=== PATIENT | male | born 1950 | race Caucasian/White ===

== ENCOUNTER 2016-07-22 07:08 | Inpatient (IN) | payer MEDICARE ==
--- NOTE | 2016-07-14 17:55 | HP ---
HISTORY AND PHYSICAL: DATE OF ADMISSION/SURGERY: 07/22/16 DATE OF OFFICE VISIT: 07/14/16 SURGEON: Madai Bearden MD (DICTATED BY SADIE MANRIQUE) PROCEDURE: Right total hip arthroplasty. CHIEF COMPLAINT: Right hip pain. HISTORY OF PRESENT ILLNESS: Mr. Guidry is a 65-year-old gentleman with complaints of right hip pain secondary to advanced osteoarthritis. He has failed conservative management and has elected to proceed with a right total hip arthroplasty. PAST MEDICAL HISTORY: 1. Hypertension. 2. Escobedo's esophagus. 3. BPH. 4. High cholesterol. 5. Depression. 6. GERD. 7. Sleep apnea. 8. Obesity. 9. Emphysema. PAST SURGICAL HISTORY: Hakan fundoplication, hernia repair, deviated septum surgery. CURRENT MEDICATIONS: 1. Zaroxolyn 2.5 mg. 2. Symbicort 80/12.5 mcg/ACT 2 puffs twice daily. 3. Ventolin HFA. 4. Furosemide 40 mg. 5. Metoprolol 50 mg once a day. 6. Proscar 5 mg once a day. 7. Lorazepam 1 mg twice daily. 8. Morphine sulfate 30 mg every 8 hours. 9. Tamsulosin 0.4 mg twice q.h.s. 10. Aspirin 81 mg daily. 11. Sumatriptan 100 mg once a day as needed. ALLERGIES: OXYCODONE which causes a rash. FAMILY HISTORY: Diabetes, congestive heart failure. SOCIAL HISTORY: He is a 65-year-old gentleman. He lives with his . He continues to smoke, he says, occasionally. He denies use of drugs. He uses occasional alcohol as well. REVIEW OF SYSTEMS: A complete 14-point review of systems was reviewed with the patient and was all negative or noncontributory. PHYSICAL EXAMINATION GENERAL: He is a 65-year-old obese male in no acute distress. VITAL SIGNS: He stand 5 feet 8 inches tall, weighs 270 pounds. His blood pressure is 145/82, his heart rate is 80. HEENT: Normocephalic, atraumatic. NECK: Supple. No palpable lymph nodes. Trachea is midline. CARDIO: Regular rate and rhythm. PULMONARY: The lungs are clear to auscultation bilaterally. ABDOMEN: Soft, nontender, and nondistended. NEUROLOGIC: He is alert and oriented x3. Cranial nerves II through XII are intact. MUSCULOSKELETAL: Right lower extremity the skin is intact. There are no open wounds or abrasions. He has limited range of motion with internal and external rotation of his right hip. He walks with antalgic-type gait, favoring his right leg. His lower extremity muscle group strengths are intact at 5/5. He has 2+ dorsalis pedis pulses and intact sensation. ASSESSMENT AND PLAN: Mr. Guidry is a 65-year-old gentleman with complaints of right hip pain secondary to advanced osteoarthritis. He has failed conservative management and has elected to proceed with a right total hip arthroplasty. The surgery is scheduled for 07/22/[address] Bearden. Coumadin was sent to his pharmacy for postoperative DVT prophylaxis. He will follow with Dr. Bearden 2 weeks after the surgery. SADIE MANRIQUE [id number]/[facility] #: [id number] JAYCE
[~2016-07-22 07:08] MED LIST: Famotidine IV* 10 MG/ML 2 ML (20 mg) IV ONE; Levalbuterol 0.63MG/3ML NEB INH ONE; Metoclopramide TAB* 10 MG PO ONE
[2016-07-22] MEDS ORDERED: Famotidine IV* 10 MG/ML 2 ML (20 mg) ONE (07:21)
[2016-07-22] MEDS ORDERED: ceFAZolin 2 GM PREMIX(*) 2 GM/50 ML BAG IVPB ONE (07:22)
[2016-07-22] MEDS ORDERED: Metoclopramide TAB* 10 MG ONE (07:22)
[2016-07-22] MEDS ORDERED: Levalbuterol 1.25MG/0.5ML NEB ONE ×3 (07:22→12:47)
[2016-07-22] MEDS ORDERED: Phenylephrine INJ* 10 MG/ML 1 ML VIAL (10 MG) ONE (07:59)
[2016-07-22] MEDS ORDERED: EPHEDrine (Pressors)* 50 MG/ML VIAL ONE (07:59)
[2016-07-22] MEDS ORDERED: Lidocaine 2% PF * 5 ML VIAL ONE (07:59)
[2016-07-22] MEDS ORDERED: Dexamethasone IV* 4 MG/ML 1 ML (4 MG) ONE (07:59)
[2016-07-22] MEDS ORDERED: Ketorolac INJ* 30 MG/ML 1 ML VIAL ONE (07:59)
[2016-07-22] MEDS ORDERED: fentaNYL* 50 MCG/ML 5 ML VIAL (250 MCG VIAL) ONE ×2 (07:59→10:57)
[2016-07-22] MEDS ORDERED: Ondansetron INJ* 2 MG/ML VIAL ONE (07:59)
[2016-07-22] MEDS ORDERED: Cisatracurium* 2 MG/ML MDV 5 ML ONE (07:59)
[2016-07-22] MEDS ORDERED: Propofol* 10 MG/ML 20 ML BTL IV PUSH ONE (07:59)
[2016-07-22] MEDS ORDERED: Midazolam* 1 MG/ML 5 ML VIAL (5 MG) ONE (08:00)
[2016-07-22] MEDS ORDERED: KETAMINE HCL* 50 MG/ML 10 ML VIAL ONE (08:00)
[2016-07-22] MEDS ORDERED: ceFAZolin 1 GM in Dextrose (*) 1 GM/50 ML BAG IVPB ONE (08:35)
[2016-07-22] MEDS ORDERED: Bupivacaine 0.5% SDV PF* 30 ML VIAL ONE (08:44)
[2016-07-22] MEDS ORDERED: Acetaminophen TAB* 325 MG PO PRN (10:46)
[2016-07-22] MEDS ORDERED: diPHENhydraMINE PO* 25 MG PO PRN (10:46)
[2016-07-22] MEDS ORDERED: Magnesium Hydroxide LIQ* 30 ML UDC PO PRN (10:46)
[2016-07-22] MEDS ORDERED: Morphine INJ* 2 MG/ML 1 ML SYRINGE IV PRN (10:46)
[2016-07-22] MEDS ORDERED: Ondansetron INJ* 2 MG/ML VIAL IV PRN ×2 (10:46→12:13)
[2016-07-22] MEDS ORDERED: Bisacodyl SUPP* 10 MG SUPP PR PRN (10:46)
[2016-07-22] MEDS ORDERED: Albuterol HFA INHALER* 8 gm MDI INH PRN (11:05)
[2016-07-22] MEDS ORDERED: Metolazone TAB* 5 MG PO PRN (11:05)
[2016-07-22] MEDS ORDERED: Morphine TAB Extended Release (*) 15 MG TAB.ER PO PRN (11:05)
[2016-07-22] MEDS ORDERED: LORazepam TAB(*) 1 MG PO PRN (11:05)
[2016-07-22] MEDS ORDERED: Levalbuterol HFA INHALER* 1 PUFF MDI ONE (11:34)
[2016-07-22] MEDS ORDERED: Phenylephrine IV* 40 MCG/ML 10 ML SYRINGE ONE (11:45)
[2016-07-22] MEDS ORDERED: HYDROmorphone* 1 MG/ML 1 ML SYR ONE (11:59)
--- NOTE | 2016-07-22 12:04 | RAD ---
INDICATION: Operative control film for sizing COMPARISON: None TECHNIQUE: A portable crosstable lateral AP view of the right hemipelvis is submitted FINDINGS: There is initiation of right hip suggesting. The femoral component is placed for sizing and the acetabular component has been placed. IMPRESSION: INTRAOPERATIVE CONTROL FILMS ARE SUBMITTED.
[2016-07-22] MEDS ORDERED: Levalbuterol 0.63MG/3ML NEB INH PRN (12:13)
[2016-07-22] MEDS ORDERED: HYDROmorphone* 1 MG/ML 1 ML SYR IV PRN (12:13)
[2016-07-22] MEDS ORDERED: fentaNYL* 50 MCG/ML 2 ML VIAL (100 MCG VIAL) ONE ×2 (12:19→13:33)
[2016-07-22] MEDS ORDERED: Furosemide IV* 10 MG/ML 2 ML VIAL (20 MG) ONE (13:00)
[2016-07-22] MEDS: fentaNYL* 50 MCG/ML 2 ML VIAL (100 MCG VIAL) IV PRN ×2 (13:37→13:51)
[2016-07-22] MEDS ORDERED: Morphine TAB Extended Release (*) 30 MG TAB.ER PO SCH (14:00)
--- NOTE | 2016-07-22 14:02 | RAD ---
INDICATION: Right total hip arthroplasty COMPARISON: Right hip June 28, 2016 TECHNIQUE: Portable AP and crosstable lateral imaging was performed FINDINGS: There is completion of right hip arthroplasty. Both femoral and acetabular components appear well seated.
[2016-07-22] MEDS: Ketorolac INJ* 30 MG/ML 1 ML VIAL IV PUSH PRN ×2 (14:37→21:34)
[2016-07-22] MEDS ORDERED: SUMAtriptan TAB* 100 MG PO ONE (16:29)
[2016-07-22] MEDS ORDERED: Warfarin TAB(*) 6 MG PO ONE (17:00)
[2016-07-22] MEDS: ceFAZolin VIAL(*) 1 GM in NS 0.9% 50 ML* 50 ML IVPB SCH ×2 (17:19→23:55)
[2016-07-22] MEDS: Morphine INJ* 4 MG/ML 1 ML SYRINGE IV PRN ×2 (19:50→23:55)
[2016-07-22] MEDS ORDERED: SUMAtriptan TAB* 100 MG PO SCH (21:00)
[2016-07-22] MEDS: Docusate CAP* 100 MG PO SCH (21:35)
[2016-07-22] MEDS: Mometasone/Formoter 200/5 MDI INH SCH (21:43)
--- NOTE | 2016-07-22 22:41 | CONS ---
CONSULTATION REPORT: DATE OF CONSULT: 07/22/16 SERVICE REQUESTING CONSULTATION: Orthopedics/Dr. Bearden.* REASON FOR CONSULTATION: Co-medical management. HISTORY OBTAINED: From discussion with the patient, review of past medical records, and discussed with anesthesiologist. RELIABILITY: Fair from the patient, and excellent from records and discussion with other colleagues. HISTORY OF PRESENT ILLNESS: This is a 65-year-old gentleman with past medical history of obstructive sleep apnea, prescribed CPAP, intermittently compliant, obesity, COPD, systolic CHF, chronic pain, and advanced osteoarthritis, failed conservative management for his pain, underwent a right total hip arthroplasty with Dr. Bearden, 07/22/16 without complications. The patient was noted to be a little more "oozy" during the procedure, thought to lost about 600 cc of blood. There were no complications during the procedure. However, it was preplanned for the patient to be monitored in the ICU secondary to previous concern of his respiratory status, status post the procedure. Of note, the procedure was previously planned; however, canceled prior to the procedure in July 2015 after he was found to be short of breath and wheezy prior to the procedure. Of note, at that time he was not compliant with his Lasix. He was also noted to be drinking at least 5 to 6 beers per day. He was placed on BiPAP at that time, pressures / transitioned to CPAP / with O2 supplementation with good result. He was seen in the PACU after the procedure today, was still quite lethargic, able to indicate where he was and the year. However, still experiences significant pain in his right hip status post procedure. He did receive 75 mcg of fentanyl prior to my arrival with notable apnea, respiratory rate of 10 while on CPAP. Otherwise, all vital signs are regular. Of norm, were within normal limits. Of note, the patient is intermittently compliant with his medications and his CPAP. REVIEW OF SYSTEMS: Difficult to obtain secondary to the patient's lethargy. PAST MEDICAL HISTORY: Includes hypertension, BPH, hyperlipidemia, depression, GERD, CHANDU, intermittently compliant with CPAP, obesity, COPD, headache, chronic lower back pain, systolic CHF, inguinal hernia repair, umbilical hernia repair, and Hakan fundoplication. HOME MEDICATIONS: Reviewed from the patient's admission history and physical. 1. Zaroxolyn 2.5 mg daily. 2. Symbicort 80/12.5 mcg 2 puffs twice daily. 3. Ventolin HFA. 4. Lasix 40 mg daily. 5. Metoprolol 50 mg daily. 6. Proscar 5 mg daily. 7. Lorazepam 1 mg twice daily. 8. Morphine sulfate 30 mg every 8 hours as needed. 9. Tamsulosin 0.4 mg in the evening. 10. Aspirin 81 mg daily. 11. Sumatriptan 100 mg once daily as needed. ALLERGIES: OXYCODONE, although it is noted that he takes MORPHINE daily. FAMILY HISTORY: Mother with diabetes and father with bipolar disorder. SOCIAL HISTORY: Former tobacco 35 to 40 years, drinks daily. PHYSICAL EXAM: Vitals in the PACU, blood pressure 150/89, heart rate 78, and respiratory rate is 10. He is 95% on FiO2 of 30, T-max 98.1. General: An obese man, sitting up, 60 degrees in bed on BIPAP. No apparent distress. HEENT : Oropharynx is clear. Dry mucous membranes. Neck: Non-elevated JVD. Cardiac : Regular rate and rhythm without murmurs, rubs, or gallops. Lungs: Clear on inspiration, has prolonged end-expiratory phase. Abdomen: Soft, nontender, and nondistended. Extremities: Warm and well perfused without clubbing, cyanosis, or edema. He is significantly tender on both legs and the hip region. Neurologic: He is alert and oriented x3. DIAGNOSTIC STUDIES/LAB DATA: No labs to review. ASSESSMENT AND PLAN: This is a 65-year-old man with past medical history as outlined above including hypertension, obesity, chronic obstructive pulmonary disease, obstructive sleep apnea, chronic pain, systolic heart failure, medication nonadherence, and status post right total hip with Dr. Bearden on 07/22. 1. Postop day 0: Management of hip and DVT prophylaxis per primary team. 2. Chronic obstructive pulmonary disease: Continue home medications including Symbicort as well as nebulizers. 3. Congestive heart failure: Received Lasix 10 mg IV intraop. Continue Lasix 40 mg as already been ordered in addition to metolazone. 4. Hypertension: Continue metoprolol daily. 5. Obstructive sleep apnea: Continue CPAP postop and while at sleep. 6. Benign prostatic hyperplasia: Continue home medications as I already ordered. 7. DVT prophylaxis: Lovenox and Coumadin ordered by primary team. We will continue to follow. Thank you for this consultation. [id number]/[facility] #: [id number] JAYCE
--- NOTE | 2016-07-23 01:56 | OP ---
OPERATIVE REPORT: DATE OF OPERATION: 07/22/16 - inpatient, room #337-01 DATE OF : 46 SURGEON: Madai Bearden MD VASCULAR TECHNOLOGIST SONOGRAPHER: SADIE Nunn This bilingual sales assistant was utilized throughout the procedure for preparation of the leg , wound retraction, manipulation of the hip, and wound closure. ANESTHESIOLOGIST: Dr. Tolbert. ANESTHESIA: General. PRE-OP DIAGNOSIS: Severe end-stage degenerative osteoarthritis of the right hip joint. POST-OP DIAGNOSIS: Severe end-stage degenerative osteoarthritis of the right hip joint. OPERATIVE PROCEDURE: Right total hip arthroplasty with a morbid obesity modifier. COMPLICATIONS: None. ESTIMATED BLOOD LOSS: 600 cc. SPECIMEN: Femoral head and acetabular reaming sent to pathology. HARDWARE USED: This is uncemented Carley total hip hardware. For the acetabulum, a 56-mm Tritanium cluster hole shell 56E. Two screws were used for extra stability, a 20 mm and a 25 mm. The MDM cementless liner used was a 42E. For the femur, an Accolade TMZF, size 3.5 with a 127-degree neck angle was used. A ceramic Biolox delta 28 -4 was used with a Cheondoism ADM/MDM X3 insert 28/48/42E. BRIEF HISTORY/INDICATIONS: Mr. Guidry is a 65-year-old gentleman with severe end- stage arthritis of the right hip joint. He failed conservative treatment over the years with anti-inflammatories, pain medications, intraarticular injections, and physical therapy. He elected to undergo right total hip arthroplasty due to continued pain and decreased quality of life. Informed consent was obtained from the patient. He understood the risks of the surgery included, but were not limited to bleeding, infection, damage to nearby structures, continued pain, need for further surgery, intraoperative fracture, nerve palsy, hardware failure or loosening, dislocation, leg length discrepancy , stroke, heart attack, blood clot, and . He wished to proceed. INTRAOPERATIVE FINDINGS: Intraoperatively, the patient was noted to have severe end-stage arthritis with complete loss of cartilage along the femoral head and entire acetabulum. He had extensive osteophyte formation. Morbidly obese body habitus did add considerable time spent and increased the complexity of exposure and manipulation of the hip. DESCRIPTION OF PROCEDURE: Mr. Guidry was identified in the preanesthesia unit. His right lower extremity was marked as the correct operative side. Informed consent was signed and placed in the chart. The patient was taken to the operating room and placed under general anesthesia. A Gonzalez catheter was placed. The patient was placed in the left lateral decubitus position on the peg board with all bony prominences well padded. Right lower extremity was prepped and draped in the usual sterile fashion. Preop time-out was made to correctly identify the patient's side and site. Appropriate perioperative antibiotics were given within 1 hour of incision. A 14-cm posterior incision was made with a 10 blade and carried down to the lateral fascial layer. A new 10-blade was used to incise the lateral fascial layer in line with the skin incision. A deep Charnley retractor was placed due to the patient's obesity. Posterior aspect of the hip joint was difficult to visualize. Careful dissection was carried out. A single layer flap was carefully made with electrocautery running along the posterolateral femur for safety. The soft tissue flap was carefully elevated with electrocautery and tagged with #5 Ethibonds. The posterior hip joint was now visible. The hip was carefully dislocated. Lesser trochanter to the center of the femoral head measured 50 mm. Oscillating saw was used to make the appropriate femoral neck cut and the femoral head was sent to pathology. The femur was carefully retracted anteriorly. This was made difficult throughout because of the patient's morbid obesity. After appropriate retractor placement, the acetabulum was visualized. A long-handled knife was used to remove any remaining labrum from the acetabular rim. The acetabulum was sequentially reamed up to a size 55. A good bleeding bone bed was obtained. A 55 trial had excellent stability and appropriate anteversion/ abduction angle. A 56 Tritanium cluster hole shell was chosen as the final implant. This was impacted into the acetabulum without difficulty. There was good stability of the cut. There was appropriate anteversion and abduction angle. Two screws were placed in the superior posterior quadrant for extra stability. These were length 20 and 25 mm. MDM cementless liner was chosen, 42E. This was impacted into the acetabulum without difficulty. Next, attention was turned to preparation of the proximal femur. Once again, presentation of the proximal femur was made difficult by his morbid obesity. After appropriate placement of retractors, the proximal femur was visualized. Soft tissue was cleared from the piriformis fossa. The canal finder was used to enter the proximal femur. The femoral canal was sequentially broached up to a size 3.5. The 3.5 broach had good fit. A 127-degree neck trial with a 28 +0 as well as 28/48 insert trial was placed. Lesser troch to the center of the femoral head measured 55 mm. Therefore, the -4 head was chosen. Lesser troch to the center of the femoral head measured 50 mm and this was more appropriate for leg length. The hip was reduced and taken through a range of motion. The hip was stable in all positions. Good soft-tissue tension and appropriate leg length. The hip was carefully dislocated. All trials were carefully released. Final implant chosen was an Accolade TMZF size 3.5 with a 127-degree neck. This was impacted into the femoral canal without difficulty. There was good stability and appropriate anteversion. A 28 -4 ceramic Biolox delta V40 femoral head was chosen as well as the ADM/MDM X3 insert 28/48/42E. This was impacted on to the femoral neck without difficulty. The hip was reduced and taken through a range of motion. The hip was extremely stable in all positions. The hip was copiously irrigated with sterile saline. The previously tagged capsule and tendons were reapproximated to the posterolateral femur through trochanteric drill holes. The lateral fascial layer was approximated using interrupted #1 Vicryls. The rest of the incision was closed in a layered fashion using 0 and 2-0 Vicryls. Skin was closed using running 3-0 Monocryl and Dermabond. Sterile Adaptic 4 x 4 and paper tapes were used to cover the incision. The patient was placed on his back and leg length was appropriate. Anesthesia was reversed without difficulty. He was taken to the PACU in stable condition. Due to the patient's COPD and comorbidities, he will be monitored in the ICU overnight. Intended weightbearing will be weightbearing as tolerated with posterior hip precautions. Intended DVT prophylaxis will be Coumadin with a Lovenox bridge. [id number]/[facility] #: [id number] JAYCE
[2016-07-23] MEDS: Ketorolac INJ* 30 MG/ML 1 ML VIAL IV PUSH PRN ×3 (03:55→18:53)
[2016-07-23] MEDS: Morphine INJ* 4 MG/ML 1 ML SYRINGE IV PRN ×2 (03:58→07:43)
[2016-07-23 06:26] LABS: Hematocrit 32 % (42-52); Hemoglobin 11.1 g/dl (14.0-18.0)
[2016-07-23 06:29] LABS: BUN/Creatinine Ratio 28.2 (8-20); Calcium 7.8 mg/dL (8.6-10.3); EGFR African American 142.3 (>60); EGFR Non-African American 110.7 (>60); Potassium 3.8 mmol/L (3.5-5.0)
[2016-07-23] MEDS: Tamsulosin CAP* 0.4 MG PO SCH (07:41)
[2016-07-23] MEDS: Docusate CAP* 100 MG PO SCH ×2 (07:42→21:12)
[2016-07-23] MEDS: Metolazone TAB* 5 MG PO SCH (07:42)
[2016-07-23] MEDS: Vitamin THERAPEUTIC TAB PO SCH (07:43)
[2016-07-23] MEDS: ceFAZolin VIAL(*) 1 GM in NS 0.9% 50 ML* 50 ML IVPB SCH (07:43)
[2016-07-23] MEDS: Metoprolol Succinate XL TAB* 50 MG PO SCH (07:43)
[2016-07-23] MEDS: Furosemide TAB* 40 MG PO SCH (07:43)
[2016-07-23] MEDS: Finasteride TAB* 5 MG PO SCH (07:43)
[2016-07-23] MEDS: Mometasone/Formoter 200/5 MDI INH SCH ×2 (07:43→20:28)
--- NOTE | 2016-07-23 08:17 | PN ---
Progress Note - Progress Note SOAP: Subjective: 65 y/o male s/p R YARELY with Dr Bearden 07/22. Procedure uncomplicated, mild increased blood loss, patient planned to go to ICU for recover d/t CHF, respiratory concerns. Patient sitting in chair, responsive to questions, states pain better with OOB, controlled well with morphine 4mg IV overnight. Objective: General- Well appearing, sitting in chair MSK- Surgical dressing in tact, no drainage erythema noted around bandage, + DF/ PF, PT 2+ b/l, neg homans b/l. Vital Signs Temp 98.4 F 07/23/16 07:37 Pulse 81 07/23/16 08:00 Resp 15 07/23/16 08:00 BP 138/68 07/23/16 08:00 Pulse Ox 99 07/23/16 08:00 Intake & Output 07/22/16 07/23/16 07/23/16 18:59 06:59 18:59 Intake Total 2700 1313 Output Total 850 1000 Balance 1850 313 Weight 123 lb 11.2 oz 268 lb 15.423 oz Intake: IV Fluids 2700 609 3 GM CEFAZOLIN 100 LR 2600 609 IVPB 104 LR 104 Oral 600 Output: Gonzalez 250 1000 Estimated Blood Loss 600 Laboratory Results - last 24 hr 07/23/16 07/23/16 07/23/16 06:00 06:00 06:00 Hgb 11.1 L Hct 32 L INR (Anticoag Therapy) 1.14 H Sodium 136 Potassium 3.8 Chloride 104 Carbon Dioxide 24 Anion Gap 8 BUN 20 Creatinine 0.71 Est GFR ( Amer) 142.3 Est GFR (Non-Af Amer) 110.7 BUN/Creatinine Ratio 28.2 H Glucose 156 H Calcium 7.8 L Assessment: 65 y/o male s/p R YARELY with Dr Bearden 07/22. Plan: - DVT prophylaxis- Coumadin 6mg tonight, continue lovenox - Continue PT - Change pain regimen- Patient placed back on at home pain regimen of MS Contin 30 TID and Morphine 15 QID PRN. Lorazepam decreased to 0.5 mg TID PRN. Morphine 2mg IV q3h for breakthrough pain. - Transfer to [facility] floor. - Continue CPAP overnight. Pulse ox overnight Active Medications Generic Name Dose Route Start Last Admin Trade Name Freq PRN Reason Stop Dose Admin Acetaminophen 650 mg 07/22/16 10:46 Tylenol Tab* PO Q4H PRN TEMP > 100 or PAIN Albuterol 2 puff 07/22/16 11:05 Ventolin Hfa Inhaler* INH Q4H PRN SOB/WHEEZING Bisacodyl 10 mg 07/22/16 10:46 Dulcolax Supp* WI DAILY PRN constipation Diphenhydramine HCl 25 mg 07/22/16 10:46 Benadryl Po* PO Q6H PRN itching Docusate Sodium 100 mg 07/22/16 21:00 07/23/16 07:42 Colace Cap* PO 100 mg BID WILLOW Administration Enoxaparin Sodium 40 mg 07/23/16 11:00 Lovenox(*) SUBCUT Q24H WILLOW Finasteride 5 mg 07/23/16 09:00 07/23/16 07:43 Proscar Tab* PO 5 mg QAM WILLOW Administration Furosemide 40 mg 07/23/16 09:00 07/23/16 07:43 Lasix Tab* PO 40 mg QAM WILLOW Administration Lactated Ringer's 1,000 mls @ 100 mls/hr 07/22/16 11:00 07/22/16 14:19 Lactated Ringers 1000 Ml Bag* IV 100 mls/hr PER RATE WILLOW Administration Ketorolac Tromethamine 30 mg 07/22/16 14:14 07/23/16 03:55 Toradol Inj* IV PUSH 30 mg Q6H PRN Administration PAIN Lorazepam 0.5 mg 07/23/16 14:00 Ativan Tab(*) PO TID WILLOW Magnesium Hydroxide 30 ml 07/22/16 10:46 Milk Of Magnesia Liq* PO Q6H PRN constipation Metolazone 2.5 mg 07/23/16 09:00 07/23/16 07:42 Zaroxolyn Tab* PO 2.5 mg QAM WILLOW Administration Metoprolol Succinate 50 mg 07/23/16 09:00 07/23/16 07:43 Toprol Xl Tab* PO 50 mg QAM WILLOW Administration Mometasone Furoate/Formoterol Fumar 1 puff 07/22/16 21:00 07/23/16 07:43 Dulera 200/5 Mdi* INH 1 puff BID WILLOW Administration Protocol Morphine Sulfate 15 mg 07/23/16 10:08 Morphine Oral.Soln 10 Mg* PO Q6H PRN pain Morphine Sulfate 30 mg 07/23/16 11:00 Ms Contin(*) PO Q8H [facility] Morphine Sulfate 2 mg 07/23/16 10:11 Morphine Inj (Syringe)* IV Q3H PRN PAIN Multivitamins 1 tab 07/23/16 09:00 07/23/16 07:43 Theragran Tab* PO 1 tab DAILY [facility] Administration Ondansetron HCl 4 mg 07/22/16 10:46 Zofran Inj* IV Q6H PRN nausea Pharmacy Profile Note 1 note 07/22/16 17:00 07/22/16 20:03 Coumadin Daily Reminder* FOLLOW UP Not Given 1700 [facility] Tamsulosin HCl 0.8 mg 07/23/16 09:00 07/23/16 07:41 Flomax Cap* PO 0.8 mg QAM WILLOW Administration Warfarin Sodium 6 mg 07/23/16 17:00 Coumadin Tab(*) PO DAILY@1700 [facility] Protocol
[2016-07-23] MEDS: Morphine TAB Extended Release (*) 30 MG TAB.ER PO SCH ×2 (10:49→18:34)
[2016-07-23] MEDS ORDERED: Enoxaparin(*) 40 MG/0.4 ML SYR SUBCUT SCH (11:00)
--- NOTE | 2016-07-23 14:35 | CONSULT ---
Subjective Date of Service: 07/23/16 Interval History: Seen and examined with at bedside pain well controlled out of chair today and worked with PT Had BENÍTEZ yesterday resolved with triptan Review of Systems - Measurements Intake and Output: Intake and Output Last 24 Hours 07/21/16 07/22/16 07/23/16 07/24/16 11:59 11:59 11:59 11:59 Intake Total 100 3913 600 Output Total 1850 Balance 100 2063 600 Weight 120.202 kg 122 kg Intake: IV Fluids 100 3209 3 GM CEFAZOLIN 100 LR 3209 IVPB 104 LR 104 Oral 600 600 Output: Munguia 1250 Estimated Blood Loss 600 Objective Active Medications: Acetaminophen (Tylenol Tab*) 650 mg PO Q4H PRN PRN Reason: TEMP > 100 or PAIN Albuterol (Ventolin Hfa Inhaler*) 2 puff INH Q4H PRN PRN Reason: SOB/WHEEZING Bisacodyl (Dulcolax Supp*) 10 mg ID DAILY PRN PRN Reason: constipation Diphenhydramine HCl (Benadryl Po*) 25 mg PO Q6H PRN PRN Reason: itching Docusate Sodium (Colace Cap*) 100 mg PO BID [facility] Last Admin: 07/23/16 07:42 Dose: 100 mg Enoxaparin Sodium (Lovenox(*)) 40 mg SUBCUT Q24H [facility] Last Admin: 07/23/16 10:49 Dose: 40 mg Finasteride (Proscar Tab*) 5 mg PO QAM [facility] Last Admin: 07/23/16 07:43 Dose: 5 mg Furosemide (Lasix Tab*) 40 mg PO QAM [facility] Last Admin: 07/23/16 07:43 Dose: 40 mg Lactated Ringer's (Lactated Ringers 1000 Ml Bag*) 1,000 mls @ 100 mls/hr IV PER RATE [facility] Last Admin: 07/22/16 14:19 Dose: 100 mls/hr Ketorolac Tromethamine (Toradol Inj*) 30 mg IV PUSH Q6H PRN PRN Reason: PAIN Last Admin: 07/23/16 12:14 Dose: 30 mg Lorazepam (Ativan Tab(*)) 0.5 mg PO TID [facility] Magnesium Hydroxide (Milk Of Magnesia Liq*) 30 ml PO Q6H PRN PRN Reason: constipation Metolazone (Zaroxolyn Tab*) 2.5 mg PO QAM [facility] Last Admin: 07/23/16 07:42 Dose: 2.5 mg Metoprolol Succinate (Toprol Xl Tab*) 50 mg PO QAM [facility] Last Admin: 07/23/16 07:43 Dose: 50 mg Mometasone Furoate/Formoterol Fumar (Dulera 200/5 Mdi*) 1 puff INH BID [facility] PRN Reason: Protocol Last Admin: 07/23/16 07:43 Dose: 1 puff Morphine Sulfate (Morphine Oral.Soln 10 Mg*) 15 mg PO Q6H PRN PRN Reason: pain Morphine Sulfate (Ms Contin(*)) 30 mg PO Q8H [facility] Last Admin: 07/23/16 10:49 Dose: 30 mg Morphine Sulfate (Morphine Inj (Syringe)*) 2 mg IV Q3H PRN PRN Reason: PAIN Multivitamins (Theragran Tab*) 1 tab PO DAILY [facility] Last Admin: 07/23/16 07:43 Dose: 1 tab Ondansetron HCl (Zofran Inj*) 4 mg IV Q6H PRN PRN Reason: nausea Pharmacy Profile Note (Coumadin Daily Reminder*) 1 note FOLLOW UP 1700 [facility] Last Admin: 07/22/16 20:03 Dose: Not Given Tamsulosin HCl (Flomax Cap*) [facility] [place] [facility] Last Admin: 07/23/16 07:41 Dose: 0.8 mg Warfarin Sodium (Coumadin Tab(*)) 6 mg PO DAILY@1700 [facility] PRN Reason: Protocol Vital Signs 07/22/16 07/22/16 07/22/16 14:45 15:00 15:15 Temperature Pulse Rate 75 77 79 Respiratory 16 19 18 Rate Blood Pressure 124/76 141/59 116/94 (mmHg) O2 Sat by Pulse 95 95 96 Oximetry 07/22/16 07/22/16 07/22/16 15:30 15:45 15:46 Temperature 98.2 F Pulse Rate 75 77 Respiratory 13 20 Rate Blood Pressure 125/68 98/74 (mmHg) O2 Sat by Pulse 96 96 Oximetry 07/22/16 07/22/16 07/22/16 16:00 16:15 16:30 Temperature Pulse Rate 73 76 77 Respiratory 12 11 14 Rate Blood Pressure 123/77 139/73 140/74 (mmHg) O2 Sat by Pulse 98 95 97 Oximetry 07/22/16 07/22/16 07/22/16 16:45 17:00 17:15 Temperature Pulse Rate 75 75 84 Respiratory 13 17 17 Rate Blood Pressure 121/99 133/86 131/76 (mmHg) O2 Sat by Pulse 96 95 87 Oximetry 07/22/16 07/22/16 07/22/16 17:30 17:43 17:45 Temperature Pulse Rate 78 78 Respiratory 19 16 16 Rate Blood Pressure 129/95 137/82 (mmHg) O2 Sat by Pulse 99 92 Oximetry 07/22/16 07/22/16 07/22/16 18:00 18:15 18:30 Temperature Pulse Rate 72 79 Respiratory 14 18 Rate Blood Pressure 122/71 153/93 146/82 (mmHg) O2 Sat by Pulse 91 96 Oximetry 07/22/16 07/22/16 07/22/16 18:45 19:00 19:15 Temperature Pulse Rate 79 103 80 Respiratory 21 24 22 Rate Blood Pressure 151/87 154/86 141/73 (mmHg) O2 Sat by Pulse 96 84 94 Oximetry 07/22/16 07/22/16 07/22/16 19:30 19:45 19:50 Temperature Pulse Rate 81 79 Respiratory 19 19 20 Rate Blood Pressure 127/63 128/66 (mmHg) O2 Sat by Pulse 94 91 Oximetry 07/22/16 07/22/16 07/22/16 20:00 21:00 21:34 Temperature 98.7 F Pulse Rate 82 80 Respiratory 19 24 16 Rate Blood Pressure 141/83 139/82 (mmHg) O2 Sat by Pulse 92 91 Oximetry 07/22/16 07/22/16 07/22/16 22:00 23:00 23:23 Temperature 98.1 F Pulse Rate 82 82 Respiratory 18 14 Rate Blood Pressure 117/65 120/80 (mmHg) O2 Sat by Pulse 92 88 Oximetry 07/22/16 07/22/16 07/23/16 23:25 23:55 00:00 Temperature Pulse Rate 78 80 Respiratory 19 22 19 Rate Blood Pressure (mmHg) O2 Sat by Pulse 94 96 Oximetry 07/23/16 07/23/16 07/23/16 00:01 01:00 02:00 Temperature Pulse Rate 81 81 78 Respiratory 20 19 16 Rate Blood Pressure 127/74 119/66 107/68 (mmHg) O2 Sat by Pulse 94 91 88 Oximetry 07/23/16 07/23/16 07/23/16 03:00 03:58 04:00 Temperature Pulse Rate 74 83 Respiratory 20 20 22 Rate Blood Pressure 126/60 136/92 (mmHg) O2 Sat by Pulse 97 98 Oximetry 07/23/16 07/23/16 07/23/16 05:00 06:00 07:00 Temperature Pulse Rate 78 77 83 Respiratory 19 23 18 Rate Blood Pressure 112/60 111/65 122/79 (mmHg) O2 Sat by Pulse 97 95 96 Oximetry 07/23/16 07/23/16 07/23/16 07:37 07:43 08:00 Temperature 98.4 F Pulse Rate 81 Respiratory 16 13 Rate Blood Pressure 138/68 (mmHg) O2 Sat by Pulse 99 Oximetry 07/23/16 07/23/16 07/23/16 09:00 10:00 11:00 Temperature Pulse Rate 87 92 90 Respiratory 21 26 19 Rate Blood Pressure 155/72 143/77 132/74 (mmHg) O2 Sat by Pulse 93 92 93 Oximetry 07/23/16 07/23/16 11:30 13:49 Temperature 97.4 F Pulse Rate 85 Respiratory 18 18 Rate Blood Pressure 106/59 (mmHg) O2 Sat by Pulse 92 Oximetry Oxygen Devices in Use Now: None Appearance: NAD Eyes: No Scleral Icterus, PERRLA Ears/Nose/Mouth/Throat: Clear Oropharnyx, Mucous Membranes Moist Neck: NL Appearance and Movements; NL JVP, Trachea Midline Respiratory: Symmetrical Chest Expansion and Respiratory Effort, Clear to Auscultation Cardiovascular: RRR Abdominal: NL Sounds; No Tenderness; No Distention, No Hepatosplenomegaly Extremities: - - trace LE edema Neurological: Alert and Oriented x 3 Result Diagrams: 07/23/16 06:00 07/23/16 06:00 Assessment/Plan - Billing 65 yo M h/o CHANDU, COPD, BPH, migraine BENÍTEZ, sCHF POD 1 right YARELY 1. POD 1- dvt ppx with lovenox and coumadin. PT. Incentive spirometry teaching with pt and delivered. 2. CHANDU- CPAP to sleep 3. sCHF, chronic compensated. -IVF stopped -c/w lasix and metolazone 4. BPH - removed munguia which was placed for surgery. c.w flomax and finasteride. 5. chronic pain - long and short acting narcotics restarted, Continue with breakthrough IV morphine and ketorolac as need. Will sign off for now Please call with additional questions or concerns [phone]
[2016-07-23] MEDS: Morphine ORAL.SOLN 10 mg* 2 MG/ML UDC 5 ml PO PRN ×2 (14:37→21:16)
[2016-07-23] MEDS: LORazepam TAB(*) 1 MG PO SCH ×2 (14:40→21:12)
[2016-07-23] MEDS: Warfarin TAB(*) 3 MG PO SCH (17:06)
[2016-07-23] MEDS: Morphine INJ* 2 MG/ML 1 ML SYRINGE IV PRN (23:42)
[2016-07-24] MEDS: Ketorolac INJ* 30 MG/ML 1 ML VIAL IV PUSH PRN (01:31)
[2016-07-24] MEDS: Morphine TAB Extended Release (*) 30 MG TAB.ER PO SCH ×2 (03:24→11:03)
[2016-07-24] MEDS: Morphine ORAL.SOLN 10 mg* 2 MG/ML UDC 5 ml PO PRN ×3 (03:31→16:09)
[2016-07-24 07:22] LABS: Hematocrit 31 % (42-52); Hemoglobin 10.8 g/dl (14.0-18.0); Mean Platelet Volume 8 um3 (7.4-10.4)
[2016-07-24] MEDS: Morphine INJ* 2 MG/ML 1 ML SYRINGE IV PRN (07:43)
--- NOTE | 2016-07-24 07:56 | PN ---
Progress Note - Progress Note SOAP: Subjective: Pt. reports doing well with PT. Pain is controlled. Objective: RLE - dressing changed, inc c/i with min ss drainage. distally nvi. thigh soft. Vital Signs: Temp Pulse Resp BP Pulse Ox 98.4 F 70 20 115/70 95 07/24/16 03:28 07/24/16 03:28 07/24/16 07:43 07/24/16 03:28 07/24/16 03:28 Laboratory Results - last 24 hr 07/24/16 07/24/16 07:05 07:05 Hgb 10.8 L Hct 31 L Plt Count 185 MPV 8 INR (Anticoag Therapy) 2.03 H Assessment: 65 yo M pod 2 s/p RTHA Plan: wbat rle- post hip precautions pt/ot d/c lovenox, hold coumadin tonight plan d/c to home this afternoon or tomorrow AM
[2016-07-24] MEDS: Finasteride TAB* 5 MG PO SCH (09:41)
[2016-07-24] MEDS: Vitamin THERAPEUTIC TAB PO SCH (09:41)
[2016-07-24] MEDS: Furosemide TAB* 40 MG PO SCH (09:41)
[2016-07-24] MEDS: Metolazone TAB* 5 MG PO SCH (09:42)
[2016-07-24] MEDS: Tamsulosin CAP* 0.4 MG PO SCH (09:42)
[2016-07-24] MEDS: Docusate CAP* 100 MG PO SCH (09:43)
[2016-07-24] MEDS: LORazepam TAB(*) 1 MG PO SCH ×2 (09:43→14:33)
[2016-07-24] MEDS: Metoprolol Succinate XL TAB* 50 MG PO SCH (09:43)
[2016-07-24] MEDS: Mometasone/Formoter 200/5 MDI INH SCH (09:45)
[2016-07-24 15:33] VITALS: BP 123/64
[2016-07-24] MEDS: Warfarin TAB(*) 3 MG PO SCH (17:29)
== END 2016-07-24 18:15 | disposition home health service (06) | DRG 470 ==
LOC: AA 07:08 → ICU 14:01 → SSU 07-23 11:35
PROVIDERS: ADMIT Orthopaedic Surgery Adult Reconstructive Orthopaedic Surgery; ATTEND Orthopaedic Surgery Adult Reconstructive Orthopaedic Surgery
PROC: 5A09357 Assistance with Respiratory Ventilation, Less than 24 Consecutive Hours, Continuous Positive Airway Pressure (ICD-10-PCS; 2016-07-22)
PROC: 0SR904A Replacement of Right Hip Joint with Ceramic on Polyethylene Synthetic Substitute, Uncemented, Open Approach (ICD-10-PCS; principal; 2016-07-22 09:00)
DX: M16.11 Unilateral primary osteoarthritis, right hip (principal); J44.9 Chronic obstructive pulmonary disease, unspecified; I11.0 Hypertensive heart disease with heart failure; I50.42 Chronic combined systolic (congestive) and diastolic (congestive) heart failure; K21.9 Gastro-esophageal reflux disease without esophagitis; F32.9 Major depressive disorder, single episode, unspecified; E78.00 Pure hypercholesterolemia, unspecified; N40.0 Benign prostatic hyperplasia without lower urinary tract symptoms; K22.70 Barrett's esophagus without dysplasia; Z88.5 Allergy status to narcotic agent; Z83.3 Family history of diabetes mellitus; Z82.49 Family history of ischemic heart disease and other diseases of the circulatory system; G47.33 Obstructive sleep apnea (adult) (pediatric); E66.01 Morbid (severe) obesity due to excess calories; M54.9 Dorsalgia, unspecified; M25.751 Osteophyte, right hip; G89.29 Other chronic pain; G43.909 Migraine, unspecified, not intractable, without status migrainosus; I25.10 Atherosclerotic heart disease of native coronary artery without angina pectoris; Z81.8 Family history of other mental and behavioral disorders; Z87.891 Personal history of nicotine dependence; Z91.14 Patient's other noncompliance with medication regimen; Z68.38 Body mass index [BMI] 38.0-38.9, adult
CPT/HCPCS: 36415; 72170; 80048; 85014; 85018; 85049; 85610; 88304; 88311; 94640; 94660; A9270-GY; J0690; J1100; J1170; J1650; J1885; J1940; J2250; J2270; J2405; J2704; J3010

== ENCOUNTER 2017-07-01 04:09 | Emergency (ER) | payer MEDICARE ==
[2017-07-01 04:15] VITALS: BP 153/99
--- NOTE | 2017-07-01 05:08 | ED ---
Mariano Mendez Thomas, scribed for Ella Jefferson MD on 07/01/17 at 0422 . Complex/Multi-Sys Presentation - HPI Summary HPI Summary: The patient is a 66 year old male brought in by police for a legal blood draw. He is feeling fine and denies any complaints. - History Of Current Complaint Chief Complaint: EDGeneral Time Seen by Provider: 07/01/17 04:18 Hx Obtained From: Patient Severity Currently: None - Allergies/Home Medications Allergies/Adverse Reactions: Allergies Allergy/AdvReac Type Severity Reaction Status Date / Time oxycodone AdvReac Rash Verified 05/09/17 11:33 PMH/Surg Hx/FS Hx/Imm Hx Endocrine/Hematology History: Denies: Hx Anticoagulant Therapy, Hx Diabetes, Hx Thyroid Disease Cardiovascular History: Reports: Hx Congenital Heart Disease, Hx Congestive Heart Failure - ON MED, Hx Coronary Artery Disease, Hx Hypotension, Hx Hypertension Denies: Hx Angina, Hx Hypercholesterolemia, Hx Myocardial Infarction, Hx Pacemaker/ICD Respiratory History: Reports: Hx Chronic Bronchitis, Hx Sleep Apnea Denies: Hx Asthma, Hx Chronic Obstructive Pulmonary Disease (COPD) GI History: Reports: Hx Gastroesophageal Reflux Disease, Hx Hiatal Hernia - HAKAN FUNDOPLICATION, Hx Ulcer - , Other GI Disorders - barretts esophagus History: Reports: Hx Benign Prostatic Hyperplasia, Hx Kidney Stones - NONE IN THE LAST SEVERAL YEARS, Other Problems/Disorders - BPH - ON FLOMAX Denies: Hx Renal Disease Musculoskeletal History: Reports: Hx Arthritis, Hx Back Problems, Other Musculoskeletal History Sensory History: Reports: Hx Contacts or Glasses, Hx Hearing Problem Denies: Hx Hearing Aid Opthamlomology History: Reports: Hx Contacts or Glasses Neurological History: Reports: Hx Headaches - ON MED, Hx Migraine Denies: Hx Dementia, Hx Seizures Comment Only: Other Neuro Impairments/Disorders - PAIN CLINIC PATIENT Psychiatric History: Reports: Hx Anxiety, Hx Depression - on cymbalta for depression Denies: Hx Panic Disorder, Hx Substance Abuse - Surgical History Surgery Procedure, Year, and Place: Hakan fundoplication. Nerve repair. Septoplasty. Inguinal hernia repair Hx Anesthesia Reactions: No Infectious Disease History: No Infectious Disease History: Denies: Hx Hepatitis, Hx Human Immunodeficiency Virus (HIV), Traveled Outside the [place] in Last 30 Days - Family History Known Family History: Negative: Seizure Disorder - Social History Alcohol Use: Occasionally Alcohol Amount: 1-2 drinks per week Substance Use Type: Reports: None Substance Use Comment - Amount & Last Used: morphine Smoking Status (MU): Current Some Day Smoker Type: Cigarettes Amount Used/How Often: 2-3 cigarettes/day Have You Smoked in the Last Year: Yes Review of Systems Negative: Fever Negative: Epistaxis All Other Systems Reviewed And Are Negative: Yes Physical Exam - Summary Physical Exam Summary: VITAL SIGNS: Reviewed. GENERAL: Patient is a well-developed and nourished male who is lying comfortable in the stretcher. Patient is not in any acute respiratory distress. HEAD AND FACE: No signs of trauma. No ecchymosis, hematomas or skull depressions. No sinus tenderness. EYES: PERRLA, EOMI x 2, No injected conjunctiva, no nystagmus. EARS: Hearing grossly intact. Ear canals and tympanic membranes are within normal limits. MOUTH: Oropharynx within normal limits. NECK: Supple, trachea is midline, no adenopathy, no JVD, no carotid bruit, no c- spine tenderness, neck with full ROM. CHEST: Symmetric, no tenderness at palpation LUNGS: Clear to auscultation bilaterally. No wheezing or crackles. CVS: Regular rate and rhythm, S1 and S2 present, no murmurs or gallops appreciated. ABDOMEN: Soft, non-tender. No signs of distention. No rebound no guarding, and no masses palpated. Bowel sounds are normal. EXTREMITIES: FROM in all major joints, no edema, no cyanosis or clubbing. NEURO: Alert and oriented x 3. No acute neurological deficits. Speech is normal and follows commands. SKIN: Dry and warm Triage Information Reviewed: Yes Vital Signs On Initial Exam: Initial Vitals Temp Pulse Resp BP Pulse Ox 96.7 F 82 16 153/99 99 07/01/17 04:13 07/01/17 04:13 07/01/17 04:13 07/01/17 04:13 07/01/17 04:13 Vital Signs Reviewed: Yes Diagnostics - Vital Signs Vital Signs Temp Pulse Resp BP Pulse Ox 07/01/17 04:13 96.7 F 82 16 153/99 99 - Laboratory Lab Statement: Any lab studies that have been ordered have been reviewed, and results considered in the medical decision making process. Complex Multi-Symp Course/Dx Assessment/Plan: The patient is a 66 year old male brought in by police for a legal blood draw. He is feeling fine and denies any complaints. After legal blood draw, the patient is discharged back to police. - Diagnoses Provider Diagnoses: Encounter for blood test Discharge - Sign-Out/Discharge Documenting (check all that apply): Discharge/Admit/Transfer - Discharge Plan Condition: Stable Disposition: LAW ENFORCEMENT/COURT Referrals: Emmanuel Madrigal MD [Primary Care Provider] - If Needed The documentation as recorded by the Mariano sunshine Thomas accurately reflects the service I personally performed and the decisions made by me, Ella Jefferson MD.
== END 2017-07-01 04:22 ==
LOC: ED 04:09
DX: Z04.8 Encounter for examination and observation for other specified reasons (principal); F17.210 Nicotine dependence, cigarettes, uncomplicated; M54.16 Radiculopathy, lumbar region; F41.8 Other specified anxiety disorders; Z79.891 Long term (current) use of opiate analgesic; Z79.899 Other long term (current) drug therapy
CPT/HCPCS: 62323; 72100; 77003; 99281; J1040

== ENCOUNTER 2018-11-21 09:00 | Inpatient (IN) | payer MEDICARE ==
--- NOTE | 2018-12-06 16:22 | HP ---
HISTORY AND PHYSICAL: DATE OF ADMISSION/SURGERY: 12/12/18 DATE OF OFFICE VISIT: 12/04/18 SURGEON: Madai Bearden MD.* (DICTATED BY SADIE MANRIQUE) PROCEDURE: Left total hip arthroplasty. CHIEF COMPLAINT: Left hip pain. HISTORY OF PRESENT ILLNESS: Mr. Guidry is a 68-year-old gentleman with continued complaints of left hip pain. He has failed conservative treatment and elected to proceed with a left total hip arthroplasty. PAST MEDICAL HISTORY: Hypertension, COPD, CHF, diabetes, GERD, anxiety, and chronic pain. PAST SURGICAL HISTORY: Hernia repair, right total hip arthroplasty, Hakan fundoplication, and deviated septum surgery. CURRENT MEDICATIONS: 1. Symbicort. 2. Omeprazole 20 mg a day. 3. Lorazepam 1 mg twice a day as needed. 4. CBD oil. 5. Sertraline 50 mg daily. 6. Lisinopril 5 mg a day. 7. Ventolin inhaler. 8. Metoprolol 50 mg a day. 9. Morphine sulfate ER 30 mg every 8 hours. 10. Morphine sulfate 15 mg every 6 hours. 11. Morphine sulfate ER 15 mg twice a day. 12. Sumatriptan 100 mg 1 tab as needed. 13. Aspirin 81 mg a day. 14. Vitamin D3 and tamsulosin 0.4 mg 2 tabs at bedtime. ALLERGIES: OXYCODONE causing a rash. FAMILY HISTORY: Coronary artery disease, diabetes, and cancer. SOCIAL HISTORY: This 68-year-old gentleman lives with his . He smokes about 10 cigarettes a day and drinks 2 alcoholic beverages a day. REVIEW OF SYSTEMS: A complete 14-point review of systems reviewed with the patient himself. It was positive for COPD, diabetes, and GERD. He denies a history of DVT, PE, hepatitis, or anesthesia problems. PHYSICAL EXAMINATION GENERAL: He is well developed, well nourished, in no acute distress. VITAL SIGNS: He stands 6 feet 7 inches tall, weighs 266 pounds, blood pressure is 150/92, his heart rate is 99. HEENT: Normocephalic, atraumatic. NECK: Supple. No palpable lymph nodes. PULMONARY: The lungs are clear to auscultation bilaterally. CARDIO: Regular rate and rhythm. Strong S1, S2. ABDOMEN: Soft, nontender, nondistended. NEUROLOGIC: He is alert and oriented x3. MUSCULOSKELETAL: Left lower extremity skin is intact. There are no open wounds or abrasions. He walks with an antalgic type gait favoring his left hip. He is able to dorsiflex and plantarflex. He has a 2+ dorsalis pedis pulse and intact sensation. ASSESSMENT AND PLAN: Mr. 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 He has failed conservative treatment and elected to proceed with a left total hip arthroplasty. The surgery is scheduled for 12/12/[address] Bearden discussed the risks and benefits of the surgery at today's visit and all of his questions were answered. He will follow up with Dr. Bearden 2 weeks after the surgery. SADIE MANRIQUE [id number]/[facility] #: [id number] JAYCE
[2018-12-11] MEDS ORDERED: Buffered Lidocaine 1% SYRIN* 1 ML/SYRINGE INTRADERM ONE (13:05)
[2018-12-12] MEDS ORDERED: Tranexamic Acid 1,000 MG in NS 0.9% 50 ML* (outpatient use) IV SCH ×2
[2018-12-12] MEDS ORDERED: Famotidine IV* 10 MG/ML 2 ML (20 mg) IV ONE (06:00)
[2018-12-12] MEDS ORDERED: Dexamethasone IV* 4 MG/ML 1 ML (4 MG) IV SLOW PU ONE (06:00)
[2018-12-12] MEDS ORDERED: Lactated Ringers 1000 ML Bag* 1,000 ML IV SCH (06:00)
[2018-12-12] MEDS ORDERED: Gabapentin CAP(*) 300 MG PO ONE (06:00)
--- OUTSIDE RECORDS SUMMARY | 2018-12-12 07:08 | XMS REPORT | Continuity of Care Document ---
:1950 External Reference #:[id number] Author Name Myla Luo MD (transmitted by agent of provider Alice Mancuso) Address [address], [place] [address] Care Team Providers Name Role Phone Montrell Prado MD - Bundle Cutter Care Team Information Wafer Line Worker Madai Bearden MD - Adult Care Team Information Wafer Line Worker [phone] Reconstructive Orthopaedic Surgery Jackeline Garcia MD - Pulmonary Care Team Information Wafer Line Worker Disease Michael Diaz MD - Care Team Information Wafer Line Worker [phone] Ophthalmology Myla Luo M.D. - Family Medicine Care Team Information Wafer Line Worker [phone] Problems Active Problems Provider Date Type 2 diabetes mellitus Emmanuel Madrigal M.D.,FACP Onset: 03/31/2017 Moderate cigarette smoker (10-19 Emmanuel Madrigal M.D.,FACP Onset: 2017 cigs/day) Depressive disorder Emmanuel Madrigal M.D.,FACP Onset: 11/09/2010 Impotence of organic origin Emmanuel Madrigal M.D.,FACP Onset: 11/09/2010 Hyperlipidemia Catie Finley M.D. Onset: 11/24/2010 Escobedo's esophagus Emmanuel Madrigal M.D.,FACP Onset: 12/25/2012 Essential hypertension Emmanuel Madrigal M.D.,FACP Onset: 01/24/2013 Benign prostatic hyperplasia Emmanuel Madrigal M.D.,FACP Onset: 02/13/2015 Localized, primary osteoarthritis of Madai Bearden M.D. Onset: 07/07/2015 the pelvic region and thigh Arthralgia of the pelvic region and Madai Bearden M.D. Onset: 08/11/2015 thigh Systolic heart failure Emmanuel Madrigal M.D.,FACP Onset: 08/15/2015 Note: EF 45-50% Obstructive sleep apnea syndrome Jackeline Garcia MD Onset: 08/26/2015 Note: intolerant BiPAP Morbid obesity Jackeline Garcia MD Onset: 08/26/2015 Gastroesophageal reflux disease Jackeline Garcia MD Onset: 08/26/2015 Emphysema, unspecified Jackeline Garcia MD Onset: 11/12/2015 Hypoxemia Jackeline Garcia MD Onset: 07/07/2016 Prosthetic arthroplasty of the hip Madai Bearden M.D. Onset: 08/06/2016 Social History Type Date Description Comments Sex Unknown Tobacco Use Start: Unknown Light tobacco smoker (10 or fewer cigarettes/day) Cigarette Use Pack Years - 40 1/2 PPD teen through 30s, then 1PPD 35-65 ETOH Use 03/31/2017 Drinks Alcoholic Beverages Rarely Recreational Drug Use Denies Drug Use Tobacco Use Start: Unknown Patient is a current smoker, smokes every day Smoking Status Reviewed: 11/01/18 Patient is a current smoker, smokes every day Exercise Type/Frequency Does not exercise Allergies, Adverse Reactions, Alerts Active Allergies Reaction Severity Comments Date Oxycodone 11/09/2010 Medications Active Medications SIG Qnty Indications Ordering Date Provider Juana HASSAN apply one to skin 28units F17.210 Myla Luo MD 11/01/2018 every day 21mg/24HR Patches 24HR Symbicort inhale two puffs 20.4units J44.9 Myla Luo MD 10/18/2018 by mouth twice a 80-4.5mcg/Act day rinse mouth Aerosol after using Omeprazole 1 by mouth every 90caps K21.9 Myla Luo MD 10/18/[address] Lorazepam 1 by mouth twice a 60tabs F41.9 Myla Luo MD 10/18/2018 1mg day as needed for Tablets anxiety Neomycin/Polymyxin/ 2 drops in 10ml H60.63 Myla Luo MD 10/18/2018 Hydrocortisone affected ear twice (Otic) a day for 5 days 3.5-34964-0 as needed Solution Lonny Hightower M16.12 Chauncey Morgan, 08/23/2018 Wheels/5 Adjustment M.D. Holes/-03/07" 1-03/07" Misc CBD Oil OTC at [facility] Missy 07/15/2017 isak Madrigal M.D.,FACP Sertraline HCL 1 by mouth every 30tabs Myla Luo MD 07/15/2017 50mg day Tablets Lisinopril 1 by mouth every 30tabs Myla Luo MD 03/31/2017 5mg day Tablets Shower Bench shower bench s/p 1units Madai Bearden, 08/23/2016 total hip M.D. replacement Cane standard 1units Madai Bearden, 08/18/2016 Misc adjustable height M.D. cane. Ventolin HFA 2 puffs by mouth 1units J43.9 Myla Luo MD 08/20/2015 four times a day 108(90Base) mcg/Act as needed Aerosol Metoprolol take 1 tablet by 90tabs I10 Myla Luo MD 07/16/2015 Succinate ER mouth every day 50mg Tablets ER 24HR Morphine Sulfate ER po q8h M54.5 Unknown 30mg Tablets ER 12HR Morphine Sulfate 1 by mouth every 6 M54.5 Unknown hours as needed 15mg Tablets Sumatriptan take one tablet by 18tabs Myla Luo MD Succinate mouth at first 100mg sign of migraine. Tablets may repeat in 2 hours Aspirin Ec Low Dose 1 by mouth every I10 Unknown day (when 81mg Tablets remembers) Vitamin D3 daily Unknown 96676Hflc Capsules Tamsulosin HCL take 2 capsules by 180caps R35.0 Myla Luo MD mouth at bedtime 0.4mg Capsules Morphine Sulfate ER 1 by mouth twice a Unknown day 15mg Tablets ER Medications Administered in Office Medication SIG Qnty Indications Ordering Provider Date Depomedrol 40MG Silvano Iqbal MD 08/24/2018 Injection Influenza,Unspecified Unknown 12/05/2017 Injection Immunizations CPT Code Status Date Vaccine Lot # [id number] Given 01/20/2017 Influenza Virus Vaccine, Quadrivalent, Split, Preservative Free [id number] Given 06/14/2016 Pneumococcal Conjugate Vaccine 13 Valent For [id number] Intramuscular Use 01869 Given 02/29/2016 Influ Virus Vaccine, Quadrivalent, Split Virus, [place] [address] Given 11/28/2014 Flu Vaccine Split Virus Preservative Free For Indiv 3Yr Older 27361 Given 12/25/2012 Pneumonia Vaccine [id number] 15924 Given 12/25/2012 Flu Vaccine Split Virus Preservative Free For [id number] Indiv 3Yr Older [id number] Given 12/03/2011 Fluzone Vaccine 23572 Given 02/11/2011 Zoster (Zostavax) [id number] 24536 Given 11/09/2010 Pneumonia Vaccine [id number] 61168 Given 11/09/2010 Influenza Virus 3Yrs & Over [id number] 95365 Given Unknown Influenza Virus 3Yrs & Over Vital Signs Date Vital Result Comment 11/01/2018 10:20am Height 67 inches 5'7" Weight 263.00 lb Heart Rate 87 /min BP Systolic 140 mmHg BP Diastolic 90 mmHg Body Temperature 96.7 F O2 % BldC Oximetry 98 % BMI (Body Mass Index) 41.2 kg/m2 10/18/2018 10:16am Height 67 inches 5'7" Weight 263.50 lb Heart Rate 92 /min BP Systolic Sitting 136 mmHg Rue lg cuff BP Diastolic Sitting 89 mmHg Rue lg cuff O2 % BldC Oximetry 96 % BMI (Body Mass Index) 41.3 kg/m2 Results Test Date Facility Test Result H/L Range Note Comp Metabolic 10/25/2018 [facility] Sodium 138 mmol/L Normal 135-[address] [place] [address] [phone] Potassium 4.3 mmol/L Normal 3.5-5.0 Chloride 106 mmol/L Normal 101-111 Co2 Carbon Dioxide 26 mmol/L Normal 22-32 Anion Gap 6 mmol/L Normal 2-11 Glucose 132 mg/dL High 70-100 Blood Urea Nitrogen 16 mg/dL Normal 6-24 Creatinine 0.67 mg/dL Normal 0.67-1.17 BUN/Creatinine Ratio 23.9 High 8-20 Calcium 9.3 mg/dL Normal 8.6-10.3 Total Protein 6.5 g/dL Normal 6.4-8.9 Albumin 4.2 g/dL Normal 3.2-5.2 Globulin 2.3 g/dL Normal 2-4 Albumin/Globulin Ratio 1.8 Normal 1-3 Total Bilirubin 0.50 mg/dL Normal 0.2-1.0 Alkaline Phosphatase 52 U/L Normal 34-104 Alt 21 U/L Normal 7-52 Ast 17 U/L Normal 13-39 Egfr Non- 117.3 >60 Egfr 141.9 >60 1 Lipid Profile 10/25/2018 [facility] Triglycerides 138 mg/dL 2 (Trig/Chol/HDL) [address] [place] [address] [phone] Cholesterol 190 mg/dL 3 HDL Cholesterol 39.0 mg/dL 4 LDL Cholesterol 123 mg/dL 5 Urine Microalbumin 10/25/2018 [facility] Ur Microalbumin < 15.[address] (mg/L) mg/[place] [address] [phone] Urine Creatinine 37.71 mg/dL Urine Microalbumin/Creatinine TNP <31 6 Laboratory test 10/25/2018 [facility] PSA Screening 1.904 Normal 0-4.000 [address] ng/[place] [address] [phone] Urinalysis 10/25/2018 [facility] Urine Color Straw Profile [address] [place] [address] [phone] Urine Appearance Clear Urine Specific [place] 1.006 Low 1.010-1.030 Urine pH 5.0 Normal 5-9 Urine Urobilinogen Negative Negative Urine Ketones Negative Negative Urine Protein Negative Negative Urine Leukocytes Negative Negative Urine Blood 1+ Abnormal Negative Urine Nitrite Negative Negative Urine Bilirubin Negative Negative Urine Glucose Negative Negative Urine White Blood Cell Absent Absent Urine Red Blood Cell Trace(0-2/hpf) Absent Urine Bacteria Absent Absent Laboratory test 10/18/2018 [facility] Hemoglobin A1c 6.7 5-7 finding Xray 08/24/2018 [facility] Inj/Aspir Major JT Or <pending> Bursa W/ US 1 Because ethnic data is not always readily available, this report includes an eGFR for both -Americans and non- Americans. The National Kidney Disease Education Program (NKDEP) does not endorse the use of the MDRD equation for patients that are not between the ages of 18 and 70, are , have extremes of body size, muscle mass, or nutritional status, or are non- or non-. According to the National Kidney Foundation, irrespective of diagnosis, the stage of the disease is based on the level of kidney function: Stage Description GFR(mL/min/1.73 m(2)) 1 Kidney damage with normal or decreased GFR 90 2 Kidney damage with mild decrease in GFR 60-89 3 Moderate decrease in GFR 30-59 4 Severe decrease in GFR 15-29 5 Kidney failure <15 (or dialysis) 2 Desirable: <150 Borderline High: 150-199 High: 200-499 Very High: >500 3 Desirable: <200 Borderline High: 200-239 High: >239 4 Low: <40 Desirable: 40-60 High: >60 5 Desirable: <100 Near Optimal: 100-129 Borderline High: 130-159 High: 160-189 Very High: >189 6 Unable to calculate due to low microalbumin 7 Serum levels of PSA measured using the Candice Edwin DXI Hybritech immunoassay should not be interpreted as absolute evidence of the presence or absence of disease. The PSA value should be used in conjunction with other pertinent clinical diagnostic procedures. The values obtained with different assay methods or kits cannot be used interchangeably. Procedures Date Code Description Status 09/22/2018 06472 EKG Tracing & Interpretation Completed 08/24/2018 61716 Inj/Aspir Major JT Or Bursa W/ US Completed 03/31/2005 99959010 Colonoscopy Completed Medical Devices Description No Information Available Encounters Type Date Location Provider Dx Diagnosis Office Visit 10/18/2018 [facility] Myla Luo MD E11.9 Type 2 diabetes 10:00a Medicine - [facility] mellitus without complications I10 Essential (primary) hypertension J44.9 Chronic obstructive pulmonary disease, unspecified E78.5 Hyperlipidemia, unspecified K21.9 Gastro-esophageal reflux disease without esophagitis F41.9 Anxiety disorder, unspecified L72.3 Sebaceous cyst H60.63 Unspecified chronic otitis externa, bilateral N40.1 Benign prostatic hyperplasia with lower urinary tract symp Office Visit 09/22/2018 9:00a [facility] Blu Louis M25.552 Pain in left Of Fany Lagunas M.D. hip I42.9 Cardiomyopathy, unspecified Z01.810 Encounter for preprocedural cardiovascular examination M16.12 Unilateral primary osteoarthritis, left hip I10 Essential (primary) hypertension R94.31 Abnormal electrocardiogram [ECG] [EKG] Office Visit 09/06/2018 9:30a [facility] Madai Bearden, M25.552 Pain in left Of C.M.A. M.D. hip M16.12 Unilateral primary osteoarthritis, left hip Office Visit 08/23/2018 [facility] Chauncey Morgan, M16.12 Unilateral primary 9:00a Services Of M.D. osteoarthritis, left C.M.A. hip Assessments Date Code Description Provider 11/01/2018 Z01.818 Encounter for other preprocedural Myla Luo MD examination 11/01/2018 M16.12 Unilateral primary osteoarthritis, left hip Myla Luo MD 11/01/2018 F17.210 Nicotine dependence, cigarettes, Myla Luo MD uncomplicated 10/18/2018 E11.9 Type 2 diabetes mellitus without Myla Luo MD complications 10/18/2018 I10 Essential (primary) hypertension Myla Luo MD 10/18/2018 J44.9 Chronic obstructive pulmonary disease, Myla Luo MD unspecified 10/18/2018 E78.5 Hyperlipidemia, checoified Myla Luo MD 10/18/2018 K21.9 Gastro-esophageal reflux disease without Myla Luo MD esophagitis 10/18/2018 F41.9 Anxiety disorder, checoified Myla Luo MD 10/18/2018 L72.3 Sebaceous cyst Myla Luo MD 10/18/2018 H60.63 Unspecified chronic otitis externa, Myla Luo MD bilateral 10/18/2018 N40.1 Benign prostatic hyperplasia with lower Myla Luo MD urinary tract symptoms 09/22/2018 M25.552 Pain in left hip Blu Lagunas M.D. 09/22/2018 I42.9 Cardiomyopathy, unspecified Blu Lagunas M.D. 09/22/2018 Z01.810 Encounter for preprocedural cardiovascular Blu Lagunas M.D. examination 09/22/2018 M16.12 Unilateral primary osteoarthritis, left hip Blu Lagunas M.D. 09/22/2018 I10 Essential (primary) hypertension Blu Lagunas M.D. 09/22/2018 R94.31 Abnormal electrocardiogram [ECG] [EKG] Blu Lagunas M.D. 09/06/2018 M25.552 Pain in left hip Madai Bearden M.D. 09/06/2018 M16.12 Unilateral primary osteoarthritis, left hip Madai Bearden M.D. 08/24/2018 M16.12 Unilateral primary osteoarthritis, left hip Silvano Iqbal MD 08/23/2018 M16.12 Unilateral primary osteoarthritis, left hip Chauncey Moragn M.D. Plan of Treatment Future Appointment(s):05/02/2019 10:40 am - Myla Luo MD at [facility] Internal Medicine - [facility]11/21/2018 9:30 am - ALYSE Turcios at [facility]11/21/2018 9:30 am - Luis Kaur PA-C at [facility]11/15/2018 10:45 am - Blu Lagunas M.D. at [facility]11/03/2018 10:15 am - Blu Lagunas M.D. at [facility]11/21/2018 9:30 am - Madai Bearden M.D. at [facility]11/08/2018 9:00 am - Madai Bearden M.D. at [facility]11/01/2018 - Myla Luo MDZ01.818 Encounter for other preprocedural examinationComments:I will send the preop clearance to Dr. Bearden.Please stop taking Aspirin, or Aspirin like products (ibuprofen, naproxen , Aleve, Advil) for 1 week prior to your surgery.M16.12 Unilateral primary osteoarthritis, left hipF17.210 Nicotine dependence, cigarettes, uncomplicatedNew Medication:Nicoderm CQ 21 mg/24HR - apply one to skin every dayComments:You should quit smoking before the surgery, so I sent nicotine patches to help with that Functional Status Description No Information Available Mental Status Description No Information Available Referrals Refer to Dr Reason for Referral Status Appt Date Gorge Mancini MD pt not responding to tamsulosin Sent [address] [place] [address] [place] [address] [phone]
--- OUTSIDE RECORDS SUMMARY | 2018-12-12 07:08 | XMS REPORT | Continuity of Care Document ---
:1950 External Reference #:[id number] Author Name Blu Lagunas M.D. (transmitted by agent of provider Smitha Haley) Address [address] [place] [address] Care Team Providers Name Role Phone Montrell Prado MD - Fuel Truck Driver Care Team Information Hog Ringer [phone] Madai Bearden MD - Adult Care Team Information Hog Ringer [phone] Reconstructive Orthopaedic Surgery Jackeline Garcia MD - Pulmonary Care Team Information Hog Ringer Disease Michael Diaz MD - Care Team Information Hog Ringer [phone] Ophthalmology Myla Luo M.D. - Family Medicine Care Team Information Hog Ringer Problems Active Problems Provider Date Type 2 [...] smoker, smokes every day Smoking Status Reviewed: 11/21/18 Patient is a current smoker, smokes every [...] twice (Otic) a day for 5 days 3.5-91431-9 as needed Solution Lonny Hightower M16.12 Chauncey Morgan, 08/23/2018 Wheels/5 Adjustment M.D. Holes/-03/07" 1-03/07" [facility] isak Madrigal M.D.,FACP Sertraline HCL 1 [...] every I10 Unknown day (when 81mg Tablets DR remembers) Vitamin D3 daily Unknown [id number] Capsules Tamsulosin HCL take 2 capsules by 180caps R35.0 Myla Luo MD mouth at bedtime 0.4mg Capsules Morphine Sulfate ER 1 by mouth twice a Unknown day 15mg Tablets ER Medications Administered in Office Medication SIG Qnty Indications Ordering Provider Date Inj, Regadenoson, 0.1 MG Blu Lagunas M.D. 11/17/2018 Injection Technetium TC 99M Tetrofosmin, Blu Lagunas M.D. 11/17/2018 Per Unit Dose Up To 40 Millicuries Injection Technetium TC 99M Tetrofosmin, Blu Lagunas M.D. 11/17/2018 Per Unit Dose Up To 40 Millicuries Injection Depomedrol 40MG Silvano Iqbal MD 08/24/2018 Injection Influenza,Unspecified Unknown 12/05/2017 Injection Immunizations CPT Code Status Date Vaccine Lot # [id number] Given 01/20/2017 Influenza Virus Vaccine, Quadrivalent, Split, Preservative Free [id number] Given 06/14/2016 Pneumococcal Conjugate Vaccine 13 Valent For [id number] Intramuscular Use 33724 Given 02/29/2016 Influ Virus Vaccine, Quadrivalent, Split Virus, [place] [address] Given 11/28/2014 Flu Vaccine Split Virus Preservative Free For Indiv 3Yr Older 91741 Given 12/25/2012 Pneumonia Vaccine [id number] 27644 Given 12/25/2012 Flu Vaccine Split Virus Preservative Free For [id number] Indiv 3Yr Older Q2038 Given 12/03/2011 Fluzone Vaccine 65993 Given 02/11/2011 Zoster (Zostavax) [id number] 64622 Given 11/09/2010 Pneumonia Vaccine [id number] 96667 Given 11/09/2010 Influenza Virus 3Yrs & Over [id number] 62273 Given Unknown Influenza Virus 3Yrs & Over Vital Signs Date Vital Result Comment 11/21/2018 12:55pm Height 67 inches 5'7" Weight 262.00 lb Heart Rate 88 /min radial regular BP Systolic Sitting 140 mmHg Lue BP Diastolic Sitting 88 mmHg Lue BP Systolic Standing 138 mmHg Lue BP Diastolic Standing 88 mmHg Lue BMI (Body Mass Index) 41.0 kg/m2 Ejection Fraction 45-50% ECHO 07/22/15 47% stress test 11/08/2018 9:25am Height 67 inches 5'7" Weight 266.00 lb Heart Rate 86 /min BP Systolic 138 mmHg BP Diastolic 82 mmHg Respiratory Rate 18 /min Body Temperature 97.9 F Pain Level 8 BMI (Body Mass Index) 41.7 kg/m2 Results Test Date Facility Test Result H/L Range Note Laboratory test 11/13/2018 [facility] Partial 35.4 seconds Normal 26.0-38.[address] [place] [address] PTT [phone] Inr/Protime 11/13/2018 [facility] Inr 1.01 Normal 0.82-1.[address] [place] [address] [phone] CBC Auto Diff 11/13/2018 [facility] White Blood 8.0 10^3/uL Normal 3.5-10.[address] [place] [address] [phone] Red Blood Count 4.71 10^6/uL Normal 4.18-5.48 Hemoglobin 15.2 g/dL Normal 14.0-18.0 Hematocrit 44 % Normal 42-52 Mean Corpuscular Volume 93 fL Normal 80-94 Mean Corpuscular Hemoglobin 32 pg High 27-31 Mean Corpuscular HGB Conc 35 g/dL Normal 31-36 Red Cell Distribution Width 14 % Normal 10-15 Platelet Count 291 10^3/uL Normal 150-450 Mean Platelet Volume 8.2 fL Normal 7.4-10.4 Abs Neutrophils 5.8 10^3/uL Normal 1.5-7.7 Abs Lymphocytes 1.3 10^3/uL Normal 1.0-4.8 Abs Monocytes 0.7 10^3/uL Normal 0-0.8 Abs Eosinophils 0.1 10^3/uL Normal 0-0.6 Abs Basophils 0.1 10^3/uL Normal 0-0.2 Abs Nucleated RBC 0.0 10^3/uL Granulocyte % 72.7 % Lymphocyte % 16.1 % Monocyte % 8.9 % Eosinophil % 1.4 % Basophil % 0.9 % Nucleated Red Blood Cells % 0.1 Drug Abuse 20 11/07/2018 [facility] Urine Amphetamine Negative ng/mL [address] [place] [address] [phone] Urine Barbiturates Negative ng/mL 3 Urine Benzodiazepines Negative ng/mL 4 Urine Cocaine Negative ng/mL 5 Urine Phencyclidine Negative ng/mL Cutoff: 25 Urine Tetrahydrocannabinol Negative ng/mL Cutoff: 50 6 Creatinine, Urine 41.5 mg/dL Specific [place] 1.009 pH 6.1 Oxidants Negative 7 Adulterants Comment Normal Codeine, Ur Not Detected ng/mL Cutoff: 25 8 Pwccchr-1-ndij-glucuronide, Ur Not Detected ng/mL 9 Morphine, Ur Present ng/mL Abnormal Cutoff: 25 10 Uyeyvryk-2-jtxk-glucuronide, U Present ng/mL Abnormal 11 6-monoacetylmorphine, Ur Not Detected ng/mL Cutoff: 25 12 Hydrocodone, Ur Not Detected ng/mL Cutoff: 25 13 Norhydrocodone, Ur Not Detected ng/mL Cutoff: 25 14 Dihydrocodeine, Ur Not Detected ng/mL Cutoff: 25 15 Hydromorphone, Ur Present ng/mL Abnormal Cutoff: 25 16 Sebwztbfcgbez3rvbgfeksonflvgx Present ng/mL Abnormal 17 Oxycodone, Ur Not Detected ng/mL Cutoff: 25 18 Noroxycodone, Ur Not Detected ng/mL Cutoff: 25 19 Oxymorphone, Ur Not Detected ng/mL Cutoff: 25 20 Memsyldiyfs-7-mpqm-glucuronide Not Detected ng/mL 21 Noroxymorphone, Ur Not Detected ng/mL Cutoff: 25 22 Fentanyl, Ur Not Detected ng/mL Cutoff: 2 23 Norfentanyl, Ur Not Detected ng/mL Cutoff: 2 24 Meperidine, Ur Not Detected ng/mL Cutoff: 25 25 Normeperidine, Ur Not Detected ng/mL Cutoff: 25 26 Naloxone, Ur Not Detected ng/mL Cutoff: 25 27 Mhdmjovb-2-awbt-glucuronide, U Not Detected ng/mL 28 Methadone, Ur Not Detected ng/mL Cutoff: 25 29 Eddp, Ur Not Detected ng/mL Cutoff: 25 30 Propoxyphene, Ur Not Detected ng/mL Cutoff: 25 31 Norpropoxyphene, Ur Not Detected ng/mL Cutoff: 25 32 Tramadol, Ur Not Detected ng/mL Cutoff: 25 33 O-desmethyltramadol, Ur Not Detected ng/mL Cutoff: 25 34 Tapentadol, Ur Not Detected ng/mL Cutoff: 25 35 N-desmethyltapentadol, Ur Not Detected ng/mL Cutoff: 50 36 Hxscamyynf-fnmn-oianfmflzsi, U Not Detected ng/mL 37 Buprenorphine, Ur Not Detected ng/mL Cutoff: 5 38 Norbuprenorphine, Ur Not Detected ng/mL Cutoff: 5 39 Norbuprenorphine glucuronide Not Detected ng/mL Cutoff: 20 40 Opioid Interpretation See Comment 41 Comp Metabolic 10/25/2018 [facility] Sodium 138 mmol/L Normal 135-[address] [place] [address] [phone] Potassium 4.3 mmol/L Normal 3.5-5.0 Chloride 106 [...] Egfr Non- 117.3 >60 Egfr 141.9 >60 42 Lipid Profile 10/25/2018 [facility] Triglycerides 138 mg/dL 43 (Trig/Chol/HDL) [address] [place] [address] [phone] Cholesterol 190 mg/dL 44 HDL Cholesterol 39.0 mg/dL 45 LDL Cholesterol 123 mg/dL 46 Urine Microalbumin 10/25/2018 [facility] Ur Microalbumin < 15.0 Random 101 (mg/L) mg/[place] [address] [phone] Urine Creatinine 37.71 mg/dL Urine Microalbumin/Creatinine TNP <31 47 Laboratory test 10/25/2018 [facility] PSA Screening 1.904 Normal 0-4.[address] ng/[place] [address] [phone] Urinalysis 10/25/2018 [facility] Urine Color Straw Profile [address] [place] [address] [phone] Urine Appearance Clear Urine Specific [place] 1.006 Low 1.010-1.030 Urine pH 5.0 Normal 5-9 Urine Urobilinogen Negative Negative Urine Ketones Negative Negative Urine Protein Negative Negative Urine Leukocytes Negative Negative Urine Blood 1+ Abnormal Negative Urine Nitrite Negative Negative Urine Bilirubin Negative Negative Urine Glucose Negative Negative Urine White Blood Cell Absent Absent Urine Red Blood Cell Trace(0-2/hpf) Absent Urine Bacteria Absent Absent Laboratory test 10/18/2018 [facility] Hemoglobin A1c 6.7 5-7 finding Xray 08/24/2018 [facility] Inj/Aspir Major JT Or <pending> Chasidya W/ US 1 Standard intensity warfarin therapeutic range: 2.0-3.0 High intensity warfarin therapeutic range: 2.5-3.5 2 REFERENCE VALUE Cutoff: 500 3 REFERENCE VALUE Cutoff: 200 4 REFERENCE VALUE Cutoff: 100 5 REFERENCE VALUE Cutoff: 150 6 ADDITIONAL INFORMATION This report is intended for use in clinical monitoring or management of patients. It is not intended for use in employment-related testing. Test Performed by: [facility] [email or web address] - [facility] [address] [place] [address] Performance Instructor: Emanuel Lovett M.D. Ph.D.; CLIA# [id number] 7 REFERENCE VALUE Cutoff: 200 mg/L 8 Tylenol 3 9 Metabolite of codeine REFERENCE VALUE Cutoff: 100 10 Elizabeth Morgan, MS Contin; Also a minor metabolite (10%) of codeine and can be seen in low concentrations (<2,000 ng/mL) with poppy seed ingestion. 11 Metabolite of morphine REFERENCE VALUE Cutoff: 100 12 Metabolite of heroin 13 Lortab, Yeoman, Vicodin; Also a very minor metabolite of codeine and impurity (<1%) of oxycodone. 14 Metabolite of hydrocodone 15 Metabolite of hydrocodone 16 Dilaudid, Exalgo; Also a metabolite of hydrocodone and a minor (<5%) metabolite of morphine. 17 Metabolite of hydromorphone REFERENCE VALUE Cutoff: 100 18 Endocet, Percocet, Oxycontin 19 Metabolite of oxycodone 20 Numorphan, Opana; Also a metabolite of oxycodone. 21 Metabolite of oxymorphone REFERENCE VALUE Cutoff: 100 22 Metabolite of oxymorphone 23 Actiq, Duragesic, Fentora 24 Metabolite of fentanyl 25 Demerol 26 Metabolite of meperidine 27 Narcan 28 Metabolite of naloxone REFERENCE VALUE Cutoff: 100 29 Dolophine 30 Metabolite of methadone 31 Darvon, Darvocet 32 Metabolite of propoxyphene 33 Tradol, Ultram, Ultracet 34 Metabolite of tramadol 35 Nucynta 36 Metabolite of tapentadol 37 Metabolite of tapentadol REFERENCE VALUE Cutoff: 100 38 Buprenex, Suboxone 39 Metabolite of buprenorphine 40 Metabolite of buprenorphine 41 Test detected the presence of both morphine and metabolites (lndnncnb-5-kzqe-glucuronide, hydromorphone and wdnlpfcoskthc-3-aqmc-glucuronide). Suspect use of morphine and/or hydromorphone within the past three days. Alternatively, these results could also be suggestive of heroin use. Low levels of morphine can also be seen following poppy seed ingestion. Test detected the presence of hydromorphone and one of its metabolites (vfbzryrussbyn-1-yyqf-glucuronide). Suspect use of hydromorphone within the past three days. ADDITIONAL INFORMATION This test was developed and its performance characteristics determined by [facility] in a manner consistent with CLIA requirements. This test has not been cleared or approved by the U.S. Food and Drug Administration. 42 Because ethnic data is not always readily [...] 15-29 5 Kidney failure <15 (or dialysis) 43 Desirable: <150 Borderline High: 150-199 High: 200-499 Very High: >500 44 Desirable: <200 Borderline High: 200-239 High: >239 45 Low: <40 Desirable: 40-60 High: >60 46 Desirable: <100 Near Optimal: 100-129 Borderline High: 130-159 High: 160-189 Very High: >189 47 Unable to calculate due to low microalbumin 48 Serum levels of PSA measured using the Candice Pipestem DXI Hybritech immunoassay should not be interpreted as absolute evidence of the presence or absence of disease. The PSA value should be used in conjunction with other pertinent clinical diagnostic procedures. The values obtained with different assay methods or kits cannot be used interchangeably. Procedures Date Code Description Status 11/17/2018 75410 Myocardial Perfusion Imaging Tomographic (Spect) Completed Multiple Studies 09/22/2018 75661 EKG Tracing & Interpretation Completed 08/24/2018 93399 Inj/Aspir Major JT Or Bursa W/ US Completed 03/31/2005 [id number] Colonoscopy Completed Medical Devices Description No Information Available Encounters Type Date Location Provider Dx Diagnosis Office Visit 11/01/2018 Fany Luo MD Z01.818 Encounter for other 10:00a [facility] - [facility] preprocedural examination M16.12 Unilateral primary osteoarthritis, left hip F17.210 Nicotine dependence, cigarettes, uncomplicated I10 Essential (primary) hypertension E11.9 Type 2 diabetes mellitus without complications Office Visit 10/18/2018 10:00a Fany Luo, E11.9 Type 2 diabetes Medicine - MD mellitus without [facility] complications I10 Essential (primary) hypertension J44.9 Chronic obstructive pulmonary disease, unspecified E78.5 Hyperlipidemia, unspecified K21.9 Gastro-esophageal reflux disease without esophagitis F41.9 Anxiety disorder, unspecified L72.3 Sebaceous cyst H60.63 Unspecified chronic otitis externa, bilateral N40.1 Benign prostatic hyperplasia with lower urinary tract symp Office Visit 09/22/2018 9:00a [facility] Blu Louis M25.552 Pain in left [...] Morgan, M16.12 Unilateral primary 9:00a [facility], left [facility] hip Assessments Date Code Description Provider 11/21/2018 I42.9 Cardiomyopathy, unspecified Blu Lagunas M.D. 11/21/2018 Z01.810 Encounter for preprocedural cardiovascular Blu Lagunas M.D. examination 11/17/2018 M25.552 Pain in left hip Bul Lagunas M.D. 11/17/2018 I42.9 Cardiomyopathy, unspecified Blu Lagunas M.D. 11/17/2018 Z01.810 Encounter for preprocedural cardiovascular Blu Lagunas M.D. examination 11/08/2018 M16.12 Unilateral primary osteoarthritis, left hip Madai Bearden M.D. 11/08/2018 Z01.818 Encounter for other preprocedural Madai Bearden M.D. examination 11/01/2018 Z01.818 Encounter for other preprocedural Myla Luo MD examination 11/01/2018 M16.12 Unilateral primary osteoarthritis, left hip Myla Luo MD 11/01/2018 F17.210 Nicotine dependence, cigarettes, Myal Luo MD uncomplicated 11/01/2018 I10 Essential (primary) hypertension Myla Luo MD 11/01/2018 E11.9 Type 2 diabetes mellitus without Myla Luo MD complications 10/18/2018 E11.9 Type 2 diabetes mellitus without Myla Luo MD complications 10/18/2018 I10 Essential (primary) hypertension Myla Luo MD 10/18/2018 J44.9 Chronic obstructive pulmonary disease, Myla Luo MD unspecified 10/18/2018 E78.5 Hyperlipidemia, checoified Myla Luo MD 10/18/2018 K21.9 Gastro-esophageal reflux disease without Myla Luo MD esophagitis 10/18/2018 F41.9 Anxiety disorder, unspecified Myla Luo MD 10/18/2018 L72.3 Sebaceous cyst [...] M16.12 Unilateral primary osteoarthritis, left hip Chauncey Morgan M.D. Plan of Treatment Future Appointment(s):12/04/2018 9:30 am - Madai Bearden M.D. at [facility]12/12/2018 4:00 pm - Madai Bearden M.D. at [facility]05/02/2019 10:40 am - Myla Luo MD at [facility] Internal Medicine - [facility]11/21/2018 - Blu Lagunas M.D.I42.9 Cardiomyopathy, unspecifiedFollow up:1 yearZ01.810 Encounter for preprocedural cardiovascular examination Functional Status Description No Information Available Mental Status Description No Information Available Referrals Refer to Dr Reason for Referral Status Appt Date Gorge Mancini MD pt not responding to tamsulosin Sent 01/16/[address] [place] [address] [place] [address] [phone]
--- OUTSIDE RECORDS SUMMARY | 2018-12-12 07:08 | XMS REPORT | Continuity of Care Document ---
:1950 External Reference #:[id number] Author Name Madai Bearden M.D. (transmitted by agent of provider Adelina Lucero) Address [address] [place] [address] Care Team Providers Name Role Phone Montrell Prado MD - Process Control Technician Care Team Information Car Inspection And Repair Manager Madai Bearden MD - Adult Care Team Information Car Inspection And Repair Manager [phone] Reconstructive Orthopaedic Surgery Jackeline Garcia MD - Pulmonary Care Team Information Car Inspection And Repair Manager [phone] Michael Diaz MD - Care Team Information Car Inspection And Repair Manager [phone] Ophthalmology Myla Luo M.D. - Family Medicine Care Team Information Car Inspection And Repair Manager Problems Active Problems Provider Date Type 2 [...] smoker, smokes every day Smoking Status Reviewed: 11/08/18 Patient is a current smoker, smokes every [...] twice (Otic) a day for 5 days 3.5-23070-2 as needed Solution Lonny Hightower M16.12 Chauncey Morgan, 08/23/2018 Wheels/5 Adjustment M.D. Holes/-03/07" 1-03/07" [facility] isak Madrigal M.D.,FACP Sertraline HCL [...] 81mg Tablets remembers) Vitamin D3 daily Unknown [id number] Capsules Tamsulosin HCL take 2 capsules by 180caps R35.0 Myla Luo MD mouth at bedtime 0.4mg Capsules Morphine Sulfate ER 1 by mouth twice a Unknown day 15mg Tablets ER Medications Administered in Office Medication SIG Qnty Indications Ordering Provider Date Depomedrol 40MG Silvano Iqbal MD 08/24/2018 Injection Influenza,Unspecified Unknown 12/05/2017 Injection Immunizations CPT Code Status Date Vaccine Lot # [id number] Given 01/20/2017 Influenza Virus Vaccine, Quadrivalent, Split, Preservative Free 10066 Given 06/14/2016 Pneumococcal Conjugate Vaccine 13 Valent For [id number] Intramuscular Use 84722 Given 02/29/2016 Influ Virus Vaccine, Quadrivalent, Split Virus, [place] [address] Given 11/28/2014 Flu Vaccine Split Virus Preservative Free For Indiv 3Yr Older 83244 Given 12/25/2012 Pneumonia Vaccine [id number] 90819 Given 12/25/2012 Flu Vaccine Split Virus Preservative Free For [id number] Indiv 3Yr Older [id number] Given 12/03/2011 Fluzone Vaccine 30836 Given 02/11/2011 Zoster (Zostavax) [id number] 93087 Given 11/09/2010 Pneumonia Vaccine [id number] 61812 Given 11/09/2010 Influenza Virus 3Yrs & Over [id number] 29711 Given Unknown Influenza Virus 3Yrs & Over Vital Signs Date Vital Result Comment 11/08/2018 9:25am Height 67 inches 5'7" Weight 266.00 lb Heart Rate 86 /min BP Systolic 138 mmHg BP Diastolic 82 mmHg Respiratory Rate 18 /min Body Temperature 97.9 F Pain Level 8 BMI (Body Mass Index) 41.7 kg/m2 11/01/2018 10:20am Height 67 inches 5'7" Weight 263.00 lb Heart Rate 87 /min BP Systolic 140 mmHg BP Diastolic 90 mmHg Body Temperature 96.7 F O2 % BldC Oximetry 98 % BMI (Body Mass Index) 41.2 kg/m2 Results Test Date Facility Test Result H/L Range Note Comp Metabolic 10/25/2018 [facility] Sodium 138 mmol/L Normal 135-[address] [place] [address] [phone] Potassium 4.3 mmol/L Normal 3.5-5.0 Chloride 106 [...] Egfr 141.9 >60 1 Lipid Profile 10/25/2018 [facility] Triglycerides 138 mg/dL 2 (Trig/Chol/HDL) [address] [place] [address] [phone] Cholesterol 190 mg/dL 3 HDL Cholesterol 39.0 mg/dL 4 LDL Cholesterol 123 mg/dL 5 Urine Microalbumin 10/25/2018 [facility] Ur Microalbumin < 15.[address] (mg/L) mg/[place] [address] [phone] Urine Creatinine 37.71 mg/dL Urine Microalbumin/Creatinine TNP <31 6 Laboratory test 10/25/2018 [facility] PSA Screening 1.904 Normal 0-4.000 [address] ng/[place] [address] [phone] Urinalysis 10/25/2018 [facility] Urine Color Straw Profile [address] [place] [address] [phone] Urine Appearance Clear Urine Specific [place] 1.006 Low 1.010-1.030 Urine pH 5.0 Normal 5-9 Urine Urobilinogen Negative Negative Urine Ketones Negative Negative Urine Protein Negative Negative Urine Leukocytes Negative Negative Urine Blood 1+ Abnormal Negative Urine Nitrite Negative Negative Urine Bilirubin Negative Negative Urine Glucose Negative Negative Urine White Blood Cell Absent Absent Urine Red Blood Cell Trace(0-2/hpf) Absent Urine Bacteria Absent Absent Laboratory test 10/18/2018 [facility] Hemoglobin A1c 6.7 5-7 finding Xray 08/24/2018 [facility] Inj/Aspir Major JT Or <pending> [...] interchangeably. Procedures Date Code Description Status 09/22/2018 63022 EKG Tracing & Interpretation Completed 08/24/2018 40393 Inj/Aspir Major JT Or Bursa W/ US Completed 03/31/2005 [id number] Colonoscopy Completed Medical Devices Description No Information Available Encounters Type Date Location Provider Dx Diagnosis Office Visit 10/18/2018 [facility] Myla Luo MD E11.9 Type 2 diabetes 10:00a Medicine - [facility] mellitus without complications I10 Essential (primary) hypertension J44.9 Chronic obstructive pulmonary disease, unspecified E78.5 Hyperlipidemia, unspecified K21.9 Gastro-esophageal reflux disease without esophagitis F41.9 Anxiety disorder, unspecified L72.3 Sebaceous cyst H60.63 Unspecified chronic otitis externa, bilateral N40.1 Benign prostatic hyperplasia with lower urinary tract symp Office Visit 09/22/2018 9:00a [facility] Blu Louis M25.552 Pain in left Of Fany Lagunas M.D. hip I42.9 Cardiomyopathy, unspecified Z01.810 Encounter for preprocedural cardiovascular examination M16.12 Unilateral primary osteoarthritis, left hip I10 Essential (primary) hypertension R94.31 Abnormal electrocardiogram [ECG] [EKG] Office Visit 09/06/2018 9:30a [facility] Madai Bearden, M25.552 Pain in left Of [facility] M.D. hip M16.12 Unilateral primary osteoarthritis, left hip Office Visit 08/23/2018 Orthopedic kathy Eddie, M16.12 Unilateral primary 9:00a [facility] osteoarthritis, left [facility] hip Assessments Date Code Description Provider 11/08/2018 M16.12 Unilateral primary osteoarthritis, left hip [...] Chauncey Morgan M.D. Plan of Treatment Future Appointment(s):05/02/2019 10:40 am - Myla Luo MD at [facility] Internal Medicine - [facility]11/15/2018 10:45 am - Blu Lagunas M.D. at [facility]11/08/2018 - Madai Bearden M.D.M16.12 Unilateral primary osteoarthritis, left hipFollow up:Follow up: 7-10 days before vecovmjZ45.818 Encounter for other preprocedural examination Functional Status Description No Information Available Mental Status Description No Information Available Referrals Refer to Reason for Referral Status Appt Date Gorge Mancini MD pt not responding to tamsulosin Sent [address] [place] [address] [place] [address] [phone]
--- OUTSIDE RECORDS SUMMARY | 2018-12-12 07:09 | XMS REPORT | Continuity of Care Document ---
:1950 External Reference #:[id number] Author Name Myla Luo MD (transmitted by agent of provider Alice Mancuso) Address [address] [facility] [facility] [address], [place] [address] Care Team Providers Name Role Phone Montrell Prado MD - Municipal Services Manager Care Team Information [employer] [phone] Madai Bearden MD - Adult Care Team Information [employer] [phone] Reconstructive Orthopaedic Surgery Jackeline Garcia MD - Pulmonary Care Team Information [employer] Disease Michael Diaz MD - Care Team Information [employer] [phone] Ophthalmology Myla Luo M.D. - Family Medicine Care Team Information [employer] [phone] Problems Active Problems Provider Date Type 2 [...] smoker, smokes every day Smoking Status Reviewed: 10/18/18 Patient is a current smoker, smokes every day Exercise Type/Frequency Does not exercise Allergies, Adverse Reactions, Alerts Active Allergies Reaction Severity Comments Date Oxycodone 11/09/2010 Medications Active Medications SIG Qnty Indications Ordering Date Provider Symbicort inhale two puffs 20.4units J44.9 Myla [...] twice (Otic) a day for 5 days 3.5-38677-8 as needed Solution Lonny Hightower M16.12 Chauncey Morgan, 08/23/2018 Wheels/5 Adjustment M.D. Holes/-03/07" -03/07" Misc CBD Oil OTC at [facility] Emmanuel D. 07/15/2017 isak Madrigal M.D.,FACP Sertraline HCL 1 [...] 81mg Tablets remembers) Vitamin D3 daily Unknown [id number] Capsules Tamsulosin HCL take 2 capsules by 180caps R35.0 Myla Luo MD mouth at bedtime 0.4mg Capsules Morphine Sulfate ER 1 by mouth twice a Unknown day 15mg Tablets ER Medications Administered in Office Medication SIG Qnty Indications Ordering Provider Date Depomedrol 40MG Silvano Iqbal MD 08/24/2018 Injection Influenza,Unspecified Unknown 12/05/2017 Injection Immunizations CPT Code Status Date Vaccine Lot # [id number] Given 01/20/2017 Influenza Virus Vaccine, Quadrivalent, Split, Preservative Free [id number] Given 06/14/2016 Pneumococcal Conjugate Vaccine 13 Valent For [id number] Intramuscular Use 79283 Given 02/29/2016 Influ Virus Vaccine, Quadrivalent, Split Virus, [place] [address] Given 11/28/2014 Flu Vaccine Split Virus Preservative Free For Indiv 3Yr Older 31579 Given 12/25/2012 Pneumonia Vaccine [id number] 16563 Given 12/25/2012 Flu Vaccine Split Virus Preservative Free For [id number] Indiv 3Yr Older [id number] Given 12/03/2011 Fluzone Vaccine 52964 Given 02/11/2011 Zoster (Zostavax) [id number] 07220 Given 11/09/2010 Pneumonia Vaccine [id number] 67384 Given 11/09/2010 Influenza Virus 3Yrs & Over [id number] 72503 Given Unknown Influenza Virus 3Yrs & Over Vital Signs Date Vital Result Comment 10/18/2018 10:16am Height 67 inches 5'7" Weight 263.50 lb Heart Rate 92 /min BP Systolic Sitting 136 mmHg Rue lg cuff BP Diastolic Sitting 89 mmHg Rue lg cuff O2 % BldC Oximetry 96 % BMI (Body Mass Index) 41.3 kg/m2 09/22/2018 8:41am Height 67 inches 5'7" Weight 262.00 lb with shoes Heart Rate 60 /min BP Systolic Sitting 155 mmHg luelarge cuff BP Diastolic Sitting 89 mmHg luelarge cuff BP Systolic Standing 156 mmHg luelarge cuff BP Diastolic Standing 89 mmHg luelarge cuff Respiratory Rate 16 /min BMI (Body Mass Index) 41.0 kg/m2 Ejection Fraction 45-50% echo.07/22/15 Results Test Date Facility Test Result H/L Range Note Laboratory test 10/18/2018 [facility] Hemoglobin A1c 6.7 5-7 finding Xray 08/24/2018 [facility] Inj/Aspir Major <pending> JT Or Bursa W/ US Procedures Date Code Description Status 09/22/2018 72942 EKG Tracing & Interpretation Completed 08/24/2018 [id number] Inj/Aspir Major JT Or Bursa W/ US Completed 03/31/2005 [id number] Colonoscopy Completed Medical Devices Description No Information Available Encounters Type Date Location Provider Dx Diagnosis Office Visit 10/18/2018 [facility] Myla Luo MD E11.9 Type 2 diabetes 10:00a [facility] - [facility] mellitus without complications I10 Essential (primary) hypertension J44.9 Chronic obstructive pulmonary disease, unspecified E78.5 Hyperlipidemia, unspecified K21.9 Gastro-esophageal reflux disease without esophagitis F41.9 Anxiety disorder, unspecified L72.3 Sebaceous cyst H60.63 Unspecified chronic otitis externa, bilateral N40.1 Benign prostatic hyperplasia with lower urinary tract symp Office Visit 09/22/2018 9:00a [facility] Blu Louis M25.552 Pain in left Of Fany Lagunas M.D. hip I42.9 Cardiomyopathy, unspecified Z01.810 Encounter for preprocedural cardiovascular examination M16.12 Unilateral primary osteoarthritis, left hip I10 Essential (primary) hypertension R94.31 Abnormal electrocardiogram [ECG] [EKG] Office Visit 09/06/2018 9:30a [facility] Madai Bearden M25.552 Pain in left Of [facility] hip M16.12 Unilateral primary osteoarthritis, left hip Office Visit 08/23/2018 [facility] Chauncey Morgan, M16.12 Unilateral primary 9:00a Services Of [facility] osteoarthritis, left [facility] hip Assessments Date Code Description Provider 10/18/2018 E11.9 Type 2 diabetes mellitus without Myla Luo MD complications 10/18/2018 I10 Essential (primary) hypertension Myla Luo MD 10/18/2018 J44.9 Chronic obstructive pulmonary disease, Myla Luo MD unspecified 10/18/2018 E78.5 Hyperlipidemia, unspecified Myla Luo MD 10/18/2018 K21.9 Gastro-esophageal reflux [...] Chauncey Morgan M.D. Plan of Treatment Future Appointment(s):11/15/2018 10:45 am - Blu Lagunas M.D. at [facility]11/03/2018 10:15 am - Blu Lagunas M.D. at [facility]11/01/2018 10:00 am - Myla Luo MD at [facility] - [facility]11/21/2018 9:30 am - Madai Bearden M.D. at [facility]/08/2018 9:00 am - Madai Bearden M.D. at [facility]2018 - Myla Luo MDE11.9 Type 2 diabetes mellitus without complicationsNew Labs:Urine Microalbumin Random, Ordered: 10/18/18Comments:Your A1c is 6.7%, which means your are meeting goal for blood sugar control. Changes to medicationsare not indicated. A yearly nutrition visit is available to all diabetics. You should be on a moderate-potency statin to prevent new or recurrent heart disease, which is common in diabetics. We willdiscuss after labs are reviewed.Follow up:DM f/u 6 monthsRecommendations:See your sewing machine mechanic every year. It is OK to go every 2 years if he finds no retinal damage from diabetes. Ask your sewing machine mechanic to communicate his/her findings to us. See a insole beveler every 6months if you have numbness in your feet or a history of foot ulcers.I10 Essential (primary) hypertensionNew Labs: Comp Metabolic Panel, Ordered: 10/18/18Comments:Continue with your current medication.J44.9 Chronic obstructive pulmonary disease, unspecifiedNew Medication:Symbicort 80-4.5 mcg/Act - inhale two puffs by mouth twice a day rinse mouth after usingComments:I am restarting you on a daily inhaler to control your emphysema symptoms of wheezing. You were previously on Symbicort, but if this is not covered we can change it to the one on your insurance's formulary. It should be used every day, no matter how you are feeling. The best decision can make for your health right now is to quit smoking, or at least her cutting back on the amount of cigarettes a day.The Ventolin inhaler is your rescue inhaler, which should be used every 4 hours whenever you are wheezing or short of breath.E78.5 Hyperlipidemia, unspecifiedNew Labs:Lipid Profile (Trig/Chol/HDL), Ordered: 10/18/18Comments:I have ordered lab work to check your cholesterol. You need to fast for about 10 hours before your blood work is done.We will discuss results at the follow-up ccdepK74.9 Gastro- esophageal reflux disease without esophagitisNew Medication:Omeprazole 20 mg - 1 by mouth every dayF41.9 Anxiety disorder, unspecifiedNew Medication:Lorazepam 1 mg - 1 by mouth twice a day as needed for gwvmpnmB81.3 Sebaceous cystComments: these are benign, do not need vkuwuqdqpkruT03.63 Unspecified chronic otitis externa, bilateralNew Medication:Neomycin/Polymyxin/Hydrocortisone (Otic) 3.5- 14802-1 - 2 drops in affected ear twice a day for 5 days as oqvxfmB60.1 Benign prostatic hyperplasia with lower urinary tract symptomsNew Labs:PSA Screening, Ordered: 10/18/18Urinalysis Profile, Ordered: 10/18/18Comments:I referred you back to Dr. Reza:Gorge Mancini MD, Urology Goals 10/18/2018 - Myla Luo MDE11.9 Type 2 diabetes mellitus without complicationsGoal Hemoglobin A1c is less than 7.0% in ages 18-74 Goal Hemoglobin A1c is between 7.0% and 8.0% in age over 75 Goal Blood pressure is less than 130/85. Cholesterol should be lowered by a high or moderate-dose statin. Functional Status Description No Information Available Mental Status Description No Information Available Referrals Refer to Dr Reason for Referral Status Appt Date Gorge Mancini MD pt not responding to tamsulosin Created [address] [place] [address] [place] [address] [phone]
[2018-12-12] MEDS ORDERED: Famotidine IV* 10 MG/ML 2 ML (20 mg) ONE (08:09)
[2018-12-12] MEDS ORDERED: Dexamethasone IV* 4 MG/ML 1 ML (4 MG) ONE (08:09)
[2018-12-12] MEDS ORDERED: ceFAZolin 2 GM PREMIX in ORs 2 GM/50 ML BAG ONE (08:09)
[2018-12-12] MEDS ORDERED: Gabapentin CAP(*) 300 MG ONE (08:09)
[2018-12-12] MEDS ORDERED: KETAMINE HCL* 50 MG/ML 10 ML VIAL ONE (09:08)
[2018-12-12] MEDS ORDERED: Midazolam* 1 MG/ML 2 ML VIAL (2 MG) ONE ×2 (09:08→09:12)
[2018-12-12] MEDS ORDERED: Midazolam* 1 MG/ML 5 ML VIAL (5 MG) ONE (09:10)
[2018-12-12] MEDS ORDERED: ROPIVACAINE 5 MG/ML 30 ML BTL (0.5%) ONE (09:58)
[2018-12-12] MEDS ORDERED: fentaNYL* 50 MCG/ML 2 ML VIAL (100 MCG VIAL) ONE (11:50)
[2018-12-12] MEDS ORDERED: Propofol* 10 MG/ML 20 ML BTL ONE (12:08)
[2018-12-12] MEDS ORDERED: celeCOXIB CAP* 200 MG PO ONE (13:06)
[2018-12-12] MEDS ORDERED: Polyethylene Glycol 3350* 17 GM PACKET PO PRN (13:16)
[2018-12-12] MEDS ORDERED: diPHENhydraMINE PO* 25 MG PO PRN (13:16)
[2018-12-12] MEDS ORDERED: Naloxone* 0.4 MG/ML 1 ML VIAL IV PRN (13:16)
[2018-12-12] MEDS ORDERED: Acetaminophen IV 1GM/100ML * 1,000 MG/100 ML VIAL IVPB ONE (13:16)
[2018-12-12] MEDS ORDERED: diPHENhydraMINE IV* 50 MG/ML 1 ml VIAL (BENADRYL) IV PRN (13:16)
[2018-12-12] MEDS ORDERED: Ondansetron INJ* 2 MG/ML VIAL IV PRN (13:16)
[2018-12-12] MEDS ORDERED: Ondansetron ODT TAB* 4 MG PO PRN (13:16)
[2018-12-12] MEDS ORDERED: Magnesium Hydroxide LIQ* 30 ML UDC PO PRN (13:16)
[2018-12-12] MEDS ORDERED: Ondansetron TAB* 4 MG PO PRN (13:16)
[2018-12-12] MEDS ORDERED: Albuterol HFA INHALER* 8 gm MDI INH PRN (13:21)
[2018-12-12] MEDS ORDERED: HYDROmorphone INJ1* 1 MG/ML SYRINGE ONE ×2 (13:21→13:54)
[2018-12-12] MEDS ORDERED: Acetaminophen IV 1GM/100ML * 100 ML ONE (13:21)
[2018-12-12] MEDS: HYDROmorphone INJ1* 1 MG/ML SYRINGE IV PRN ×4 (13:23→14:01)
[2018-12-12] MEDS ORDERED: Neostigmine Methylsulfate* 3 MG/3 ML SYRINGE ONE (14:22)
[2018-12-12] MEDS ORDERED: Glycopyrrolate IV* 0.2 MG/ML 1 ML VIAL ONE (14:22)
--- NOTE | 2018-12-12 14:22 | PN ---
Progress Note - Progress Note Date of Service: 12/12/18 Note: resting comfortably in recovery,pain well controlled. dressing c/d; able to dorsi flex/plantar flex, 2+ DP pulse and intact sensation
[2018-12-12] MEDS: Lactated Ringers 1000 ML Bag* 1,000 ML IV SCH (14:53)
[2018-12-12] MEDS: Morphine ORAL.SOLN 10 mg* 2 MG/ML UDC 5 ml PO PRN (15:14)
[2018-12-12] MEDS ORDERED: Nicotine* 2MG (FRUIT FLAVOR) GUM PO PRN (15:20)
[2018-12-12] MEDS ORDERED: Morphine TAB Extended Release (*) 15 MG TAB.ER PO PRN (15:30)
[2018-12-12] MEDS: traMADol TAB* 50 MG PO PRN (15:54)
[2018-12-12] MEDS: Morphine TAB Extended Release (*) 30 MG TAB.ER PO SCH ×2 (15:54→21:21)
[2018-12-12] MEDS: Morphine INJ* 4 MG/ML 1 ML SYRINGE (NEW SYRINGE VERSION) IV PRN (16:30)
[2018-12-12] MEDS: HYDROmorphone TAB* 4 MG PO PRN (17:51)
--- NOTE | 2018-12-12 17:51 | CONS ---
CONSULTATION REPORT: DATE OF CONSULT: 12/12/18 ATTENDING PHYSICIAN: REQUESTING PROVIDER: Dr. Bearden. REASON FOR CONSULT: Medical co-management. HISTORY OF PRESENT ILLNESS: This is a 68-year-old male with past medical history significant for hypertension, COPD and CHF, who was admitted on status post a left total knee replacement. Hospital Medicine were consulted for medical co-management. The patient underwent surgery on his left hip after having failed outpatient conservative management. PAST MEDICAL HISTORY: Hypertension, COPD, CHF, GERD, anxiety, chronic pain, osteoarthritis, hiatal hernia, right inguinal hernia, migraines, polio, incomplete right bundle branch block. PAST SURGICAL HISTORY: Right inguinal hernia repair, right total hip replacement, Hakan fundoplication, and deviated septum surgery. MEDICATIONS: 1. Morphine extended release 15 mg p.o. b.i.d. p.r.n. 2. Morphine extended release 30 mg t.i.d. scheduled. 3. Morphine immediate release 15 mg q.i.d. p.r.n. 4. Tamsulosin 0.8 mg p.o. at bedtime. 5. Sumatriptan 100 mg p.o. b.i.d. p.r.n. 6. Sertraline 50 mg p.o. q.a.m. 7. Omeprazole 20 mg p.o. q.a.m. 8. Nicotine patch 21 mg transdermally daily. 9. Neomycin/polymyxin B/hydrocortisone 2 drops in both ears b.i.d. p.r.n. 10. Metoprolol succinate 50 mg p.o. q.a.m. 11. Lisinopril 5 mg p.o. q.a.m. 12. Lorazepam 1 mg p.o. b.i.d. p.r.n. 13. Cholecalciferol 1000 units p.o. q.a.m. 14. Budesonide/formoterol 80/4.5 mg 2 puffs inhalation b.i.d. 15. Aspirin 81 mg p.o. q.a.m. 16. Albuterol inhaler 1 to 2 puffs inhalation q.4 hours p.r.n. ALLERGIES: Include OXYCODONE. REVIEW OF SYSTEMS: An 11-point system review was performed. It was negative for any chest pain, shortness of breath, abdominal pain, nausea, vomiting. It was positive for back pain and left hip pain. PHYSICAL EXAM: Vital Signs: Temperature 97.6 Fahrenheit, 84 pulse, 20 respirations, 93% oxygen on 3 L of O2, blood pressure 143/78. Constitutional: This is a well-developed obese older gentleman, seen resting in bed, in mild distress, frequently changing positions due to pain. Eyes: PERRLA. Extraocular muscles are intact. Conjunctivae pink and moist. ENT: Oropharynx is clear. Mucous membranes are moist. Lymphatics: No cervical lymphadenopathy noted. Cardiac: S1, S2 present. No murmurs, gallops, or rubs appreciated. No lower extremity edema. +2 positive pedal pulses. Respiratory: Lung sounds clear throughout bilaterally on 3 L of oxygen. Abdomen: Large, soft, nontender with hypoactive bowel sounds x4. Musculoskeletal: No clubbing or cyanosis. Able to move all extremities, though noted weakness to left lower extremity about 4/5 strength. Skin: Dressing intact to left hip. No swelling , drainage or redness noted to surrounding dressing. Neuro: No focal deficits appreciated. Can move all extremities and sensation intact to light touch. Psych: Alert and oriented x3, appears to be slightly anxious. No depression noted. DIAGNOSTIC STUDIES/LAB DATA: Pertinent lab data: POC glucose of 109. Hip and pelvis x-ray showed degenerative changes to the lumbar spine, bilateral hip prostheses in proper alignment. ASSESSMENT AND PLAN: My impression is this is a 68-year-old male with a past medical history that is significant for hypertension, chronic obstructive pulmonary disease and congestive heart failure, who is admitted on 12/12/18 status post a left total hip replacement. Hospitalists were consulted for medical co-management. 1. Left total hip replacement. PT/OT, pain and bowel management per Ortho. IV fluids to be saline locked in the a.m. Regular diet. Hold baby aspirin. 2. Hypertension. Hold lisinopril during admission, may resume upon discharge. 3. Chronic obstructive pulmonary disease. Continue Symbicort and Ventolin inhalers. 4. Congestive heart failure, not currently on any diuretics, but continue metoprolol succinate. 5. Gastroesophageal reflux disease. Continue omeprazole. 6. Depression and anxiety. Continue sertraline. 7. Chronic pain. Continue the extended release and immediate release morphine as per his home regimen. 8. Nicotine dependence. Nicotine patch 21 mg and nicotine gum as needed. 9. Migraines. Continue sumatriptan. 10. DVT prophylaxis. We will hold baby aspirin in light of apixaban per Ortho and SCDs. 11. Code status is full code. TIME SPENT: Time spent on patient about 40 minutes with more than half of spent [id number]. DISPOSITION: Inpatient admit. Condition: Fair. Thank you very much for allowing us to participate in the care of this patient. We will follow them during this admission. [id number]/CPS #: [id number] JAYCE
[2018-12-12] MEDS: SUMAtriptan TAB* 100 MG PO PRN ×2 (17:54→18:33)
[2018-12-12] MEDS: ceFAZolin 1 GM ADVAN(*) 1 GM in NS 0.9% 50 ML* 50 ML IVPB SCH (17:57)
--- NOTE | 2018-12-12 19:57 | OP ---
Operative Report - Blank - Operative Report Date of Operation: 12/12/18 Note: RAYMON CRAIG 1950 Date Of Surgery: 12/12/18 Madai Bearden MD Scratch Finisher: Juan NOEL did help throughout the procedure with preparation of the hip, wound retraction, manipulation of the hip, and wound closure. Anesthesiologist: Dr Tomlinson Anesthesia Type: General Preoperative Diagnosis: Left severe degenerative osteoarthritis of the hip Postoperative Diagnosis: As above Procedure Performed: Left Total Hip Arthroplasty with modifier for morbid obesity/increased operative time Complications: None Specimen: Femoral head and acetabular reamings sent to pathology. Hardware used: This is uncemented Glencross total hip arthroplasty hardware for the femur a size 6 accolade II with 127 neck angle femoral component, for the acetabulum a size 56F trident II tritanium cluster hole shell, 2 screws - length 15mm and 25mm, for the insert a size 28/52/46F MDM X3 insert, and for the femoral head a size 28 - 4 ceramic biolox V40 femoral head, 46 F MDM cementless liner. Brief history/Indication: RAYMON CRAIG was known in clinic and had a history of severe left hip pain. He failed conservative treatment with anti- inflammatories, pain pills, intra-articular injections and physical therapy. He elected to undergo left total hip arthroplasty due to continued pain and decreased quality of life. Radiographs showed severe end stage osteoarthritis of the hip with bone on bone contact. Informed consent was obtained from the patient. He understood the risks of surgery included but were not limited to: bleeding, infection, damage to nearby structures, intraoperative fracture, nerve palsy, failure of the hardware, early loosening, stiffness or loss of motion, dislocation, leg length discrepancy, anesthesia complications, stroke, heart attack, blood clot and . He wished to proceed. Intra-Operative findings: Intraoperatively the patient was noted to have severe loss of cartilage of the acetabulum and femoral head. His morbidly obese body habitus added approximately 60 minutes of time in the OR from positioning, to exposure, to placement of implants and closure. Description of the Procedure: RAYMON CRAIG was identified in the preanesthesia unit. His left hip was marked as the correct operative side. Informed consent was signed and placed in the chart. The patient was taken to the operating room and placed under anesthesia without complication. A munguia catheter was placed. The patient was placed on the peg board with all bony prominences well padded. The left lower extremity was prepped and draped in the usual sterile fashion. Preoperative time -out was made to correctly identify the patient, side and site. Appropriate intraoperative antibiotics were given within one hour of incision. A standard posterior incision was made and carried sharply down to the lateral fascia. A new 10 blade was used to make an incision in the fascia in line with the skin incision. A charnley retractor was placed. The piriformis and conjoined tendons were identified and elevated off the posterolateral femur using electrocautery. These were tagged with number 5 Ethibond. Next electrocautery was used to make a posterolateral capsular flap and this was tagged with number 5 Ethibonds. The hip was carefully dislocated. Lesser trochanter to the center of the femoral head was measured at 62 mm. The oscillating saw was used to make the femoral neck cut. The femoral head was carefully removed. The femur was retracted anteriorly and the acetabular retractors were placed. Long-handled knife was used to sharply remove any remaining labrum from the acetabular rim. The acetabulum was sequentially reamed up to a size 56. A bleeding subchondral bone bed was obtained. A trial liner was placed and had excellent fit and stability. A 56 F cup with 2 screws was placed and had excellent stability with appropriate anteversion and abduction angle. A size 46F MDM cementless liner was impacted into the acetabular shell. The liner was checked for stability and was stable. Next attention was turned to preparation of the femoral canal. A canal finder was used to enter the proximal femur. The femoral canal was sequentially broached up to a size 6 femoral broach trial. A trial neck and 28 - 4 trial femoral head was chosen. Lesser trochanter to center of the femoral head measurement was satisfactory. The hip was reduced and taken through a range of motion. The hip was stable in all positions with good soft tissue tension and appropriate leg lengths. The hip was dislocated and all trials were removed. The final implant chosen was a accolade II size 6 with 127 neck angle. This stem was impacted into the femoral canal without difficulty. The stem was stable with appropriate anteversion. The femoral head chosen was a 28 - 4 ceramic head with a MDM 28/46F X3 insert. The head was impacted onto the femoral neck without difficulty. The final lesser trochanter to center of the femoral head measurement was satisfactory. The hip was reduced and taken through a range of motion. The hip was stable in all positions with good soft tissue tension and appropriate leg lengths. The hip was copiously irrigated with sterile saline. The previously tagged capsule and tendons were repaired to the posterolateral femur through two trochanteric drill holes. The lateral fascia layer was closed using number 1 vicryls. The rest of the incision was closed in a layered fashion using 0 and 2-0 vicryls. The skin was closed using 3-0 monocryl suture and Dermabond. Sterile adaptic, 4x4s and paper tape was used to cover the incision. The patients anesthesia was reversed without difficulty. He was taken to the PACU in stable condition. Intended weight-bearing will be as tolerated with posterior hip precautions.
[2018-12-12] MEDS ORDERED: Morphine TAB Extended Release (*) 30 MG TAB.ER PO SCH (21:00)
[2018-12-12] MEDS: Tamsulosin CAP* 0.4 MG PO SCH (21:21)
[2018-12-12] MEDS: Docusate CAP* 100 MG PO SCH (21:21)
[2018-12-12] MEDS: Magnesium Hydroxide LIQ* 30 ML UDC PO SCH (21:22)
[2018-12-13] MEDS: Lactated Ringers 1000 ML Bag* 1,000 ML IV SCH (00:44)
[2018-12-13] MEDS: traMADol TAB* 50 MG PO PRN ×2 (00:49→17:52)
[2018-12-13] MEDS: LORazepam TAB(*) 1 MG PO PRN ×2 (00:49→10:13)
[2018-12-13] MEDS: Cyclobenzaprine TAB* 10 MG PO PRN ×3 (00:49→17:52)
[2018-12-13] MEDS: Acetaminophen TAB* 325 MG PO SCH ×4 (00:49→22:13)
[2018-12-13] MEDS: SUMAtriptan TAB* 100 MG PO PRN (00:52)
[2018-12-13] MEDS: ceFAZolin 1 GM ADVAN(*) 1 GM in NS 0.9% 50 ML* 50 ML IVPB SCH ×2 (03:01→10:15)
[2018-12-13 06:04] LABS: Calcium 8.6 mg/dL (8.6-10.3)
[2018-12-13 06:10] LABS: BUN/Creatinine Ratio 30.4 (8-20); EGFR African American 174.5 (>60); EGFR Non-African American 144.2 (>60)
[2018-12-13 06:36] LABS: Hematocrit 39 % (42-52); Hemoglobin 13.4 g/dL (14.0-18.0); Mean Platelet Volume 7.6 fL (7.4-10.4); Platelet Count 256 10^3/uL (150-450)
[2018-12-13] MEDS: Apixaban* 2.5 MG TAB PO SCH ×2 (08:07→22:12)
[2018-12-13] MEDS: Vitamin THERAPEUTIC TAB PO SCH (08:07)
[2018-12-13] MEDS: Sertraline* 50 MG TAB PO SCH (08:07)
[2018-12-13] MEDS: Morphine TAB Extended Release (*) 30 MG TAB.ER PO SCH ×3 (08:07→22:12)
[2018-12-13] MEDS: Pantoprazole TAB * 40 MG TAB PO SCH (08:07)
[2018-12-13] MEDS: Metoprolol Succinate XL TAB* 50 MG PO SCH (08:07)
[2018-12-13] MEDS: Docusate CAP* 100 MG PO SCH ×2 (08:07→22:12)
[2018-12-13] MEDS: Magnesium Hydroxide LIQ* 30 ML UDC PO SCH ×2 (08:08→22:13)
[2018-12-13] MEDS: Nicotine PATCH 21 MG/24 HR* PATCH TRANSDERM SCH (08:09)
[2018-12-13] MEDS: HYDROmorphone TAB* 4 MG PO PRN ×2 (08:12→14:53)
[2018-12-13 08:35] LABS: Potassium 4.4 mmol/L (3.5-5.0)
[2018-12-13] MEDS ORDERED: Nicotine PATCH 14 MG/24 HR* PATCH TRANSDERM SCH (09:00)
[2018-12-13] MEDS ORDERED: Lisinopril TAB* 5 MG PO SCH (09:00)
[2018-12-13] MEDS ORDERED: Aspirin EC TAB* 81 MG TAB.EC PO SCH (09:00)
--- NOTE | 2018-12-13 09:30 | PN ---
Progress Note - Progress Note Date of Service: 12/13/18 SOAP: Subjective: []Patient seen and examined at bedside. His pain is 8/10 which he reports as improved from the 10/10 he was experiencing last night. Denies CP, SOB, dizziness, nausea. Using nasal cannula this morning, reports diagnosed sleep apnea but has been unable to tolerate CPAP so he uses an air conditioner and nasal spray to help breath easier at night. Had one elevated HR this morning, no feeling of irregular beats, CP, SOB. Objective: []Gen: Appears well, NAD LLE: Left hip dressing CDI, thigh soft, DF/PF intact, DP2+, sensation intact to light touch distally Calves supple and nontender without erythema, edema or palpable cords Assessment: []POD 1 sp LTH Plan: []WBAT PT/OT Posterior hip precautions eliquis 2.5 mg po BID x 30 days post op Monitor HR Wean off O2 Encourage IS Hyponatremia: recheck Na tomorrow morning Vital Signs Temp 98.7 F 12/13/18 08:24 Pulse 109 12/13/18 08:24 Resp 18 12/13/18 08:24 BP 152/85 12/13/18 08:24 Pulse Ox 93 12/13/18 08:24 Intake & Output 12/12/18 12/13/18 12/13/18 18:59 06:59 18:59 Intake Total 700 2455 100 Output Total 2105 200 Balance 700 350 -100 Weight 266 lb Intake: IV Fluids 700 955 LR 700 955 IVPB 50 ABX - CEFAZOLIN 50 Oral 1450 100 Output: Urine 200 Gonzalez 2105 Laboratory Last Values Hgb 13.4 g/dL (14.0-18.0) L 12/13/18 06:22 Hct 39 % (42-52) L 12/13/18 06:22 Plt Count 256 10^3/uL (150-450) 12/13/18 06:22 MPV 7.6 fL (7.4-10.4) 12/13/18 06:22 Sodium 130 mmol/L (135-145) L 12/13/18 04:52 Potassium 4.4 mmol/L (3.5-5.0) 12/13/18 04:52 Chloride 101 mmol/L (101-111) 12/13/18 04:52 Carbon Dioxide 20 mmol/L (22-32) L 12/13/18 04:52 Anion Gap 9 mmol/L (2-11) 12/13/18 04:52 BUN 17 mg/dL (6-24) 12/13/18 04:52 Creatinine 0.56 mg/dL (0.67-1.17) L 12/13/18 04:52 Est GFR ( Amer) 174.5 (>60) 12/13/18 04:52 Est GFR (Non-Af Amer) 144.2 (>60) 12/13/18 04:52 BUN/Creatinine Ratio 30.4 (8-20) H 12/13/18 04:52 Glucose 134 mg/dL (70-100) H 12/13/18 04:52 POC Glucose (mg/dL) 109 mg/dL (70-100) H 12/12/18 09:08 Calcium 8.6 mg/dL (8.6-10.3) 12/13/18 04:52
[2018-12-13] MEDS: Lisinopril TAB* 5 MG PO SCH (10:12)
[2018-12-13] MEDS: Morphine ORAL.SOLN 10 mg* 2 MG/ML UDC 5 ml PO PRN (10:13)
[2018-12-13] MEDS: Morphine INJ* 4 MG/ML 1 ML SYRINGE (NEW SYRINGE VERSION) IV PRN (11:38)
--- NOTE | 2018-12-13 15:48 | PN ---
Subjective Date of Service: 12/13/18 Interval History: Mr. Guidry is feeling fine this morning, but is having a lot of pain. He rates it 8/10 and is uncomfortable in bed, but had an uneventful night. He is hoping to get OOB soon. Denies CP, SOB, N/V. No concerns from nursing. Family History: Unchanged from Admission Social History: Unchanged from Admission Past Medical History: Unchanged from Admission Objective Active Medications: Acetaminophen (Tylenol Tab*) 975 mg PO Q8HR WILLOW Albuterol (Ventolin Hfa Inhaler*) 2 puff INH Q4H PRN SOB/WHEEZING Apixaban (Eliquis*) 2.5 mg PO BID WILLOW Bisacodyl (Dulcolax Supp*) 10 mg ME DAILY PRN CONSTIPATION Cyclobenzaprine HCl (Flexeril Tab*) 10 mg PO Q6H PRN SPASMS Diphenhydramine HCl (Benadryl Iv*) 25 mg IV Q6H PRN PRURITIS Diphenhydramine HCl (Benadryl Po*) 25 mg PO Q6H PRN PRURITIS Docusate Sodium (Colace Cap*) 100 mg PO BID WILLOW Hydromorphone HCl (Dilaudid Tab*) 4 mg PO Q6H PRN PAIN - SEVERE Lactated Ringer's (Lactated Ringers 1000 Ml Bag*) 1,000 mls @ 100 mls/hr IV PER RATE WILLOW Lactulose (Lactulose*) 30 ml PO BID PRN CONSTIPATION Lisinopril (Prinivil Tab*) 5 mg PO DAILY WILLOW Lorazepam (Ativan Tab(*)) 1 mg PO BID PRN ANXIETY Magnesium Hydroxide (Milk Of Magnesia Liq*) 30 ml PO BID WILLOW Magnesium Hydroxide (Milk Of Magnesia Liq*) 30 ml PO Q6H PRN CONSTIPATION Metoprolol Succinate (Toprol Xl Tab*) 50 mg PO QAM WILLOW Morphine Sulfate (Morphine Inj (Syringe)*) 4 mg IV Q4H PRN Pain - Unrelieved Morphine Sulfate (Morphine Oral.Soln 10 Mg*) 15 mg PO QID PRN PAIN Morphine Sulfate (Ms Contin(*)) 30 mg PO TID WILLOW Morphine Sulfate (Ms Contin(*)) 15 mg PO Q12H PRN PAIN - SEVERE Multivitamins (Theragran Tab*) 1 tab PO DAILY [facility] Nicotine (Nicotine Patch 21 Mg/24 Hr*) 1 patch TRANSDERM DAILY@0800 [facility] Nicotine Polacrilex (Nicotine Gum*) 2 mg PO Q2H PRN CRAVING Ondansetron HCl (Zofran Inj*) 4 mg IV Q6H PRN NAUSEA Ondansetron HCl (Zofran Odt Tab*) 4 mg PO Q6H PRN NAUSEA Ondansetron HCl (Zofran Tab*) 4 mg PO Q6H PRN NAUSEA Pantoprazole Sodium (Protonix Tab*) 40 mg PO QAM WILLOW Sertraline HCl (Zoloft*) 50 mg PO QAM WILLOW Sumatriptan Succinate (Imitrex Tab*) 100 mg PO BID PRN HEADACHE Tamsulosin HCl (Flomax Cap*) 0.8 mg PO BEDTIME WILLOW Tramadol HCl (Ultram*) 50 mg PO Q6H PRN PAIN - MODERATE Vital Signs - 8 hr 12/13/18 12/13/18 12/13/18 08:07 08:12 08:15 Temperature Pulse Rate Respiratory 18 18 18 Rate Blood Pressure (mmHg) O2 Sat by Pulse 93 Oximetry 12/13/18 12/13/18 12/13/18 08:24 10:13 11:37 Temperature 98.7 F Pulse Rate 109 Respiratory 18 18 18 Rate Blood Pressure 152/85 (mmHg) O2 Sat by Pulse 93 Oximetry 12/13/18 12/13/18 12/13/18 11:38 11:45 12:48 Temperature 97.5 F Pulse Rate 92 Respiratory 26 20 18 Rate Blood Pressure 147/78 (mmHg) O2 Sat by Pulse 93 Oximetry Appearance: Elderly male sitting in bed in NAD Ears/Nose/Mouth/Throat: Mucous Membranes Moist Neck: NL Appearance and Movements; NL JVP, Trachea Midline Respiratory: Symmetrical Chest Expansion and Respiratory Effort, Clear to Auscultation Cardiovascular: NL Sounds; No Murmurs; No JVD Abdominal: NL Sounds; No Tenderness; No Distention Extremities: No Edema Skin: - - Surgical dressing intact to LLE Neurological: Alert and Oriented x 3 Lines/Tubes/Other Access: Clean, Dry and Intact Peripheral IV Nutrition: Taking PO's Result Diagrams: 12/13/18 06:22 12/13/18 04:52 Assess/Plan/Problems-Billing Assessment: Mr. Guidry is a 68 yo M with PMH of HTN, CHF, COPD, GERD, chronic pain, anxiety ; who presented to [facility] for an elective L TKA on 12/12/18. Hospital Medicine is consulting for co-medical management. - Patient Problems (1) Status post left knee replacement Code(s): Z96.652 - PRESENCE OF LEFT ARTIFICIAL KNEE JOINT Comment: - Management per Ortho (2) Hypertension Code(s): I10 - ESSENTIAL (PRIMARY) HYPERTENSION Comment: - Hypertensive overnight - Continue metoprolol; resume lisinopril (3) Congestive heart failure Code(s): I50.9 - HEART FAILURE, UNSPECIFIED Comment: - Euvolemic - Continue metoprolol, lisinopril (4) Chronic back pain Code(s): M54.9 - DORSALGIA, UNSPECIFIED; G89.29 - OTHER CHRONIC PAIN Comment: - Continue fentanyl patch, morphine (5) COPD (chronic obstructive pulmonary disease) Code(s): J44.9 - CHRONIC OBSTRUCTIVE PULMONARY DISEASE, UNSPECIFIED Comment: - Continue albuterol PRN (6) GERD (gastroesophageal reflux disease) Code(s): K21.9 - GASTRO-ESOPHAGEAL REFLUX DISEASE WITHOUT ESOPHAGITIS Comment : - Continue pantoprazole (7) Anxiety Code(s): F41.9 - ANXIETY DISORDER, UNSPECIFIED Comment: - Continue lorazepam, sertraline (8) DVT prophylaxis Code(s): Z29.9 - ENCOUNTER FOR PROPHYLACTIC MEASURES, UNSPECIFIED Comment: - Eliquis per Ortho (9) Full code status Code(s): Z78.9 - OTHER SPECIFIED HEALTH STATUS Comment: Status and Disposition: Dispo per Ortho. Thank you for this consultation. We will continue to follow distantly. Attending: Emmanuel Madrigal
[2018-12-13] MEDS ORDERED: Nicotine Patch Removal NOTE PATCH OFF SCH (21:00)
[2018-12-13] MEDS: Tamsulosin CAP* 0.4 MG PO SCH (22:11)
[2018-12-14] MEDS: traMADol TAB* 50 MG PO PRN (02:04)
[2018-12-14] MEDS: HYDROmorphone TAB* 4 MG PO PRN ×2 (04:05→10:13)
[2018-12-14 06:12] LABS: Hematocrit 37 % (42-52); Hemoglobin 12.7 g/dL (14.0-18.0); Mean Platelet Volume 7.4 fL (7.4-10.4); Platelet Count 234 10^3/uL (150-450)
[2018-12-14] MEDS: Acetaminophen TAB* 325 MG PO SCH ×2 (06:27→13:28)
[2018-12-14 06:28] LABS: BUN/Creatinine Ratio 29.3 (8-20); Calcium 8.5 mg/dL (8.6-10.3); EGFR African American 167.6 (>60); EGFR Non-African American 138.5 (>60); Potassium 4.1 mmol/L (3.5-5.0)
[2018-12-14] MEDS: Nicotine PATCH 21 MG/24 HR* PATCH TRANSDERM SCH (08:12)
[2018-12-14] MEDS: Apixaban* 2.5 MG TAB PO SCH (08:15)
[2018-12-14] MEDS: Docusate CAP* 100 MG PO SCH (08:15)
[2018-12-14] MEDS: Pantoprazole TAB * 40 MG TAB PO SCH (08:15)
[2018-12-14] MEDS: Magnesium Hydroxide LIQ* 30 ML UDC PO SCH (08:15)
[2018-12-14] MEDS: Lisinopril TAB* 5 MG PO SCH (08:15)
[2018-12-14] MEDS: Metoprolol Succinate XL TAB* 50 MG PO SCH (08:15)
[2018-12-14] MEDS: Vitamin THERAPEUTIC TAB PO SCH (08:15)
[2018-12-14] MEDS: Sertraline* 50 MG TAB PO SCH (08:16)
[2018-12-14] MEDS: Morphine TAB Extended Release (*) 30 MG TAB.ER PO SCH ×2 (08:16→13:27)
--- NOTE | 2018-12-14 10:17 | PN ---
Progress Note - Progress Note Date of Service: 12/14/18 SOAP: Subjective: []Pt seen at bedside, He feels well without CP, SOB, dizziness, nausea. PMRU unable to offer a bed, he desires DC to home over a rehab placement. Met goals with PT today, significant improvement from yesterday. Objective: []Gen: Appears well, NAD LLE: Left hip dressing changed, incision CDI, thigh soft, DF/PF intact, DP2+, sensation intact to light touch distally Calves supple and nontender without erythema, edema or palpable cords Assessment: []POD 2 sp LTH Plan: []WBAT PT/OT Posterior hip precautions eliquis 2.5 mg po BID x 30 days post op Encourage IS Hyponatremia: improving, will monitor Low O2 overnight, hx CAHNDU without CPAP use due to intolerance. Discussed with medicine, CHANDU, FU PCP Vital Signs Temp 99.4 F 12/14/18 07:59 Pulse 97 12/14/18 07:59 Resp 20 12/14/18 10:13 BP 123/80 12/14/18 07:59 Pulse Ox 93 12/14/18 08:00 Intake & Output 12/13/18 12/14/18 12/14/18 18:59 06:59 18:59 Intake Total 1935 900 360 Output Total 1650 775 200 Balance 285 125 160 Intake: IV Fluids 980 LR 980 IVPB 55 ABX - CEFAZOLIN 55 Oral 900 900 360 Output: Urine 1650 775 200 Laboratory Last Values Hgb 12.7 g/dL (14.0-18.0) L 12/14/18 06:04 Hct 37 % (42-52) L 12/14/18 06:04 Plt Count 234 10^3/uL (150-450) 12/14/18 06:04 MPV 7.4 fL (7.4-10.4) 12/14/18 06:04 Sodium 132 mmol/L (135-145) L 12/14/18 06:04 Potassium 4.1 mmol/L (3.5-5.0) 12/14/18 06:04 Chloride 103 mmol/L (101-111) 12/14/18 06:04 Carbon Dioxide 25 mmol/L (22-32) 12/14/18 06:04 Anion Gap 4 mmol/L (2-11) 12/14/18 06:04 BUN 17 mg/dL (6-24) 12/14/18 06:04 Creatinine 0.58 mg/dL (0.67-1.17) L 12/14/18 06:04 Est GFR ( Amer) 167.6 (>60) 12/14/18 06:04 Est GFR (Non-Af Amer) 138.5 (>60) 12/14/18 06:04 BUN/Creatinine Ratio 29.3 (8-20) H 12/14/18 06:04 Glucose 136 mg/dL (70-100) H 12/14/18 06:04 POC Glucose (mg/dL) 109 mg/dL (70-100) H 12/12/18 09:08 Calcium 8.5 mg/dL (8.6-10.3) L 12/14/18 06:04
--- NOTE | 2018-12-14 11:06 | DS ---
Orthopedic Discharge Summary - Discharge Summary Date of Admission:12/12/18 Date of Discharge: 12/14/18 Date of Surgery: 12/12/18 Attending Orthopedic Provider: Dr Bearden Pre-operative Diagnosis: Left hip osteoarthritis Operative Procedure: Left total hip replacement Disposition of Patient: home with VNS Condition of Patient: stable History: RAYMON CRAIG is a 68 year old M with years of increasingly severe left hip pain. Patient has failed conservative management and has elected to undergo a left total hip replacement Hospital Course: RAYMON was admitted to [facility] on 12/12/18. Patient underwent a left total hip replacement without complication followed by a brief recovery in PACU and transfer to the Short Stay Surgical Unit in stable condition. Our hospitalist service, physical therapy and occupational therapy also participated in this patients care. Post-op day 1: patient was alert and in no acute distress. Dressing was clean, dry and intact. Operative extremity dorsiflexion and plantarflexion intact, sensation intact to light touch distally , DP2+. Post-op day two: dressing was changed, incision was clean, dry and intact. Patient was deemed to be medically and orthopedically stable for discharge. Physical therapy goals were met. Home Medications Medication Instructions Recorded Confirmed Type Tamsulosin CAP* [Flomax CAP*] 2 tab PO BEDTIME 02/15/12 12/12/18 History Metoprolol Succinate XL TAB* 50 mg PO QAM 08/27/14 12/12/18 History [Toprol XL TAB*] Aspirin EC TAB* [Ecotrin EC Low 81 mg PO QAM 08/08/15 12/12/18 History Dose 81 MG*] SUMAtriptan TAB* [Imitrex TAB*] 100 mg PO BID PRN 08/08/15 12/12/18 History Albuterol HFA INHALER* [Ventolin 1 - 2 puff INH Q4H PRN 09/25/15 12/12/18 History HFA Inhaler*] Lisinopril 5 mg PO QAM 05/31/17 12/12/18 History Morphine Sulfate 15 mg PO QID PRN MDD 4 03/31/18 12/12/18 History Morphine TAB Extended Rel(*) [Ms 15 mg PO BID 07/25/18 12/12/18 History Contin(*)] Morphine TAB Extended Rel(*) [Ms 30 mg PO BID 07/25/18 12/12/18 History Contin(*)] Budesonide/Formote 80/4.5(NF) 2 puff INH BID 12/04/18 12/12/18 History [Symbicort 80/4.5 (NF)] Cholecalciferol (Vitamin D3) 1,000 unit PO QAM 12/04/18 12/12/18 History [Vitamin D3] LORazepam TAB(*) [Ativan 1 MG TAB 1 mg PO BID PRN 12/04/18 12/12/18 History (*)] Neomycin/Polymyxin B/Hydrocort 2 drop BOTH EARS BID PRN 12/04/18 12/12/18 History [Kzvzawzl-Kznhoxwdk-Ju Ear Susp] Nicotine [Nicoderm Cq] 1 each TD 1500 12/04/18 12/12/18 History Omeprazole CAP (NF) [Prilosec CAP* 20 mg PO QAM 12/04/18 12/12/18 History 20 MG] Sertraline* [Zoloft*] 50 mg PO QAM 12/04/18 12/12/18 History Acetaminophen TAB* [Tylenol TAB*] 975 mg PO Q8HR tab 12/14/18 Rx Apixaban* [Eliquis*] 2.5 mg PO BID #60 tab 12/14/18 Rx Docusate CAP* [Colace Cap*] 100 mg PO BID PRN #90 cap 12/14/18 Rx traMADol TAB* [Ultram*] 50 mg PO Q6H PRN #40 tab MDD 6 12/14/18 Rx Discharge Instructions following Orthopedic Surgery: Activity: * Weight Bearing as tolerated * Continue physical therapy and occupational therapy exercises as shown * Continue home PT Hip replacements: Continue Hip Precautions- do not cross legs or bend greater than 90 degrees/squat Wound care: * OK to shower on post-op day 3, no bathing, swimming, or submerging wound. * Use gentle soap, pat dry. Cover with gauze, JESSICA wrap or tape. * Visiting home nurse to do wound checks. Call Orthopedic office for: * Increased drainage * Redness * Increased pain * Fever Go to ER with shortness of breath or chest pain. Diet: * Regular diet * Increase fluids and fiber to prevent constipation. * Continue to use stool softeners, call office if no bowel motion within 48 hours. * Recommend using CPAP for sleep apnea, poorly tolerated in the past please discuss this with your PCP Medications See Home Medication List in your packet for medications that you should take after discharge. DVT Prophylaxis: Eliquis Dosin.5 mg, 1 tab every 12 hours x 30 days. Increases bleeding tendency Pain Control: Continue home pain medications. Wean down as soon as possible. Tramadol 50 mg 1 tab for mild and 2 tabs for severe pain every 6 hours as needed. Hold for sedation and wean off as soon as pain allows Antibiotics are required prior to any dental work. FOLLOW UP: Follow up with [Suleiman] Within 10-14 days, call for appointment Please call our office with any questions or concerns ([phone]) [facility]
[2018-12-14 11:17] VITALS: BP 131/73
[2018-12-14] MEDS ORDERED: Bisacodyl SUPP* 10 MG SUPP PR PRN (13:16)
== END 2018-12-14 13:45 | disposition home health service (06) | DRG 470 ==
LOC: AA 12-12 07:05 → SSU 12-12 13:16
PROVIDERS: ADMIT Orthopaedic Surgery Adult Reconstructive Orthopaedic Surgery; ATTEND Orthopaedic Surgery Adult Reconstructive Orthopaedic Surgery
PROC: 0SRB03A Replacement of Left Hip Joint with Ceramic Synthetic Substitute, Uncemented, Open Approach (ICD-10-PCS; principal; 2018-12-12 10:00)
DX: M16.12 Unilateral primary osteoarthritis, left hip (principal); E87.1 Hypo-osmolality and hyponatremia; I50.22 Chronic systolic (congestive) heart failure; I42.9 Cardiomyopathy, unspecified; E66.01 Morbid (severe) obesity due to excess calories; I11.0 Hypertensive heart disease with heart failure; K21.9 Gastro-esophageal reflux disease without esophagitis; F41.9 Anxiety disorder, unspecified; G43.909 Migraine, unspecified, not intractable, without status migrainosus; I45.19 Other right bundle-branch block; Z96.641 Presence of right artificial hip joint; F32.9 Major depressive disorder, single episode, unspecified; M54.9 Dorsalgia, unspecified; G47.33 Obstructive sleep apnea (adult) (pediatric); F17.210 Nicotine dependence, cigarettes, uncomplicated; N40.0 Benign prostatic hyperplasia without lower urinary tract symptoms; E78.5 Hyperlipidemia, unspecified; J43.9 Emphysema, unspecified; E11.9 Type 2 diabetes mellitus without complications; G89.4 Chronic pain syndrome; I08.0 Rheumatic disorders of both mitral and aortic valves; Z80.9 Family history of malignant neoplasm, unspecified; Z68.39 Body mass index [BMI] 39.0-39.9, adult; Z86.12 Personal history of poliomyelitis; Z88.5 Allergy status to narcotic agent; Z79.82 Long term (current) use of aspirin; Z79.891 Long term (current) use of opiate analgesic
CPT/HCPCS: 36415; 80048; 85014; 85018; 85049; 88304; 88311; A9270-GY; C1713; C1776; G8978-GP-CK; G8979-GP-CI; G8987-GO-CI; G8988-GO-CJ; G8989-GO-CJ; J0690; J1100; J1170; J2250; J2270; J2405; J2704; J2710; J2795; J3010

== ENCOUNTER 2018-12-21 15:49 | Emergency (ER) | payer MEDICARE ==
--- NOTE | 2018-12-21 16:24 | ED ---
Lower Extremity - HPI Summary HPI Summary: This pt is a 68 y[facility]/o left leg swelling s/p total left hip replacement on 12/12/18. Pt reports he noticed swelling on left leg began a couple of days after his left hip replacement surgery done by Dr. Bearden. He states he then noticed blisters on left ankle a couple of days ago that he describes as pruritic. Pt denies any leg pain. Denies any blisters in mouth. Per , they have been treating the blisters with poison javed medication. Pt denies SOB, chest pain, abd pain, nausea, vomiting. Pt saw his PCP and she referred the pt to the ED to rule out DVT. Denies hx of DVT. Pt is anticoagulanted on Eliquis and reports he has been compliant. PMHx includes COPD. Pt uses oxygen at home only at night when sleeping. Medications reviewed. Allergies noted. - History of Current Complaint Chief Complaint: EDExtremityLower Stated Complaint: NEEDS BLOOD TEST Time Seen by Provider: 12/21/18 15:53 Hx Obtained From: Patient Onset of Pain: Days Onset/Duration: Days Severity Currently: Moderate Pain Intensity: 0 Pain Scale Used: 0-10 Numeric Timing: Lasting Days Location: Is Discrete @ - left leg Associated Signs And Symptoms: Positive: Swelling. Negative: Fever Aggravating Factor(s): Nothing Alleviating Factor(s): Nothing Able to Bear Weight: Yes Related History: Other - s/p total left hip replacement on 12/12/18 - Allergies/Home Medications Allergies/Adverse Reactions: Allergies Allergy/AdvReac Type Severity Reaction Status Date / Time oxycodone AdvReac Intermediate Rash Verified 12/21/18 15:59 Home Medications: Home Medications Acetaminophen [Acetaminophen Extra Strength] 1,000 mg PO Q8HR PRN 12/21/18 [ History Confirmed 12/21/18] Lisinopril TAB* [Prinivil TAB*] 5 mg PO DAILY 12/21/18 [History Confirmed ] Neomycin/Polymyxin B/Hydrocort [Ptiyrusz-Ndjqrlfjb-Do Ear Susp] 2 drop BOTH EARS BID PRN 12/21/18 [History Confirmed 12/21/18] Nicotine [Nicoderm Cq] 1 each TOPICAL DAILY 12/21/18 [History Confirmed 12/21/18 ] PMH/Surg Hx/FS Hx/Imm Hx Endocrine/Hematology History: Denies: Hx Anticoagulant Therapy, Hx Diabetes, Hx Thyroid Disease Cardiovascular History: Reports: Hx Congenital Heart Disease, Hx Congestive Heart Failure - ON MED, Hx Coronary Artery Disease, Hx Hypotension, Hx Hypertension Denies: Hx Angina, Hx Hypercholesterolemia, Hx Myocardial Infarction, Hx Pacemaker/ICD Respiratory History: Reports: Hx Chronic Bronchitis, Hx Sleep Apnea - no CPAP Denies: Hx Asthma, Hx Chronic Obstructive Pulmonary Disease (COPD) GI History: Reports: Hx Gastroesophageal Reflux Disease, Hx Hiatal Hernia - HAKAN FUNDOPLICATION, Hx Ulcer - , Other GI Disorders - barretts esophagus History: Reports: Hx Benign Prostatic Hyperplasia, Hx Kidney Stones - NONE IN THE LAST SEVERAL YEARS, Other Problems/Disorders - BPH - ON FLOMAX Denies: Hx Renal Disease Musculoskeletal History: Reports: Hx Arthritis, Hx Back Problems, Other Musculoskeletal History - degenerative arthritis in back Sensory History: Reports: Hx Contacts or Glasses - glasses, Hx Hearing Problem Denies: Hx Hearing Aid Opthamlomology History: Reports: Hx Contacts or Glasses - glasses Neurological History: Reports: Hx Headaches - ON MED, Hx Migraine Denies: Hx Dementia, Hx Seizures Comment Only: Other Neuro Impairments/Disorders - PAIN CLINIC PATIENT Psychiatric History: Reports: Hx Anxiety, Hx Depression - zoloft Denies: Hx Panic Disorder, Hx Substance Abuse - Cancer History Hx Chemotherapy: No - Surgical History Surgical History: Yes Surgery Procedure, Year, and Place: Hakan fundoplication. Nerve repair. Septoplasty. right Inguinal hernia repair. right hip replacement 2017. Total left hip replacement 12/12/18 Hx Anesthesia Reactions: No Infectious Disease History: No Infectious Disease History: Denies: Hx Hepatitis, Hx Human Immunodeficiency Virus (HIV), Traveled Outside the [place] in Last 30 Days - Family History Known Family History: Negative: Seizure Disorder - Social History Alcohol Use: Daily Alcohol Amount: 4 drinks per week Substance Use Type: Reports: Prescribed, Other Substance Use Comment - Amount & Last Used: CBD oil, morphine Smoking Status (MU): Light Every Day Tobacco Smoker Type: Cigarettes Amount Used/How Often: 1/2 PPD 50 years- nicotine patch to try Have You Smoked in the Last Year: Yes Review of Systems Negative: Fever Negative: Chest Pain Negative: Shortness Of Breath Negative: Abdominal Pain, Vomiting, Nausea Positive: Edema - left leg Skin: Other - POSITIVE: left ankle blisters All Other Systems Reviewed And Are Negative: Yes Physical Exam - Summary Physical Exam Summary: Constitutional: Well-developed, Well-nourished, Alert. (-) Distressed Skin: Warm, Dry HENT: Normocephalic; Atraumatic. No intraoral lesions. Eyes: Conjunctiva normal Neck: Musculoskeletal ROM normal neck. (-) JVD, (-) Stridor, (-) Tracheal deviation Cardio: Rhythm regular, rate normal, Heart sounds normal; Intact distal pulses; The pedal pulses are 2+ and symmetric. Radial pulses are 2+ and symmetric. (-) Murmur Pulmonary/Chest wall: Effort normal. (-) Respiratory distress, (-) Wheezes, (-) Rales Abd: Soft, (-) tenderness, (-) Distension, (-) Guarding, (-) Rebound Musculoskeletal: Left lower extremity swelling from the mid thigh down. Some areas of blistering on left foot. Lymph: (-) Cervical adenopathy Neuro: Alert, Oriented x3 Psych: Mood and affect Normal Triage Information Reviewed: Yes Vital Signs On Initial Exam: Initial Vitals Temp Pulse Resp BP Pulse Ox 98.4 F 78 20 115/84 95 12/21/18 15:58 12/21/18 15:58 12/21/18 15:58 12/21/18 15:58 12/21/18 15:58 Vital Signs Reviewed: Yes Procedures - Sedation Patient Received Moderate/Deep Sedation with Procedure: No Diagnostics - Vital Signs Vital Signs Temp Pulse Resp BP Pulse Ox 12/21/18 15:58 98.4 F 78 20 115/84 95 - Laboratory Result Diagrams: 12/21/18 16:47 12/21/18 16:47 Lab Statement: Any lab studies that have been ordered have been reviewed, and results considered in the medical decision making process. - Ultrasound No standard instances Ultrasound Interpretation Completed By: Radiologist Summary of Ultrasound Findings: Left lower extremity US IMPRESSION: No sonographic evicence of deep vein thrombosis. Dr. Salcedo has reviewed this report. Lower Extremity Course/Dx - Course Course Of Treatment: Patient is here with a swollen lower extremity following surgery. Patient had a negative ultrasound for DVT. Patient has some blushing to his foot which is likely due from his edema and surgery. Patient had #5 symptoms a rash and did not need further workup for that. Patient is encouraged follow up with his primary care doctor in 1-3 days. Patient was also encouraged to have a repeat ultrasound in 1 week. - Diagnoses Provider Diagnoses: Swelling of left lower extremity Discharge ED - Sign-Out/Discharge Documenting (check all that apply): Patient Departure - Discharge home - Discharge Plan Condition: Stable Disposition: HOME Patient Education Materials: Leg Edema (ED) Referrals: Myla Luo MD [Primary Care Provider] - Additional Instructions: You need a repeat ultrasound in 1 week. PLEASE RETURN TO EMERGENCY DEPARTMENT FOR CHEST PAIN, SHORTNESS OF BREATH, OR ANY OTHER CONCERNING SYMPTOMS. Please follow up with your primary care physician in 1-3 days. - Billing Disposition and Condition Condition: STABLE Disposition: Home - Attestation Statements Document Initiated by Vimal: Yes Documenting Scribe: Naomie Christianson Provider For Whom Vimal is Documenting (Include Credential): Kenny Cormier MD Scribe Attestation: Naomie Mendez, scribed for Kenny Cormier MD on 12/21/18 at 1936. Scribe Documentation Reviewed: Yes Provider Attestation: The documentation as recorded by the Naomie sunshine accurately reflects the service I personally performed and the decisions made by me, Kenny Cormier MD Status of Scribe Document: Viewed
[2018-12-21 16:56] LABS: ABS Basophils 0.1 10^3/ul (0-0.2); ABS Eosinophils 0.4 10^3/ul (0-0.6); ABS Lymphocytes 1.6 10^3/ul (1.0-4.8); ABS Monocytes 0.8 10^3/ul (0-0.8); ABS Neutrophils 5.6 10^3/ul (1.5-7.7); Eosinophil % 4.4 %; Hematocrit 32 % (42-52); Hemoglobin 10.9 g/dL (14.0-18.0); Lymphocyte % 18.7 %; Mean Corpuscular HGB Conc 34 g/dL (31-36); Mean Corpuscular Hemoglobin 31 pg (27-31); Mean Corpuscular Volume 92 fL (80-94); Mean Platelet Volume 6.5 fL (7.4-10.4); Platelet Count 347 10^3/uL (150-450); Red Blood Count 3.47 10^6 /uL (4.18-5.48); Red Cell Distribution Width 14 % (10-15); White Blood Count 8.6 10^3/uL (3.5-10.8)
[2018-12-21 17:02] LABS: INR 1.09 (0.82-1.09)
[2018-12-21 17:21] LABS: Albumin 3.4 g/dL (3.2-5.2); Albumin/Globulin Ratio 1.1 (1-3); BUN/Creatinine Ratio 34.5 (8-20); Calcium 8.7 mg/dL (8.6-10.3); EGFR African American 167.6 (>60); EGFR Non-African American 138.5 (>60); Potassium 4.2 mmol/L (3.5-5.0); Total Bilirubin 0.6 mg/dL (0.2-1.0); Total Protein 6.4 g/dL (6.4-8.9)
[2018-12-21 17:57] VITALS: BP 130/71
== END 2018-12-21 17:58 | disposition home or self-care (01) ==
LOC: ED 15:49
DX: R60.0 Localized edema (principal); Z96.642 Presence of left artificial hip joint; S90.522A Blister (nonthermal), left ankle, initial encounter; X58.XXXA Exposure to other specified factors, initial encounter; Y92.9 Unspecified place or not applicable; Z79.01 Long term (current) use of anticoagulants; J44.9 Chronic obstructive pulmonary disease, unspecified; Z99.81 Dependence on supplemental oxygen; I25.10 Atherosclerotic heart disease of native coronary artery without angina pectoris; I11.0 Hypertensive heart disease with heart failure; F32.9 Major depressive disorder, single episode, unspecified; Z88.5 Allergy status to narcotic agent; F17.210 Nicotine dependence, cigarettes, uncomplicated
CPT/HCPCS: 36415; 80053; 85025; 85610; 99282

== ENCOUNTER 2019-02-09 08:38 | Inpatient (IN) | payer MEDICARE ==
--- NOTE | 2019-02-09 09:39 | HP ---
ADMISSION HISTORY AND PHYSICAL: DATE OF ADMISSION: 02/09/19 CHIEF COMPLAINT: Left buttock pain. HISTORY OF PRESENT ILLNESS: Mr. Guidry is a 68-year-old gentleman who is known to me for a left total hip arthroplasty on 12/12/18. He reports the hip is giving him 0/10 pain. His main complaint today is a bug bite, which has become infected and has some drainage in his left buttock. He reports this gives him 2 /10 pain. It hurts to sit on this left buttock. He denies any groin pain. He denies recent fevers. He was recently placed on Keflex. PAST MEDICAL HISTORY: Tobacco use, diabetes, osteoarthritis, emphysema, GERD, morbid obesity, obstructive sleep apnea, systolic heart failure with EF 45% to 50%, BPH, hypertension, Escobedo esophagus, hyperlipidemia, impotence, depression , gastric ulcer, chronic back pain, history of GI bleed. PAST SURGICAL HISTORY: Hakan fundoplication, umbilical hernia repair, bilateral total hip arthroplasties, left total hip arthroplasty on 12/12/18. CURRENT HOME MEDICATIONS: 1. Keflex 500 mg p.o. q.i.d. 2. NicoDerm 21 mg q.24 hours. 3. Symbicort 80/4.5 mcg inhaled 2 puffs by mouth twice a day. 4. Omeprazole 20 mg p.o. daily. 5. Lorazepam 1 mg p.o. b.i.d. p.r.n. for anxiety. 6. Sertraline 50 mg p.o. daily. 7. Lisinopril 5 mg p.o. daily. 8. Ventolin 108 mcg 2 puffs by mouth 4 times a day as needed. 9. Metoprolol ER 50 mg p.o. daily. 10. Morphine sulfate ER 30 mg p.o. q.8 hours. 11. Morphine sulfate 15 mg p.o. q.6 hours p.r.n. 12. Sumatriptan 100 mg p.o. p.r.n. migraines. 13. Aspirin 81 mg p.o. daily. 14. Vitamin D3 1000 units daily. 15. Tamsulosin 0.4 mg 2 capsules p.o. nightly. 16. Tramadol 50 mg as needed. 17. Cyclobenzaprine 10 mg p.o. q.8 hours as needed. 18. Finasteride 5 mg p.o. daily. ALLERGIES: OXYCODONE. FAMILY HISTORY: Negative. SOCIAL HISTORY: The patient lives with his . He does not work. Recent smoker, [id number] history, 3 to 4 alcoholic beverages per day. Normally ambulates with a cane. REVIEW OF SYSTEMS: Fourteen systems were reviewed with the patient today. Positive for left buttock pain, left buttock wound, chronic back pain, frequent urination, weight gain. Otherwise, the patient reports review of systems is negative or not relevant. He denies fevers, chills, chest pain, or shortness of breath. PHYSICAL EXAMINATION GENERAL: The patient is a morbidly obese male, in no apparent distress. Alert and oriented x3, pleasant mood, appropriate affect. VITAL SIGNS: Height of 5 feet 7 inches tall, weight of 280 pounds, BMI 43.8, pulse of 80, blood pressure 150/80, temperature 98.6. HEENT: Atraumatic normocephalic. Pupils equal and reactive to light. LUNGS: Clear to auscultation in all lung hoang. No wheezes, rales, or rhonchi. HEART: S1 and S2. ABDOMEN: Rounded, nontender, nondistended, bowel sounds in all 4 quadrants. EXTREMITIES: Left lower extremity, the patient's skin has a small opening and very abnormal appearance along the left buttock. His hip incision is well healed. No erythema. No tenderness to palpation in the groin or laterally at the bursa. Left buttock has extreme erythema and thickened skin., unsure whether this is a cellulitis or pressure wound. There is erythema and warmth. No visible drainage. Tender to the touch over buttock. Distally dorsiflexion, plantar flexion full, sensation to light touch. 2+ DP pulse. Baseline edema is present. GAIT: The patient's gait is mildly antalgic. He is using a cane. Balance: decreased single-leg stance. Coordination normal. ASSESSMENT AND PLAN: Mr. Guidry is a 68-year-old gentleman who is now 2 months after left total hip arthroplasty. His total hip arthroplasty is doing quite well. Unfortunately, he developed a bug bite on his buttock and now has developed a significant cellulitis. We discussed that I am quite concerned about its appearance. PO antibiotics have not helped this. Our plan is to directly admit him to [facility] for IV antibiotics. I would like blood cultures before the first dose of IV antibiotics. We will consult the hospitalist team. I plan to obtain plain x-rays of the hip and an MRI of the left buttock region and pelvis to evaluate for fluid collections or necrotic tissue. I plan to start vancomycin and Zosyn. He will have no pressure on that side. The patient agrees with the treatment plan and is headed to [facility] at this time. [id number] #: [id number] [id number]
[2019-02-09] MEDS ORDERED: Ondansetron INJ* 2 MG/ML VIAL IV PRN (09:59)
[2019-02-09] MEDS ORDERED: Ondansetron TAB* 4 MG PO PRN (09:59)
[2019-02-09] MEDS ORDERED: traMADol TAB* 50 MG PO PRN (09:59)
[2019-02-09] MEDS ORDERED: Acetaminophen TAB* 325 MG PO PRN (09:59)
[2019-02-09] MEDS ORDERED: diPHENhydraMINE IV* 50 MG/ML 1 ml VIAL (BENADRYL) IV PRN (09:59)
[2019-02-09] MEDS ORDERED: Lactated Ringers 1000 ML Bag* 1,000 ML IV SCH (10:00)
[2019-02-09] MEDS ORDERED: Piperacillin/Tazobac ADVAN(*) 3.375 GM in NS 0.9% 100 ML* 100 ML IVPB ONE (10:21)
[2019-02-09] MEDS ORDERED: Vancomycin per Pharmacy* NOTE FOLLOW UP SCH (11:00)
[2019-02-09] MEDS ORDERED: Zosyn per Pharmacy* NOTE FOLLOW UP SCH (11:00)
[2019-02-09] MEDS: NS 0.9% 1000 ML** 1,000 ML IV SCH (11:12)
[2019-02-09 11:56] LABS: EGFR African American 146.9 (>60); EGFR Non-African American 121.4 (>60)
[2019-02-09] MEDS ORDERED: Vancomycin(*) 1,750 MG in NS 0.9% 500 ML* 500 ML IVPB ONE (12:00)
[2019-02-09] MEDS ORDERED: Albuterol HFA INHALER* 8 gm MDI INH PRN (17:02)
[2019-02-09] MEDS ORDERED: Morphine ORAL.SOLN 10 mg* 2 MG/ML UDC 5 ml PO PRN (17:02)
[2019-02-09] MEDS: ZOSYN 3.375 GM Q8H per EXTENDED INFUSION IVPB SCH ×2 (17:35)
[2019-02-09] MEDS: SUMAtriptan TAB* 100 MG PO PRN (17:55)
--- NOTE | 2019-02-09 19:27 | CONS ---
CC: Dr. Myla Luo; Dr. Madai Bearden * CONSULTATION REPORT: DATE OF CONSULT: 02/09/19 PRIMARY CARE PROVIDER: Dr. Myla Luo. REQUESTING PHYSICIAN IN CONSULTATION: Dr. Madai Bearden. ATTENDING PHYSICIAN: Dr. Tiesha Olsen (dictated by SADIE Lay). HISTORY OF PRESENT ILLNESS: Mr. Guidry is a 68-year-old male with a past medical history of diabetes mellitus, not on medications; heart failure; hypertension; tobacco abuse; who was directly admitted from Dr. Bearden's office with presumed cellulitis. The patient had a left total hip arthroplasty approximately 2 months ago. He has been doing well. He notes that he developed what he presumed was a bug bite on the left buttock. Approximately 10 days ago, he notes that the site was itching. The patient notes there was a raised "bump," but no surrounding erythema. He then made an appointment to see Dr. Bearden within the last 5 days due to development of erythema. He also notes that the wound had been opened and was draining "black fluid" for the last approximately 1 week. He was started on Keflex 3 or 4 days ago and has been taking this medication as prescribed. Today, he followed up with Orthopedics and due to a worsening of the site, it was recommended that he be admitted for IV antibiotics. At this time, the patient is doing well. He complains of itching at the site, but has no other complaints. PAST MEDICAL HISTORY: 1. Diabetes mellitus, not on insulin. 2. Heart failure with ejection fraction of 45% to 50%. 3. Hypertension. 4. Hyperlipidemia. 5. COPD. 6. Tobacco abuse. 7. GERD, Escobedo's esophagus. 8. History of gastric ulcer. 9. Obesity. 10. BPH. 11. CHANDU, noncompliant with CPAP. 12. Depression. 13. Chronic back pain. 14. Migraine. 15. Depression. 16. Impotence. PAST SURGICAL HISTORY: Hakan fundoplication, umbilical hernia, bilateral total hip arthroplasties. HOME MEDICATIONS: 1. Albuterol HFA inhaler 1 to 2 puffs q.4 hours p.r.n. 2. Aspirin 81 mg p.o. daily. 3. Cholecalciferol 1000 units p.o. daily. 4. Cyclobenzaprine 10 mg p.o. t.i.d. 5. Lisinopril 5 mg p.o. daily. 6. Lorazepam 1 mg p.o. b.i.d. p.r.n. 7. Metoprolol succinate 50 mg p.o. daily. 8. Morphine sulfate 15 mg p.o. 4 times a day p.r.n., MDD 4. 9. Morphine ER 30 mg p.o. t.i.d. 10. Neomycin/polymyxin 2 drops to both ears b.i.d. p.r.n. 11. Nicotine 21 mg transdermal patch q.24 hours. 12. Omeprazole 20 mg p.o. daily. 13. Sertraline 50 mg p.o. daily. 14. Sumatriptan 100 mg p.o. b.i.d. p.r.n. migraine. 15. Tamsulosin 0.8 mg p.o. at bedtime. DRUG ALLERGIES: OXYCODONE. FAMILY HISTORY: Brother had CHF. Father with CVA. Mother with diabetes mellitus and heart failure. Maternal grandmother with cancer of unknown type. No family history of NM. SOCIAL HISTORY: The patient quit smoking approximately 2 months ago. Prior to that, he had a 40-pack year smoking history. He drinks 3 to 4 alcoholic beverages per week. He walks with a cane. He is with 2 children. He lives with his . He is retired from [employer]. REVIEW OF SYSTEMS: A 14-point review of systems has been performed and all the pertinent positives and negatives are in the HPI. All other systems are negative. PHYSICAL EXAM: Vital Signs: Temperature 97.9 oral, heart rate 72, respiratory rate 20, oxygen saturation 99% on room air, blood pressure 155/87. General: Mr. Guidry is a well-developed, well-nourished, obese, older white male, who is sitting in a chair with lower extremities at the floor. He is breathing comfortably and appears to be in no acute distress. He is pleasant and cooperative. HEENT: PERRL. EOMI. Sclerae is nonicteric. The patient is hard of hearing. Oral mucous membranes are moist. There are no lesions. The pharynx is clear. The tongue is at midline. The palate elevates symmetrically. Cardiovascular: Regular rate and rhythm with S1, S2 present. No murmurs, rubs, clicks, or gallops. There is no JVD or peripheral edema. Pulmonary: Symmetrical chest expansion without use of accessory muscles. Clear to auscultation bilaterally without rhonchi, wheeze, rales. Abdomen: Obese. Bowel sounds in all quadrants. Soft, nontender to palpation. Musculoskeletal: Full range of motion without pain or deformities with a motor strength of 5/5 bilaterally. Skin: There is a large area of erythema on the buttock that is raised and erythematous. There is a yellow crusting of the skin without any notable drainage. The area is undulated. There is no surrounding erythema. The area is not warm. Neuro: The patient is awake. He is alert and oriented x3. Cranial nerves II through XII are grossly intact. Motor strength 5/5 bilaterally in upper and lower extremities and equal lining feller blindstitch strength. ASSESSMENT AND PLAN: Mr. Guidry is a 68-year-old male with a past medical history of heart failure; diabetes, not on medication; hypertension; hyperlipidemia; chronic back pain, on opiates; who presented directly from orthopedics office for admission due to concerns for possible cellulitis. The patient will be admitted for: 1. Rash. The patient has an erythematous raised yellow crusted rash on the left buttock that he states developed after a presumed insect bite. This rash is not consistent with cellulitis. The patient was being treated with Keflex for the last approximately 2 days with no improvement and in fact the patient states the area has worsened. He was sent here for IV antibiotics. He was started on Zosyn and vanco. At this time, I recommend switching to Zosyn and cefepime to avoid acute renal failure. We will continue to monitor this rash. 2. Diabetes mellitus. The patient states he has a history of diabetes mellitus , but is not on any medications. His last hemoglobin A1c on record is from June 2017 and his level was 6.8. At this time, we will repeat hemoglobin A1c. We will start fingersticks a.c. and discontinue if hemoglobin A1c is within normal limits. 3. Hypertension. Continue lisinopril and metoprolol with hold parameters. 4. Chronic obstructive pulmonary disease. Continue albuterol p.r.n. 5. Chronic pain. Continue home medications cyclobenzaprine, morphine sulfate, morphine SR. 6. Gastroesophageal reflux disease, Escobedo's esophagus. Continue omeprazole. 7. Tobacco abuse. Continue nicotine patch 21 mg as at home. 8. Depression. Continue sertraline. 9. Benign prostatic hyperplasia. Continue tamsulosin. 10. Migraines. Sumatriptan p.r.n. 11. Obstructive sleep apnea. The patient does not use CPAP at home and declines hospital CPAP. 12. Code status: Full code. 13. DVT prophylaxis: Per Ortho. Currently, the patient is on SCDs. TIME SPENT: Approximately 30 minutes was spent on this consultation, greater than half that time was spent [id number] with the patient obtaining the history, performing physical, and reviewing the plan of care. This case has been discussed with my attending, Dr. Olsen, who is in agreement with the plan of care. SADIE HAYNES [id number]/CPS #: [id number] JAYEC
[2019-02-09] MEDS ORDERED: Vancomycin(*) 1,250 MG in NS 0.9% 250 ML* 250 ML IVPB SCH (20:00)
[2019-02-09] MEDS ORDERED: LORazepam TAB(*) 1 MG PO PRN (20:05)
[2019-02-09] MEDS: Cyclobenzaprine TAB* 10 MG PO SCH (21:07)
[2019-02-09] MEDS: Tamsulosin CAP* 0.4 MG PO SCH (21:07)
[2019-02-09] MEDS: Morphine TAB Extended Release (*) 30 MG TAB.ER PO SCH (21:07)
[2019-02-09] MEDS: Cefepime 1 GM in Dextrose(*) 1 GM/50 ML BAG IV SCH (21:58)
[2019-02-10] MEDS: ZOSYN 3.375 GM Q8H per EXTENDED INFUSION IVPB SCH ×6 (01:31→16:09)
[2019-02-10 06:13] LABS: EGFR African American 137.2 (>60); EGFR Non-African American 113.4 (>60)
--- NOTE | 2019-02-10 07:31 | PN ---
Subjective Date of Service: 02/10/19 Interval History: HD 2 on 02/10 68 M with PMH of Hypertension, HFpEF, Prediabetes, COPD presented directly from orthopedics office for admission for possible cellulitis. Left hip arthroplasty done 2 months ago and now has erythematous rash on left buttock. On vanco and zosyn(day 2 on 02/10) Overnight- Irregular HR vitals stable patient sitting on the edge of the bed. He had bug bite few weeks ago and since then he is having redness, itching and black discharge on left buttock. He had left hip replacement done 2 months ago. He was directly sent from Ortho office for possible cellulitis. He denies any pain at present. He denies fever, chills and drainage form the site. He had BM and is walking across the [place]. Objective Active Medications: Acetaminophen (Tylenol Tab*) 650 mg PO Q6H PRN PRN Reason: pain and temp Albuterol (Ventolin Hfa Inhaler*) 2 puff INH Q4H PRN PRN Reason: SOB/WHEEZING Aspirin (Aspirin Ec Tab*) 81 mg PO QAM [facility] Cholecalciferol (Vitamin D Tab*) 1,000 units PO QAM [facility] Cyclobenzaprine HCl (Flexeril Tab*) 10 mg PO TID [facility] Last Admin: 02/09/19 21:07 Dose: 10 mg Diphenhydramine HCl (Benadryl Iv*) 25 mg IV Q6H PRN PRN Reason: PRURITIS Sodium Chloride (Ns 0.9% 1000 Ml) 1,000 mls @ 75 mls/hr IV PER RATE [facility] Last Admin: 02/09/19 11:12 Dose: 75 mls/hr Piperacillin Sod/Tazobactam (Sod 3.375 gm/ Sodium Chloride) 100 mls @ 25 mls/ hr IVPB Q8H [facility] Last Admin: 02/10/19 01:31 Dose: 25 mls/hr Cefepime HCl (Maxipime 1 Gm In Dextrose Duplex (*)) 1 gm in 50 mls @ 100 mls/ hr IV Q12H [facility] Last Admin: 02/09/19 21:58 Dose: 100 mls/hr Lisinopril (Prinivil Tab*) 5 mg PO DAILY [facility] Lorazepam (Ativan Tab(*)) 1 mg PO BID PRN PRN Reason: ANXIETY Last Admin: 02/09/19 21:07 Dose: 1 mg Metoprolol Succinate (Toprol Xl Tab*) 50 mg PO QAM [facility] Morphine Sulfate (Morphine Oral.Soln 10 Mg*) 15 mg PO QID PRN PRN Reason: PAIN Morphine Sulfate (Ms Contin(*)) 30 mg PO TID [facility] Last Admin: 02/09/19 21:07 Dose: 30 mg Nicotine (Nicotine Patch 7 Mg/24 Hr*) 1 patch TRANSDERM DAILY [facility] Ondansetron HCl (Zofran Inj*) 4 mg IV Q6H PRN PRN Reason: NAUSEA Ondansetron HCl (Zofran Tab*) 4 mg PO Q6H PRN PRN Reason: NAUSEA Pantoprazole Sodium (Protonix Tab*) 40 mg PO QAM [facility] Pharmacy Consult (Zosyn Per Pharmacy*) 1 note FOLLOW UP .ZOSYN PER PHARMACY [facility] Pharmacy Profile Note (Vancomycin Trough Check) 1 note FOLLOW UP ONCE ONE Stop: 02/10/19 11:31 Pharmacy Profile Note (Nicotine Patch Removal Note*) 1 note PATCH OFF 2100 [facility] Sertraline HCl (Zoloft*) 50 mg PO QAM [facility] Sumatriptan Succinate (Imitrex Tab*) 100 mg PO BID PRN PRN Reason: HEADACHE Last Admin: 02/09/19 17:55 Dose: 100 mg Tamsulosin HCl (Flomax Cap*) 0.8 mg PO BEDTIME [facility] Last Admin: 02/09/19 21:07 Dose: 0.8 mg Vital Signs - 8 hr 02/10/19 02/10/19 02/10/19 00:04 00:33 03:44 Temperature 98.1 F 98.0 F Pulse Rate 80 75 Respiratory 20 20 18 Rate Blood Pressure 131/71 148/72 (mmHg) O2 Sat by Pulse 95 92 Oximetry Oxygen Devices in Use Now: None Exam: Patient is lying on a bed in supine position and is not in acute dstress. HEENT: Normocephalic and atraumatic. Sclera anicteric. EOMI. PERRLA. Neck: No lymphadenopathy and enlarged thyroid. NO JVD elevation. Lungs: Good respiratory effort and chest expansion. Clear with no added sound. Heart: Normal in rate and rhythm. S1/S2 heard with no murmur, rubs or gallops. Abdomen: Soft, nondistended and nontender. Normal BS heard. Extremities; No swelling, cyanosis or clubbing. There is a incision tony on left hip which is well healing. There is erythematous rash on left buttock which has mild induration and nontender. There is some scales on top of rash and is nonfluctuant and no active drainage seen. Neuro: Alert, oriented and coperative. CN intact. Motor normal and sensation intact. Result Diagrams: 02/10/19 10:21 02/10/19 05:39 Assess/Plan/Problems-Billing Assessment: 68 M with PMH of Hypertension, HFpEF, Prediabetes, COPD presented directly from orthopedics office for admission for possible cellulitis. Left hip arthroplasty done 2 months ago and now has erythematous rash on left buttock. On vanco and zosyn(day 2 on 02/10) - Patient Problems (1) Rash Current Visit: Yes Status: Acute Code(s): R21 - RASH AND OTHER NONSPECIFIC SKIN ERUPTION SNOMED Code(s): 851938728 Comment: -erythematous, ithchy and nontender. -nonpurulent cellulitis. -No fluctuance appreciated. -MRI shows-severe cellulitis with no well-defined abscess- however less sensitive given lack of contrast; recommended with contrast; focal fluid collection lateral to left greater trochanter-?chronic bursal collection or ? 2/ 2 to infection; recommends with contrast. -We recommend covering him with broad antibiotics- vanco will cover MRSA and zosyn will cover gram -ve and anaerobes. -As he improves he can be swithced to oral abx with MRSA coverage. (2) History of total left hip replacement Current Visit: No Status: Acute Code(s): Z96.642 - PRESENCE OF LEFT ARTIFICIAL HIP JOINT SNOMED Code(s): 314527187429 Comment: -left hip replacement 2 months ago -scar healing well (3) COPD (chronic obstructive pulmonary disease) Current Visit: No Status: Acute Code(s): J44.9 - CHRONIC OBSTRUCTIVE PULMONARY DISEASE, UNSPECIFIED SNOMED Code(s): 65913845 Comment: -No e/o exacerbation -Continue albuterol prn (4) GERD (gastroesophageal reflux disease) Current Visit: No Status: Acute Code(s): K21.9 - GASTRO-ESOPHAGEAL REFLUX DISEASE WITHOUT ESOPHAGITIS SNOMED Code(s): 259715781 Comment: - Continue pantoprazole (5) Chronic back pain Current Visit: No Status: Acute Code(s): M54.9 - DORSALGIA, UNSPECIFIED; G89.29 - OTHER CHRONIC PAIN SNOMED Code(s): 746016867 Comment: - Continue morphine ER 30 mg TID and morphine 15 mg prn -No pain at present (6) Hypertension Current Visit: No Status: Acute Code(s): I10 - ESSENTIAL (PRIMARY) HYPERTENSION SNOMED Code(s): 31288448 Comment: -BP on higher side. -Contiue lisinopril and metoprolol -We recommend stopping his IV fluid (7) Sleep apnea Current Visit: No Status: Acute Code(s): G47.30 - SLEEP APNEA, UNSPECIFIED SNOMED Code(s): 56912926 Comment: -does not use CPAP and declined hospital CPAP (8) Pre-diabetes Current Visit: Yes Status: Acute Code(s): R73.03 - PREDIABETES SNOMED Code (s): 319166350 Comment: -lifestyle modification -can f/u with his PCP as outpatient (9) BPH (benign prostatic hyperplasia) Current Visit: Yes Status: Acute Code(s): N40.0 - BENIGN PROSTATIC HYPERPLASIA WITHOUT LOWER URINRY TRACT SYMP SNOMED Code(s): 486700833 Comment: -Continue tamsulosin (10) Tobacco use Current Visit: Yes Status: Acute Code(s): Z72.0 - TOBACCO USE SNOMED Code( s): 565578623 Comment: -On nicotine patch (11) Anxiety Current Visit: No Status: Acute Code(s): F41.9 - ANXIETY DISORDER, UNSPECIFIED SNOMED Code(s): 52637460 Comment: - Continue lorazepam, sertraline (12) DVT prophylaxis Current Visit: No Status: Acute Code(s): Z29.9 - ENCOUNTER FOR PROPHYLACTIC MEASURES, UNSPECIFIED SNOMED Code(s): 095271960 Comment: - now on SCD. -we will defer that to ortho -recommend heparin (13) Full code status Current Visit: No Status: Acute Code(s): Z78.9 - OTHER SPECIFIED HEALTH STATUS SNOMED Code(s): 621939861 Comment: Status and Disposition: [facility] Inpatient Attending: Maria Luisa Reinoso Attestation Documenting Resident: Renny Koo Supervising Physician: Maria Luisa Reinoso Attending/Supervising Physician Comment: Attending A/P Agree with resident note 68M PMH recent TH arthroplasty presented with severe SSTI MRI with bursal collection #SSTI: With ? Bursal collection: Cefipime and Zosyn providing only double coverage for pseudomnas-no indication, needs broader MRSA coverage, may need drainage of bursal collection per ortho -Change to Vanc Zosyn now, can down grade to oral PRN with MRSA coverage Bactrim , Doxy are both appropriate though would double cover if choosing Doxy with Doxy and Cefdinir vs Kelfex -topical bacitracin and hydrocortisone PRN -No e/o sepsis, agree with monitoring blood cultures Attestation: This service has been performed in part by a resident under the direction of a teaching physician.I, Maria Luisa Reinoso, performed the service, or was physically present during the critical, or cisneros portions of the service, furnished by the resident. I participated in the management of the patient.
[2019-02-10] MEDS: Cyclobenzaprine TAB* 10 MG PO SCH ×3 (08:28→21:42)
[2019-02-10] MEDS: Aspirin EC TAB* 81 MG TAB.EC PO SCH (08:28)
[2019-02-10] MEDS: Lisinopril TAB* 5 MG PO SCH (08:28)
[2019-02-10] MEDS: Cholecalciferol TAB* 1000 UNITS PO SCH (08:28)
[2019-02-10] MEDS: Pantoprazole TAB * 40 MG TAB PO SCH (08:28)
[2019-02-10] MEDS: Metoprolol Succinate XL TAB* 50 MG PO SCH (08:28)
[2019-02-10] MEDS: Morphine TAB Extended Release (*) 30 MG TAB.ER PO SCH ×3 (08:29→21:41)
[2019-02-10] MEDS: Sertraline* 50 MG TAB PO SCH (08:29)
[2019-02-10] MEDS: Nicotine PATCH 7 MG/24 HR* PATCH TRANSDERM SCH (08:31)
--- NOTE | 2019-02-10 08:32 | PN ---
Progress Note - Progress Note Date of Service: 02/10/19 SOAP: Subjective: resting comfortably on his right side, trying to keep pressure off left buttock ; no significant complaints of pain Objective: Vital Signs Temp Pulse Resp BP Pulse Ox 97.6 F 83 17 152/97 94 02/10/19 07:48 02/10/19 07:48 02/10/19 07:48 02/10/19 07:48 02/10/19 07:48 Laboratory Last Values BUN 13 mg/dL (6-24) 02/10/19 05:39 Creatinine 0.69 mg/dL (0.67-1.17) 02/10/19 05:39 Est GFR ( Amer) 137.2 (>60) 02/10/19 05:39 Est GFR (Non-Af Amer) 113.4 (>60) 02/10/19 05:39 POC Glucose (mg/dL) 105 mg/dL (70-100) H 02/09/19 21:12 Hemoglobin A1c 6.1 % (4.0-5.6) H 02/09/19 18:49 left hip incision: no significant erythema/warmth, well healed left buttock continued erythema/warmth, no open wounds or drainage PE: NVI Assessment: left buttock cellulitis Plan: 1) PT/OT-WBAT 2) SCD's for DVT prophylaxis 3) Hospitalist co-managing 4) continue IV ABX 5) will continue to follow closely
[2019-02-10] MEDS: Cefepime 1 GM in Dextrose(*) 1 GM/50 ML BAG IV SCH (09:42)
[2019-02-10 09:57] LABS: Albumin 3.8 g/dL (3.2-5.2); Calcium 9.3 mg/dL (8.6-10.3); Potassium 4.6 mmol/L (3.5-5.0); Total Bilirubin 0.5 mg/dL (0.2-1.0)
[2019-02-10 10:03] LABS: Albumin/Globulin Ratio 1.7 (1-3); BUN/Creatinine Ratio 18.6 (8-20); C Reactive Protein 3.69 mg/L (<8.01); EGFR African American 134.9 (>60); EGFR Non-African American 111.5 (>60); Globulin 2.3 g/dL (2-4); Total Protein 6.1 g/dL (6.4-8.9)
[2019-02-10 10:26] LABS: ABS Basophils 0.1 10^3/ul (0-0.2); ABS Eosinophils 0.4 10^3/ul (0-0.6); ABS Lymphocytes 0.9 10^3/ul (1.0-4.8); ABS Monocytes 0.6 10^3/ul (0-0.8); ABS Neutrophils 5.4 10^3/ul (1.5-7.7); Eosinophil % 5.2 %; Hematocrit 39 % (42-52); Hemoglobin 13.4 g/dL (14.0-18.0); Lymphocyte % 12.7 %; Mean Corpuscular HGB Conc 34 g/dL (31-36); Mean Corpuscular Hemoglobin 31 pg (27-31); Mean Corpuscular Volume 91 fL (80-94); Mean Platelet Volume 7.1 fL (7.4-10.4); Platelet Count 336 10^3/uL (150-450); Red Blood Count 4.33 10^6 /uL (4.18-5.48); Red Cell Distribution Width 14 % (10-15); White Blood Count 7.3 10^3/uL (3.5-10.8)
[2019-02-10] MEDS ORDERED: Vancomycin Trough Check NOTE FOLLOW UP ONE (11:30)
[2019-02-10] MEDS ORDERED: Vancomycin(*) 1,500 MG in NS 0.9% 250 ML* 250 ML IVPB ONE (12:24)
[2019-02-10 12:50] LABS: Erythrocyte Sed Rate 5 mm/Hr (0-19)
[2019-02-10] MEDS ORDERED: Vancomycin per Pharmacy* NOTE FOLLOW UP SCH (13:00)
[2019-02-10] MEDS: SUMAtriptan TAB* 100 MG PO PRN (14:57)
[2019-02-10] MEDS: Tamsulosin CAP* 0.4 MG PO SCH (21:42)
[2019-02-10] MEDS: Nicotine Patch Removal NOTE PATCH OFF SCH (21:44)
[2019-02-10] MEDS: Vancomycin(*) 1,000 MG in NS 0.9% 250 ML* 250 ML IV SCH (21:52)
[2019-02-11] MEDS: ZOSYN 3.375 GM Q8H per EXTENDED INFUSION IVPB SCH ×6 (00:36→17:43)
[2019-02-11 05:36] LABS: ABS Basophils 0.1 10^3/ul (0-0.2); ABS Eosinophils 0.5 10^3/ul (0-0.6); ABS Lymphocytes 1.5 10^3/ul (1.0-4.8); ABS Monocytes 0.7 10^3/ul (0-0.8); ABS Neutrophils 3.8 10^3/ul (1.5-7.7); Eosinophil % 7.9 %; Hematocrit 40 % (42-52); Hemoglobin 13.8 g/dL (14.0-18.0); Lymphocyte % 22.8 %; Mean Corpuscular HGB Conc 34 g/dL (31-36); Mean Corpuscular Hemoglobin 32 pg (27-31); Mean Corpuscular Volume 92 fL (80-94); Mean Platelet Volume 6.9 fL (7.4-10.4); Platelet Count 329 10^3/uL (150-450); Red Blood Count 4.35 10^6 /uL (4.18-5.48); Red Cell Distribution Width 15 % (10-15); White Blood Count 6.6 10^3/uL (3.5-10.8)
[2019-02-11] MEDS: Vancomycin(*) 1,000 MG in NS 0.9% 250 ML* 250 ML IV SCH ×2 (05:43→15:37)
[2019-02-11 05:51] LABS: BUN/Creatinine Ratio 18.2 (8-20); EGFR African American 120.9 (>60); EGFR Non-African American 99.9 (>60); Potassium 4.6 mmol/L (3.5-5.0)
[2019-02-11] MEDS: NS 0.9% 1000 ML** 1,000 ML IV SCH (07:37)
--- NOTE | 2019-02-11 07:58 | PN ---
Subjective Date of Service: 02/11/19 Interval History: HD3 on 02/11 68M PMH HTN, HLD, CHANDU, CLBP on terminal clerk opiate pain medication, anxiety, CAD with hx of HFpEF, recent Left THR presented with severe SSTI over L buttock, MRI showing bursal collection of unclear sig. Overnight, no acute events, VSS This afternoon, seen with at bedside. Reports fatigue improving, reports itching of L buttock but no pain, no pain on bearing weight or abducting or adducting hip. Otherwise pleasant and well, discussed concern for SSTI, possibly overlying eczema? and presence of bursal collection of unclear sig. NO further questions, he denies CP SOB GI or MSK complaints, no F/C, voiding freely and ambulating. Objective Active Medications: Acetaminophen (Tylenol Tab*) 650 mg PO Q6H PRN PRN Reason: pain and temp Albuterol (Ventolin Hfa Inhaler*) 2 puff INH Q4H PRN PRN Reason: SOB/WHEEZING Aspirin (Aspirin Ec Tab*) 81 mg PO QAM [facility] Last Admin: 02/10/19 08:28 Dose: 81 mg Cholecalciferol (Vitamin D Tab*) 1,000 units PO QAM [facility] Last Admin: 02/10/19 08:28 Dose: 1,000 units Cyclobenzaprine HCl (Flexeril Tab*) 10 mg PO TID [facility] Last Admin: 02/10/19 21:42 Dose: 10 mg Diphenhydramine HCl (Benadryl Iv*) 25 mg IV Q6H PRN PRN Reason: PRURITIS Sodium Chloride (Ns 0.9% 1000 Ml) 1,000 mls @ 75 mls/hr IV PER RATE [facility] Last Admin: 02/11/19 07:37 Dose: 75 mls/hr Piperacillin Sod/Tazobactam (Sod 3.375 gm/ Sodium Chloride) 100 mls @ 25 mls/ hr IVPB Q8H [facility] Last Admin: 02/11/19 07:38 Dose: 25 mls/hr Vancomycin HCl 1,000 mg/ (Sodium Chloride) 250 mls @ 166.667 mls/hr IV Q8H [facility] Last Admin: 02/11/19 05:43 Dose: 166.667 mls/hr Lisinopril (Prinivil Tab*) 5 mg PO DAILY [facility] Last Admin: 02/10/19 08:28 Dose: 5 mg Lorazepam (Ativan Tab(*)) 1 mg PO BID PRN PRN Reason: ANXIETY Last Admin: 02/09/19 21:07 Dose: 1 mg Metoprolol Succinate (Toprol Xl Tab*) 50 mg PO QAM [facility] Last Admin: 02/10/19 08:28 Dose: 50 mg Morphine Sulfate (Morphine Oral.Soln 10 Mg*) 15 mg PO QID PRN PRN Reason: PAIN Morphine Sulfate (Ms Contin(*)) 30 mg PO TID [facility] Last Admin: 02/10/19 21:41 Dose: 30 mg Nicotine (Nicotine Patch 7 Mg/24 Hr*) 1 patch TRANSDERM DAILY [facility] Last Admin: 02/10/19 08:31 Dose: 1 patch Ondansetron HCl (Zofran Inj*) 4 mg IV Q6H PRN PRN Reason: NAUSEA Ondansetron HCl (Zofran Tab*) 4 mg PO Q6H PRN PRN Reason: NAUSEA Pantoprazole Sodium (Protonix Tab*) [facility] [place] [place] Admin: 02/10/19 08:28 Dose: 40 mg Pharmacy Consult (Zosyn Per Pharmacy*) 1 note FOLLOW UP .ZOSYN PER PHARMACY [facility] Pharmacy Consult (Vancomycin Per Pharmacy*) 1 note FOLLOW UP .VANC PER PHARMACY [facility]; Protocol Pharmacy Profile Note (Nicotine Patch Removal Note*) 1 note PATCH OFF 2100 [facility] Last Admin: 02/10/19 21:44 Dose: 1 note Pharmacy Profile Note (Vancomycin Trough Check) 1 note FOLLOW UP 1330 ONE Stop: 02/11/19 13:31 Sertraline HCl (Zoloft*) 50 mg PO QAM [facility] Last Admin: 02/10/19 08:29 Dose: 50 mg Sumatriptan Succinate (Imitrex Tab*) 100 mg PO BID PRN PRN Reason: HEADACHE Last Admin: 02/10/19 14:57 Dose: 100 mg Tamsulosin HCl (Flomax Cap*) 0.8 mg PO BEDTIME [facility] Last Admin: 02/10/19 21:42 Dose: 0.8 mg Vital Signs - 8 hr 02/11/19 02/11/19 02/11/19 00:37 00:38 03:39 Temperature 97.9 F Pulse Rate 73 Respiratory 16 16 17 Rate Blood Pressure 148/77 (mmHg) O2 Sat by Pulse 97 Oximetry 02/11/19 07:34 Temperature 98.4 F Pulse Rate 73 Respiratory 16 Rate Blood Pressure 142/86 (mmHg) O2 Sat by Pulse 97 Oximetry Oxygen Devices in Use Now: None Appearance: Pleasant well appearing man watching football Eyes: No Scleral Icterus, PERRLA Ears/Nose/Mouth/Throat: NL Teeth, Lips, Gums Neck: NL Appearance and Movements; NL JVP Respiratory: Symmetrical Chest Expansion and Respiratory Effort, Clear to Auscultation Cardiovascular: NL Sounds; No Murmurs; No JVD, RRR Abdominal: - - Obese and distended but soft NT Lymphatic: No Cervical Adenopathy Extremities: No Edema Skin: - - Large 15cm area of blanchable erythema over L buttock extending over THR inicison site, some area of flaking and sloughing are cleaned with underlying fissures noted, at upper borders lichenifacation noted. Non tender, non purulent Neurological: Alert and Oriented x 3, NL Muscle Strength and Tone Result Diagrams: 02/11/19 05:29 02/11/19 05:29 Microbiology and Other Data: Microbiology 02/09/19 11:11 Aerobic Blood Culture - Preliminary Blood Venous No Growth Day 1 Anaerobic Blood Culture - Preliminary No Growth Day 1 02/09/19 11:11 Aerobic Blood Culture - Preliminary Blood Venous No Growth Day 1 Anaerobic Blood Culture - Preliminary No Growth Day 1 Diagnostic Imaging: MRI PELVIS : 1950 Age: 68 Sex: M Location: SURGICAL STAY UNIT Exam Date: 02/09/19 1016 ADM Status: ADM IN IMPRESSION: 1. There is diffuse infiltration of subcutaneous fat overlying the left gluteal musculature with small overlying ulceration or wound in the skin. This is consistent with severe cellulitis. There are some limited areas of more confluent fluid within the subcutaneous fat tracking out to the wound which would account for the drainage. There is not a well-defined abscess at this level however the lack of contrast somewhat limits the evaluation in that regard. 2. In addition, lateral to the left greater trochanter there is a focal fluid collection measuring 5.6 by 4.1 by 3 cm. This is in close proximity to the subcutaneous pathology. While this may be a chronic bursal collection, secondary infection here cannot be excluded. Contrast-enhanced study is recommended. 3. No current evidence for osteomyelitis. ECHO 2017 EF 51%, fixed RWMA from old CAD Assess/Plan/Problems-Billing Assessment: 68M PMH HTN, HLD, CHANDU, CLBP on snf opiate pain medication, anxiety, CAD with hx of HFpEF, recent Left THR presented with severe SSTI over L buttock, MRI showing bursal collection of unclear sig. - Patient Problems (1) Rash Current Visit: Yes Status: Acute Code(s): R21 - RASH AND OTHER NONSPECIFIC SKIN ERUPTION SNOMED Code(s): 712476824 Comment: -Areas of poorly defined borders that are red and warm seem c/w cellulitis with MRI corresponding, he has no fluctuance or underlying abscess on exam on 02/11 -There so seem to be areas of overlying eczema, he will benefit from derm exam on 02/12, will add Triamcenalone for now for overlying itchy areas -Continue broad coverage given recent THR, no signs of systemic infection -Vanc (day 2) Zosyn (day 3) on 02/11, 1 day of Vanc coverage interrupted on HD1 -Borders drawn today, if extending on 02/12 we would recommend MRI with contrast to better define if there is a deep tissue collection. (2) History of total left hip replacement Current Visit: No Status: Acute Code(s): Z96.642 - PRESENCE OF LEFT ARTIFICIAL HIP JOINT SNOMED Code(s): 929215015749 Comment: -left hip replacement 2 months ago -scar healing well -Unclear sig of bursal collection on MRI, if no improvement, repeat MRI with IV contrast and investigate underlying deep tissue collection (3) COPD (chronic obstructive pulmonary disease) Current Visit: No Status: Acute Code(s): J44.9 - CHRONIC OBSTRUCTIVE PULMONARY DISEASE, UNSPECIFIED SNOMED Code(s): 55555641 Comment: -No e/o exacerbation -Continue albuterol prn (4) GERD (gastroesophageal reflux disease) Current Visit: No Status: Acute Code(s): K21.9 - GASTRO-ESOPHAGEAL REFLUX DISEASE WITHOUT ESOPHAGITIS SNOMED Code(s): 631672189 Comment: - Continue pantoprazole (5) Chronic back pain Current Visit: No Status: Acute Code(s): M54.9 - DORSALGIA, UNSPECIFIED; G89.29 - OTHER CHRONIC PAIN SNOMED Code(s): 850767174 Comment: -Continue morphine ER 30 mg TID and morphine 15 mg prn (6) Hypertension Current Visit: No Status: Acute Code(s): I10 - ESSENTIAL (PRIMARY) HYPERTENSION SNOMED Code(s): 26783755 Comment: -slightly elevated -Contiue lisinopril and metoprolol, increase linsipril to 10mg if no improvement by 02/12 -Stop IVF and have placed the order 02/11 (7) Sleep apnea Current Visit: No Status: Acute Code(s): G47.30 - SLEEP APNEA, UNSPECIFIED SNOMED Code(s): 06202002 Comment: -does not use CPAP and declined hospital CPAP (8) Pre-diabetes Current Visit: Yes Status: Acute Code(s): R73.03 - PREDIABETES SNOMED Code (s): 089203775 Comment: -lifestyle modification -can f/u with his PCP as outpatient (9) BPH (benign prostatic hyperplasia) Current Visit: Yes Status: Acute Code(s): N40.0 - BENIGN PROSTATIC HYPERPLASIA WITHOUT LOWER URINRY TRACT SYMP SNOMED Code(s): 604345567 Comment: -Continue tamsulosin (10) Tobacco use Current Visit: Yes Status: Acute Code(s): Z72.0 - TOBACCO USE SNOMED Code( s): 859184777 Comment: -On nicotine patch (11) Anxiety Current Visit: No Status: Acute Code(s): F41.9 - ANXIETY DISORDER, UNSPECIFIED SNOMED Code(s): 81739533 Comment: - Continue home benzo, sertraline (12) CAD (coronary artery disease) Current Visit: Yes Status: Acute Code(s): I25.10 - ATHSCL HEART DISEASE OF [place] CORONARY ARTERY W/O ANG PCTRS SNOMED Code(s): 46448785 Comment: -On Asa and BB, unclear why not optimized to statin, no active issues -Hx HFpEF in the past, euvolemic on exam, last EF in 2017 is 50% (13) DVT prophylaxis Current Visit: No Status: Acute Code(s): Z29.9 - ENCOUNTER FOR PROPHYLACTIC MEASURES, UNSPECIFIED SNOMED Code(s): 037039768 Comment: -Now on SCD. -we will defer that to ortho -recommend heparin Q8H (did not place the order today) (14) Full code status Current Visit: No Status: Acute Code(s): Z78.9 - OTHER SPECIFIED HEALTH STATUS SNOMED Code(s): 949013054 Comment: Status and Disposition: Remains on Vanc (day2)/Zosyn(day3) Discussed with Dr. Bearden RECOMMEND: -STOP IVF (order done) -ADD DVT PPX FOR MOD-HIGH RISK PATIENT (order not done) -INCREASE LISINOPRIL IF SBP >150 consistently -CONTINUE BROAD COVERAGE ABX -ADD TRIAMCENALONE (order done) -IF NO IMPROVEMENT-consider MRI with IV contrast -WE WILL CONSULT TO DERM TOMORROW 02/12 IF RASH PERSISTS FOR NON INFECTIOUS COMPONENT R/O
[2019-02-11] MEDS: Sertraline* 50 MG TAB PO SCH (08:33)
[2019-02-11] MEDS: Cholecalciferol TAB* 1000 UNITS PO SCH (08:33)
[2019-02-11] MEDS: Lisinopril TAB* 5 MG PO SCH (08:33)
[2019-02-11] MEDS: Morphine TAB Extended Release (*) 30 MG TAB.ER PO SCH ×3 (08:33→21:22)
[2019-02-11] MEDS: Pantoprazole TAB * 40 MG TAB PO SCH (08:33)
[2019-02-11] MEDS: Cyclobenzaprine TAB* 10 MG PO SCH ×3 (08:33→21:22)
[2019-02-11] MEDS: Aspirin EC TAB* 81 MG TAB.EC PO SCH (08:33)
[2019-02-11] MEDS: Nicotine PATCH 7 MG/24 HR* PATCH TRANSDERM SCH (08:34)
[2019-02-11] MEDS: Metoprolol Succinate XL TAB* 50 MG PO SCH (08:34)
--- NOTE | 2019-02-11 10:10 | PN ---
Progress Note - Progress Note Date of Service: 02/11/19 SOAP: Subjective: Pt. is alert, feels better today, less tired. Objective: Vital Signs: Temp Pulse Resp BP Pulse Ox 98.4 F 73 18 142/86 97 02/11/19 07:34 02/11/19 07:34 02/11/19 10:04 02/11/19 07:34 02/11/19 07:34 Laboratory Results - last 24 hr 02/10/19 02/11/19 02/11/19 10:21 05:29 05:29 WBC 7.3 6.6 RBC 4.33 4.35 Hgb 13.4 L 13.8 L Hct 39 L 40 L MCV 91 92 MCH 31 32 H MCHC 34 34 RDW 14 15 Plt Count 336 329 MPV 7.1 L 6.9 L Neut % (Auto) 73.4 56.6 Lymph % (Auto) 12.7 22.8 [place] % (Auto) 7.8 11.2 Eos % (Auto) 5.2 7.9 Baso % (Auto) 0.9 1.5 Absolute Neuts (auto) 5.4 3.8 Absolute Lymphs (auto) 0.9 L 1.5 Absolute Monos (auto) 0.6 0.7 Absolute Eos (auto) 0.4 0.5 Absolute Basos (auto) 0.1 0.1 Absolute Nucleated RBC 0.0 0.0 Nucleated RBC % 0.0 0.0 ESR 5 Sodium 136 Potassium 4.6 Chloride 105 Carbon Dioxide 27 Anion Gap 4 BUN 14 Creatinine 0.77 Est GFR ( Amer) 120.9 Est GFR (Non-Af Amer) 99.9 BUN/Creatinine Ratio 18.2 Glucose 124 H Calcium 9.0 LLE - erythema is increasing, now near the hip incision, minimal drainage. Buttock wound healing, small area of erythema above the buttock as well. distally nvi. hip rom without pain. Assessment: 68 YO M 2 months s/p LTHA with bug bite on left buttock and now soft tissue infection Plan: Cont IV vanco/zosyn Will get ID consult/dermatology consult Plan to follow another 24 hours. If no improvement will plan repeat MRI with contrast. No evidence of sepsis. No evidence of hip joint involvement. D/w patient our concerns about lack of improvement and the risk of the YARELY becoming infected - he voiced understanding. WBAT - activity as tolerated with post hip precautions. Regular diet. D/w Dr. Reinoso.
[2019-02-11] MEDS ORDERED: Vancomycin Trough Check NOTE FOLLOW UP ONE (13:30)
[2019-02-11 14:59] LABS: EGFR African American 106.4 (>60); EGFR Non-African American 87.9 (>60)
[2019-02-11 15:32] LABS: Vancomycin Trough 8.9 mcg/mL
[2019-02-11] MEDS: Triamcinolone 0.5% OINT * 15 GM TUBE TOPICAL SCH ×2 (15:42→21:22)
[2019-02-11] MEDS: Nicotine Patch Removal NOTE PATCH OFF SCH (21:22)
[2019-02-11] MEDS: Tamsulosin CAP* 0.4 MG PO SCH (21:23)
[2019-02-11] MEDS ORDERED: Vancomycin(*) 1,250 MG in NS 0.9% 250 ML* 250 ML IVPB SCH (23:00)
[2019-02-12] MEDS: ZOSYN 3.375 GM Q8H per EXTENDED INFUSION IVPB SCH ×4 (00:29→09:02)
[2019-02-12 05:22] LABS: ABS Basophils 0.1 10^3/ul (0-0.2); ABS Eosinophils 0.6 10^3/ul (0-0.6); ABS Lymphocytes 1.5 10^3/ul (1.0-4.8); ABS Monocytes 0.8 10^3/ul (0-0.8); ABS Neutrophils 3.9 10^3/ul (1.5-7.7); Eosinophil % 8.2 %; Hematocrit 39 % (42-52); Hemoglobin 13.3 g/dL (14.0-18.0); Lymphocyte % 22.4 %; Mean Corpuscular HGB Conc 34 g/dL (31-36); Mean Corpuscular Hemoglobin 31 pg (27-31); Mean Corpuscular Volume 91 fL (80-94); Mean Platelet Volume 7.3 fL (7.4-10.4); Nucleated Red Blood Cells % 0.1; Platelet Count 306 10^3/uL (150-450); Red Blood Count 4.31 10^6 /uL (4.18-5.48); Red Cell Distribution Width 14 % (10-15); White Blood Count 6.8 10^3/uL (3.5-10.8)
[2019-02-12 06:01] LABS: BUN/Creatinine Ratio 20.8 (8-20); Calcium 8.9 mg/dL (8.6-10.3); EGFR African American 120.9 (>60); EGFR Non-African American 99.9 (>60); Potassium 4.1 mmol/L (3.5-5.0)
[2019-02-12] MEDS: Vancomycin(*) 1,250 MG in NS 0.9% 250 ML* 250 ML IVPB SCH ×3 (06:13→21:56)
--- NOTE | 2019-02-12 07:29 | PN ---
Progress Note - Progress Note Date of Service: 02/12/19 SOAP: Subjective: Pt. feels good, denies L hip pain. Objective: Vital Signs: Temp Pulse Resp BP Pulse Ox 97.9 F 57 16 110/66 100 02/12/19 03:30 02/12/19 03:30 02/12/19 03:30 02/12/19 03:30 02/12/19 03:30 Laboratory Results - last 24 hr 02/11/19 02/12/19 02/12/19 14:35 05:10 05:10 WBC 6.8 RBC 4.31 Hgb 13.3 L Hct 39 L MCV 91 MCH 31 MCHC 34 RDW 14 Plt Count 306 MPV 7.3 L Neut % (Auto) 57.1 Lymph % (Auto) 22.4 [place] % (Auto) 11.2 Eos % (Auto) 8.2 Baso % (Auto) 1.1 Absolute Neuts (auto) 3.9 Absolute Lymphs (auto) 1.5 Absolute Monos (auto) 0.8 Absolute Eos (auto) 0.6 Absolute Basos (auto) 0.1 Absolute Nucleated RBC 0.0 Nucleated RBC % 0.1 Sodium 136 Potassium 4.1 Chloride 106 Carbon Dioxide 22 Anion Gap 8 BUN 14 16 Creatinine 0.86 0.77 Est GFR ( Amer) 106.4 120.9 Est GFR (Non-Af Amer) 87.9 99.9 BUN/Creatinine Ratio 20.8 H Glucose 121 H Calcium 8.9 Vancomycin Trough 8.9 LLE - buttock erythema much improved today. distally nvi. hip active ROM without pain. Assessment: 68 yo M 2 months s/p LTHA with buttock cellulitis/dermatitis Plan: Erythema much improved today. Plan to continue IV antibiotics. Awaiting derm consult. Will obtain ID consult. Lovenox for DVT proph.
[2019-02-12] MEDS: Morphine TAB Extended Release (*) 30 MG TAB.ER PO SCH ×3 (09:01→21:05)
[2019-02-12] MEDS: Pantoprazole TAB * 40 MG TAB PO SCH (09:01)
[2019-02-12] MEDS: Lisinopril TAB* 5 MG PO SCH (09:02)
[2019-02-12] MEDS: Cholecalciferol TAB* 1000 UNITS PO SCH (09:02)
[2019-02-12] MEDS: Sertraline* 50 MG TAB PO SCH (09:02)
[2019-02-12] MEDS: Aspirin EC TAB* 81 MG TAB.EC PO SCH (09:02)
[2019-02-12] MEDS: Cyclobenzaprine TAB* 10 MG PO SCH ×3 (09:02→21:05)
[2019-02-12] MEDS: Metoprolol Succinate XL TAB* 50 MG PO SCH (09:02)
[2019-02-12] MEDS: Nicotine PATCH 7 MG/24 HR* PATCH TRANSDERM SCH (09:05)
[2019-02-12] MEDS: Enoxaparin(*) 40 MG/0.4 ML SYR SUBCUT SCH (09:06)
[2019-02-12] MEDS: Triamcinolone 0.5% OINT * 15 GM TUBE TOPICAL SCH ×3 (09:08→21:51)
--- NOTE | 2019-02-12 12:56 | CONS ---
CONSULTATION REPORT: DATE OF CONSULT: 02/12/19 REQUESTING PHYSICIAN: Dr. Bearden. CONSULTING SERVICE: Infectious Disease. REASON FOR CONSULT: Left buttock rash. IMPRESSION: 1. Diffuse erythema, slight warmth, mild tenderness left buttock from the midline wrapping around towards the well-healed left arthroplasty incision, slight peripheral crusting, most likely cellulitis including, as Dr. Bearden suggested, impetigo. The differential includes recurrence of varicella or HSV2 in this distribution, but I think it is less likely without vesicles or neuropathic pain. He has no hip symptoms with range of motion or weightbearing, so I do not think the joint is involved. 2. Type 2 diabetes. 3. Morbid obesity. RECOMMENDATIONS: Continue vancomycin, goal trough 10 to 15. We will hold his Zosyn and recheck tomorrow. As long as he is improving, I think we will be able to change him to oral antibiotics. HISTORY OF PRESENT ILLNESS: This is a 68-year-old man with left hip arthroplasty in mid November. He has recovered well from that. The incision has been healed up. His function has been much improved. End of last week, he developed profound fatigue, malaise and then pain like a pimple or bug bite on his left buttock, which then became more red and was spreading. He came to the hospital on 02/09/19. His white count was 7, C-reactive protein was 3. A pelvis MRI was obtained that showed infiltration of the subcu fat overlying the left gluteal muscle with small ulceration on the skin, some confluent fluid in the subcutaneous fat, fluid collection lateral to the left greater trochanter. He has had no fever here. He has been on vancomycin and Zosyn. Both he and Dr. Bearden feel the redness is less intense and he thinks the pain is improved as well. That fatigue and malaise he was experiencing is resolving. He has not had an infection like this in the past. He did not have any burning pain sensation preceding the rash. PAST MEDICAL HISTORY: 1. Osteoarthritis, status post left hip arthroplasty. 2. Tobacco use. 3. Type 2 diabetes. 4. Osteoarthritis. 5. Emphysema. 6. Gastroesophageal reflux disease. 7. Morbid obesity. 8. Obstructive sleep apnea. 9. Systolic heart failure, last ejection fraction 45% to 50%. 10. Benign prostatic hypertrophy. 11. Hypertension. 12. [place] esophagus. 13. Hyperlipidemia. 14. Impotence. 15. Depression. 16. Gastric ulcer. 17. Chronic back pain. 18. GI bleed. PAST SURGICAL HISTORY: 1. Status post [place] fundoplication. 2. Status post umbilical hernia repair. 3. Status post right hip arthroplasty. MEDICATIONS: 1. Tylenol. 2. Albuterol. 3. Aspirin. 4. Cholecalciferol. 5. Cyclobenzaprine. 6. Enoxaparin. 7. Lisinopril. 8. Metoprolol. 9. Morphine as needed. 10. Morphine 3 times a day. 11. Nicotine patch. 12. Zosyn 3.375 g every 8 hours. 13. Sumatriptan. 14. Sertraline. 15. Tamsulosin. 16. Vancomycin 1250 mg every 8 hours. ALLERGIES: OXYCODONE. SOCIAL HISTORY: He lives in [place] with his . He does smoke, does drink alcohol. FAMILY HISTORY: No recurrent infections. REVIEW OF SYSTEMS: All negative except as noted above to a 12-point review. PHYSICAL EXAM: Vital Signs: Temperature 36.5, heart rate 66, respiratory rate 16, blood pressure 145/85, oxygen saturation 96% on room air. General: He is awake, not in distress. Neurologic: He is oriented x3. Follows all commands. HEENT: There is no conjunctival hemorrhage. Oropharynx without lesions. Neck is supple without mass. Heart is regular rate and rhythm without murmurs, rubs , or gallops. Lungs are clear to auscultation bilaterally. Abdomen: Soft, nontender, nondistended. There are bowel sounds present. Skin: Left buttock, there is diffuse erythematous patch from the midline and then laterally towards the well- healed arthroplasty incision. There is slight erythema. There is no warmth. There is a central couple of millimeter superficial opening on the skin with no expressible fluid, no fluctuance. Musculoskeletal: There is no spine tenderness to palpation. There is no pain with left leg log roll. LABORATORY DATA: White blood cell count 6.8, hemoglobin 13, platelets 306. Creatinine 0.7. Microbiology data: Blood cultures negative. Please see impression and recommendations outlined above, I discussed with Dr. Bearden. [id number]/[facility] #: [id number] [facility]ERNabil
--- NOTE | 2019-02-12 18:40 | PN ---
Subjective Date of Service: 02/12/19 Interval History: No acute events, afebrile. Walking the halls. erythema slightly improved. ID consulted. had small bump/cyst under right pec and on groin even before the surgery - they persist. Objective Active Medications: Acetaminophen (Tylenol Tab*) 650 mg PO Q6H PRN PRN Reason: pain and temp Albuterol (Ventolin Hfa Inhaler*) 2 puff INH Q4H PRN PRN Reason: SOB/WHEEZING Aspirin ([facility]in Ec Tab*) [facility] [place] [facility] [place] Admin: 02/12/19 09:02 Dose: 81 mg Cholecalciferol (Vitamin D Tab*) 1,000 units PO QAM [facility] Last Admin: 02/12/19 09:02 Dose: 1,000 units Cyclobenzaprine HCl (Flexeril Tab*) 10 mg PO TID [facility] Last Admin: 02/12/19 14:09 Dose: 10 mg Enoxaparin Sodium (Lovenox(*)) 40 mg SUBCUT Q24H [facility] Last Admin: 02/12/19 09:06 Dose: 40 mg Vancomycin HCl 1,250 mg/ (Sodium Chloride) 250 mls @ 166.667 mls/hr IVPB Q8HR [facility] Last Admin: 02/12/19 14:15 Dose: 166.667 mls/hr Lisinopril (Prinivil Tab*) 5 mg PO DAILY [facility] Last Admin: 02/12/19 09:02 Dose: 5 mg Lorazepam (Ativan Tab(*)) 1 mg PO BID PRN PRN Reason: ANXIETY Last Admin: 02/09/19 21:07 Dose: 1 mg Metoprolol Succinate (Toprol Xl Tab*) [facility] [place] Admin: 02/12/19 09:02 Dose: 50 mg Morphine Sulfate (Morphine Oral.Soln 10 Mg*) 15 mg PO QID PRN PRN Reason: PAIN Morphine Sulfate (Ms Contin(*)) 30 mg PO TID [facility] Last Admin: 02/12/19 14:09 Dose: 30 mg Nicotine (Nicotine Patch 7 Mg/24 Hr*) 1 patch TRANSDERM DAILY [facility] Last Admin: 02/12/19 09:05 Dose: 1 patch Ondansetron HCl (Zofran Inj*) 4 mg IV Q6H PRN PRN Reason: NAUSEA Pantoprazole Sodium (Protonix Tab*) 40 mg PO QAM [facility] Last Admin: 02/12/19 09:01 Dose: 40 mg Pharmacy Consult (Zosyn Per Pharmacy*) 1 note FOLLOW UP .ZOSYN PER PHARMACY [facility] Pharmacy Consult (Vancomycin Per Pharmacy*) 1 note FOLLOW UP .VANC PER PHARMACY [facility]; Protocol Pharmacy Profile Note (Nicotine Patch Removal Note*) 1 note PATCH OFF 2100 [facility] Last Admin: 02/11/19 21:22 Dose: 1 note Pharmacy Profile Note (Vancomycin Trough Check) 1 note FOLLOW UP 0530 ONE Stop: 02/13/19 05:31 Sertraline HCl (Zoloft*) 50 mg PO QAM [facility] Last Admin: 02/12/19 09:02 Dose: 50 mg Sumatriptan Succinate (Imitrex Tab*) 100 mg PO BID PRN PRN Reason: HEADACHE Last Admin: 02/10/19 14:57 Dose: 100 mg Tamsulosin HCl (Flomax Cap*) 0.8 mg PO BEDTIME [facility] Last Admin: 02/11/19 21:23 Dose: 0.8 mg Triamcinolone Acetonide (Triamcinolone 0.5% Oint *) 1 applic TOPICAL TID [facility] Last Admin: 02/12/19 14:07 Dose: 1 applic Vital Signs - 8 hr 02/12/19 02/12/19 02/12/19 11:21 12:13 14:09 Temperature 97.7 F Pulse Rate 66 Respiratory 16 16 16 Rate Blood Pressure 145/85 (mmHg) O2 Sat by Pulse 96 Oximetry 02/12/19 02/12/19 15:20 16:09 Temperature 97.7 F Pulse Rate 69 Respiratory 18 16 Rate Blood Pressure 154/86 (mmHg) O2 Sat by Pulse 95 Oximetry Oxygen Devices in Use Now: None Appearance: NAD Eyes: No Scleral Icterus Ears/Nose/Mouth/Throat: NL Teeth, Lips, Gums Respiratory: Symmetrical Chest Expansion and Respiratory Effort, Clear to Auscultation Abdominal: NL Sounds; No Tenderness; No Distention, No Hepatosplenomegaly Extremities: No Edema, - - 1+ edema rt leg, trace left Skin: - - left buttock with erythema, no warmth, no drainage. Coarse skin centrally. no drainage. Neurological: Alert and Oriented x 3, NL Sensation Nutrition: Taking PO's Result Diagrams: 02/12/19 05:10 02/12/19 05:10 Additional Lab and Data: Laboratory Results - last 24 hr 02/12/19 02/12/19 05:10 05:10 WBC 6.8 RBC 4.31 Hgb 13.3 L Hct 39 L MCV 91 MCH 31 MCHC 34 RDW 14 Plt Count 306 MPV 7.3 L Neut % (Auto) 57.1 Lymph % (Auto) 22.4 [place] % (Auto) 11.2 Eos % (Auto) 8.2 Baso % (Auto) 1.1 Absolute Neuts (auto) 3.9 Absolute Lymphs (auto) 1.5 Absolute Monos (auto) 0.8 Absolute Eos (auto) 0.6 Absolute Basos (auto) 0.1 Absolute Nucleated RBC 0.0 Nucleated RBC % 0.1 Sodium 136 Potassium 4.1 Chloride 106 Carbon Dioxide 22 Anion Gap 8 BUN 16 Creatinine 0.77 Est GFR ( Amer) 120.9 Est GFR (Non-Af Amer) 99.9 BUN/Creatinine Ratio 20.8 H Glucose 121 H Calcium 8.9 Microbiology and Other Data: Microbiology 02/09/19 11:11 Blood Venous Aerobic Blood Culture - Preliminary No Growth Day 3 02/09/19 11:11 Blood Venous Anaerobic Blood Culture - Preliminary No Growth Day 3 02/09/19 11:11 Blood Venous Aerobic Blood Culture - Preliminary No Growth Day 3 02/09/19 11:11 Blood Venous Anaerobic Blood Culture - Preliminary No Growth Day 3 Diagnostic Imaging: MRI PELVIS : 1950 Age: 68 Sex: M Location: SURGICAL STAY UNIT Exam Date: 02/09/19 1016 ADM Status: ADM IN IMPRESSION: 1. There is diffuse infiltration of subcutaneous fat overlying the left gluteal musculature with small overlying ulceration or wound in the skin. This is consistent with severe cellulitis. There are some limited areas of more confluent fluid within the subcutaneous fat tracking out to the wound which would account for the drainage. There is not a well-defined abscess at this level however the lack of contrast somewhat limits the evaluation in that regard. 2. In addition, lateral to the left greater trochanter there is a focal fluid collection measuring 5.6 by 4.1 by 3 cm. This is in close proximity to the subcutaneous pathology. While this may be a chronic bursal collection, secondary infection here cannot be excluded. Contrast-enhanced study is recommended. 3. No current evidence for osteomyelitis. 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 - Patient Problems (1) Rash Current Visit: Yes Status: Acute Code(s): R21 - RASH AND OTHER NONSPECIFIC SKIN ERUPTION SNOMED Code(s): 635934701 Comment: -within drawn borders, reported great improvement compated to yesterday. no fluctuance -?overlying eczema, Unfortunately there is no on-call dermatology currently and this does not warrent emergency consultative service at this time. He does follow with Dr. Stoner as an outpatient and would encourage to do so as an outpatient as may benefit from biopsy continue Triamcenalone for now for overlying itchy areas - appreciate ID recs. Continue Vanc (day 3) stop Zosyn. of note 1st day of Vanc coverage interrupted on HD1 (24 hours between 1st, 2nd dose) (2) Cellulitis Current Visit: Yes Status: Acute Code(s): L03.90 - CELLULITIS, UNSPECIFIED SNOMED Code(s): 880112679 Comment: plan as above (3) BPH (benign prostatic hyperplasia) Current Visit: Yes Status: Acute Code(s): N40.0 - BENIGN PROSTATIC HYPERPLASIA WITHOUT LOWER URINRY TRACT SYMP SNOMED Code(s): 434773109 Comment: -Continue tamsulosin (4) CAD (coronary artery disease) Current Visit: Yes Status: Acute Code(s): I25.10 - ATHSCL HEART DISEASE OF [place] CORONARY ARTERY W/O ANG PCTRS SNOMED Code(s): 91867608 Comment: -On Asa and BB, unclear why not optimized to statin, no active issues -Hx HFpEF in the past, euvolemic on exam, last EF in 2017 is 50% (5) Pre-diabetes Current Visit: Yes Status: Acute Code(s): R73.03 - PREDIABETES SNOMED Code (s): 110719352 Comment: -lifestyle modification -can f/u with his PCP as outpatient (6) Tobacco use Current Visit: Yes Status: Acute Code(s): Z72.0 - TOBACCO USE SNOMED Code( s): 494845295 Comment: -On nicotine patch (7) Anxiety Current Visit: No Status: Acute Code(s): F41.9 - ANXIETY DISORDER, UNSPECIFIED SNOMED Code(s): 98801039 Comment: - Continue home benzo, sertraline (8) COPD (chronic obstructive pulmonary disease) Current Visit: No Status: Acute Code(s): J44.9 - CHRONIC OBSTRUCTIVE PULMONARY DISEASE, UNSPECIFIED SNOMED Code(s): 20916800 Comment: -No e/o exacerbation -Continue albuterol prn (9) Chronic back pain Current Visit: No Status: Acute Code(s): M54.9 - DORSALGIA, UNSPECIFIED; G89.29 - OTHER CHRONIC PAIN SNOMED Code(s): 752386128 Comment: -Continue morphine ER 30 mg TID and morphine 15 mg prn (10) DVT prophylaxis Current Visit: No Status: Acute Code(s): Z29.9 - ENCOUNTER FOR PROPHYLACTIC MEASURES, UNSPECIFIED SNOMED Code(s): 847945058 Comment: -lovenox (11) Full code status Current Visit: No Status: Acute Code(s): Z78.9 - OTHER SPECIFIED HEALTH STATUS SNOMED Code(s): 247072688 Comment: (12) GERD (gastroesophageal reflux disease) Current Visit: No Status: Acute Code(s): K21.9 - GASTRO-ESOPHAGEAL REFLUX DISEASE WITHOUT ESOPHAGITIS SNOMED Code(s): 107149062 Comment: - Continue pantoprazole (13) History of total left hip replacement Current Visit: No Status: Acute Code(s): Z96.642 - PRESENCE OF LEFT ARTIFICIAL HIP JOINT SNOMED Code(s): 735397520665 Comment: -left hip replacement 2 months ago -scar healing well -Unclear sig of bursal collection on MRI, if no improvement, repeat MRI with IV contrast and investigate underlying deep tissue collection (14) Hypertension Current Visit: No Status: Acute Code(s): I10 - ESSENTIAL (PRIMARY) HYPERTENSION SNOMED Code(s): 67345022 Comment: -improved today -Contiue lisinopril and metoprolol, (15) Sleep apnea Current Visit: No Status: Acute Code(s): G47.30 - SLEEP APNEA, UNSPECIFIED SNOMED Code(s): 07376529 Comment: -does not use CPAP and declined hospital CPAP Status and Disposition: ortho inpatient, medicine is consulting.
[2019-02-12] MEDS: Tamsulosin CAP* 0.4 MG PO SCH (21:04)
[2019-02-12] MEDS: Nicotine Patch Removal NOTE PATCH OFF SCH (21:08)
[2019-02-13] MEDS ORDERED: Vancomycin Trough Check NOTE FOLLOW UP ONE (05:30)
[2019-02-13 06:12] LABS: EGFR African American 130.6 (>60); EGFR Non-African American 107.9 (>60)
[2019-02-13 06:39] LABS: Vancomycin Trough 14.7 mcg/mL
[2019-02-13] MEDS: Vancomycin(*) 1,250 MG in NS 0.9% 250 ML* 250 ML IVPB SCH (06:52)
[2019-02-13] MEDS: SUMAtriptan TAB* 100 MG PO PRN (08:31)
[2019-02-13] MEDS: Aspirin EC TAB* 81 MG TAB.EC PO SCH (08:31)
[2019-02-13] MEDS: Cyclobenzaprine TAB* 10 MG PO SCH (08:31)
[2019-02-13] MEDS: Metoprolol Succinate XL TAB* 50 MG PO SCH (08:31)
[2019-02-13] MEDS: Sertraline* 50 MG TAB PO SCH (08:31)
[2019-02-13] MEDS: Pantoprazole TAB * 40 MG TAB PO SCH (08:32)
[2019-02-13] MEDS: Cholecalciferol TAB* 1000 UNITS PO SCH (08:32)
[2019-02-13] MEDS: Lisinopril TAB* 5 MG PO SCH (08:32)
[2019-02-13] MEDS: Morphine TAB Extended Release (*) 30 MG TAB.ER PO SCH (08:32)
[2019-02-13] MEDS: Nicotine PATCH 7 MG/24 HR* PATCH TRANSDERM SCH (08:33)
[2019-02-13] MEDS: Enoxaparin(*) 40 MG/0.4 ML SYR SUBCUT SCH (08:34)
[2019-02-13] MEDS: Triamcinolone 0.5% OINT * 15 GM TUBE TOPICAL SCH (08:48)
--- NOTE | 2019-02-13 09:29 | PN ---
Progress Note - Progress Note Date of Service: 02/13/19 SOAP: Subjective: CC: Left buttock cellulitis HPI: Mr. Guidry is a 68 yo male with PMH significant for morbid obesity, CHANDU, systolic HF, BPH, HTN, HLD, depression, chronic back pain, DM2, osteoarthritis s /p right hip arthroplasty, GERD, and empysema; who presented to the hospital with fatigue, malaise and rash to left buttock. Denies fever, chills, nausea, vomiting, or diarrhea. Objective: Vital Signs - 8 hr 02/13/19 02/13/19 02/13/19 02:57 07:58 08:31 Temperature 98 F 98.4 F Pulse Rate 73 66 Respiratory 18 17 16 Rate Blood Pressure 179/68 131/75 (mmHg) O2 Sat by Pulse 95 93 Oximetry Physical Exam: General: NAD, sitting up in a chair Neurological: Alert and Oriented x4 Cardiovascular: Heart rate regular Respiratory: Lung sounds clear bilateral Abdominal: Bowel sounds present; ABD large distended and non tender MSK: No pain with palpation of the left hip Skin: Left buttock with diffuse erythema, no warmth, no fluctuance Laboratory Last Values WBC 6.8 10^3/uL (3.5-10.8) 02/12/19 05:10 RBC 4.31 10^6 /uL (4.18-5.48) 02/12/19 05:10 Hgb 13.3 g/dL (14.0-18.0) L 02/12/19 05:10 Hct 39 % (42-52) L 02/12/19 05:10 MCV 91 fL (80-94) 02/12/19 05:10 MCH 31 pg (27-31) 02/12/19 05:10 MCHC 34 g/dL (31-36) 02/12/19 05:10 RDW 14 % (10-15) 02/12/19 05:10 Plt Count 306 10^3/uL (150-450) 02/12/19 05:10 MPV 7.3 fL (7.4-10.4) L 02/12/19 05:10 Neut % (Auto) 57.1 % 02/12/19 05:10 Lymph % (Auto) 22.4 % 02/12/19 05:10 [place] % (Auto) 11.2 % 02/12/19 05:10 Eos % (Auto) 8.2 % 02/12/19 05:10 Baso % (Auto) 1.1 % 02/12/19 05:10 Absolute Neuts (auto) 3.9 10^3/ul (1.5-7.7) 02/12/19 05:10 Absolute Lymphs (auto) 1.5 10^3/ul (1.0-4.8) 02/12/19 05:10 Absolute Monos (auto) 0.8 10^3/ul (0-0.8) 02/12/19 05:10 Absolute Eos (auto) 0.6 10^3/ul (0-0.6) 02/12/19 05:10 Absolute Basos (auto) 0.1 10^3/ul (0-0.2) 02/12/19 05:10 Absolute Nucleated RBC 0.0 10^3/ul 02/12/19 05:10 Nucleated RBC % 0.1 02/12/19 05:10 ESR 5 mm/Hr (0-19) 02/10/19 10:21 Sodium 136 mmol/L (135-145) 02/12/19 05:10 Potassium 4.1 mmol/L (3.5-5.0) 02/12/19 05:10 Chloride 106 mmol/L (101-111) 02/12/19 05:10 Carbon Dioxide 22 mmol/L (22-32) 02/12/19 05:10 Anion Gap 8 mmol/L (2-11) 02/12/19 05:10 BUN 17 mg/dL (6-24) 02/13/19 05:47 Creatinine 0.72 mg/dL (0.67-1.17) 02/13/19 05:47 Est GFR ( Amer) 130.6 (>60) 02/13/19 05:47 Est GFR (Non-Af Amer) 107.9 (>60) 02/13/19 05:47 BUN/Creatinine Ratio 20.8 (8-20) H 02/12/19 05:10 Glucose 121 mg/dL (70-100) H 02/12/19 05:10 POC Glucose (mg/dL) 105 mg/dL (70-100) H 02/09/19 21:12 Hemoglobin A1c 6.1 % (4.0-5.6) H 02/09/19 18:49 Calcium 8.9 mg/dL (8.6-10.3) 02/12/19 05:10 Total Bilirubin 0.50 mg/dL (0.2-1.0) 02/10/19 05:39 AST 14 U/L (13-39) 02/10/19 05:39 ALT 24 U/L (7-52) 02/10/19 05:39 Alkaline Phosphatase 73 U/L (34-104) 02/10/19 05:39 C-Reactive Protein 3.69 mg/L (<8.01) 02/10/19 05:39 Total Protein 6.1 g/dL (6.4-8.9) L 02/10/19 05:39 Albumin 3.8 g/dL (3.2-5.2) 02/10/19 05:39 Globulin 2.3 g/dL (2-4) 02/10/19 05:39 Albumin/Globulin Ratio 1.7 (1-3) 02/10/19 05:39 Vancomycin Trough 14.7 mcg/mL 02/13/19 05:47 Microbiology 02/12/19 18:55 Nasal Screen MRSA (PCR) - Final Nasal Mrsa Not Detected 02/09/19 11:11 Aerobic Blood Culture - Preliminary Blood Venous No Growth Day 3 Anaerobic Blood Culture - Preliminary No Growth Day 3 02/09/19 11:11 Aerobic Blood Culture - Preliminary Blood Venous No Growth Day 3 Anaerobic Blood Culture - Preliminary No Growth Day 3 Assessment: 1. Left buttock cellulitis. Afebrile and no leukocytosis. Blood cultures with no growth on day 3. Continues to have significant erythema to the left buttock, improving within the lines previously drawn. 2. DM2. 3. Morbid osbesity. BMI 40.1. Plan: Continue vancomycin, trough goal 10-15. Day 5 of ABX (did miss some doses the first day). At discharge, transition to oral Doxycycline 100 mg PO BID, to complete a 14 day course of ABX. Follow up with ID outpatient in 1-2 weeks.
[2019-02-13] MEDS ORDERED: Polyethylene Glycol 3350* 17 GM PACKET PO PRN (09:52)
[2019-02-13] MEDS ORDERED: Docusate CAP* 100 MG PO SCH (10:00)
[2019-02-13 11:17] VITALS: BP 156/81
--- NOTE | 2019-02-13 12:26 | PN ---
Progress Note - Progress Note Date of Service: 02/13/19 SOAP: Subjective: OOB to chair, no significant complaints of pain, ambulating well, no f/s/c Objective: Vital Signs Temp Pulse Resp BP Pulse Ox 98.1 F 71 16 156/81 95 02/13/19 11:16 02/13/19 11:16 02/13/19 11:16 02/13/19 11:16 02/13/19 11:16 Laboratory Last Values WBC 6.8 10^3/uL (3.5-10.8) 02/12/19 05:10 RBC 4.31 10^6 /uL (4.18-5.48) 02/12/19 05:10 Hgb 13.3 g/dL (14.0-18.0) L 02/12/19 05:10 Hct 39 % (42-52) L 02/12/19 05:10 MCV 91 fL (80-94) 02/12/19 05:10 MCH 31 pg (27-31) 02/12/19 05:10 MCHC 34 g/dL (31-36) 02/12/19 05:10 RDW 14 % (10-15) 02/12/19 05:10 Plt Count 306 10^3/uL (150-450) 02/12/19 05:10 MPV 7.3 fL (7.4-10.4) L 02/12/19 05:10 Neut % (Auto) 57.1 % 02/12/19 05:10 Lymph % (Auto) 22.4 % 02/12/19 05:10 [place] % (Auto) 11.2 % 02/12/19 05:10 Eos % (Auto) 8.2 % 02/12/19 05:10 Baso % (Auto) 1.1 % 02/12/19 05:10 Absolute Neuts (auto) 3.9 10^3/ul (1.5-7.7) 02/12/19 05:10 Absolute Lymphs (auto) 1.5 10^3/ul (1.0-4.8) 02/12/19 05:10 Absolute Monos (auto) 0.8 10^3/ul (0-0.8) 02/12/19 05:10 Absolute Eos (auto) 0.6 10^3/ul (0-0.6) 02/12/19 05:10 Absolute Basos (auto) 0.1 10^3/ul (0-0.2) 02/12/19 05:10 Absolute Nucleated RBC 0.0 10^3/ul 02/12/19 05:10 Nucleated RBC % 0.1 02/12/19 05:10 ESR 5 mm/Hr (0-19) 02/10/19 10:21 Sodium 136 mmol/L (135-145) 02/12/19 05:10 Potassium 4.1 mmol/L (3.5-5.0) 02/12/19 05:10 Chloride 106 mmol/L (101-111) 02/12/19 05:10 Carbon Dioxide 22 mmol/L (22-32) 02/12/19 05:10 Anion Gap 8 mmol/L (2-11) 02/12/19 05:10 BUN 17 mg/dL (6-24) 02/13/19 05:47 Creatinine 0.72 mg/dL (0.67-1.17) 02/13/19 05:47 Est GFR ( Amer) 130.6 (>60) 02/13/19 05:47 Est GFR (Non-Af Amer) 107.9 (>60) 02/13/19 05:47 BUN/Creatinine Ratio 20.8 (8-20) H 02/12/19 05:10 Glucose 121 mg/dL (70-100) H 02/12/19 05:10 POC Glucose (mg/dL) 105 mg/dL (70-100) H 02/09/19 21:12 Hemoglobin A1c 6.1 % (4.0-5.6) H 02/09/19 18:49 Calcium 8.9 mg/dL (8.6-10.3) 02/12/19 05:10 Total Bilirubin 0.50 mg/dL (0.2-1.0) 02/10/19 05:39 AST 14 U/L (13-39) 02/10/19 05:39 ALT 24 U/L (7-52) 02/10/19 05:39 Alkaline Phosphatase 73 U/L (34-104) 02/10/19 05:39 C-Reactive Protein 3.69 mg/L (<8.01) 02/10/19 05:39 Total Protein 6.1 g/dL (6.4-8.9) L 02/10/19 05:39 Albumin 3.8 g/dL (3.2-5.2) 02/10/19 05:39 Globulin 2.3 g/dL (2-4) 02/10/19 05:39 Albumin/Globulin Ratio 1.7 (1-3) 02/10/19 05:39 Vancomycin Trough 14.7 mcg/mL 02/13/19 05:47 PE: NVI left buttock- improving cellulitis, left hip incision well healed, no erythema around surgical site, no active drainage Assessment: left buttock cellulitis Plan: 1) continue IV Abx per ID, may transition to oral abx at discharge 2) PT/OT- WBAT with hip precautions 3) Home today; f/u with Dr. Bearden on Monday 02/19
--- NOTE | 2019-02-13 20:05 | DS ---
DISCHARGE SUMMARY: DATE OF ADMISSION: 02/09/19 DATE OF DISCHARGE: 02/13/19 SURGEON: Madai Bearden MD * (DICTATED BY SADIE MANRIQUE) PRINCIPAL DIAGNOSIS: Left buttock cellulitis. DISCHARGE DIAGNOSIS: Left buttock cellulitis. DISCHARGE DISPOSITION: He is stable, his condition is improved and he is discharged home. HISTORY OF PRESENT ILLNESS: Mr. Guidry is a 68-year-old gentleman who underwent a left total hip arthroplasty on 12/12/18. Last week, he noticed some redness and pain when he sat on his left butt cheek. He denied any fevers or groin pain. He was placed on Keflex for 2 days without any improvement and he was direct admitted from our office last Tuesday on 02/09/19 for a left buttock cellulitis. HOSPITAL COURSE: Mr. Guidry is a 68-year-old gentleman with left buttock cellulitis. He was direct admitted from Dr. Bearden's office on 02/09/19. He was placed on IV antibiotics and Infectious Disease was consulted. He remained afebrile during his hospital stay. He continued his physical therapy for his left total hip. At the time of discharge on 02/13/19, the cellulitis had improved. He was afebrile and he was ambulating well and he was discharged home on oral antibiotics. DISCHARGE MEDICATIONS: 1. Doxycycline 100 mg 1 tab twice a day for 10 days. 2. Symbicort 2 puffs twice a day. 3. Omeprazole 20 mg a day. 4. Lorazepam as needed. 5. Sertraline 50 mg a day. 6. Lisinopril 5 mg a day. 7. Ventolin 2 puffs 4 times a day. 8. Metoprolol 50 mg a day. 9. Morphine sulfate extended release 30 mg every 8 hours. 10. Morphine sulfate 15 mg every 6 hours as needed. 11. Sumatriptan as needed. 12. Aspirin 81 mg a day. 13. Vitamin D3. 14. Tamsulosin. 15. Tramadol. 16. Cyclobenzaprine. 17. Finasteride 5 mg a day. ALLERGIES: OXYCODONE. PHYSICAL EXAMINATION UPON DISCHARGE: He was afebrile. His vital signs were stable. The incision over the left hip was well healed with no erythema or warmth. The left buttock cellulitis had improved. There was no active drainage and he was ambulating well with aid of a walker. DISCHARGE INSTRUCTIONS: He was discharged home. Per Infectious Disease recommendations, he was given doxycycline 100 mg to take twice a day for the next 10 days. He will continue his postoperative pain medications as needed. He will continue his physical therapy. He is weightbearing as tolerated with posterior hip precautions. He is to see Dr. Bearden back in clinic on 02/19/19. He is also to follow up with his primary care physician as well as Dr. Sheriff. He will call our office with any questions or concerns. SADIE MANRIQUE [id number]/[facility] #: [id number] JAYCE
[2019-02-14] MEDS ORDERED: Senna TAB 8.6 mg* TAB PO SCH (09:00)
== END 2019-02-13 12:29 | disposition home health service (06) | DRG 603 ==
LOC: SSU 09:29
PROVIDERS: ADMIT Orthopaedic Surgery Adult Reconstructive Orthopaedic Surgery; ATTEND Orthopaedic Surgery Adult Reconstructive Orthopaedic Surgery
DX: L03.317 Cellulitis of buttock (principal); Z68.41 Body mass index [BMI] 40.0-44.9, adult; I50.40 Unspecified combined systolic (congestive) and diastolic (congestive) heart failure; M19.90 Unspecified osteoarthritis, unspecified site; K21.9 Gastro-esophageal reflux disease without esophagitis; E66.01 Morbid (severe) obesity due to excess calories; G47.33 Obstructive sleep apnea (adult) (pediatric); I11.0 Hypertensive heart disease with heart failure; N40.0 Benign prostatic hyperplasia without lower urinary tract symptoms; K22.70 Barrett's esophagus without dysplasia; E78.5 Hyperlipidemia, unspecified; F32.9 Major depressive disorder, single episode, unspecified; E11.9 Type 2 diabetes mellitus without complications; M54.9 Dorsalgia, unspecified; J44.9 Chronic obstructive pulmonary disease, unspecified; F41.9 Anxiety disorder, unspecified; L01.00 Impetigo, unspecified; I25.10 Atherosclerotic heart disease of native coronary artery without angina pectoris; F17.210 Nicotine dependence, cigarettes, uncomplicated; Z96.643 Presence of artificial hip joint, bilateral; Z79.82 Long term (current) use of aspirin; Z79.891 Long term (current) use of opiate analgesic; Z79.899 Other long term (current) drug therapy; Z88.5 Allergy status to narcotic agent
CPT/HCPCS: 36415; 72195; 80048; 80053; 80202; 82565; 83036; 84520; 85025; 85652; 86140; 87040; 87641; 93005; A9270-GY; J0692; J1650; J2543; J3370

== ENCOUNTER 2019-02-18 10:25 | Emergency (ER) | payer MEDICARE ==
--- OUTSIDE RECORDS SUMMARY | 2019-02-18 10:38 | XMS REPORT | Continuity of Care Document ---
:1950 External Reference #:[id number] Author Name Madai Bearden M.D. (transmitted by agent of provider Adelina Lucero) Address [address] [place] [address] Care Team Providers Name Role Phone Montrell Prado MD - Commercial Painter Care Team Information Bioinformatics Associate Madai Bearden MD - Adult Care Team Information Bioinformatics Associate [phone] Reconstructive Orthopaedic Surgery Jackeline Garcia MD - Pulmonary Care Team Information Bioinformatics Associate [phone] Disease Michael Diaz MD - Care Team Information Bioinformatics Associate [phone] Ophthalmology Myla Luo M.D. - Family Medicine Care Team Information Bioinformatics Associate Problems Active Problems Provider Date Type 2 [...] smoker, smokes every day Smoking Status Reviewed: 02/09/19 Patient is a current smoker, smokes every day Exercise Type/Frequency Does not exercise Allergies, Adverse Reactions, Alerts Active Allergies Reaction Severity Comments Date Oxycodone 11/09/2010 Medications Active Medications SIG Qnty Indications Ordering Date Provider Keflex 1 by mouth 4 28caps Z96.642 Madai Bearden, 02/07/2019 500mg Capsules times a day for 7 M.D. days Walker rolling walker 1units Madai Bearden, 01/05/2019 [facility] with seat dx: s.p M.D. hip replacement 68" 280lbs Compression Stockings 20/30 s/p left 1units Madai Bearden, 12/22/2018 YARELY; 67" 268lbs M.D. [facility] Toilet Seat Elevator s/p left hip 1units Madai Bearden, 12/07/2018 replacement 67" M.D. [facility] 268lbs Adjust Bath/Shower 67" 268lbs dx: 1unleodan Bearden, 12/07/2018 Seat s/p left hip M.D. Misc replacement Nicoderm CQ apply one to skin 28units F17.210 Myla Luo, 11/01/2018 21mg/24HR every day MD Patches 24HR Symbicort inhale two puffs 20.4units J44.9 Myla Luo, 10/18/2018 80-4.5mcg/Act by mouth twice a MD Aerosol day rinse mouth after using Omeprazole 1 by mouth every 90caps K21.9 Myla Luo, 10/18/2018 20mg Capsules day MD WALLER Lorazepam 1 by mouth twice 60tabs F41.9 Myla Luo, 10/18/2018 1mg Tablets a day as needed MD for anxiety Neomycin/Polymyxin/Hyd 2 drops in 10ml H60.63 Myla Luo, 10/18/2018 rocortisone (Otic) affected ear MD twice a day for 5 3.5-56267-6 Solution days as needed Lonny Mason/5 M16.12 Chauncey Morgan, 08/23/2018 Adjustment M.D. Holes/-03/07" 1-03/07" M[facility] isak Madrigal M.D.,FACP Sertraline HCL 1 by mouth every 30tabs Myla Luo, 07/15/2017 50mg day MD Tablets Lisinopril 1 by mouth every 30tabs Myla Luo, 03/31/2017 5mg Tablets day MD Shower Bench shower bench s/p 1unleodan Madai Bearden, 08/23/2016 total hip M.D. replacement Cane standard 1units Madaigarfield Bearden, 08/18/2016 Misc adjustable height M.DPrieto cane. Ventolin HFA 2 puffs by mouth 1units J43.9 Myla Luo, 08/20/2015 108(90Base) four times a day MD mcg/Act Aerosol as needed Metoprolol Succinate take 1 tablet by 90tabs I10 Myla Luo, 07/16/2015 ER mouth every day MD 50mg Tablets ER 24HR Morphine Sulfate ER po q8h M54.5 Unknown 30mg Tablets ER 12HR Morphine Sulfate 1 by mouth every M54.5 Unknown 15mg 6 hours as needed Tablets Sumatriptan Succinate take one tablet 18tabs Myla Luo, by mouth at first 100mg Tablets sign of migraine. may repeat in 2 hours Aspirin Ec Low Dose 1 by mouth every I10 Unknown 81mg day (when Tablets remembers) Vitamin D3 daily Unknown 1000Unit Capsules Tamsulosin HCL take 2 capsules 180caps R35.0 Myla Luo, 0.4mg by mouth at MD Capsules bedtime Morphine Sulfate ER 1 by mouth twice Unknown 15mg a day Tablets ER Tramadol HCL Jordan, 50mg Tablets SADIE Justice Tylenol Extra Strength 1-2 tabs by mouth Unknown every 6 hours as 500mg Tablets needed Cyclobenzaprine HCL take 1 tab by Unknown 10mg mouth three times Tablets daily Finasteride 1 tab by mouth Unknown 5mg Tablets daily History Medications Cephalexin 1 tab by mouth 30caps Silvano Dannie 01/02/2019 - 500mg three times a day MD Rasheed 01/14/2019 Capsules for 10 days Keflex 1 by mouth 4 times 28caps M16.12 Madai Bearden, 12/22/2018 - 500mg a day for 7 days M.DPrieto 01/01/2019 Capsules Walker rolling walker with 1units Madai Bearden, 12/07/2018 - [facility] seat dx: s/p left Lucretia 01/05/2019 hip replacement 67" 268lb Medications Administered in Office Medication SIG Qnty [...] CPT Code Status Date Vaccine Lot # [id number] Given 01/20/2017 Influenza Virus Vaccine, Quadrivalent, Split, Preservative Free [id number] Given 06/14/2016 Pneumococcal Conjugate Vaccine 13 Valent For [id number] Intramuscular Use 99494 Given 02/29/2016 Influ Virus Vaccine, Quadrivalent, Split Virus, [place] [address] Given 11/28/2014 Flu Vaccine Split Virus Preservative Free For Indiv 3Yr Older 46525 Given 12/25/2012 Pneumonia Vaccine [id number] 15835 Given 12/25/2012 Flu Vaccine Split Virus Preservative Free For [id number] Indiv 3Yr Older [id number] Given 12/03/2011 Fluzone Vaccine 24416 Given 02/11/2011 Zoster (Zostavax) [id number] 48579 Given 11/09/2010 Pneumonia Vaccine [id number] 20709 Given 11/09/2010 Influenza Virus 3Yrs & Over [id number] Given Unknown Influenza Virus Vaccine, Quadrivalent, Split, Im Use 6-35mo 94353 Given Unknown Influenza Virus 3Yrs & Over Vital Signs Date Vital Result Comment 02/09/2019 8:02am Height 67 inches 5'7" Weight 280.00 lb Heart Rate 80 /min BP Systolic 150 mmHg BP Diastolic 80 mmHg Respiratory Rate 12 /min Body Temperature 98.6 F Pain Level 12 BMI (Body Mass Index) 43.8 kg/m2 02/07/2019 11:44am Height 67 inches 5'7" Weight 280.00 lb Heart Rate 76 /min BP Systolic Sitting 130 mmHg BP Diastolic Sitting 92 mmHg Respiratory Rate 20 /min Body Temperature 97.3 F Pain Level 3 BMI (Body Mass Index) 43.8 kg/m2 Results Test Acquired Date Facility Test Result H/L Range Note CBC Auto 12/21/2018 [facility] White Blood 8.6 10^3/uL Normal 3.5-10.[address] [place] [address] [phone] Red Blood Count 3.47 10^6/uL Low 4.18-5.48 Hemoglobin 10.9 g/dL Low 14.0-18.0 Hematocrit 32 % Low 42-52 Mean Corpuscular Volume 92 fL Normal 80-94 Mean Corpuscular Hemoglobin 31 pg Normal 27-31 Mean Corpuscular HGB Conc 34 g/dL Normal 31-36 Red Cell Distribution Width 14 % Normal 10-15 Platelet Count 347 10^3/uL Normal 150-450 Mean Platelet Volume 6.5 fL Low 7.4-10.4 Abs Neutrophils 5.6 10^3/uL Normal 1.5-7.7 Abs Lymphocytes 1.6 10^3/uL Normal 1.0-4.8 Abs Monocytes 0.8 10^3/uL Normal 0-0.8 Abs Eosinophils 0.4 10^3/uL Normal 0-0.6 Abs Basophils 0.1 10^3/uL Normal 0-0.2 Abs Nucleated RBC 0.0 10^3/uL Granulocyte % 65.7 % Lymphocyte % 18.7 % Monocyte % 9.7 % Eosinophil % 4.4 % Basophil % 1.5 % Nucleated Red Blood Cells % 0.0 Inr/Protime 12/21/2018 [facility] Inr 1.09 Normal 0.82-1.09 1 [address] [place] [address] [phone] Comp Metabolic 12/21/2018 [facility] Sodium 132 mmol/L Low 135 -145 Panel [address] [place] [address] [phone] Potassium 4.2 mmol/L Normal 3.5-5.0 Chloride 100 mmol/L Low 101-111 Co2 Carbon Dioxide 26 mmol/L Normal 22-32 Anion Gap 6 mmol/L Normal 2-11 Glucose 99 mg/dL Normal 70-100 Blood Urea Nitrogen 20 mg/dL Normal 6-24 Creatinine 0.58 mg/dL Low 0.67-1.17 BUN/Creatinine Ratio 34.5 High 8-20 Calcium 8.7 mg/dL Normal 8.6-10.3 Total Protein 6.4 g/dL Normal 6.4-8.9 Albumin 3.4 g/dL Normal 3.2-5.2 Globulin 3.0 g/dL Normal 2-4 Albumin/Globulin Ratio 1.1 Normal 1-3 Total Bilirubin 0.60 mg/dL Normal 0.2-1.0 Alkaline Phosphatase 56 U/L Normal 34-104 Alt 23 U/L Normal 7-52 Ast 17 U/L Normal 13-39 Egfr Non- 138.5 >60 Egfr 167.6 >60 2 Urinalysis Profile 12/04/2018 [facility] Urine Color Yellow 3 [address] [place] [address] [phone] Urine Appearance Clear Urine Specific Goff 1.013 Normal 1.010-1.030 Urine pH 5.0 Normal 5-9 Urine Urobilinogen Negative Negative Urine Ketones Negative Negative Urine Protein Negative Negative Urine Leukocytes Negative Negative Urine Blood Negative Negative * * Abnormal Negative 4 Urine Nitrite Negative Negative Urine Bilirubin Negative Negative Urine Glucose Negative Negative Inr/Protime 12/04/2018 [facility] Inr 0.95 Normal 0.82-1.[address] [place] [address] [phone] Laboratory test 12/04/2018 [facility] Partial 37.4 Normal 26.0 -38.0 6 finding [address] [facility] [place] [address] Time PTT [phone] Comp Metabolic 12/04/2018 [facility] Sodium 137 mmol/L Normal 135-145 Panel [address] [place] [address] [phone] Potassium 4.4 mmol/L Normal 3.5-5.0 Chloride 104 mmol/L Normal 101-111 Co2 Carbon Dioxide 24 mmol/L Normal 22-32 Anion Gap 9 mmol/L Normal 2-11 Glucose 105 mg/dL High 70-100 Blood Urea Nitrogen 12 mg/dL Normal 6-24 Creatinine 0.59 mg/dL Low 0.67-1.17 BUN/Creatinine Ratio 20.3 High 8-20 Calcium 9.5 mg/dL Normal 8.6-10.3 Total Protein 6.6 g/dL Normal 6.4-8.9 Albumin 4.4 g/dL Normal 3.2-5.2 Globulin 2.2 g/dL Normal 2-4 Albumin/Globulin Ratio 2.0 Normal 1-3 Total Bilirubin 0.30 mg/dL Normal 0.2-1.0 Alkaline Phosphatase 56 U/L Normal 34-104 Alt 19 U/L Normal 7-52 Ast 13 U/L Normal 13-39 Egfr Non- 135.8 >60 Egfr 164.3 >60 7 Type & Screen 12/04/2018 [facility] Patient Blood Type O Negative [address] [place] [address] [phone] Antibody Screen NEGATIVE Urine Culture And 12/04/2018 [facility] Urine SEE RESULT [address] [place] [address] [phone] CBC Auto Diff 11/13/2018 [facility] White Blood 8.0 10^3/uL Normal 3.5-[address] Count 0.8 [place] [address] [phone] Red Blood Count 4.71 10^6/uL Normal 4.18-5.48 [...] % Nucleated Red Blood Cells % 0.1 Inr/Protime 11/13/2018 [facility] Inr 1.01 Normal 0.82-1.[address] [place] [address] [phone] Laboratory 11/13/2018 [facility] Partial 35.4 Normal 26.0- 38.0 test finding [address] [place] [address] PTT [phone] Drug Abuse 20 11/07/2018 [facility] Urine Negative [address] Amphetamine ng/mL [place], [place] [address] [phone] Urine Barbiturates Negative ng/mL 11 Urine Benzodiazepines Negative ng/mL 12 Urine Cocaine Negative ng/mL 13 Urine Phencyclidine Negative ng/mL Cutoff: 25 Urine Tetrahydrocannabinol Negative ng/mL Cutoff: 50 14 Creatinine, Urine 41.5 mg/dL Specific Goff 1.009 pH 6.1 Oxidants Negative 15 Adulterants Comment Normal Codeine, Ur Not Detected ng/mL Cutoff: 25 16 Bsstbyy-6-nasy-glucuronide, Ur Not Detected ng/mL 17 Morphine, Ur Present ng/mL Abnormal Cutoff: 25 18 Xblubwxj-2-uxdw-glucuronide, U Present ng/mL Abnormal 19 6-monoacetylmorphine, Ur Not Detected ng/mL Cutoff: 25 20 Hydrocodone, Ur Not Detected ng/mL Cutoff: 25 21 Norhydrocodone, Ur Not Detected ng/mL Cutoff: 25 22 Dihydrocodeine, Ur Not Detected ng/mL Cutoff: 25 23 Hydromorphone, Ur Present ng/mL Abnormal Cutoff: 25 24 Yjezimucgqbfv4tdfouuxkdjwjsbn Present ng/mL Abnormal 25 Oxycodone, Ur Not Detected ng/mL Cutoff: 25 26 Noroxycodone, Ur Not Detected ng/mL Cutoff: 25 27 Oxymorphone, Ur Not Detected ng/mL Cutoff: 25 28 Lfyxvurfgay-8-jctd-glucuronide Not Detected ng/mL 29 Noroxymorphone, Ur Not Detected ng/mL Cutoff: 25 30 Fentanyl, Ur Not Detected ng/mL Cutoff: 2 31 Norfentanyl, Ur Not Detected ng/mL Cutoff: 2 32 Meperidine, Ur Not Detected ng/mL Cutoff: 25 33 Normeperidine, Ur Not Detected ng/mL Cutoff: 25 34 Naloxone, Ur Not Detected ng/mL Cutoff: 25 35 Dxflkjnb-0-rmxg-glucuronide, U Not Detected ng/mL 36 Methadone, Ur Not Detected ng/mL Cutoff: 25 37 Eddp, Ur Not Detected ng/mL Cutoff: 25 38 Propoxyphene, Ur Not Detected ng/mL Cutoff: 25 39 Norpropoxyphene, Ur Not Detected ng/mL Cutoff: 25 40 Tramadol, Ur Not Detected ng/mL Cutoff: 25 41 O-desmethyltramadol, Ur Not Detected ng/mL Cutoff: 25 42 Tapentadol, Ur Not Detected ng/mL Cutoff: 25 43 N-desmethyltapentadol, Ur Not Detected ng/mL Cutoff: 50 44 Nvecgnmzok-noic-qikhayimsvb, U Not Detected ng/mL 45 Buprenorphine, Ur Not Detected ng/mL Cutoff: 5 46 Norbuprenorphine, Ur Not Detected ng/mL Cutoff: 5 47 Norbuprenorphine glucuronide Not Detected ng/mL Cutoff: 20 48 Opioid Interpretation See Comment 49 Comp Metabolic 10/25/2018 [facility] Sodium 138 mmol/L Normal 135-[address] [place], [place] [id number] [phone] Potassium 4.3 mmol/L Normal 3.5-5.0 Chloride 106 [...] Egfr Non- 117.3 >60 Egfr 141.9 >60 50 Lipid Profile 10/25/2018 [facility] Triglycerides 138 mg/dL 51 (Trig/Chol/HDL) [address] [place] [address] [phone] Cholesterol 190 mg/dL 52 HDL Cholesterol 39.0 mg/dL 53 LDL Cholesterol 123 mg/dL 54 Urine Microalbumin 10/25/2018 [facility] Ur Microalbumin < 15.[address] (mg/L) mg/[place] [address] [phone] Urine Creatinine 37.71 mg/dL Urine Microalbumin/Creatinine TNP <31 55 Laboratory test 10/25/2018 [facility] PSA Screening 1.904 Normal 0-4.000 [address] ng/[place] [address] [phone] Urinalysis 10/25/2018 [facility] Urine Color Straw Profile [address] [place], [place] [address] [phone] Urine Appearance Clear Urine Specific Goff 1.006 Low 1.010-1.030 Urine pH 5.0 Normal 5-9 Urine Urobilinogen Negative Negative Urine Ketones Negative Negative Urine Protein Negative Negative Urine Leukocytes Negative Negative Urine Blood 1+ Abnormal Negative Urine Nitrite Negative Negative Urine Bilirubin Negative Negative Urine Glucose Negative Negative Urine White Blood Cell Absent Absent Urine Red Blood Cell Trace(0-2/hpf) Absent Urine Bacteria Absent Absent Laboratory test 10/18/2018 [facility] Hemoglobin A1c 6.7 5-7 finding Xray 08/24/2018 [facility] Inj/Aspir Major JT Or <pending> Bursa W/ US 1 Standard intensity warfarin therapeutic range: 2.0-3.0 High intensity warfarin therapeutic range: 2.5-3.5 2 Because ethnic data is not always readily [...] 15-29 5 Kidney failure <15 (or dialysis) 3 12/12 4 *Ascorbic acid is present which may interfere with detection of blood. 5 Standard intensity warfarin therapeutic range: 2.0-3.0 High intensity warfarin therapeutic range: 2.5-3.5 6 AA 12/12 7 Because ethnic data is not always readily [...] 15-29 5 Kidney failure <15 (or dialysis) 8 SEE RESULT BELOW Name: JAMES GUIDRY : [address]: Madai Bearden MD Acct: [id number] Unit: [id number] AGE: 68 Location: [facility] Re12/04/18 SEX: M Status: REG REF SPEC: [id number] SHON: 12/04/18 [facility] DR: Madai Bearden MD REQ: [id number] RECD: 12/04/18 STATUS: BOO GOMES DR: Ty Luo MD _ SOURCE: URINE SPDESC: ORDERED: Urine Culture COMMENTS: CONRAD 12/12 QUERIES: Urine Source: Clean Catch Procedure Result Reported Site Urine Culture Final 12/05/18- 1155 ML No growth of clinically significant organisms * ML - Main Lab . END OF REPORT DEPARTMENT OF PATHOLOGY, [address] [place] [address] Jerald Velez M.D. Director [facility] # [id number] 9 Standard intensity warfarin therapeutic range: 2.0-3.0 High intensity warfarin therapeutic range: 2.5-3.5 10 REFERENCE VALUE Cutoff: 500 11 REFERENCE VALUE Cutoff: 200 12 REFERENCE VALUE Cutoff: 100 13 REFERENCE VALUE Cutoff: 150 14 ADDITIONAL INFORMATION This report is intended for use in clinical monitoring or management of patients. It is not intended for use in employment-related testing. Test Performed by: [facility] [address] [place] [address] [address] Marker: Emanuel Lovett M.D. Ph.D.; CLIA# [id number] 15 REFERENCE VALUE Cutoff: 200 mg/L 16 Tylenol 3 17 Metabolite of codeine REFERENCE VALUE Cutoff: 100 18 Elizabeth Morgan, MS Contin; Also a minor metabolite (10%) of codeine and can be seen in low concentrations (<2,000 ng/mL) with poppy seed ingestion. 19 Metabolite of morphine REFERENCE VALUE Cutoff: 100 20 Metabolite of heroin 21 Lortab, [place], Vicodin; Also a very minor metabolite of codeine and impurity (<1%) of oxycodone. 22 Metabolite of hydrocodone 23 Metabolite of hydrocodone 24 Dilaudid, Exalgo; Also a metabolite of hydrocodone and a minor (<5%) metabolite of morphine. 25 Metabolite of hydromorphone REFERENCE VALUE Cutoff: 100 26 Endocet, Percocet, Oxycontin 27 Metabolite of oxycodone 28 Numorphan, Opana; Also a metabolite of oxycodone. 29 Metabolite of oxymorphone REFERENCE VALUE Cutoff: 100 30 Metabolite of oxymorphone 31 Actiq, Duragesic, Fentora 32 Metabolite of fentanyl 33 Demerol 34 Metabolite of meperidine 35 Narcan 36 Metabolite of naloxone REFERENCE VALUE Cutoff: 100 37 Dolophine 38 Metabolite of methadone 39 Darvon, Darvocet 40 Metabolite of propoxyphene 41 Tradol, Ultram, Ultracet 42 Metabolite of tramadol 43 Nucynta 44 Metabolite of tapentadol 45 Metabolite of tapentadol REFERENCE VALUE Cutoff: 100 46 Buprenex, Suboxone 47 Metabolite of buprenorphine 48 Metabolite of buprenorphine 49 Test detected the presence of both morphine and metabolites (xxqdlmvk-1-ugvc-glucuronide, hydromorphone and azeklfednixgc-4-vjcf-glucuronide). Suspect use of morphine and/or hydromorphone within the past three days. Alternatively, these results could also be suggestive of heroin use. Low levels of morphine can also be seen following poppy seed ingestion. Test detected the presence of hydromorphone and one of its metabolites (aclylxbfmucie-2-cokl-glucuronide). Suspect use of hydromorphone within the past three days. ADDITIONAL INFORMATION This test was developed and its performance characteristics determined by [facility] in a manner consistent with CLIA requirements. This test has not been cleared or approved by the U.S. Food and Drug Administration. 50 Because ethnic data is not always readily [...] 15-29 5 Kidney failure <15 (or dialysis) 51 Desirable: <150 Borderline High: 150-199 High: 200-499 Very High: >500 52 Desirable: <200 Borderline High: 200-239 High: >239 53 Low: <40 Desirable: 40-60 High: >60 54 Desirable: <100 Near Optimal: 100-129 Borderline High: 130-159 High: 160-189 Very High: >189 55 Unable to calculate due to low microalbumin 56 Serum levels of PSA measured using the Candice Edwin DXI Hybritech immunoassay should not be interpreted as absolute evidence of the presence or absence of disease. The PSA value should be used in conjunction with other pertinent clinical diagnostic procedures. The values obtained with different assay methods or kits cannot be used interchangeably. Procedures Date Code Description Status 12/12/2018 83613 THR Total Hip Replacement Completed 12/12/2018 65067 THR Total Hip Replacement Completed 11/17/2018 50118 Stress Test Completed 11/17/2018 79060 Myocardial Perfusion Imaging Tomographic (Spect) Completed Multiple Studies 09/22/2018 15785 EKG Tracing & Interpretation Completed 08/24/2018 66446 Inj/Aspir Major JT Or Bursa W/ US Completed 03/31/2005 42804275 Colonoscopy Completed Medical Devices Description No Information Available Encounters Type Date Location Provider Dx Diagnosis Office Visit 01/02/2019 [facility] Silvano Pandey Z47.1 Aftercare following 1:45p at Teri Iqbal MD joint replacement surgery Z96.642 Presence of left artificial hip joint M16.12 Unilateral primary osteoarthritis, left hip L02.214 Cutaneous abscess of groin S31.103A Unsp opn wnd abd wall, right low q w/o penet perit cav, init Office Visit 12/21/2018 2:00p [facility] Internal Alpa Still, R60.0 Localized edema Medicine - Ccmob Z47.1 Aftercare following joint replacement surgery R23.8 Other skin changes Office Visit 12/13/2018 2:11p [facility] Emily Myrtle, I11.0 Hypertensive heart Assoc,pc BUSINESS INITIATIVES MANAGER disease with heart Hospitalists failure I50.9 Heart failure, unspecified J44.9 Chronic obstructive pulmonary disease, unspecified G89.29 Other chronic pain F41.9 Anxiety disorder, unspecified K21.9 Gastro-esophageal reflux disease without esophagitis Office Visit 12/12/2018 [facility] Betsy Mcqueen, I11.0 Hypertensive heart 2:11p Assoc,pc BUSINESS INITIATIVES MANAGER disease with heart Hospitalists failure I50.9 Heart failure, unspecified J44.9 Chronic obstructive pulmonary disease, unspecified K21.9 Gastro-esophageal reflux disease without esophagitis F41.8 Other specified anxiety disorders F17.200 Nicotine dependence, unspecified, uncomplicated Office Visit 11/21/2018 [place] Blu Loius I42.9 Cardiomyopathy, 1:00p [facility] unspecified 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 Internal Myla Luo, Z01.818 Encounter for other Medicine - MD preprocedural Ccmob examination M16.12 Unilateral primary osteoarthritis, left hip F17.210 Nicotine dependence, cigarettes, uncomplicated I10 Essential (primary) hypertension E11.9 Type 2 diabetes mellitus without complications Office Visit 10/18/2018 10:[address]a [facility] Internal Myla Luo, E11.9 Type 2 diabetes Medicine - mellitus without Ccmob complications I10 Essential (primary) hypertension J44.9 Chronic obstructive pulmonary disease, unspecified E78.5 Hyperlipidemia, unspecified K21.9 Gastro-esophageal reflux disease without esophagitis F41.9 Anxiety disorder, unspecified L72.3 Sebaceous cyst H60.63 Unspecified chronic otitis externa, bilateral N40.1 Benign prostatic hyperplasia with lower urinary tract symp Office Visit 09/22/2018 9:00a [facility] Blu Louis M25.552 Pain in left Of Fany LagunasKarla.D. hip I42.9 Cardiomyopathy, unspecified Z01.810 Encounter for preprocedural cardiovascular examination M16.12 Unilateral primary osteoarthritis, left hip I10 Essential (primary) hypertension R94.31 Abnormal electrocardiogram [ECG] [EKG] Office Visit 09/06/2018 9:30a [facility] Madai Bearden, M25.552 Pain in left at [place] M.D. hip M16.12 Unilateral primary osteoarthritis, left hip Office Visit 08/23/2018 [place] Chauncey Morgan, M16.12 Unilateral primary 9:00a Orthopedics at [facility] osteoarthritis, left [place] hip Assessments Date Code Description Provider 02/07/2019 Z96.642 Presence of left artificial hip joint SADIE Gutierrez 02/07/2019 Z47.1 Aftercare following joint replacement SADIE Gutierrez surgery 01/15/2019 Z96.642 Presence of left artificial hip joint Madai Bearden M.D. 01/15/2019 L02.214 Cutaneous abscess of groin Madai Bearden M.D. 01/15/2019 Z47.1 Aftercare following joint replacement Madai Bearden M.D. surgery 01/05/2019 Z47.1 Aftercare following joint replacement Madai Bearden M.D. surgery 01/05/2019 Z96.642 Presence of left artificial hip joint Madai Bearden M.D. 01/03/2019 Z47.1 Aftercare following joint replacement Madai Baerden M.D. surgery 01/03/2019 M16.12 Unilateral primary osteoarthritis, left Madai Bearden M.D. hip 01/02/2019 Z47.1 Aftercare following joint replacement Silvano Iqbal MD surgery 01/02/2019 Z96.642 Presence of left artificial hip joint Silvano Iqbal MD 01/02/2019 M16.12 Unilateral primary osteoarthritis, left Silvano Iqbal MD hip 01/02/2019 L02.214 Cutaneous abscess of groin Silvano Iqbal MD 01/02/2019 S31.103A Unspecified open wound of abdominal wall, Silvano Iqbal MD right lower quadrant without penetration into peritoneal cavity, initial encounter 12/27/2018 M16.12 Unilateral primary osteoarthritis, left Madai Bearden M.D. hip 12/27/2018 Z47.1 Aftercare following joint replacement Madai Bearden M.D. surgery 12/27/2018 Z96.642 Presence of left artificial hip joint Madai Bearden M.D. 12/22/2018 M16.12 Unilateral primary osteoarthritis, left Madai Bearden M.D. hip 12/22/2018 Z47.1 Aftercare following joint replacement Madai Bearden M.D. surgery 12/22/2018 Z96.642 Presence of left artificial hip joint Madai Bearden M.D. 12/21/2018 R60.0 Localized edema Alpa Still MD 12/21/2018 Z47.1 Aftercare following joint replacement Alpa Still MD surgery 12/21/2018 R23.8 Other skin changes Alpa Still MD 12/13/2018 I11.0 Hypertensive heart disease with heart Emily Myrtle, BUSINESS INITIATIVES MANAGER failure 12/13/2018 I50.9 Heart failure, unspecified Emily Myrtle, BUSINESS INITIATIVES MANAGER 12/13/2018 J44.9 Chronic obstructive pulmonary disease, Emily Myrtle, BUSINESS INITIATIVES MANAGER unspecified 12/13/2018 G89.29 Other chronic pain Emily Myrtle, BUSINESS INITIATIVES MANAGER 12/13/2018 F41.9 Anxiety disorder, unspecified Emily Myrtle, BUSINESS INITIATIVES MANAGER 12/13/2018 K21.9 Gastro-esophageal reflux disease without Emily Myrtle, BUSINESS INITIATIVES MANAGER esophagitis 12/12/2018 I11.0 Hypertensive heart disease with heart Betsy Mcqueen, KARL failure 12/12/2018 I50.9 Heart failure, unspecified Betsy Mcqueen, BUSINESS INITIATIVES MANAGER 12/12/2018 M16.12 Unilateral primary osteoarthritis, left Luis Kaur PA-C hip 12/12/2018 J44.9 Chronic obstructive pulmonary disease, Betsy Mcqueen, BUSINESS INITIATIVES MANAGER unspecified 12/12/2018 M16.12 Unilateral primary osteoarthritis, left Madai Bearden M.D. hip 12/12/2018 K21.9 Gastro-esophageal reflux disease without Betsy cMqueen NP esophagitis 12/12/2018 E66.01 Morbid (severe) obesity due to excess Luis Rosano, PA-C calories 12/12/2018 F41.8 Other specified anxiety disorders Betsy Mcqueen NP 12/12/2018 E66.01 Morbid (severe) obesity due to excess Madai Bearden M.D. calories 12/12/2018 F17.200 Nicotine dependence, unspecified, Betsy Mcqueen NP uncomplicated 12/04/2018 M25.552 Pain in left hip Madai Bearden M.D. 12/04/2018 M16.12 Unilateral primary osteoarthritis, left Madai Bearden M.D. hip 11/21/2018 I42.9 Cardiomyopathy, unspecified Blu Lagunas M.D. 11/21/2018 Z01.810 Encounter for preprocedural cardiovascular Blu Lagunas M.D. examination 11/21/2018 M16.12 Unilateral primary osteoarthritis, left Blu Lagunas M.D. hip 11/17/2018 M25.552 Pain in left hip Blu Lagunas M.D. 11/17/2018 I42.9 Cardiomyopathy, unspecified Blu Lagunas M.D. 11/17/2018 Z01.810 Encounter for preprocedural cardiovascular Blu Lagunas M.D. examination 11/08/2018 M16.12 Unilateral primary osteoarthritis, left Madai Bearden M.D. hip 11/08/2018 Z01.818 Encounter for other preprocedural Madai Bearden M.D. examination 11/01/2018 Z01.818 Encounter for other preprocedural Myla Luo MD examination 11/01/2018 M16.12 Unilateral primary osteoarthritis, left Myla Luo MD hip 11/01/2018 F17.210 Nicotine dependence, cigarettes, Myla Luo MD uncomplicated 11/01/2018 I10 Essential (primary) [...] examination 09/22/2018 M16.12 Unilateral primary osteoarthritis, left Blu Lagunas M.D. hip 09/22/2018 I10 Essential (primary) hypertension Blu Lagunas M.D. 09/22/2018 R94.31 Abnormal electrocardiogram [ECG] [EKG] Blu Lagunas M.D. 09/06/2018 M25.552 Pain in left hip Madai Bearden M.D. 09/06/2018 M16.12 Unilateral primary osteoarthritis, left Madai Bearden M.D. hip 08/24/2018 M16.12 Unilateral primary osteoarthritis, left Silvano Iqbal MD hip 08/23/2018 M16.12 Unilateral primary osteoarthritis, left Chauncey Morgan M.D. hip Plan of Treatment Future Appointment(s):02/14/2019 11:00 am - Madai Bearden M.D. at [facility] [place] Functional Status Description No Information Available Mental Status Description No Information Available Referrals Refer to Dr Reason for Referral Status Appt Date Wound Clinic right groin wound wound clinic reached out Patient Declined to pt, he said he did not need to be seen as he is completely healed [address] [place] [address] [phone] Gorge Mancini MD pt not responding to tamsulosin Sent 01/16/[address] [place] [address] [place] [address] [phone]
--- OUTSIDE RECORDS SUMMARY | 2019-02-18 10:38 | XMS REPORT | Continuity of Care Document ---
:1950 External Reference #:[id number] Author Name Catie Finley M.D. (transmitted by agent of provider Jada Hollis) Address [address] [place] [id number] Care Team Providers Name Role Phone Montrell Prado MD - Post Acute Care Registered Nurse Care Team Information Fisheries Manager Madai Bearden MD - Adult Care Team Information Fisheries Manager [phone] Reconstructive Orthopaedic Surgery Jackeline Garcia MD - Pulmonary Care Team Information Fisheries Manager Disease Michael Diaz MD - Care Team Information Fisheries Manager [phone] Ophthalmology Myla Luo M.D. - Family Medicine Care Team Information Fisheries Manager Problems Active Problems Provider Date Type 2 diabetes mellitus Emmanuel Madrigal M.D.,FACP Onset: 03/31/2017 Moderate cigarette smoker (10-19 Emmanule Madrigal M.D.,FACP Onset: 2017 cigs/day) Depressive disorder [...] the hip Madai Bearden M.D. Onset: 08/06/2016 Cellulitis of left lower limb Madai Bearden M.D. Onset: 02/09/2019 Social History Type Date Description Comments Sex [...] 1 by mouth 4 28caps Z96.642 Madai Suleiman, 02/07/2019 500mg Capsules times a day for 7 M.D. days Walker rolling walker 1unleodan Madai Suleiman, 01/05/2019 [facility] with seat dx: s.p M.D. hip replacement 68" 280lbs Compression Stockings 20/30 s/p left 1unleodan Madai Bearden, 12/22/2018 YARELY; 67" 268lbs M.D. [facility] Toilet Seat Elevator s/p left hip 1unleodan Bearden, 12/07/2018 replacement 67" M.D. [facility] 268lbs Adjust Bath/Shower 67" 268lbs dx: 1unleodan Bearden, 12/07/2018 Seat s/p left hip M.D. [facility] replacement Nicoderkwesi CQ apply one to skin 28units F17.210 [...] ear MD twice a day for 5 [id number] Solution days as needed Walker [place] Wheels/5 M16.12 Chauncey Morgan, 08/23/2018 Adjustment M.D. Holes/-03/07" 1-03/07" [facility]2017 isak Madrigal M.D.,FACP Sertraline HCL 1 by mouth every 30tabs Myla Luo, 07/15/2017 50mg day MD Tablets Lisinopril 1 by mouth every 30tabs Myla Luo, 03/31/2017 5mg Tablets day MD Shower Bench shower bench s/p 1unleodan Madai Bearden, 08/23/2016 total hip M.D. replacement Cane standard 1unleodan Gongke, 08/18/2016 [facility] adjustable height M.D. cane. Ventolin HFA 2 puffs by mouth 1units J43.9 Myla Luo, 08/20/2015 108(90Base) four times a day mcg/Act Aerosol as needed Metoprolol Succinate take 1 tablet by 90tabs I10 Myla Luo, 07/16/2015 ER mouth every day 50mg Tablets ER [...] walker with 1units Madai Bearden, 12/07/2018 - [facility] seat dx: s/p left M.DPrieto 01/05/2019 hip replacement 67" 268lb Medications Administered [...] CPT Code Status Date Vaccine Lot # [id number] Given 01/20/2017 Influenza Virus Vaccine, Quadrivalent, Split, Preservative Free 33040 Given 06/14/2016 Pneumococcal Conjugate Vaccine 13 Valent For [id number] Intramuscular Use 01745 Given 02/29/2016 Influ Virus Vaccine, Quadrivalent, Split Virus, [place] [address] Given 11/28/2014 Flu Vaccine Split Virus Preservative Free For Indiv 3Yr Older 82046 Given 12/25/2012 Pneumonia Vaccine [id number] 85927 Given 12/25/2012 Flu Vaccine Split Virus Preservative Free For [id number] Indiv 3Yr Older Q2038 Given 12/03/2011 Fluzone Vaccine 10623 Given 02/11/2011 Zoster (Zostavax) [id number] 47599 Given 11/09/2010 Pneumonia Vaccine [id number] 40312 Given 11/09/2010 Influenza Virus 3Yrs & Over [id number] 25100 Given Unknown Influenza Virus Vaccine, Quadrivalent, Split, Im Use 6-35mo 38979 Given Unknown Influenza Virus 3Yrs & Over [...] Result H/L Range Note CBC Auto 12/21/2018 [facility] White Blood 8.6 10^3/uL Normal 3.5-10.[address] [place] [address] [phone] Red Blood Count 3.47 10^6/uL Low 4.18-5.48 [...] Red Blood Cells % 0.0 Inr/Protime 12/21/2018 [facility] Inr 1.09 Normal 0.82-1.09 1 [address] [place] [address] [phone] Comp Metabolic 12/21/2018 [facility] Sodium 132 mmol/L Low 135 -145 Panel [address] [place] [address] [phone] Potassium 4.2 mmol/L Normal 3.5-5.0 Chloride 100 [...] Egfr 167.6 >60 2 Urinalysis Profile 12/04/2018 [facility] Urine Color Yellow 3 [address] [place] [address] [phone] Urine Appearance Clear Urine Specific Locust 1.013 Normal 1.010-1.030 Urine pH 5.0 Normal 5-9 Urine Urobilinogen Negative Negative Urine Ketones Negative Negative Urine Protein Negative Negative Urine Leukocytes Negative Negative Urine Blood Negative Negative * * Abnormal Negative 4 Urine Nitrite Negative Negative Urine Bilirubin Negative Negative Urine Glucose Negative Negative Inr/Protime 12/04/2018 [facility] Inr 0.95 Normal 0.82-1.09 5 [address] [place] [address] [phone] Laboratory test 12/04/2018 [facility] Partial 37.4 Normal 26.0 -38.0 6 finding [address] [facility] [place] [address] Time PTT [phone] Comp Metabolic 12/04/2018 [facility] Sodium 137 mmol/L Normal 135-145 Panel [address] [place] [address] [phone] Potassium 4.4 mmol/L Normal 3.5-5.0 Chloride 104 [...] 164.3 >60 7 Type & Screen 12/04/2018 [facility] Patient Blood Type O Negative [address] [place], [place] [id number] [phone] Antibody Screen NEGATIVE Urine Culture And 12/04/2018 [facility] Urine SEE RESULT [address] [place] [place] [address] [phone] CBC Auto Diff 11/13/2018 [facility] White Blood 8.0 10^3/uL Normal 3.5-[address] Count 0.8 [place] [address] [phone] Red Blood Count 4.71 10^6/uL Normal 4.18-5.48 [...] Red Blood Cells % 0.1 Inr/Protime 11/13/2018 [facility] Inr 1.01 Normal 0.82-1.[address] [place] [address] [phone] Laboratory 11/13/2018 [facility] Partial 35.4 Normal 26.0- 38.0 test finding [address] [address] PTT [phone] Drug Abuse 20 11/07/2018 [facility] Urine Negative [address] Amphetamine ng/[place] [address] [phone] Urine Barbiturates Negative ng/mL 11 Urine Benzodiazepines Negative ng/mL 12 Urine Cocaine Negative ng/mL 13 Urine Phencyclidine Negative ng/mL Cutoff: 25 Urine Tetrahydrocannabinol Negative ng/mL Cutoff: 50 14 Creatinine, Urine 41.5 mg/dL Specific Locust 1.009 pH 6.1 Oxidants Negative 15 Adulterants Comment Normal Codeine, Ur Not Detected ng/mL Cutoff: 25 16 Didgxpv-2-vnwr-glucuronide, Ur Not Detected ng/mL 17 Morphine, Ur Present ng/mL Abnormal Cutoff: 25 18 Icwqglwu-0-blfw-glucuronide, U Present ng/mL Abnormal 19 6-monoacetylmorphine, Ur Not Detected ng/mL Cutoff: 25 20 Hydrocodone, Ur Not Detected ng/mL Cutoff: 25 21 Norhydrocodone, Ur Not Detected ng/mL Cutoff: 25 22 Dihydrocodeine, Ur Not Detected ng/mL Cutoff: 25 23 Hydromorphone, Ur Present ng/mL Abnormal Cutoff: 25 24 Gpyziganqvyom5ozjaxmltgnwulpi Present ng/mL Abnormal 25 Oxycodone, Ur Not Detected ng/mL Cutoff: 25 26 Noroxycodone, Ur Not Detected ng/mL Cutoff: 25 27 Oxymorphone, Ur Not Detected ng/mL Cutoff: 25 28 Ietzpyckkwd-8-oqxl-glucuronide Not Detected ng/mL 29 Noroxymorphone, Ur Not Detected ng/mL Cutoff: 25 30 Fentanyl, Ur Not Detected ng/mL Cutoff: 2 31 Norfentanyl, Ur Not Detected ng/mL Cutoff: 2 32 Meperidine, Ur Not Detected ng/mL Cutoff: 25 33 Normeperidine, Ur Not Detected ng/mL Cutoff: 25 34 Naloxone, Ur Not Detected ng/mL Cutoff: 25 35 Gkovbcxd-8-ghtp-glucuronide, U Not Detected ng/mL 36 Methadone, Ur [...] Ur Not Detected ng/mL Cutoff: 50 44 Nloyntcjmt-ynxg-itoirrkoabn, U Not Detected ng/mL 45 Buprenorphine, Ur Not Detected ng/mL Cutoff: 5 46 Norbuprenorphine, Ur Not Detected ng/mL Cutoff: 5 47 Norbuprenorphine glucuronide Not Detected ng/mL Cutoff: 20 48 Opioid Interpretation See Comment 49 Comp Metabolic 10/25/2018 [facility] Sodium 138 mmol/L Normal 135-[address] [place] [address] [phone] Potassium 4.3 mmol/L Normal 3.5-5.0 Chloride 106 [...] Egfr 141.9 >60 50 Lipid Profile 10/25/2018 [facility] Triglycerides 138 mg/dL 51 (Trig/Chol/HDL) [address] [place] [address] [phone] Cholesterol 190 mg/dL 52 HDL Cholesterol 39.0 mg/dL 53 LDL Cholesterol 123 mg/dL 54 Urine Microalbumin 10/25/2018 [facility] Ur Microalbumin < 15.[address] (mg/L) mg/[place] [address] [phone] Urine Creatinine 37.71 mg/dL Urine Microalbumin/Creatinine TNP <31 55 Laboratory test 10/25/2018 [facility] PSA Screening 1.904 Normal 0-4.[address] ng/[place] [address] [phone] Urinalysis 10/25/2018 [facility] Urine Color Straw Profile [address] [place] [address] [phone] Urine Appearance Clear Urine Specific [place] 1.006 Low 1.010-1.030 Urine pH 5.0 Normal 5-9 Urine Urobilinogen Negative Negative Urine Ketones Negative Negative Urine Protein Negative Negative Urine Leukocytes Negative Negative Urine Blood 1+ Abnormal Negative Urine Nitrite Negative Negative Urine Bilirubin Negative Negative Urine Glucose Negative Negative Urine White Blood Cell Absent Absent Urine Red Blood Cell Trace(0-2/hpf) Absent Urine Bacteria Absent Absent Laboratory test 10/18/2018 [facility] Hemoglobin A1c 6.7 5-7 finding Xray 08/24/2018 [facility] Inj/Aspir Major JT Or <pending> Shayy W/ US 1 Standard intensity warfarin therapeutic [...] 5 Kidney failure <15 (or dialysis) 3 AA 12/12 4 *Ascorbic acid is present which [...] [address]: Madai Bearden MD Acct: [id number] Unit: [id number] AGE: 68 Location: [facility] Re12/04/18 SEX: M Status: REG REF SPEC: [id number] SHON: 12/04/[address] [facility] [address]: Madai Bearden MD REQ: [id number] RECD: 12/04/18 STATUS: BOO GOMES DR: Ty Luo MD _ SOURCE: URINE SPDESC: ORDERED: Urine Culture COMMENTS: CONRAD 12/12 QUERIES: Urine Source: Clean Catch Procedure Result Reported Site Urine Culture Final 12/05/18- 1155 ML No growth of clinically significant organisms * ML - Main Lab . END OF REPORT DEPARTMENT OF PATHOLOGY, [address] [place] [address] Jerald Velez M.D. Director [facility] # [id number] Standard intensity warfarin therapeutic range: 2.0-3.0 High intensity warfarin therapeutic range: 2.5-3.5 10 REFERENCE VALUE Cutoff: 500 11 REFERENCE VALUE Cutoff: 200 12 REFERENCE VALUE Cutoff: 100 13 REFERENCE VALUE Cutoff: 150 14 ADDITIONAL INFORMATION This report is intended for use in clinical monitoring or management of patients. It is not intended for use in employment-related testing. Test Performed by: [facility] [address], [place] [address] Photonics Technician: Emanuel Lovett M.D. Ph.D.; IA# [id number] 15 REFERENCE VALUE Cutoff: 200 mg/L 16 Tylenol 3 17 Metabolite of codeine REFERENCE VALUE Cutoff: 100 18 Elizabeth Morgan, Contin; Also a minor metabolite (10%) of codeine and can be seen in low concentrations (<2,000 ng/mL) with poppy seed ingestion. 19 Metabolite of morphine REFERENCE VALUE Cutoff: 100 20 Metabolite of heroin 21 Lortab, [place], Vicodin; Also a very minor metabolite of [...] the presence of both morphine and metabolites (veumyiwg-7-csxd-glucuronide, hydromorphone and aygbojxryrvmf-9-glms-glucuronide). Suspect use of morphine and/or hydromorphone within the past three days. Alternatively, these results could also be suggestive of heroin use. Low levels of morphine can also be seen following poppy seed ingestion. Test detected the presence of hydromorphone and one of its metabolites (pcadslxftmtsp-5-pqxg-glucuronide). Suspect use of hydromorphone within the past three days. ADDITIONAL INFORMATION This test was developed and its performance characteristics determined by [facility] in a manner consistent with CLIA requirements. [...] levels of PSA measured using the Candice [employer] DXI Hybritech immunoassay should not be interpreted as absolute evidence of the presence or absence of disease. The PSA value should be used in conjunction with other pertinent clinical diagnostic procedures. The values obtained with different assay methods or kits cannot be used interchangeably. Procedures Date Code Description Status 12/12/2018 44314 THR Total Hip Replacement Completed 12/12/2018 98515 THR Total Hip Replacement Completed 11/17/2018 40676 Stress Test Completed 11/17/2018 40675 Myocardial Perfusion Imaging Tomographic (Spect) Completed Multiple Studies 09/22/2018 60557 EKG Tracing & Interpretation Completed 08/24/2018 48281 Inj/Aspir Major JT Or Bursa W/ US Completed 03/31/2005 [id number] Colonoscopy Completed Medical Devices Description No Information Available Encounters Type Date Location Provider Dx Diagnosis Office Visit 01/02/2019 [facility] Silvano Pandey Z47.1 Aftercare following 1:45p at [facility] Iqbal MD joint replacement surgery Z96.642 Presence of left artificial hip joint M16.12 Unilateral primary osteoarthritis, left hip L02.214 Cutaneous abscess of groin S31.103A Unsp opn wnd abd wall, right low q w/o penet perit cav, init Office Visit 12/21/2018 2:00p [facility] Internal Alpa Still, R60.0 Localized edema Medicine - [facility] Z47.1 Aftercare following joint replacement surgery R23.8 Other skin changes Office Visit 12/13/2018 2:11p [facility] Emily Myrtle, I11.0 Hypertensive heart Assoc,pc LOGISTICS PROGRAM MANAGER disease with heart Hospitalists failure I50.9 Heart failure, unspecified J44.9 Chronic obstructive pulmonary disease, unspecified G89.29 Other chronic pain F41.9 Anxiety disorder, unspecified K21.9 Gastro-esophageal reflux disease without esophagitis Office Visit 12/12/2018 [facility] Betsy Mcqueen, I11.0 Hypertensive heart 2:11p Assoc,pc LOGISTICS PROGRAM MANAGER disease with heart Hospitalists failure I50.9 Heart failure, unspecified J44.9 Chronic obstructive pulmonary disease, unspecified K21.9 Gastro-esophageal reflux disease without esophagitis F41.8 Other specified anxiety disorders F17.200 Nicotine dependence, unspecified, uncomplicated Office Visit 11/21/2018 [facility] Louis I42.9 Cardiomyopathy, 1:00p Cardiology Chris Lagunas M.D. unspecified [facility] AT [facility] Z01.810 Encounter for preprocedural cardiovascular examination M16.12 Unilateral primary osteoarthritis, left hip Office Visit 11/08/2018 [facility] Madai M16.12 Unilateral primary 9:00a Orthopedics at [facility] Bearden osteoarthritis, left Pablo hip Z01.818 Encounter for other preprocedural examination Office Visit 11/01/2018 10:00a [facility] Internal Myla Luo, Z01.818 Encounter for other Medicine - MD preprocedural Ccmob examination M16.12 Unilateral primary osteoarthritis, left hip F17.210 Nicotine dependence, cigarettes, uncomplicated I10 Essential (primary) hypertension E11.9 Type 2 diabetes mellitus without complications Office Visit 10/18/2018 10:00a [facility] Internal Myla Luo, E11.9 Type 2 diabetes Medicine - MD mellitus without Ccmob complications I10 Essential (primary) hypertension J44.9 Chronic obstructive pulmonary disease, unspecified E78.5 Hyperlipidemia, unspecified K21.9 Gastro-esophageal reflux disease without esophagitis F41.9 Anxiety disorder, unspecified L72.3 Sebaceous cyst H60.63 Unspecified chronic otitis externa, bilateral N40.1 Benign prostatic hyperplasia with lower urinary tract symp Office Visit 09/22/2018 9:00a [facility] Blu Louis M25.552 Pain in left [facility] .Missy hip I42.9 Cardiomyopathy, unspecified Z01.810 Encounter for preprocedural cardiovascular examination M16.12 Unilateral primary osteoarthritis, left hip I10 Essential (primary) hypertension R94.31 Abnormal electrocardiogram [ECG] [EKG] Office Visit 09/06/2018 9:30a [facility] Mdaai Bearden, M25.552 Pain in left at [facility].D. hip M16.12 Unilateral primary osteoarthritis, left hip Office Visit 08/23/2018 [facility] Chauncey Morgan M16.12 Unilateral primary 9:00a Orthopedics at .D osteoarthritis, left Pablo hip Assessments Date Code Description Provider 02/09/2019 L03.116 Cellulitis of left lower limb Madai Bearden M.D. 02/09/2019 Z47.1 Aftercare following joint replacement Madai Bearden M.D. surgery 02/09/2019 Z96.642 Presence of left artificial hip joint Madai Bearden M.D. 02/07/2019 Z96.642 Presence of left artificial hip [...] 01/03/2019 Z47.1 Aftercare following joint replacement Madai Bearden M.D. surgery 01/03/2019 M16.12 Unilateral primary osteoarthritis, [...] Hypertensive heart disease with heart Emily Myrtle, LOGISTICS PROGRAM MANAGER failure 12/13/2018 I50.9 Heart failure, unspecified Emily Myrtle, LOGISTICS PROGRAM MANAGER 12/13/2018 J44.9 Chronic obstructive pulmonary disease, Emily Myrtle, LOGISTICS PROGRAM MANAGER unspecified 12/13/2018 G89.29 Other chronic pain Emily Myrtle, LOGISTICS PROGRAM MANAGER 12/13/2018 F41.9 Anxiety disorder, unspecified Emily Myrtle, LOGISTICS PROGRAM MANAGER 12/13/2018 K21.9 Gastro-esophageal reflux disease without Emily Myrtle, LOGISTICS PROGRAM MANAGER esophagitis 12/12/2018 I11.0 Hypertensive heart disease with heart Betsy Mcqueen NP failure 12/12/2018 I50.9 Heart failure, unspecified Betsy Mcqueen NP 12/12/2018 M16.12 Unilateral primary osteoarthritis, left Luis Kaur, PA-C hip 12/12/2018 J44.9 Chronic obstructive pulmonary disease, Betsy Mcqueen, KARL unspecified 12/12/2018 M16.12 Unilateral primary osteoarthritis, left Madai Bearden M.D. hip 12/12/2018 K21.9 Gastro-esophageal reflux disease without Betsy Mcqueen NP esophagitis 12/12/2018 E66.01 Morbid (severe) obesity due to excess Luis Kaur, PA-C calories 12/12/2018 F41.8 Other specified anxiety disorders Betsy Mcqueen NP 12/12/2018 E66.01 Morbid (severe) obesity due to excess Madai Bearden M.D. calories 12/12/2018 F17.200 Nicotine dependence, unspecified, Betsy Mcqueen, KARL uncomplicated 12/04/2018 M25.552 Pain in left hip [...] hip 11/01/2018 F17.210 Nicotine dependence, cigarettes, Myla uLo MD uncomplicated 11/01/2018 I10 Essential (primary) hypertension [...] Chauncey Morgan M.D. hip Plan of Treatment 02/07/2019 - Candice Carballo, PAZ96.642 Presence of left artificial hip jointNew Medication:Keflex 500 mg - 1 by mouth 4 times a day for 7 daysFollow up :Follow up: next Tue with NurhxG25.1 Aftercare following joint replacement surgery Functional Status Description No Information Available Mental Status Description No Information Available Referrals Refer to Reason for Referral Status Appt Date Wound Clinic right groin wound wound clinic reached out Patient Declined 00 / to pt, he said he did not need to be seen as he is completely healed [address] [place] [address] [phone] Gorge Mancini MD pt not responding to tamsulosin Sent 01/16/[address] [place], [place] [id number] [phone]
--- OUTSIDE RECORDS SUMMARY | 2019-02-18 10:38 | XMS REPORT ---
:1950 Author Organization [facility] Care Team Providers Name Role Phone Unavailable Unavailable Unavailable Problems Condition Condition Condition Status Onset Resolution Last Treating Comments Name Details Category Date Date Treatment Clinician Date Cellulitis, Cellulitis, Diagnosis Active 2018-02 Audra unspecified unspecified 04-16 Carrier RN Pain frequent Pain Mgmt Active 2018-02 Moraima pain 04-18 [place] 10:45: [id number] Cardio edema Cardiovasc Active 2018-02 Moraima ular 04-18 [place] 10:45: [id number] 00 Respiratory dyspnea Respirator Active 2018-02 Moraima present y 04-18 [place] 10:45: [id number] 00 Endo/Giovanni anti-coagul Endo/Giovanni Active 2018-02 Moraima ation 04-18 [place] therapy 10:45: [id number] Nutrition nutritional Nutrition Active 2018-02 Moriama restriction 04-18 [place] s 10:45: [id number] 00 Elimination constipatio Eliminatio Active 2018-02 Moraima n n 04-18 [place] 10:45: [id number] 00 Neuro confusion Neuro/Emot Active 2018-02 Moraima present ion 04-18 [place] 10:45: [id number] 00 Neuro anxiety Neuro/Emot Active 2018-02 Moraima present ion 04-18 [place] 10:45: [id number] 00 Activity ADL Activity Active 2018-02 Moraima assistance 04-18 [place] required 10:45: [id number] Activity self-care Activity Active 2018-02 Moraima deficit 04-18 [place] 10:45: [id number] 00 Safety structural Safety Active 2018-02 Moraima barriers 04-18 [facility] 10:45: [id number] 00 Safety fall risk Safety Active 2018-02 Moraima factor 04-18 [place] present 10:45: [id number] 00 Safety risk for Safety Active 2018-02 Moraima hospitaliza 04-18 [place] tion 10:45: [id number] 00 Medication oral med Meds Active 2018-02 Moraima assistance 04-18 [place] required 10:45: [id number] 00 Musculoskel transfer Musculoske Active 2018-02 Moraima etal assistance letal 04-18 [place] required 10:45: [id number] 00 Musculoskel requires Musculoske Active 2018-02 Moraima etal human letal 04-18 [place] assist to 10:45: [id number] leave home 00 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 PT/OT: Active 2018-02 Bi [place] [address]ination Balance/En 04-18 [place] deficit durance 12:20: [id number] 00 Gait/Locomo gait PT/OT: Active 2018-02 Bi tion deficit Gait/Locom 04-18 [place] problems otion 12:20: [id number] 00 Allergies, Adverse Reactions, Alerts Allergy Allergy Type Status Severity Reaction(s) Onset Inactive Treating Comments Name Date Date Clinician oxycodone Base Active Unknown Reaction 2018-02 Interface Ingredient Unknown 0-16 Medications Ordered Filled Start Stop Current Ordering Indication Dosage Frequency Signature Comments Components Medication Medication Date Date Medication? Clinician (SIG) Name Name tamsulosin tamsulosin 2018-02 Yes Donna Unknown Unknown 0.4 mg 0.4 mg 04-18 MDPatricia capsule capsule acetaminoph acetaminoph No Suleiman Unknown Unknown en 325 mg en 325 mg Madai MCCARTNEY tablet tablet Eliquis 2.5 Eliquis 2.5 No Suleiman Unknown Unknown mg tablet mg tablet Madai MCCARTNEY traMADol 50 traMADol 50 No Suleiman Unknown Unknown mg tablet mg tablet Madai MCCARTNEY docusate docusate 2018-02 Yes Suleiman Unknown Unknown sodium 100 sodium 100 04-18 Madai MCCARTNEY mg capsule mg capsule metoprolol metoprolol 2018-02 Yes Donna Unknown Unknown succinate succinate 04-18 MDPatricia ER 50 mg ER 50 mg tablet,exte tablet,exte nded nded release 24 release 24 hr hr Aspirin Low Aspirin Low 2018-02 Yes Donna Unknown Unknown Dose 81 mg Dose 81 mg 04-18 MDPatricia tablet,lópez tablet,lópez yed release yed release SUMAtriptan SUMAtriptan 2018-02 Yes Donna Unknown Unknown 100 mg 100 mg 04-18 ,Patricia tablet tablet albuterol albuterol 2018-02 Yes Suleiman Unknown Unknown sulfate HFA sulfate HFA 04-18 Madai MCCARTNEY 90 90 mcg/actuati mcg/actuati on aerosol on aerosol inhaler inhaler lisinopril lisinopril 2018-02 Yes Donna Unknown Unknown 5 mg tablet 5 mg tablet 04-18 ,Patricia morphine 15 morphine 15 2018-02 Yes Donna Unknown Unknown mg mg 04-18 MD,Patricia immediate immediate release release tablet tablet morphine ER morphine ER 2018-02 Yes Donna Unknown Unknown 30 mg 30 mg 04-18 MD,Patricia tablet,exte tablet,exte nded nded release release morphine ER morphine ER 2018-02 Yes Donna Unknown Unknown 15 mg 15 mg 04-18 MD,Patricia tablet,exte tablet,exte nded nded release release Nicoderm CQ Nicoderm CQ No Suleiman Unknown Unknown 21 mg/24 hr 21 mg/24 hr Madai MCCARTNEY daily daily transdermal transdermal patch patch omeprazole omeprazole 2018-02 Yes Donna Unknown Unknown 20 mg 20 mg 04-18 ,Patricia capsule,del capsule,del ayed ayed release release LORazepam 1 LORazepam 1 2018-02 Yes Donna Unknown Unknown mg tablet mg tablet 04-18 ,Patricia cholecalcif cholecalcif 2018-02 Yes Donna Unknown Unknown lucy lucy 04-18 MDPatricia (vitamin (vitamin D3) 1,000 D3) 1,000 unit unit capsule capsule sertraline sertraline 2018-02 Yes Donna Unknown Unknown 50 mg 50 mg 04-18 ,Patricia tablet tablet neomycin-po neomycin-po No Suleiman Unknown Unknown lymyxin-hyd lymyxin-hyd Madai MCCARTNEY rocort 3.5 rocort 3.5 mg/mL-10,00 mg/mL-10,00 0 unit/mL-1 0 unit/mL-1 % ear % ear solution solution finasteride finasteride 2018-02 Yes Donna Unknown Unknown 5 mg tablet 5 mg tablet 04-18 ,Patricia cephALEXin cephALEXin 2018-02 Donna Unknown Unknown 500 mg 500 mg 04-18- ,Patricia capsule capsule Symbicort Symbicort 2018-02 Yes Donna Unknown Unknown 160 mcg-4.5 160 mcg-4.5 04-18 MD,Patricia mcg/actuati mcg/actuati on HFA on HFA aerosol aerosol inhaler inhaler Vital Signs Vital Name Observation Time Observation Value Comments SYSTOLIC mm[Hg] 2019-02-15 18:09:26 140 mm[Hg] mm[Hg] Method: Sit SYSTOLIC mm[Hg] 2019-02-15 18:09:26 144 mm[Hg] mm[Hg] Method: Stand DIASTOLIC mm[Hg] 2019-02-15 18:09:26 80 mm[Hg] mm[Hg] Method: Sit DIASTOLIC mm[Hg] 2019-02-15 18:09:26 86 mm[Hg] mm[Hg] Method: Stand PULSE 2019-02-15 18:09:26 88 /min /min RESP RATE 2019-02-15 18:09:26 18 /min /min TEMP 2019-02-15 18:09:26 98.2 [degF] Procedures This patient has no known procedures. Results This patient has no known results.
--- OUTSIDE RECORDS SUMMARY | 2019-02-18 10:38 | XMS REPORT ---
:1950 Author Organization [facility] Care Team Providers Name Role Phone Unavailable Unavailable Unavailable Problems Condition Condition Condition Status Onset Resolution Last Treating Comments Name Details Category Date Date Treatment Clinician Date Cellulitis, Cellulitis, Diagnosis Active 2018-02 Audra unspecified unspecified 04-16 Carrier RN Pain frequent Pain Mgmt Active 2018-02 Moraima pain 04-18 [place] 10:45: [id number] 00 Cardio edema Cardiovasc Active 2018-02 Moraima ular 04-18 [place] 10:45: [id number] 00 Respiratory dyspnea Respirator Active 2018-02 Moraima present y 04-18 [place] 10:45: [id number] 00 Endo/Giovanni anti-coagul Endo/Giovanni Active 2018-02 Moraima ation 04-18 [place] therapy 10:45: [id number] 00 Nutrition nutritional Nutrition Active 2018-02 Moraima restriction 04-18 [place] s 10:45: [id number] 00 Elimination constipatio Eliminatio Active 2018-02 Moraima n n 04-18 [place] 10:45: [id number] 00 Neuro confusion Neuro/Emot Active 2018-02 Moraima present ion 04-18 [place] 10:45: [id number] 00 Neuro anxiety Neuro/Emot Active 2018-02 Moraima present ion 04-18 [place] 10:45: [id number] 00 Activity ADL Activity Active 2018-02 Moraima assistance 04-18 [place] required 10:45: [id number] 00 Activity self-care Activity Active 2018-02 Moraima deficit 04-18 [place] 10:45: [id number] 00 Safety structural Safety Active 2018-02 Moraima barriers 04-18 [facility] 10:45: [id number] 00 Safety fall risk Safety Active 2018-02 Moraima factor 04-18 [place] present 10:45: [id number] 00 Safety risk for Safety Active 2018-02 Moraima hospitaliza 04-18 [place] tion 10:45: [id number] 00 Medication oral med Meds Active 2018-02 Moraima assistance 04-18 [place] required 10:45: [id number] 00 Musculoskel transfer Musculoske Active 2018-02 Moraima etal assistance letal 04-18 [place] required 10:45: [id number] 00 Musculoskel requires Musculoske Active 2018-02 Moraima etal human letal 04-18 [place] assist to 10:45: [id number] leave home 00 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
--- OUTSIDE RECORDS SUMMARY | 2019-02-18 10:38 | XMS REPORT ---
:1950 Author Organization [facility] Care Team Providers Name Role Phone Unavailable Unavailable Unavailable Problems Condition Condition Condition Status Onset Resolution Last Treating Comments Name Details Category Date Date Treatment Clinician Date Cellulitis, Cellulitis, Diagnosis Active 2018-02 Betsy unspecified unspecified 2-17 Wendela Allergies, Adverse Reactions, Alerts Allergy Allergy Type Status Severity Reaction(s) Onset Inactive Treating Comments Name Date Date Clinician oxycodone Base Active Unknown Reaction 2018-02 Interface Ingredient Unknown 0-16 Medications Ordered Filled Start Stop Current Ordering Indication Dosage Frequency Signature Comments Components Medication Medication Date Date Medication? Clinician (SIG) Name Name No Known No Known No None None None Medications Medications For This For This Patient Patient Procedures This patient has no known procedures. Results This patient has no known results.
--- OUTSIDE RECORDS SUMMARY | 2019-02-18 10:38 | XMS REPORT ---
:1950 Author Organization [facility] Care Team Providers Name Role Phone Unavailable Unavailable Unavailable Problems Condition Condition Condition Status Onset Resolution Last Treating Comments Name Details Category Date Date Treatment Clinician Date Cellulitis, Cellulitis, Diagnosis Active 2018-02 Audra unspecified unspecified 04-16 Carrier RN Pain frequent Pain Mgmt Active 2018-02 Moraima pain 04-18 [place] 10:45: [id number] 00 Cardio edema Cardiovasc Active 2018-02 Moraima ular 04-18 [place] 10:45: [id number] 00 Respiratory dyspnea Respirator Active 2018-02 Moraima present y 04-18 [place] 10:45: [id number] 00 Endo/Giovanni anti-coagul Endo/Giovanni Active 2018-02 Moraima ation 04-18 [place] therapy 10:45: [id number] 00 Nutrition nutritional Nutrition Active 2018-02 Moraima restriction 04-18 [place] s 10:45: [id number] 00 Elimination constipatio Eliminatio Active 2018-02 Moraima n n 04-18 [place] 10:45: [id number] 00 Neuro confusion Neuro/Emot Active 2018-02 Moraima present ion 04-18 [place] 10:45: [id number] 00 Neuro anxiety Neuro/Emot Active 2018-02 Moraima present ion 04-18 [place] 10:45: [id number] 00 Activity ADL Activity Active 2018-02 Moraima assistance 04-18 [place] required 10:45: [id number] 00 Activity self-care Activity Active 2018-02 Moraima deficit 04-18 [place] 10:45: [id number] 00 Safety structural Safety Active 2018-02 Moraima barriers 04-18 [facility] 10:45: [id number] 00 Safety fall risk Safety Active 2018-02 Moraima factor 04-18 [place] present 10:45: [id number] 00 Safety risk for Safety Active 2018-02 Moraima hospitaliza 04-18 [place] tion 10:45: [id number] 00 Medication oral med Meds Active 2018-02 Moraima assistance 04-18 [place] required 10:45: [id number] 00 Musculoskel transfer Musculoske Active 2018-02 Moraima etal assistance letal 04-18 [place] required 10:45: [id number] 00 Musculoskel requires Musculoske Active 2018-02 Moraima etal human letal 04-18 [place] assist to 10:45: [id number] leave home 00 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
--- OUTSIDE RECORDS SUMMARY | 2019-02-18 10:39 | XMS REPORT ---
:1950 Author Organization [facility] Care Team Providers Name Role Phone Unavailable Unavailable Unavailable Problems Condition Condition Condition Status Onset Resolution Last Treating Comments Name Details Category Date Date Treatment Clinician Date Pain frequent Pain Mgmt Active 2018-02 Moraima pain 0-18 [place] 12:25: [id number] 00 Respiratory dyspnea Respirator Active 2018-02 Moraima present y 0 [place] 12:25: [id number] 00 Endo/Giovanni anti-coagul Endo/Giovanni Active 2018-02 Moraima ation 018 [place] therapy 12:25: [id number] 00 Integument surgical Integument Active 2018-02 Moraima wound 0-18 [place] present 12:25: [id number] 00 Nutrition nutritional Nutrition Active 2018-02 Moraima restriction 0-18 [place] s 12:25: [id number] 00 Elimination urinary Eliminatio Active 2018-02 Moraima frequency n 0-18 [place] 12:25: [id number] 00 Neuro anxiety Neuro/Emot Active 2018-02 Moraima present ion 0-18 [place] 12:25: [id number] 00 Activity ADL Activity Active 2018-02 Moraima assistance 0-18 [place] required 12:25: [id number] 00 Activity self-care Activity Active 2018-02 Moraima deficit 0-18 [place] 12:25: [id number] 00 Safety structural Safety Active 2018- Moraima barriers 0-18 [place] present 12:25: [id number] 00 Safety fall risk Safety Active 2018- Moraima factor 0-18 [place] present 12:25: [id number] 00 Safety risk for Safety Active 2018-02 Moraima hospitaliza 018 [place] tion 12:25: [id number] 00 Medication oral med Meds Active 2018- Moraima assistance 0-18 [place] required 12:25: [id number] 00 Medication knowledge/s Meds Active 2018-02 Moraima kill 0-18 [place] deficit: pt 12:25: [id number] 00 Musculoskel transfer Musculoske Active 2018-02 Moraima etal assistance letal 0-18 [place] required 12:25: [id number] 00 Musculoskel requires Musculoske Active 2018-02 Moraima etal human letal 0-18 [place] assist to 12:25: [id number] leave home 00 Bed mobility/tr PT/OT: Bed Resolve 2018-022019-01-03 Skyla Mobility/Tr ansfer Mobility/T d 0-18 14:55:00 Yang ansfer device ransfer 14:29: [id number] present 00 Bed transfer PT/OT: Bed Resolve 2018-022019-01-03 Skyla Mobility/Tr deficit: Mobility/T d 0-18 14:55:00 Yang ansfer sit/stand ransfer 14:29: [id number] 00 Bed transfer PT/OT: Bed Resolve 2018-022019-01-03 Skyla Mobility/Tr deficit: Mobility/T d 0-18 14:55:00 Yangluli martinezfer standing ransfer 14:29: [id number] pivot 00 Bed transfer PT/OT: Bed Resolve 2018-022019-01-03 Skyla Mobility/Tr deficit: Mobility/T d 0-18 14:55:00 Yangluli martinezfer toilet/comm ransfer 14:29: [id number] ode 00 Bed transfer PT/OT: Bed Resolve 2018-022019-01-03 Skyla Mobility/Tr deficit: Mobility/T d 0-18 14:55:00 Trey munoz shower/tub ransfer 14:29: [id number] 00 Bed knowledge/s PT/OT: Bed Resolve 2018-022019-01-03 Skyla Mobility/Tr kill Mobility/T d 0-18 14:55:00 Yang ansfer deficit: pt ransfer 14:29: [id number] 00 Bed bed PT/OT: Bed Resolve 2018-022019-01-03 Skyla Mobility/Tr mobility Mobility/T d 0-18 14:55:00 Yang ansfer deficit ransfer 14:29: [id number] 00 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/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 PT/OT: Resolve 2018-022019-01-03 Skyla urance rdination Balance/En d 0-18 14:55:00 Yang deficit durance 14:29: [id number] 00 Balance/End knowledge/s PT/OT: Resolve 2018-022019-01-03 Skyla hill kill Balance/En d 0-18 14:55:00 Yang deficit: pt durance 14:29: [id number] 00 Gait/Locomo stair PT/OT: Active 2018-02 Skyla tion management Gait/Locom 0-18 [place] problems req otion 14:29: [id number] 00 Gait/Locomo gait PT/OT: Active 2018-02 Skyla tion assistive Gait/Locom 0-18 [place] problems device otion 14:29: [id number] 00 Gait/Locomo knowledge/s PT/OT: Active 2018-02 Skyla tion kill Gait/Locom 0-18 [place] problems deficit: pt otion 14:29: [id number] 00 Gait/Locomo gait PT/OT: Active 2018-02 Skyla tion deficit Gait/Locom 0-18 [place] problems otion 14:29: [id number] 00 Integument skin Integument Active 2018-02 Audra integrity 1-07 Carrier RN risk 14:05: 00 Allergies, Adverse Reactions, Alerts Allergy Allergy Type Status Severity Reaction(s) Onset Inactive Treating Comments Name Date Date Clinician oxycodone Base Active Unknown Reaction 2018-02 Interface Ingredient Unknown 0-16 Medications Ordered Filled Start Stop Current Ordering Indication Dosage Frequency Signature Comments Components Medication Medication Date Date Medication? Clinician (SIG) Name Name tamsulosin tamsulosin 2018-02 Yes Suleiman Unknown Unknown 0.4 mg 0.4 mg 0-18 MDMadai capsule capsule acetaminoph acetaminoph 2018-02 Yes Suleiman Unknown Unknown en 325 mg en 325 mg 0-18 MDMadai tablet tablet Eliquis 2.5 Eliquis 2.5 2018-02 Yes Suleiman Unknown Unknown mg tablet mg tablet 0-18 MDMadai traMADol 50 traMADol 50 2018-02 Yes Suleiman Unknown Unknown mg tablet mg tablet 0-18 MDMadai docusate docusate 2018-02 Yes Suleiman Unknown Unknown sodium 100 sodium 100 0-18 MDMadai mg capsule mg capsule metoprolol metoprolol 2018-02 Yes Suleiman Unknown Unknown succinate succinate 0-18 NogueraMadai ER 50 mg ER 50 mg tablet,exte tablet,exte nded nded release 24 release 24 hr hr Aspirin Low Aspirin Low 2018-02 Yes Suleiman Unknown Unknown Dose 81 mg Dose 81 mg 0-18 MDMadai tablet,lópez tablet,lópez yed release yed release SUMAtriptan SUMAtriptan 2018-02 Yes Suleiman Unknown Unknown 100 mg 100 mg 0-18 ,Madai tablet tablet albuterol albuterol 2018-02 Yes Suleiman Unknown Unknown sulfate HFA sulfate HFA 0-18 NogueraMadai 90 90 mcg/actuati mcg/actuati on aerosol on aerosol inhaler inhaler lisinopril lisinopril 2018-02 Yes Suleiman Unknown Unknown 5 mg tablet 5 mg tablet 0-18 NogueraMadai morphine 15 morphine 15 2018-02 Yes Suleiman Unknown Unknown mg mg 0-18 NogueraMadai immediate immediate release release tablet tablet morphine ER morphine ER 2018-02 Yes Suleiman Unknown Unknown 30 mg 30 mg 0-18 NogueraMadai tablet,exte tablet,exte nded nded release release morphine ER morphine ER 2018-02 Yes Suleiman Unknown Unknown 15 mg 15 mg 0-18 NogueraMadai tablet,exte tablet,exte nded nded release release Nicoderm CQ Nicoderm CQ 2018-02 Yes Suleiman Unknown Unknown 21 mg/24 hr 21 mg/24 hr 0-18 NogueraMadai daily daily transdermal transdermal patch patch omeprazole omeprazole 2018-02 Yes Suleiman Unknown Unknown 20 mg 20 mg 0-18 NogueraMadai capsule,del capsule,del ayed ayed release release LORazepam 1 LORazepam 1 2018-02 Yes Suleiman Unknown Unknown mg tablet mg tablet 0-18 MDMadai cholecalcif cholecalcif 2018-02 Yes Suleiman Unknown Unknown lucy lucy 0-18 NogueraMadai (vitamin (vitamin D3) 1,000 D3) 1,000 unit unit capsule capsule sertraline sertraline 2018-02 Yes Suleiman Unknown Unknown 50 mg 50 mg 0-18 MDMadai tablet tablet neomycin-po neomycin-po 2018-02 Yes Suleiman Unknown Unknown lymyxin-hyd lymyxin-hyd 0-18 MDMadai rocort 3.5 rocort 3.5 mg/mL-10,00 mg/mL-10,00 0 unit/mL-1 0 unit/mL-1 % ear % ear solution solution Vital Signs Vital Name Observation Time Observation Value Comments SYSTOLIC mm[Hg] 2019-01-08 18:08:48 150 mm[Hg] mm[Hg] Method: Sit SYSTOLIC mm[Hg] 2018-12-15 18:08:24 104 mm[Hg] mm[Hg] Method: Stand DIASTOLIC mm[Hg] 2019-01-08 18:08:48 80 mm[Hg] mm[Hg] Method: Sit DIASTOLIC mm[Hg] 2018-12-15 18:08:24 60 mm[Hg] mm[Hg] Method: Stand PULSE 2019-01-08 18:08:48 84 /min /min RESP RATE 2019-01-08 18:08:48 16 /min /min TEMP 2019-01-08 18:08:48 98.1 [degF] Procedures This patient has no known procedures. Results This patient has no known results.
--- OUTSIDE RECORDS SUMMARY | 2019-02-18 10:39 | XMS REPORT ---
:1950 Author Organization [facility] Care Team Providers Name Role Phone Unavailable Unavailable Unavailable Problems Condition Condition Condition Status Onset Resolution Last Treating Comments Name Details Category Date Date Treatment Clinician Date Pain frequent Pain Mgmt Resolve 2018-022019-01-11 [place] pain d 0-18 12:50:00 Chuck 12:25: [id number] 00 Respiratory dyspnea Respirator Resolve 2018-022019-01-04 [place] present y d 0-18 14:05:00 [place] 12:25: [id number] 00 Endo/Giovanni anti-coagul Endo/Giovanni Resolve 2018-022019-01-04 [place] ation d 0-18 14:05:00 [place] therapy 12:25: [id number] 00 Integument surgical Integument Resolve 2018-022019-01-11 [place] wound d 0-18 12:50:00 [place] present 12:25: [id number] 00 Nutrition nutritional Nutrition Resolve 2018-022019-01-11 [place] restriction d 0-18 12:50:00 [place] s 12:25: [id number] 00 Elimination urinary Eliminatio Resolve 2018-022019-01-11 [place] frequency n d 0-18 12:50:00 [place] 12:25: [id number] 00 Neuro anxiety Neuro/Emot Resolve 2018-022019-01-11 [place] present ion d 0-18 12:50:00 [place] 12:25: [id number] 00 Activity ADL Activity Resolve 2018-022019-01-11 [place] assistance d 0-18 12:50:00 [place] required 12:25: [id number] 00 Activity self-care Activity Resolve 2018-022019-01-11 [place] deficit d 0-18 12:50:00 Chuck 12:25: [id number] 00 Safety structural Safety Resolve 2018-022019-01-11 [place] barriers d 0-18 12:50:00 [place] present 12:25: [id number] 00 Safety fall risk Safety Resolve 2018-022019-01-11 [place] factor d 0-18 12:50:00 [place] present 12:25: [id number] 00 Safety risk for Safety Resolve 2018-022019-01-11 [place] hospitaliza d 0-18 12:50:00 [place] tion 12:25: [id number] 00 Medication oral med Meds Resolve 2018-022019-01-11 [place] assistance d 0-18 12:50:00 Chuck required 12:25: [id number] 00 Medication knowledge/s Meds Resolve 2018-022019-01-11 [place] kill d 0-18 12:50:00 [place] deficit: pt 12:25: [id number] 00 Musculoskel transfer Musculoske Resolve 2018-022019-01-04 [place] etal assistance letal d 0-18 14:05:00 [place] required 12:25: [id number] 00 Musculoskel requires Musculoske Resolve 2018-022019-01-04 [place] etal human letal d 0-18 14:05:00 [place] assist to 12:25: [id number] leave home 00 Bed mobility/tr PT/OT: Bed Resolve 2018-022019-01-03 Skyla Mobility/Tr ansfer Mobility/T d 0-18 14:55:00 Yang ansfer device ransfer 14:29: [id number] present 00 Bed transfer PT/OT: Bed Resolve 2018-022019-01-03 Skyla Mobility/Tr deficit: Mobility/T d 0-18 14:55:00 Yang ansfer sit/stand ransfer 14:29: [id number] 00 Bed transfer PT/OT: Bed Resolve 2018-022019-01-03 Skyla Mobility/Tr deficit: Mobility/T d 0-18 14:55:00 Yang ansfer standing ransfer 14:29: [id number] pivot 00 Bed transfer PT/OT: Bed Resolve 2018-022019-01-03 Skyla Mobility/Tr deficit: Mobility/T d 0-18 14:55:00 Yang ansfer toilet/comm ransfer 14:29: [id number] ode 00 Bed transfer PT/OT: Bed Resolve 2018-022019-01-03 Skyla Mobility/Tr deficit: Mobility/T d 0-18 14:55:00 Yang ansfer shower/tub ransfer 14:29: [id number] 00 Bed knowledge/s PT/OT: Bed Resolve 2018-022019-01-03 Skyla Mobility/Tr kill Mobility/T d 0-18 14:55:00 Yang ansfer deficit: pt ransfer 14:29: [id number] 00 Bed bed PT/OT: Bed Resolve 2018-022019-01-03 Skyla Mobility/Tr mobility Mobility/T d 0-18 14:55:00 Yang ansfer deficit ransfer 14:29: [id number] Balance/End balance/workforce management coordinator PT/OT: Resolve 2018-022019-01-03 Skyla hill rdination Balance/En d 0-18 14:55:00 Yang deficit durance 14:29: [id number] 00 Balance/End knowledge/s PT/OT: Resolve 2018-022019-01-03 Skyla hill kill Balance/En d 0-18 14:55:00 Yang deficit: pt durance 14:29: [id number] 00 Gait/Locomo stair PT/OT: Resolve 2018-022019-01-10 Skyla tion management Gait/Locom d 0-18 10:01:00 Yang problems req otion 14:29: [id number] 00 Gait/Locomo gait PT/OT: Resolve 2018-022019-01-10 Skyla tion assistive Gait/Locom d 0-18 10:01:00 Yang problems device otion 14:29: [id number] present 00 Gait/Locomo knowledge/s PT/OT: Resolve 2018-022019-01-10 Skyla dashon kill Gait/Locom d 0-18 10:01:00 Yang problems deficit: pt otion 14:29: [id number] 00 Gait/Locomo gait PT/OT: Resolve 2018-022019-01-10 Skyla tion deficit Gait/Locom d 0-18 10:01:00 Yang problems otion 14:29: [id number] 00 Integument skin Integument Resolve 2018-022019-01-11 Audra integrity d 03-06 12:50:00 Carrier RN risk 14:05: 00 Allergies, Adverse Reactions, Alerts Allergy Allergy Type Status Severity Reaction(s) Onset Inactive Treating Comments Name Date Date Clinician oxycodone Base Active Unknown Reaction 2018-02 Interface Ingredient Unknown 0-16 Medications Ordered Filled Start Stop Current Ordering Indication Dosage Frequency Signature Comments Components Medication Medication Date Date Medication? Clinician (SIG) Name Name tamsulosin tamsulosin 2018-02- Yes Suleiman Unknown Unknown 0.4 mg 0.4 mg 001-11 Madai MCCARTNEY capsule capsule acetaminoph acetaminoph 2018-02- Yes Suleiman Unknown Unknown en 325 mg en 325 mg 001-11 Madai MCCARTNEY tablet tablet Eliquis 2.5 Eliquis 2.5 2018-02- Yes Suleiman Unknown Unknown mg tablet mg tablet 01-11 Madai MCCARTNEY traMADol 50 traMADol 50 2018-02- Yes Suleiman Unknown Unknown mg tablet mg tablet 01-11 Madai MCCARTNEY docusate docusate 2018-02- Yes Suleiman Unknown Unknown sodium 100 sodium 100 01-11 Madai MCCARTNEY mg capsule mg capsule metoprolol metoprolol 2018-02- Yes Suleiman Unknown Unknown succinate succinate 01-11 Madai MCCARTNEY ER 50 mg ER 50 mg tablet,exte tablet,exte nded nded release 24 release 24 hr hr Aspirin Low Aspirin Low 2018-02- Yes Suleiman Unknown Unknown Dose 81 mg Dose 81 mg 01-11 Madai MCCARTNEY tablet,lópez tablet,lópez yed release yed release SUMAtriptan SUMAtriptan 2018-02- Yes Suleiman Unknown Unknown 100 mg 100 mg 01-11 Madai MCCARTNEY tablet tablet albuterol albuterol 2018-02- Yes Suleiman Unknown Unknown sulfate HFA sulfate HFA 01-11 Madai MCCARTNEY 90 90 mcg/actuati mcg/actuati on aerosol on aerosol inhaler inhaler lisinopril lisinopril 2018-02- Yes Suleiman Unknown Unknown 5 mg tablet 5 mg tablet 001-11 Madai MCCARTNEY morphine 15 morphine 15 2018-02- Yes Suleiman Unknown Unknown mg mg 01-11 Madai MCCARTNEY immediate immediate release release tablet tablet morphine ER morphine ER 2018-02- Yes Suleiman Unknown Unknown 30 mg 30 mg 01-11 Madai MCCARTNEY tablet,exte tablet,exte nded nded release release morphine ER morphine ER 2018-02- Yes Suleiman Unknown Unknown 15 mg 15 mg 01-11 Madai MCCARTNEY tablet,exte tablet,exte nded nded release release Nicoderm CQ Nicoderm CQ 2018-02- Yes Suleiman Unknown Unknown 21 mg/24 hr 21 mg/24 hr 001-11 Madai MCCARTNEY daily daily transdermal transdermal patch patch omeprazole omeprazole 2018-02- Yes Suleiman Unknown Unknown 20 mg 20 mg 01-11 Madai MCCARTNEY capsule,del capsule,del ayed ayed release release LORazepam 1 LORazepam 1 2018-02- Yes Suleiman Unknown Unknown mg tablet mg tablet 01-11 Madai MCCARTNEY cholecalcif cholecalcif 2018-02- Yes Suleiman Unknown Unknown lucy lucy 01-11 Madai MCCARTNEY (vitamin (vitamin D3) 1,000 D3) 1,000 unit unit capsule capsule sertraline sertraline 2018-02- Yes Suleiman Unknown Unknown 50 mg 50 mg 01-11 Madai MCCARTNEY tablet tablet neomycin-po neomycin-po 2018-02- Yes Suleiman Unknown Unknown lymyxin-hyd lymyxin-hyd 01-11 Madai MCCARTNEY rocort 3.5 rocort 3.5 mg/mL-10,00 mg/mL-10,00 0 unit/mL-1 0 unit/mL-1 % ear % ear solution solution Vital Signs Vital Name Observation Time Observation Value Comments SYSTOLIC mm[Hg] 2019-01-11 18:08:51 148 mm[Hg] mm[Hg] Method: Sit SYSTOLIC mm[Hg] 2018-12-15 18:08:24 104 mm[Hg] mm[Hg] Method: Stand DIASTOLIC mm[Hg] 2019-01-11 18:08:51 80 mm[Hg] mm[Hg] Method: Sit DIASTOLIC mm[Hg] 2018-12-15 18:08:24 60 mm[Hg] mm[Hg] Method: Stand PULSE 2019-01-11 18:08:51 70 /min /min RESP RATE 2019-01-11 18:08:51 16 /min /min TEMP 2019-01-11 18:08:51 97.9 [degF] Procedures This patient has no known procedures. Results This patient has no known results.
--- OUTSIDE RECORDS SUMMARY | 2019-02-18 10:39 | XMS REPORT ---
:1950 Author Organization [facility] Care Team Providers Name Role Phone Unavailable Unavailable Unavailable Problems Condition Condition Condition Status Onset Resolution Last Treating Comments Name Details Category Date Date Treatment Clinician Date Pain frequent Pain Mgmt Resolve 2018-022019-01-11 [place] pain d 0-18 12:50:00 Chuck 12:25: [id number] 00 Respiratory dyspnea Respirator Resolve 2018-022019-01-04 [place] present y d 0-18 14:05:00 [place] 12:25: [id number] 00 Endo/Giovanni anti-coagul Endo/Giovanni Resolve 2018-022019-01-04 [place] ation d 0-18 14:05:00 [place] therapy 12:25: [id number] 00 Integument surgical Integument Resolve 2018-022019-01-11 [place] wound d 0-18 12:50:00 [place] present 12:25: [id number] 00 Nutrition nutritional Nutrition Resolve 2018-022019-01-11 [place] restriction d 0-18 12:50:00 [place] s 12:25: [id number] 00 Elimination urinary Eliminatio Resolve 2018-022019-01-11 [place] frequency n d 0-18 12:50:00 [place] 12:25: [id number] 00 Neuro anxiety Neuro/Emot Resolve 2018-022019-01-11 [place] present ion d 0-18 12:50:00 [place] 12:25: [id number] 00 Activity ADL Activity Resolve 2018-022019-01-11 [place] assistance d 0-18 12:50:00 [place] required 12:25: [id number] 00 Activity self-care Activity Resolve 2018-022019-01-11 [place] deficit d 0-18 12:50:00 [place] 12:25: [id number] 00 Safety structural Safety Resolve 2018-022019-01-11 [place] barriers d 0-18 12:50:00 [place] present 12:25: [id number] 00 Safety fall risk Safety Resolve 2018-022019-01-11 [place] factor d 0-18 12:50:00 [place] present 12:25: [id number] 00 Safety risk for Safety Resolve 2018-022019-01-11 [place] hospitaliza d 0-18 12:50:00 [place] tion 12:25: [id number] 00 Medication oral med Meds Resolve 2018-022019-01-11 [place] assistance d 0-18 12:50:00 [place] required 12:25: [id number] 00 Medication knowledge/s Meds Resolve 2018-022019-01-11 [place] kill d 0-18 12:50:00 [place] deficit: pt 12:25: [id number] 00 Musculoskel transfer Musculoske Resolve 2018-022019-01-04 [place] etal assistance letal d 0-18 14:05:00 [place] required 12:25: [id number] 00 Musculoskel requires Musculoske Resolve 2018-022019-01-04 [place] etal human letal d 0-18 14:05:00 [place] assist to 12:25: [id number] leave home 00 Bed mobility/tr PT/OT: Bed Resolve 2018-022019-01-03 Skyla Mobility/Tr ansfer Mobility/T d 0-18 14:55:00 Yang ansfer device ransfer 14:29: [id number] present 00 Bed transfer PT/OT: Bed Resolve 2018-022019-01-03 Skyla Mobility/Tr deficit: Mobility/T d 0-18 14:55:00 Yang ansfer sit/stand ransfer 14:29: [id number] 00 Bed transfer PT/OT: Bed Resolve 2018-022019-01-03 Skyla Mobility/Tr deficit: Mobility/T d 0-18 14:55:00 Yang ansfer standing ransfer 14:29: [id number] pivot 00 Bed transfer PT/OT: Bed Resolve 2018-022019-01-03 Skyla Mobility/Tr deficit: Mobility/T d 0-18 14:55:00 Yang ansfer toilet/comm ransfer 14:29: [id number] ode 00 Bed transfer PT/OT: Bed Resolve 2018-022019-01-03 Skyla Mobility/Tr deficit: Mobility/T d 0-18 14:55:00 Yang ansfer shower/tub ransfer 14:29: [id number] 00 Bed knowledge/s PT/OT: Bed Resolve 2018-022019-01-03 Skyla Mobility/Tr kill Mobility/T d 0-18 14:55:00 Yang ansfer deficit: pt ransfer 14:29: [id number] 00 Bed bed PT/OT: Bed Resolve 2018-022019-01-03 Skyla Mobility/Tr mobility Mobility/T d 0-18 14:55:00 Yang ansfer deficit ransfer 14:29: [id number] 00 Balance/End balance/loss prevention coordinator PT/OT: Resolve 2018-022019-01-03 Skyla hill rdination Balance/En d 0-18 14:55:00 Yang deficit durance 14:29: [id number] 00 Balance/End knowledge/s PT/OT: Resolve 2018-022019-01-03 Skyla hill kill Balance/En d 0-18 14:55:00 Yang deficit: pt durance 14:29: [id number] 00 Gait/Locomo stair PT/OT: Resolve 2018-022019-01-10 Skyla tion management Gait/Locom d 0-18 10:01:00 Yang problems req otion 14:29: [id number] 00 Gait/Locomo gait PT/OT: Resolve 2018-022019-01-10 Skyla tion assistive Gait/Locom d 0-18 10:01:00 Yang problems device otion 14:29: [id number] present 00 Gait/Locomo knowledge/s PT/OT: Resolve 2018-022019-01-10 Skyla dashon kill Gait/Locom d 0-18 10:01:00 Yang problems deficit: pt otion 14:29: [id number] 00 Gait/Locomo gait PT/OT: Resolve 2018-022019-01-10 Skyla tion deficit Gait/Locom d 0-18 10:01:00 Yang problems otion 14:29: [id number] 00 Integument skin Integument Resolve 2018-022019-01-11 Audra [...]
--- OUTSIDE RECORDS SUMMARY | 2019-02-18 10:39 | XMS REPORT | Continuity of Care Document ---
:1950 External Reference #:[id number] Author Name Madai Bearden M.D. (transmitted by agent of provider Nikki Padilla) Address [address] [place] [id number] Care Team Providers Name Role Phone Montrell Prado MD - Nutrition Services Associate Care Team Information Chairman President And Chief Executive Officer Madai Bearden MD - Adult Care Team Information Chairman President And Chief Executive Officer [phone] Reconstructive Orthopaedic Surgery Jackeline Garcia MD - Pulmonary Care Team Information Chairman President And Chief Executive Officer [phone] Disease Michael Diaz MD - Care Team Information Chairman President And Chief Executive Officer [phone] Ophthalmology Myla Luo M.D. - Family Medicine Care Team Information Chairman President And Chief Executive Officer Problems Active Problems Provider Date Type 2 [...] smoker, smokes every day Smoking Status Reviewed: 01/15/19 Patient is a current smoker, smokes every day Exercise Type/Frequency Does not exercise Allergies, Adverse Reactions, Alerts Active Allergies Reaction Severity Comments Date Oxycodone 11/09/2010 Medications Active Medications SIG Qnty Indications Ordering Date Provider Walker rolling walker with 1unleodan Madai Bearden, 01/05/2019 [facility] seat dx: s.p hip M.D. replacement 68" 280lbs Compression 20/30 s/p left YARELY; 1unleodan Madai Bearden, 12/22/2018 Stockings 67" 268lbs M.D. [facility] Toilet Seat s/p left hip 1unleodan Barronidre Suleiman, 12/07/2018 Elevator replacement 67" M.D. [facility] 268lbs Adjust Bath/Shower 67" 268lbs dx: s/p martin Madai Bearden, 12/07/2018 Seat left hip M.D. [facility] replacement Nicoderm CQ apply one to skin 28units F17.210 Myla Luo MD 11/01/2018 every day 21mg/24HR Patches 24HR Symbicort inhale two puffs by 20.4units J44.9 Myla Luo MD 10/18/2018 mouth twice a day 80-4.5mcg/Act rinse mouth after Aerosol using Omeprazole 1 by mouth every 90caps K21.9 Myla Luo MD 10/18/[address] Lazaro 1 by mouth twice a 60tabs F41.9 Myla Luo MD 10/18/2018 1mg day as needed for Tablets anxiety Neomycin/Polymyxin 2 drops in affected 10ml H60.63 Myla Luo MD 2018 /Hydrocortisone ear twice a day for (Otic) 5 days as needed [id number] Solution Walker Paulina M16.12 Chauncey Morgan, 08/23/2018 Wheels/5 Janki. Adjustment Holes/-03/07" 1-03/07" [facility] isak Madrigal M.D.,FACP Sertraline HCL 1 by mouth every 30tabs Myla Luo MD 07/15/2017 day 50mg Tablets Lisinopril 1 by mouth every 30tabs Myla Luo MD 03/31/2017 5mg day Tablets Shower Bench shower bench s/p 1units Madai Bearden, 08/23/2016 total hip M.D. replacement Cane standard adjustable 1units Madai Bearden, 08/18/2016 [facility] height cane. M.D. Ventolin HFA 2 puffs by mouth 1units J43.9 Myla Luo MD 08/20/2015 four times a day as 108(90Base) needed mcg/Act Aerosol Metoprolol take 1 tablet by 90tabs I10 Myla Luo MD 07/16/2015 Succinate ER mouth every day 50mg Tablets ER 24HR Morphine Sulfate po q8h M54.5 Unknown ER 30mg Tablets ER 12HR Morphine Sulfate 1 by mouth every 6 M54.5 Unknown hours as needed 15mg Tablets Sumatriptan take one tablet by 18tabs Myla Luo MD Succinate mouth at first sign 100mg of migraine. may Tablets repeat in 2 hours Aspirin Ec Low 1 by mouth every I10 Unknown Dose day (when 81mg Tablets remembers) Vitamin D3 daily Unknown [id number] Capsules Tamsulosin HCL take 2 capsules by 180caps R35.0 Myla Luo MD mouth at bedtime 0.4mg Capsules Morphine Sulfate 1 by mouth twice a Unknown ER day 15mg Tablets ER Tramadol HCL Reshma Ortega, 50mg PA Tablets Tylenol Extra 1-2 tabs by mouth Unknown Strength every 6 hours as 500mg needed Tablets Docusate Sodium 1 tab every 12 Unknown hours as needed for 100mg Capsules constipation History Medications Cephalexin 1 tab by mouth 30caps Silvano Pandey 01/02/2019 - 500mg three times a day MD Rasheed 01/14/2019 Capsules for 10 days Keflex 1 by mouth 4 times 28caps M16.12 Madai Bearden, 12/22/2018 - 500mg a day for 7 days M.D. 01/01/2019 Capsules Walker rolling walker with 1units Madai Bearden, 12/07/2018 - [facility] seat dx: s/p left M.DPrieto 01/05/2019 hip replacement 67" 268lb Medications Administered in Office Medication SIG Qnty Indications Ordering Provider Date Inj, Regadenoson, 0.1 MG Blu Lagunas M.D. 11/17/2018 Injection Technetium TC 99M TetrofosminBlu M.D. 11/17/2018 Per Unit Dose Up To 40 Millicuries Injection Technetium TC 99M TetrofosminBlu M.D. 11/17/2018 Per Unit Dose Up To 40 Millicuries Injection Depomedrol 40MG Silvano Iqbal MD 08/24/2018 Injection Influenza,Unspecified Unknown 12/05/2017 Injection Immunizations CPT Code Status Date Vaccine Lot # [id number] Given 01/20/2017 Influenza Virus Vaccine, Quadrivalent, Split, Preservative Free [id number] Given 06/14/2016 Pneumococcal Conjugate Vaccine 13 Valent For [id number] Intramuscular Use 92173 Given 02/29/2016 Influ Virus Vaccine, Quadrivalent, Split Virus, [place] [id number] Given 11/28/2014 Flu Vaccine Split Virus Preservative Free For Indiv 3Yr Older 84083 Given 12/25/2012 Pneumonia Vaccine [id number] 90230 Given 12/25/2012 Flu Vaccine Split Virus Preservative Free For [id number] Indiv 3Yr Older [id number] Given 12/03/2011 Fluzone Vaccine 21570 Given 02/11/2011 Zoster (Zostavax) [id number] 79511 Given 11/09/2010 Pneumonia Vaccine [id number] 25265 Given 11/09/2010 Influenza Virus 3Yrs & Over [id number] 25920 Given Unknown Influenza Virus Vaccine, Quadrivalent, Split, Im Use 6-35mo 73578 Given Unknown Influenza Virus 3Yrs & Over Vital Signs Date Vital Result Comment 01/15/2019 11:38am Height 67 inches 5'7" Heart Rate 80 /min BP Systolic 132 mmHg BP Diastolic 82 mmHg Respiratory Rate 18 /min Body Temperature 97.6 F Pain Level 1 01/05/2019 11:32am Height 67 inches 5'7" Heart Rate 72 /min BP Systolic 144 mmHg BP Diastolic 82 mmHg Respiratory Rate 18 /min Body Temperature 97.4 F Pain Level 2 Results Test Acquired Date Facility Test Result H/L Range Note CBC Auto 12/21/2018 [facility] White Blood 8.6 10^3/uL Normal 3.5-10.[address] [place] [address] [phone] Red Blood Count 3.47 10^6/uL Low 4.18-5.48 [...] Red Blood Cells % 0.0 Inr/Protime 12/21/2018 [facility] Inr 1.09 Normal 0.82-1.[address] [place] [address] [phone] Comp Metabolic 12/21/2018 [facility] Sodium 132 mmol/L Low 135 -145 Panel [address] [place] [address] [phone] Potassium 4.2 mmol/L Normal 3.5-5.0 Chloride 100 [...] Egfr 167.6 >60 2 Urinalysis Profile 12/04/2018 [facility] Urine Color Yellow 3 [address] [place] [address] [phone] Urine Appearance Clear Urine Specific [place] 1.013 Normal 1.010-1.030 Urine pH 5.0 Normal 5-9 Urine Urobilinogen Negative Negative Urine Ketones Negative Negative Urine Protein Negative Negative Urine Leukocytes Negative Negative Urine Blood Negative Negative * * Abnormal Negative 4 Urine Nitrite Negative Negative Urine Bilirubin Negative Negative Urine Glucose Negative Negative Inr/Protime 12/04/2018 [facility] Inr 0.95 Normal 0.82-1.[address] [place] [address] [phone] Laboratory test 12/04/2018 [facility] Partial 37.4 Normal 26.0 -38.0 [address] [place] [address] Time PTT [phone] Comp Metabolic 12/04/2018 [facility] Sodium 137 mmol/L Normal 135-[address] [place] [address] [phone] Potassium 4.4 mmol/L Normal 3.5-5.0 Chloride 104 [...] 164.3 >60 7 Type & Screen 12/04/2018 [facility] Patient Blood Type O Negative [address] [place] [address] [phone] Antibody Screen NEGATIVE Urine Culture And 12/04/2018 [facility] Urine SEE RESULT [address] [place] [address] [phone] CBC Auto Diff 11/13/2018 [facility] White Blood 8.0 10^3/uL Normal 3.5-[address] Count 0.8 [place] [address] [phone] Red Blood Count 4.71 10^6/uL Normal 4.18-5.48 [...] Red Blood Cells % 0.1 Inr/Protime 11/13/2018 [facility] Inr 1.01 Normal 0.82-1.[address] [place] [address] [phone] Laboratory 11/13/2018 [facility] Partial 35.4 Normal 26.0- 38.0 test finding [address] [place] [address] PTT [phone] Drug Abuse 20 11/07/2018 [facility] Urine Negative [address] Amphetamine ng/mL [place], [place] [address] [phone] Urine Barbiturates Negative ng/mL 11 Urine Benzodiazepines Negative ng/mL 12 Urine Cocaine Negative ng/mL 13 Urine Phencyclidine Negative ng/mL Cutoff: 25 Urine Tetrahydrocannabinol Negative ng/mL Cutoff: 50 14 Creatinine, Urine 41.5 mg/dL Specific [place] 1.009 pH 6.1 Oxidants Negative 15 Adulterants Comment Normal Codeine, Ur Not Detected ng/mL Cutoff: 25 16 Comwhqh-7-vboq-glucuronide, Ur Not Detected ng/mL 17 Morphine, Ur Present ng/mL Abnormal Cutoff: 25 18 Hqjqevte-6-qsdc-glucuronide, U Present ng/mL Abnormal 19 6-monoacetylmorphine, Ur Not Detected ng/mL Cutoff: 25 20 Hydrocodone, Ur Not Detected ng/mL Cutoff: 25 21 Norhydrocodone, Ur Not Detected ng/mL Cutoff: 25 22 Dihydrocodeine, Ur Not Detected ng/mL Cutoff: 25 23 Hydromorphone, Ur Present ng/mL Abnormal Cutoff: 25 24 Knwkxkgmhystz3hskmupsmkdgvffa Present ng/mL Abnormal 25 Oxycodone, Ur Not Detected ng/mL Cutoff: 25 26 Noroxycodone, Ur Not Detected ng/mL Cutoff: 25 27 Oxymorphone, Ur Not Detected ng/mL Cutoff: 25 28 Wzeidynzzrr-4-dujh-glucuronide Not Detected ng/mL 29 Noroxymorphone, Ur Not Detected ng/mL Cutoff: 25 30 Fentanyl, Ur Not Detected ng/mL Cutoff: 2 31 Norfentanyl, Ur Not Detected ng/mL Cutoff: 2 32 Meperidine, Ur Not Detected ng/mL Cutoff: 25 33 Normeperidine, Ur Not Detected ng/mL Cutoff: 25 34 Naloxone, Ur Not Detected ng/mL Cutoff: 25 35 Rfcjbone-1-vvmb-glucuronide, U Not Detected ng/mL 36 Methadone, Ur [...] Ur Not Detected ng/mL Cutoff: 50 44 Ufssqkeiri-qwbk-qqtkhhfhbxq, U Not Detected ng/mL 45 Buprenorphine, Ur Not Detected ng/mL Cutoff: 5 46 Norbuprenorphine, Ur Not Detected ng/mL Cutoff: 5 47 Norbuprenorphine glucuronide Not Detected ng/mL Cutoff: 20 48 Opioid Interpretation See Comment 49 Comp Metabolic 10/25/2018 [facility] Sodium 138 mmol/L Normal 135-[address] [place] [address] [phone] Potassium 4.3 mmol/L Normal 3.5-5.0 Chloride 106 [...] Egfr 141.9 >60 50 Lipid Profile 10/25/2018 [facility] Triglycerides 138 mg/dL 51 (Trig/Chol/HDL) [address] [place] [address] [phone] Cholesterol 190 mg/dL 52 HDL Cholesterol 39.0 mg/dL 53 LDL Cholesterol 123 mg/dL 54 Urine Microalbumin 10/25/2018 [facility] Ur Microalbumin < 15.[address] (mg/L) mg/[place] [address] [phone] Urine Creatinine 37.71 mg/dL Urine Microalbumin/Creatinine TNP <31 55 Laboratory test 10/25/2018 [facility] PSA Screening 1.904 Normal 0-4.000 [address] ng/[place] [address] [phone] Urinalysis 10/25/2018 [facility] Urine Color Straw Profile [address] [place] [address] [phone] Urine Appearance Clear Urine Specific [place] 1.006 Low 1.010-1.030 Urine pH 5.0 Normal 5-9 Urine Urobilinogen Negative Negative Urine Ketones Negative Negative Urine Protein Negative Negative Urine Leukocytes Negative Negative Urine Blood 1+ Abnormal Negative Urine Nitrite Negative Negative Urine Bilirubin Negative Negative Urine Glucose Negative Negative Urine White Blood Cell Absent Absent Urine Red Blood Cell Trace(0-2/hpf) Absent Urine Bacteria Absent Absent Laboratory test 10/18/2018 [facility] Hemoglobin A1c 6.7 5-7 finding Xray 08/24/2018 [facility] Inj/Aspir Major JT Or <pending> [...] [address]: Madai Bearden MD Acct: [id number] Unit: [id number] AGE: 68 Location: PAT Re12/04/18 SEX: M Status: REG REF SPEC: [id number] SHON: 12/04/[address]: Madai Bearden MD REQ: [id number] RECD: 12/04/18 STATUS: BOO GOMES DR: Ty Luo MD _ SOURCE: URINE SPDESC: ORDERED: Urine Culture COMMENTS: CONRAD 12/12 QUERIES: Urine Source: Clean Catch Procedure Result Reported Site Urine Culture Final 12/05/18- 1155 ML No growth of clinically significant organisms * ML - Main Lab . END OF REPORT DEPARTMENT OF PATHOLOGY, [address] [place] [address] Jerald Velez M.D. Director [facility] # [id number] Standard intensity warfarin therapeutic range: 2.0-3.0 High intensity warfarin therapeutic range: 2.5-3.5 10 REFERENCE VALUE Cutoff: 500 11 REFERENCE VALUE Cutoff: 200 12 REFERENCE VALUE Cutoff: 100 13 REFERENCE VALUE Cutoff: 150 14 ADDITIONAL INFORMATION This report is intended for use in clinical monitoring or management of patients. It is not intended for use in employment-related testing. Test Performed by: [facility] [address] [place] [address] Merchandising Professor: Emanuel Lovett M.D. Ph.D.; IA# [id number] 15 REFERENCE VALUE Cutoff: 200 mg/L 16 Tylenol 3 17 Metabolite of codeine REFERENCE VALUE Cutoff: 100 18 Elizabeth Morgan, Contin; Also a minor metabolite (10%) of codeine and can be seen in low concentrations (<2,000 ng/mL) with poppy seed ingestion. 19 Metabolite of morphine REFERENCE VALUE Cutoff: 100 20 Metabolite of heroin 21 Lortab, [place], Vicodin; Also a very minor metabolite of [...] the presence of both morphine and metabolites (fyyqztwv-5-szlt-glucuronide, hydromorphone and lwgjuvbgavnma-8-ngsl-glucuronide). Suspect use of morphine and/or hydromorphone within the past three days. Alternatively, these results could also be suggestive of heroin use. Low levels of morphine can also be seen following poppy seed ingestion. Test detected the presence of hydromorphone and one of its metabolites (hhyhbkajtckft-3-gopt-glucuronide). Suspect use of hydromorphone within the past three days. ADDITIONAL INFORMATION This test was developed and its performance characteristics determined by [facility] in a manner consistent with CLIA requirements. [...] Serum levels of PSA measured using the [employer] DXI Hybritech immunoassay should not be interpreted as absolute evidence of the presence or absence of disease. The PSA value should be used in conjunction with other pertinent clinical diagnostic procedures. The values obtained with different assay methods or kits cannot be used interchangeably. Procedures Date Code Description Status 01/02/2019 16953 Close Split Wound W/Packing Completed 12/12/2018 77755 THR Total Hip Replacement Completed 12/12/2018 93513 THR Total Hip Replacement Completed 11/17/2018 66106 Stress Test Completed 11/17/2018 92115 Myocardial Perfusion Imaging Tomographic (Spect) Completed Multiple Studies 09/22/2018 01271 EKG Tracing & Interpretation Completed 08/24/2018 09244 Inj/Aspir Major JT Or Bursa W/ US Completed 03/31/2005 [id number] Colonoscopy Completed Medical Devices Description No Information Available Encounters Type Date Location Provider Dx Diagnosis Office Visit 12/21/2018 [facility] Alpa Still, R60.0 Localized edema 2:00p Medicine - Ccmob Z47.1 Aftercare following joint replacement surgery R23.8 Other skin changes Office Visit 12/13/2018 2:11p [facility] Emily Myrtle, I11.0 Hypertensive heart Assoc,pc TRADE PROMOTION ANALYST disease with heart Hospitalists failure I50.9 Heart failure, unspecified J44.9 Chronic obstructive pulmonary disease, unspecified G89.29 Other chronic pain F41.9 Anxiety disorder, unspecified K21.9 Gastro-esophageal reflux disease without esophagitis Office Visit 12/12/2018 [facility] Betsy FigueroaTerri, I11.0 Hypertensive heart 2:11p Assoc,pc [employer]ADE PROMOTION ANALYST disease with heart Hospitalists failure I50.9 Heart failure, unspecified J44.9 Chronic obstructive pulmonary disease, unspecified K21.9 Gastro-esophageal reflux disease without esophagitis F41.8 Other specified anxiety disorders F17.200 Nicotine dependence, unspecified, uncomplicated Office Visit 11/21/2018 [place] I42.9 Cardiomyopathy, 1:00p [facility] Lagun[facility] unspecified [facility] Z01.810 Encounter for preprocedural cardiovascular examination M16.12 Unilateral primary osteoarthritis, left hip Office Visit 11/08/2018 [facility] M16.12 Unilateral primary 9:00a Orthopedics at [facility] osteoarthritis, left [place] hip Z01.818 Encounter for other preprocedural examination Office Visit 11/01/2018 10:00a [facility] Internal Myla Luo Z01.818 Encounter for other Medicine - MD preprocedural Ccmob examination M16.12 Unilateral primary osteoarthritis, left hip F17.210 Nicotine dependence, cigarettes, uncomplicated I10 Essential (primary) hypertension E11.9 Type 2 diabetes mellitus without complications Office Visit 10/18/2018 10:00a [facility] Internal Myla Luo, E11.9 Type 2 diabetes Medicine - MD mellitus without Ccmob complications I10 Essential (primary) hypertension J44.9 Chronic obstructive pulmonary disease, unspecified E78.5 Hyperlipidemia, unspecified K21.9 Gastro-esophageal reflux disease without esophagitis F41.9 Anxiety disorder, unspecified L72.3 Sebaceous cyst H60.63 Unspecified chronic otitis externa, bilateral N40.1 Benign prostatic hyperplasia with lower urinary tract symp Office Visit 09/22/2018 9:00a [place] Shanae Louis M25.552 Pain in left Of Fany Lagunas M.D. hip I42.9 Cardiomyopathy, unspecified Z01.810 Encounter for preprocedural cardiovascular examination M16.12 Unilateral primary osteoarthritis, left hip I10 Essential (primary) hypertension R94.31 Abnormal electrocardiogram [ECG] [EKG] Office [facility] 09/06[facility]2018 [facility] M25.552 Pain in left at Teri Boykin hip M16.12 Unilateral primary osteoarthritis, left hip Office Visit 08/23/2018 Owen Morgan, M16.12 Unilateral primary 9:00a [facility]opedics at [facility] osteoarthritis, left [place] hip Assessments Date Code Description Provider 01/15/2019 Z96.642 Presence of left artificial hip joint Madai Bearden M.D. 01/15/2019 L02.214 Cutaneous abscess of groin Madai Bearden M.D. 01/05/2019 Z47.1 Aftercare following joint replacement Madai Bearden M.D. surgery 01/05/2019 Z96.642 Presence of left artificial hip joint Madai Bearden M.D. 01/03/2019 Z47.1 Aftercare following joint replacement Madai Bearden M.D. surgery 01/03/2019 M16.12 Unilateral primary osteoarthritis, left hip Madai Bearden M.D. 01/02/2019 Z47.1 Aftercare following joint replacement Silvano Iqbal MD surgery 01/02/2019 Z96.642 Presence of left artificial hip joint Silvano Iqbal MD 01/02/2019 M16.12 Unilateral primary osteoarthritis, left hip Silvano Iqbal MD 01/02/2019 L02.214 Cutaneous abscess of groin Silvano Iqbal MD 12/27/2018 M16.12 Unilateral primary osteoarthritis, left hip Madai Bearden M.D. 12/27/2018 Z47.1 Aftercare following joint replacement Madai Bearden M.D. surgery 12/22/2018 M16.12 Unilateral primary osteoarthritis, left hip Madai Bearden M.D. 12/22/2018 Z47.1 Aftercare following joint replacement Madai Bearden M.D. surgery 12/22/2018 Z96.642 Presence of left artificial hip joint Madai Bearden M.D. 12/21/2018 R60.0 Localized edema Alpa Still MD 12/21/2018 Z47.1 Aftercare following joint replacement Alpa Still MD surgery 12/21/2018 R23.8 Other skin changes Alpa Still MD 12/13/2018 I11.0 Hypertensive heart disease with heart Emily Myrtle, [employer]OM[employer] ANALYST failure 12/13/2018 I50.9 Heart failure, unspecified Emily Myrtle, TRADE PROMOTION ANALYST 12/13/2018 J44.9 Chronic obstructive pulmonary disease, Emily Myrtle, TRADE [employer]OMOTION ANALYST unspecified 12/13/2018 G89.29 Other chronic pain Emily Myrtle, TR[employer]OMOTION ANALYST 12/13/2018 F41.9 Anxiety disorder, unspecified Emily Myrtle, TRADE PROMOTION ANALYST 12/13/2018 K21.9 Gastro-esophageal reflux disease without Emily Myrtle, TRADE PROMOTION ANALYST esophagitis 12/12/2018 I11.0 Hypertensive heart disease with heart Betsy Mcqueen, [employer]OMOTION ANALYST failure 12/12/2018 I50.9 Heart failure, unspecified Betsy Mcqueen, KARL 12/12/2018 M16.12 Unilateral primary osteoarthritis, left hip ANTONIO CaballeroC 12/12/2018 J44.9 Chronic obstructive pulmonary disease, Betsy Mcqueen, [employer]ADE PROMOTION ANALYST unspecified 12/12/2018 M16.12 Unilateral primary osteoarthritis, left hip Madai Bearden M.D. 12/12/2018 K21.9 Gastro-esophageal reflux disease without Betsy Mcqueen, TRADE PROMOTION ANALYST esophagitis 12/12/2018 E66.01 Morbid (severe) obesity due to excess Luis Kaur PA-C calories 12/12/2018 F41.8 Other specified anxiety disorders Betsy Mcqueen, TRADE PROMOTION ANALYST 12/12/2018 E66.01 Morbid (severe) obesity due to excess Madai Bearden M.D. calories 12/12/2018 F17.200 Nicotine dependence, unspecified, Betsy Mcqueen, KARL uncomplicated 12/04/2018 M25.552 Pain in left hip Madai Bearden M.D. 12/04/2018 M16.12 Unilateral primary osteoarthritis, left hip Madai Bearden M.D. 11/21/2018 I42.9 Cardiomyopathy, unspecified Blu Lagunas M.D. 11/21/2018 Z01.810 Encounter for preprocedural cardiovascular Blu Lagunas M.D. examination 11/21/2018 M16.12 Unilateral primary osteoarthritis, left hip Blu Lagunas M.D. 11/17/2018 M25.552 Pain in left hip Blu [...] hip Chauncey Morgan M.D. Plan of Treatment 01/15/2019 - Madai Bearden M.D.Z96.642 Presence of left artificial hip jointFollow up:Follow up: 2 vcnemE03.214 Cutaneous abscess of groin Functional Status Description No Information Available Mental Status Description No Information Available Referrals Refer to Reason for Referral Status Appt Date Wound Clinic right groin wound Created [address] [place] [address] [phone] Gorge Mancini MD pt not responding to tamsulosin Sent 01/16/2019 [address] [place], [place] [id number] [phone]
--- OUTSIDE RECORDS SUMMARY | 2019-02-18 10:39 | XMS REPORT ---
:1950 Author Organization [facility] Care Team Providers Name Role Phone Unavailable Unavailable Unavailable Problems Condition Condition Condition Status Onset Resolution Last Treating Comments Name Details Category Date Date Treatment Clinician Date Pain frequent Pain Mgmt Resolve 2018-022019-01-11 Mor[place]a pain d 0-18 12:50:00 Chuck 12:25: [id number] Respiratory dyspnea Respirator Resolve 2018-022019-01-04 [place]a present y d 0-18 14:05:00 [place] 12:25: [id number] 00 Endo/Giovanni anti-coagul Endo/Giovanni Resolve 2018-022019-01-04 [place]a ation d 0-18 14:05:00 [place] therapy 12:25: [id number] 00 Integument surgical Integument Resolve 2018-022019-01-11 [place]a wound d 0-18 12:50:00 [place] present 12:25: [id number] 00 Nutrition nutritional Nutrition Resolve 2018-022019-01-11 [place]a restriction d 0-18 12:50:00 [place] s 12:25: [id number] 00 Elimination urinary Eliminatio Resolve 2018-022019-01-11 [place]a frequency n d 0-18 12:50:00 [place] 12:25: [id number] 00 Neuro anxiety Neuro/Emot Resolve 2018-022019-01-11 [place]a present ion d 0-18 12:50:00 [place] 12:25: [id number] 00 Activity ADL Activity Resolve 2018-022019-01-11 [place] assistance d 0-18 12:50:00 [place] required 12:25: [id number] 00 Activity self-care Activity Resolve 2018-022019-01-11 [place] deficit d 0-18 12:50:00 Chuck 12:25: [id number] 00 Safety structural Safety Resolve 2018-022019-01-11 [place]a barriers d 0-18 12:50:00 [place] present 12:25: [id number] 00 Safety fall risk Safety Resolve 2018-022019-01-11 [place]a factor d 0-18 12:50:00 [place] present 12:25: [id number] 00 Safety risk for Safety Resolve 2018-022019-01-11 [place]a hospitaliza d 0-18 12:50:00 [place] tion 12:25: [id number] 00 Medication oral med Meds Resolve 2018-022019-01-11 [place] assistance d 0-18 12:50:00 Chuck required 12:25: [id number] 00 Medication knowledge/s Meds Resolve 2018-022019-01-11 [place] kill d 0-18 12:50:00 [place] deficit: pt 12:25: [id number] 00 Musculoskel transfer Musculoske Resolve 2018-022019-01-04 [place]a etal assistance letal d 0-18 14:05:00 [place] required 12:25: [id number] 00 Musculoskel requires Musculoske Resolve 2018-022019-01-04 [place]a etal human letal d 0-18 14:05:00 [place] assist to 12:25: [id number] leave home 00 Bed mobility/tr PT/OT: Bed Resolve 2018-022019-01-03 Skyla Mobility/Tr ansfer Mobility/T d 0-18 14:55:00 Yang ansfer device ransfer 14:29: [id number] present 00 Bed transfer PT/OT: Bed Resolve 2018-022019-01-03 Skyla Mobility/Tr deficit: Mobility/T d 0-18 14:55:00 Yang ansfer sit/stand ransfer 14:29: [id number] 00 Bed transfer PT/OT: Bed Resolve 2018-022019-01-03 Skyla Mobility/Tr deficit: Mobility/T d 0-18 14:55:00 Yang ansfer standing ransfer 14:29: [id number] pivot 00 Bed transfer PT/OT: Bed Resolve 2018-022019-01-03 Skyla Mobility/Tr deficit: Mobility/T d 0-18 14:55:00 Yang ansfer toilet/comm ransfer 14:29: [id number] ode 00 Bed transfer PT/OT: Bed Resolve 2018-022019-01-03 Skyla Mobility/Tr deficit: Mobility/T d 0-18 14:55:00 Yang ansfer shower/tub ransfer 14:29: [id number] 00 Bed knowledge/s PT/OT: Bed Resolve 2018-022019-01-03 Skyla Mobility/Tr kill Mobility/T d 0-18 14:55:00 Yang ansfer deficit: pt ransfer 14:29: [id number] 00 Bed bed PT/OT: Bed Resolve 2018-022019-01-03 Skyla Mobility/Tr mobility Mobility/T d 0-18 14:55:00 Yang ansfer deficit ransfer 14:29: [id number] 00 Balance/End balance/park activities coordinator PT/OT: Resolve 2018-022019-01-[address] [address] rdination Balance/En d 0-18 14:55:00 Yang deficit durance 14:29: [id number] 00 Balance/End knowledge/s PT/OT: Resolve 2018-022019-01-[address] [place] [address] kill Balance/En d 0-18 14:55:00 Yang deficit: pt durance 14:29: [id number] 00 Gait/Locomo stair PT/OT: Resolve 2018-022019-01-10 Skyla tion management Gait/Locom d 0-18 10:01:00 Yang problems req otion 14:29: [id number] 00 Gait/Locomo gait PT/OT: Resolve 2018-022019-01-10 Skyla tion assistive Gait/Locom d 0-18 10:01:00 Yang problems device otion 14:29: [id number] present 00 Gait/Locomo knowledge/s PT/OT: Resolve 2018-022019-01-10 Skyla dashon kill Gait/Locom d 0-18 10:01:00 Yang problems deficit: pt otion 14:29: [id number] 00 Gait/Locomo gait PT/OT: Resolve 2018-022019-01-10 Skyla tion deficit Gait/Locom d 0-18 10:01:00 Yang problems otion 14:29: [id number] 00 Integument skin Integument Resolve 2018-022019-01-11 Audra [...] hr Aspirin Low Aspirin Low 2018-02- Yes Sulieman Unknown Unknown Dose 81 mg Dose 81 [...] tablet morphine ER morphine ER 2018-02- Yes Sulemian Unknown Unknown 30 mg 30 mg 01-11 [...]
--- OUTSIDE RECORDS SUMMARY | 2019-02-18 10:39 | XMS REPORT ---
:1950 Author Organization [facility] Care Team Providers Name Role Phone Unavailable Unavailable Unavailable Problems Condition Condition Condition Status Onset Resolution Last Treating Comments Name Details Category Date Date Treatment Clinician Date Pain frequent Pain Mgmt Active 2018-02 [place]a pain 0-18 Coyle 12:25: [id number] Respiratory dyspnea Respirator Active 2018-02 [place]a present y 0 Coyle 12:25: [id number] 00 Endo/Giovanni anti-coagul Endo/Giovanni Active 2018-02 [place]a ation 018 [place] therapy 12:25: [id number] 00 Integument surgical Integument Active 2018-02 [place]a wound 018 Coyle present 12:25: [id number] 00 Nutrition nutritional Nutrition Active 2018-02 Moraima restriction 0-18 Coyle s 12:25: [id number] 00 Elimination urinary Eliminatio Active 2018-02 [place]a frequency n 0-18 Coyle 12:25: [id number] 00 Neuro anxiety Neuro/Emot Active 2018-02 Moraima present ion 018 Coyle 12:25: [id number] 00 Activity ADL Activity Active 2018-02 [place]a assistance 0-18 Coyle required 12:25: [id number] 00 Activity self-care Activity Active 2018-02 [place]a deficit 0-18 [place]oyle 12:25: [id number] 00 Safety structural Safety Active 2018- Moraima barriers 0-18 Coyle present 12:25: [id number] 00 Safety fall risk Safety Active 2018- Moraima factor 0-18 Coyle present 12:25: [id number] 00 Safety risk for Safety Active 2018-02 Moraima hospitaliza 018 Coyle tion 12:25: [id number] 00 Medication oral med Meds Active 2018-02 [place]a assistance 0-18 [place]oyle required 12:25: [id number] 00 Medication knowledge/s Meds Active 2018-02 [place]a kill 0-18 [place]oyle deficit: pt 12:25: [id number] 00 Musculoskel transfer Musculoske Active 2018-02 [place]a etal assistance letal 0-18 Chuck required 12:25: [id number] 00 Musculoskel requires Musculoske Active 2018-02 [place]a etal human letal 0-18 [place] assist to 12:25: [id number] leave home 00 Bed mobility/tr PT/OT: Bed Resolve 2018-022019-01-03 Skyla Mobility/Tr ansfer Mobility/T d 0-18 14:55:00 Yang ansfer device ransfer 14:29: [id number] present 00 Bed transfer PT/OT: Bed Resolve 2018-022019-01-03 Skyla Mobility/Tr deficit: Mobility/T d 0-18 14:55:00 Yang ansfer sit/stand ransfer 14:29: [id number] 00 Bed transfer PT/OT: Bed Resolve 2018-022019-01-03 Skyla Mobility/Tr deficit: Mobility/T d 0-18 14:55:00 Yangluli martinezfer standing ransfer 14:29: [id number] pivot 00 Bed transfer PT/OT: Bed Resolve 2018-022019-01-03 Skyla Mobility/Tr deficit: Mobility/T d 0-18 14:55:00 Yangluli martinezfer toilet/comm ransfer 14:29: [id number] ode 00 Bed transfer PT/OT: Bed Resolve 2018-022019-01-03 Skyla Mobility/Tr deficit: Mobility/T d 0-18 14:55:00 Trey munoz shower/tub ransfer 14:29: [id number] 00 Bed knowledge/s PT/OT: Bed Resolve 2018-022019-01-03 Skyla Mobility/Tr kill Mobility/T d 0-18 14:55:00 Yang ansfer deficit: pt ransfer 14:29: [id number] 00 Bed bed PT/OT: Bed Resolve 2018-022019-01-03 Skyla Mobility/Tr mobility Mobility/T d 0-18 14:55:00 Yang ansfer deficit ransfer 14:29: [id number] 00 Balance/End balance/building services coordinator PT/OT: Resolve 2018-022019-01-03 Skyla urance rdination Balance/En d 0-18 14:55:00 Yang deficit durance 14:29: [id number] 00 Balance/End knowledge/s PT/OT: Resolve 2018-022019-01-[address] [place]yla [address] kill Balance/En d 0-18 14:55:00 Yang deficit: pt durance 14:29: [id number] 00 Gait/Locomo stair PT/OT: Active 2018-02 Skyla tion management Gait/Locom 0-18 Yang problems req otion 14:29: [id number] 00 Gait/Locomo gait PT/OT: Active 2018-02 Skyla tion assistive Gait/Locom 0-18 Yang problems device otion 14:29: [id number] present 00 Gait/Locomo knowledge/s PT/OT: Active 2018-02 Skyla tion kill Gait/Locom 0-18 Yang problems deficit: pt otion 14:29: [id number] 00 Gait/Locomo gait PT/OT: Active 2018-02 Skyla tion deficit Gait/Locom 0-18 Yang problems otion 14:29: [id number] 00 Integument skin Integument Active 2018-02 Audra [...]
--- OUTSIDE RECORDS SUMMARY | 2019-02-18 10:39 | XMS REPORT ---
:1950 Author Organization [facility] Care Team Providers Name Role Phone Unavailable Unavailable Unavailable Problems Condition Condition Condition Status Onset Resolution Last Treating Comments Name Details Category Date Date Treatment Clinician Date Pain frequent Pain Mgmt Resolve 2018-022019-01-11 [place]a pain d 0-18 12:50:00 Chuck 12:25: [id number] 00 Respiratory dyspnea Respirator Resolve 2018-022019-01-04 [place]a present y d 0-18 14:05:00 [place] 12:25: [id number] 00 Endo/Giovanni anti-coagul Endo/Giovanni Resolve 2018-022019-01-04 [place] ation d 0-18 14:05:00 [place] therapy 12:25: [id number] 00 Integument surgical Integument Resolve 2018-022019-01-11 [place]a wound d 0-18 12:50:00 [place] present 12:25: [id number] 00 Nutrition nutritional Nutrition Resolve 2018-022019-01-11 [place] restriction d 0-18 12:50:00 Hoffman s 12:25: [id number] 00 Elimination urinary Eliminatio Resolve 2018-022019-01-11 [place] frequency n d 0-18 12:50:00 [place] 12:25: [id number] 00 Neuro anxiety Neuro/Emot Resolve 2018-022019-01-11 [place]a present ion d 0-18 12:50:00 [place] 12:25: [id number] 00 Activity ADL Activity Resolve 2018-022019-01-11 [place] assistance d 0-18 12:50:00 [place] required 12:25: [id number] 00 Activity self-care Activity Resolve 2018-022019-01-11 [place]a deficit d 0-18 12:50:00 Chuck 12:25: [id number] 00 Safety structural Safety Resolve 2018-022019-01-11 [place]a barriers d 0-18 12:50:00 [place] present 12:25: [id number] 00 Safety fall risk Safety Resolve 2018-022019-01-11 [place]a factor d 0-18 12:50:00 Hoffman present 12:25: [id number] 00 Safety risk for Safety Resolve 2018-022019-01-11 Moraima hospitaliza d 0-18 12:50:00 Hoffman tion 12:25: [id number] 00 Medication oral med Meds Resolve 2018-022019-01-11 [place]a assistance d 0-18 12:50:00 Chuck required 12:25: [id number] 00 Medication knowledge/s Meds Resolve 2018-022019-01-11 [place] kill d 0-18 12:50:00 Hoffman deficit: pt 12:25: [id number] 00 Musculoskel transfer Musculoske Resolve 2018-022019-01-04 [place]a etal assistance letal d 0-18 14:05:00 Hoffman required 12:25: [id number] 00 Musculoskel requires Musculoske Resolve 2018-022019-01-04 [place]a etal human letal d 0-18 14:05:00 Hoffman assist to 12:25: [id number] leave home 00 Bed mobility/tr PT/OT: Bed Resolve 2018-022019-01-03 Skyla Mobility/Tr ansfer Mobility/T d 0-18 14:55:00 Yang ansfer device ransfer 14:29: [id number] present 00 Bed transfer PT/OT: Bed Resolve 2018-022019-01-03 Skyla Mobility/Tr deficit: Mobility/T d 0-18 14:55:00 Yang ansfer sit/stand ransfer 14:29: [id number] 00 Bed transfer PT/OT: Bed Resolve 2018-022019-01-03 Skyla Mobility/Tr deficit: Mobility/T d 0-18 14:55:00 Yang ansfer standing ransfer 14:29: [id number] pivot 00 Bed transfer PT/OT: Bed Resolve 2018-022019-01-03 Skyla Mobility/Tr deficit: Mobility/T d 0-18 14:55:00 Yang ansfer toilet/comm ransfer 14:29: [id number] ode 00 Bed transfer PT/OT: Bed Resolve 2018-022019-01-03 Skyla Mobility/Tr deficit: Mobility/T d 0-18 14:55:00 Yang ansfer shower/tub ransfer 14:29: [id number] 00 Bed knowledge/s PT/OT: Bed Resolve 2018-022019-01-03 Skyla Mobility/Tr kill Mobility/T d 0-18 14:55:00 Yang ansfer deficit: pt ransfer 14:29: [id number] 00 Bed bed PT/OT: Bed Resolve 2018-022019-01-03 Skyla Mobility/Tr mobility Mobility/T d 0-18 14:55:00 Yang ansfer deficit ransfer 14:29: [id number] 00 Balance/End balance/residential coordinator PT/OT: Resolve 2018-022019-01-[address]yla [address] rdination Balance/En d 0-18 14:55:00 Yang deficit durance 14:29: [id number] 00 Balance/End knowledge/s PT/OT: Resolve 2018-022019-01-[address] [place]yla [place] kill Balance/En d 0-18 14:55:00 Yang deficit: pt durance 14:29: [id number] 00 Gait/Locomo stair PT/OT: Resolve 2018-022019-01-10 Skyla tion management Gait/Locom d 0-18 10:01:00 Yang problems req otion 14:29: [id number] 00 Gait/Locomo gait PT/OT: Resolve 2018-022019-01-10 Skyla tion assistive Gait/Locom d 0-18 10:01:00 Yang problems device otion 14:29: [id number] present 00 Gait/Locomo knowledge/s PT/OT: Resolve 2018-022019-01-10 Skyla dashon kill Gait/Locom d 0-18 10:01:00 Yang problems deficit: pt otion 14:29: [id number] 00 Gait/Locomo gait PT/OT: Resolve 2018-022019-01-10 Skyla tion deficit Gait/Locom d 0-18 10:01:00 Yang problems otion 14:29: [id number] 00 Integument skin Integument Resolve 2018-022019-01-11 Audra [...] Unknown Unknown 50 mg 50 mg 01-11 aMdai MCCARTNEY tablet tablet neomycin-po neomycin-po 2018-02- Yes [...]
--- OUTSIDE RECORDS SUMMARY | 2019-02-18 10:39 | XMS REPORT ---
:1950 Author Organization [facility] Care Team Providers Name Role Phone Unavailable Unavailable Unavailable Problems Condition Condition Condition Status Onset Resolution Last Treating Comments Name Details Category Date Date Treatment Clinician Date Pain frequent Pain Mgmt Resolve 2018-022019-01-11 Mor[place]a pain d 0-18 12:50:00 Chuck 12:25: [id number] 00 Respiratory dyspnea Respirator Resolve 2018-022019-01-04 [place]a present y d 0-18 14:05:00 Hammon 12:25: [id number] 00 Endo/Giovanni anti-coagul Endo/Giovanni Resolve 2018-022019-01-04 [place]a ation d 0-18 14:05:00 Hammon therapy 12:25: [id number] 00 Integument surgical Integument Resolve 2018-022019-01-11 [place]a wound d 0-18 12:50:00 Hammon present 12:25: [id number] 00 Nutrition nutritional Nutrition Resolve 2018-022019-01-11 [place]a restriction d 0-18 12:50:00 Hammon s 12:25: [id number] 00 Elimination urinary Eliminatio Resolve 2018-022019-01-11 [place]a frequency n d 0-18 12:50:00 Hammon 12:25: [id number] 00 Neuro anxiety Neuro/Emot Resolve 2018-022019-01-11 [place]a present ion d 0-18 12:50:00 Hammon 12:25: [id number] 00 Activity ADL Activity Resolve 2018-022019-01-11 [place]a assistance d 0-18 12:50:00 [place]mon required 12:25: [id number] 00 Activity self-care Activity Resolve 2018-022019-01-11 [place]a deficit d 0-18 12:50:00 Chuck 12:25: [id number] 00 Safety structural Safety Resolve 2018-022019-01-11 [place]a barriers d 0-18 12:50:00 Hammon present 12:25: [id number] 00 Safety fall risk Safety Resolve 2018-022019-01-11 [place]a factor d 0-18 12:50:00 Hammon present 12:25: [id number] 00 Safety risk for Safety Resolve 2018-022019-01-11 [place]a hospitaliza d 0-18 12:50:00 Hammon tion 12:25: [id number] 00 Medication oral med Meds Resolve 2018-022019-01-11 [place] assistance d 0-18 12:50:00 Chuck required 12:25: [id number] 00 Medication knowledge/s Meds Resolve 2018-022019-01-11 [place] kill d 0-18 12:50:00 Hammon deficit: pt 12:25: [id number] 00 Musculoskel transfer Musculoske Resolve 2018-022019-01-04 [place] etal assistance letal d 0-18 14:05:00 Hammon required 12:25: [id number] 00 Musculoskel requires Musculoske Resolve 2018-022019-01-04 [place] etal human letal d 0-18 14:05:00 Hammon assist to 12:25: [id number] leave home 00 Bed mobility/tr PT/OT: Bed Resolve 2018-022019-01-03 Skyla Mobility/Tr ansfer Mobility/T d 0-18 14:55:00 Yang ansfer device ransfer 14:29: [id number] present 00 Bed transfer PT/OT: Bed Resolve 2018-022019-01-03 Skyla Mobility/Tr deficit: Mobility/T d 0-18 14:55:00 Yang ansfer sit/stand ransfer 14:29: [id number] 00 Bed transfer PT/OT: Bed Resolve 2018-022019-01-03 Skyla Mobility/Tr deficit: Mobility/T d 0-18 14:55:00 Yang ansfer standing ransfer 14:29: [id number] pivot 00 Bed transfer PT/OT: Bed Resolve 2018-022019-01-03 Skyla Mobility/Tr deficit: Mobility/T d 0-18 14:55:00 Yang ansfer toilet/comm ransfer 14:29: [id number] ode 00 Bed transfer PT/OT: Bed Resolve 2018-022019-01-03 Skyla Mobility/Tr deficit: Mobility/T d 0-18 14:55:00 Yang ansfer shower/tub ransfer 14:29: [id number] 00 Bed knowledge/s PT/OT: Bed Resolve 2018-022019-01-03 Skyla Mobility/Tr kill Mobility/T d 0-18 14:55:00 Yang ansfer deficit: pt ransfer 14:29: [id number] 00 Bed bed PT/OT: Bed Resolve 2018-022019-01-03 Skyla Mobility/Tr mobility Mobility/T d 0-18 14:55:00 Yang ansfer deficit ransfer 14:29: [id number] 00 Balance/End balance/preparation center coordinator PT/OT: Resolve 2018-022019-01-[address]yla [address] rdination Balance/En d 0-18 14:55:00 Yang deficit durance 14:29: [id number] 00 Balance/End knowledge/s PT/OT: Resolve 2018-022019-01-[address] [place] [address] kill Balance/En d 0-18 14:55:00 Yang deficit: pt durance 14:29: [id number] 00 Gait/Locomo stair PT/OT: Resolve 2018-022019-01-10 Skyla tion management Gait/Locom d 0-18 10:01:00 Yang problems req otion 14:29: [id number] 00 Gait/Locomo gait PT/OT: Resolve 2018-022019-01-10 Skyla tion assistive Gait/Locom d 0-18 10:01:00 Yang problems device otion 14:29: [id number] present 00 Gait/Locomo knowledge/s PT/OT: Resolve 2018-022019-01-10 Skyla dashon kill Gait/Locom d 0-18 10:01:00 Yang problems deficit: pt otion 14:29: [id number] 00 Gait/Locomo gait PT/OT: Resolve 2018-022019-01-10 Skyla tion deficit Gait/Locom d 0-18 10:01:00 Yang problems otion 14:29: [id number] 00 Integument skin Integument Resolve 2018-022019-01-11 Audra [...]
--- OUTSIDE RECORDS SUMMARY | 2019-02-18 10:39 | XMS REPORT ---
:1950 Author Organization [facility] Care Team Providers Name Role Phone Unavailable Unavailable Unavailable Problems Condition Condition Condition Status Onset Resolution Last Treating Comments Name Details Category Date Date Treatment Clinician Date Pain frequent Pain Mgmt Resolve 2018-022019-01-11 Mor[place]a pain d 0-18 12:50:00 Chuck 12:25: [id number] 00 Respiratory dyspnea Respirator Resolve 2018-022019-01-04 Mor[place]a present y d 0-18 14:05:00 [place] 12:25: [id number] 00 Endo/Giovanni anti-coagul Endo/Giovanni Resolve 2018-022019-01-04 [place]a ation d 0-18 14:05:00 [place] therapy 12:25: [id number] 00 Integument surgical Integument Resolve 2018-022019-01-11 [place]a wound d 0-18 12:50:00 [place] present 12:25: [id number] 00 Nutrition nutritional Nutrition Resolve 2018-022019-01-11 [place]a restriction d 0-18 12:50:00 [place] s 12:25: [id number] 00 Elimination urinary Eliminatio Resolve 2018-022019-01-11 [place]a frequency n d 0-18 12:50:00 [place] 12:25: [id number] 00 Neuro anxiety Neuro/Emot Resolve 2018-022019-01-11 [place]a present ion d 0-18 12:50:00 [place] 12:25: [id number] 00 Activity ADL Activity Resolve 2018-022019-01-11 [place]a assistance d 0-18 12:50:00 [place] required 12:25: [id number] 00 Activity self-care Activity Resolve 2018-022019-01-11 [place]a deficit d 0-18 12:50:00 Chuck 12:25: [id number] 00 Safety structural Safety Resolve 2018-022019-01-11 [place]a barriers d 0-18 12:50:00 [place] present 12:25: [id number] 00 Safety fall risk Safety Resolve 2018-022019-01-11 [place]a factor d 0-18 12:50:00 [place] present 12:25: [id number] 00 Safety risk for Safety Resolve 2018-022019-01-11 Mor[place]a hospitaliza d 0-18 12:50:00 [place] tion 12:25: [id number] 00 Medication oral med Meds Resolve 2018-022019-01-11 [place]a assistance d 0-18 12:50:00 Chuck required 12:25: [id number] 00 Medication knowledge/s Meds Resolve 2018-022019-01-11 [place]a kill d 0-18 12:50:00 [place] deficit: pt 12:25: [id number] 00 Musculoskel transfer Musculoske Resolve 2018-022019-01-04 [place]a etal assistance letal d 0-18 14:05:00 [place] required 12:25: [id number] 00 Musculoskel requires Musculoske Resolve 2018-022019-01-04 [place]a etal human letal d 0-18 14:05:00 [place] assist to 12:25: [id number] leave home 00 Bed mobility/tr PT/OT: Bed Resolve 2018-022019-01-03 Skyla Mobility/Tr ansfer Mobility/T d 0-18 14:55:00 Yang ansfer device ransfer 14:29: [id number] present 00 Bed transfer PT/OT: Bed Resolve 2018-022019-01-03 Skyla Mobility/Tr deficit: Mobility/T d 0-18 14:55:00 Yang ansfer sit/stand ransfer 14:29: [id number] 00 Bed transfer PT/OT: Bed Resolve 2018-022019-01-03 Skyla Mobility/Tr deficit: Mobility/T d 0-18 14:55:00 Yang ansfer standing ransfer 14:29: [id number] pivot 00 Bed transfer PT/OT: Bed Resolve 2018-022019-01-03 Skyla Mobility/Tr deficit: Mobility/T d 0-18 14:55:00 Yang ansfer toilet/comm ransfer 14:29: [id number] ode 00 Bed transfer PT/OT: Bed Resolve 2018-022019-01-03 Skyla Mobility/Tr deficit: Mobility/T d 0-18 14:55:00 Yang ansfer shower/tub ransfer 14:29: [id number] 00 Bed knowledge/s PT/OT: Bed Resolve 2018-022019-01-03 Skyla Mobility/Tr kill Mobility/T d 0-18 14:55:00 Yang ansfer deficit: pt ransfer 14:29: [id number] 00 Bed bed PT/OT: Bed Resolve 2018-022019-01-03 Skyla Mobility/Tr mobility Mobility/T d 0-18 14:55:00 Yang ansfer deficit ransfer 14:29: [id number] 00 Balance/End balance/cheese cooker PT/OT: Resolve 2018-022019-01-[address]yla [address] rdination Balance/En d 0-18 14:55:00 Yang deficit durance 14:29: [id number] 00 Balance/End knowledge/s PT/OT: Resolve 2018-022019-01-[address] [place]yla [address] kill Balance/En d 0-18 14:55:00 Yang deficit: pt durance 14:29: [id number] 00 Gait/Locomo stair PT/OT: Resolve 2018-022019-01-10 Skyla tion management Gait/Locom d 0-18 10:01:00 Yang problems req otion 14:29: [id number] 00 Gait/Locomo gait PT/OT: Resolve 2018-022019-01-10 Skyla tion assistive Gait/Locom d 0-18 10:01:00 Yang problems device otion 14:29: [id number] present 00 Gait/Locomo knowledge/s PT/OT: Resolve 2018-022019-01-10 Skyla dashon kill Gait/Locom d 0-18 10:01:00 Yang problems deficit: pt otion 14:29: [id number] 00 Gait/Locomo gait PT/OT: Resolve 2018-022019-01-10 Skyla tion deficit Gait/Locom d 0-18 10:01:00 Yang problems otion 14:29: [id number] 00 Integument skin Integument Resolve 2018-022019-01-11 Audra [...] Unknown 15 mg 15 mg 01-11 Madai MCCRATNEY tablet,exte tablet,exte nded nded release release Nicoderm [...]
--- OUTSIDE RECORDS SUMMARY | 2019-02-18 10:39 | XMS REPORT | Continuity of Care Document ---
:1950 External Reference #:[id number] Author Name SADIE Gutierrez (transmitted by agent of provider Nikki Padilla) Address [address], [place] [address] Care Team Providers Name Role Phone Montrell Prado MD - Formula Maker Care Team Information Jack Machine Operator Madai Bearden MD - Adult Care Team Information Jack Machine Operator [phone] Reconstructive Orthopaedic Surgery Jackeline Garcia MD - Pulmonary Care Team Information Jack Machine Operator [phone] Disease Michael Diaz MD - Care Team Information Jack Machine Operator [phone] Ophthalmology Myla Luo M.D. - Family Medicine Care Team Information Jack Machine Operator Problems Active Problems Provider Date Type 2 [...] unspecified Jackeline Garcia MD Onset: 11/12/2015 Hypoxemia Jcakeline Garcia MD Onset: 07/07/2016 Prosthetic arthroplasty of [...] smoker, smokes every day Smoking Status Reviewed: 02/07/19 Patient is a current smoker, smokes every day Exercise Type/Frequency Does not exercise Allergies, Adverse Reactions, Alerts Active Allergies Reaction Severity Comments Date Oxycodone 11/09/2010 Medications Active Medications SIG Qnty Indications Ordering Date Provider Keflex 1 by mouth 4 28caps Z96.642 Madai Bearden, 02/07/2019 500mg Capsules times a day for 7 M.D. days Walker rolling walker 1units Madai Bearden, 01/05/2019 [facility] [place] dx: s.p M.D. hip replacement 68" 280lbs Compression Stockings 20/30 s/p left 1units Madai Bearden, 12/22/2018 YARELY; 67" 268lbs M.D. [facility] Toilet Seat Elevator s/p left hip 1units Madai Bearden, 12/07/2018 replacement 67" M.D. Misc 268lbs Adjust Bath/Shower 67" 268lbs dx: 1unleodan [...] ear MD twice a day for 5 3.5-74987-8 Solution days as needed Lonny Mason/5 M16.12 Chauncey Morgan, 08/23/2018 Adjustment M.D. Holes/-03/07" 1-03/07" [facility] isak Madrigal M.D.,FACP [...] [facility]: s/p left Lucretia 01/05/2019 hip [...] CPT Code Status Date Vaccine Lot # [id number] Given 01/20/2017 Influenza Virus Vaccine, Quadrivalent, Split, Preservative Free 90749 Given 06/14/2016 Pneumococcal Conjugate Vaccine 13 Valent For [id number] Intramuscular Use 89368 Given 02/29/2016 Influ Virus Vaccine, Quadrivalent, Split Virus, [place] [address] Given 11/28/2014 Flu Vaccine Split Virus Preservative Free For Indiv 3Yr Older 83985 Given 12/25/2012 Pneumonia Vaccine [id number] 62242 Given 12/25/2012 Flu Vaccine Split Virus Preservative Free For [id number] Indiv 3Yr Older [id number] Given 12/03/2011 Fluzone Vaccine 54766 Given 02/11/2011 Zoster (Zostavax) [id number] 36300 Given 11/09/2010 Pneumonia Vaccine [id number] 18209 Given 11/09/2010 Influenza Virus 3Yrs & Over [id number] 76136 Given Unknown Influenza Virus Vaccine, Quadrivalent, Split, Im Use 6-35mo 16007 Given Unknown Influenza Virus 3Yrs & Over Vital Signs Date Vital Result Comment 02/07/2019 11:44am Height 67 inches 5'7" Weight 280.00 lb Heart Rate 76 /min BP Systolic Sitting 130 mmHg BP Diastolic Sitting 92 mmHg Respiratory Rate 20 /min Body Temperature 97.3 F Pain Level 3 BMI (Body Mass Index) 43.8 kg/m2 01/15/2019 11:38am Height 67 inches 5'7" Heart Rate 80 /min BP Systolic 132 mmHg BP Diastolic 82 mmHg Respiratory Rate 18 /min Body Temperature 97.6 F Pain Level 1 Results Test Acquired Date Facility Test Result H/L Range Note CBC Auto 12/21/2018 [facility] White Blood 8.6 10^3/uL Normal 3.5-10.[address] [place] [address] [phone] Red Blood Count 3.47 10^6/uL Low 4.18-5.48 [...] Red Blood Cells % 0.0 Inr/Protime 12/21/2018 [facility] Inr 1.09 Normal 0.82-1.09 1 [address] [place] [address] [phone] Comp Metabolic 12/21/2018 [facility] Sodium 132 mmol/L Low 135 -145 Panel [address] [place] [address] [phone] Potassium 4.2 mmol/L Normal 3.5-5.0 Chloride 100 [...] Egfr 167.6 >60 2 Urinalysis Profile 12/04/2018 [facility] Urine Color Yellow [address] [place] [address] [phone] Urine Appearance Clear Urine Specific Denbo 1.013 Normal 1.010-1.030 Urine pH 5.0 Normal 5-9 Urine Urobilinogen Negative Negative Urine Ketones Negative Negative Urine Protein Negative Negative Urine Leukocytes Negative Negative Urine Blood Negative Negative * * Abnormal Negative 4 Urine Nitrite Negative Negative Urine Bilirubin Negative Negative Urine Glucose Negative Negative Inr/Protime 12/04/2018 [facility] Inr 0.95 Normal 0.82-1.[address] [place] [address] [phone] Laboratory test 12/04/2018 [facility] Partial 37.4 Normal 26.0 -38.0 [address] [place] [address] Time PTT [phone] Comp Metabolic 12/04/2018 [facility] Sodium 137 mmol/L Normal 135-[address] [place] [address] [phone] Potassium 4.4 mmol/L Normal 3.5-5.0 Chloride 104 [...] 164.3 >60 7 Type & Screen 12/04/2018 [facility] Patient Blood Type O Negative [address] [place] [address] [phone] Antibody Screen NEGATIVE Urine Culture And 12/04/2018 [facility] Urine SEE RESULT [address] [place] [place] [address] [phone] CBC Auto Diff 11/13/2018 [facility] White Blood 8.0 10^3/uL Normal 3.5-[address] Count 0.8 [place] [address] [phone] Red Blood Count 4.71 10^6/uL Normal 4.18-5.48 [...] Red Blood Cells % 0.1 Inr/Protime 11/13/2018 [facility] Inr 1.01 Normal 0.82-1.[address] [place] [address] [phone] Laboratory 11/13/2018 [facility] Partial 35.4 Normal 26.0- 38.0 test finding [address] [place] [address] PTT [phone] Drug Abuse 20 11/07/2018 [facility] Urine Negative [address] Amphetamine ng/[place] [address] [phone] Urine Barbiturates Negative ng/mL 11 Urine Benzodiazepines Negative ng/mL 12 Urine Cocaine Negative ng/mL 13 Urine Phencyclidine Negative ng/mL Cutoff: 25 Urine Tetrahydrocannabinol Negative ng/mL Cutoff: 50 14 Creatinine, Urine 41.5 mg/dL Specific Denbo 1.009 pH 6.1 Oxidants Negative 15 Adulterants Comment Normal Codeine, Ur Not Detected ng/mL Cutoff: 25 16 Fymbbrb-3-ybmr-glucuronide, Ur Not Detected ng/mL 17 Morphine, Ur Present ng/mL Abnormal Cutoff: 25 18 Qemvmhkv-1-fehq-glucuronide, U Present ng/mL Abnormal 19 6-monoacetylmorphine, Ur Not Detected ng/mL Cutoff: 25 20 Hydrocodone, Ur Not Detected ng/mL Cutoff: 25 21 Norhydrocodone, Ur Not Detected ng/mL Cutoff: 25 22 Dihydrocodeine, Ur Not Detected ng/mL Cutoff: 25 23 Hydromorphone, Ur Present ng/mL Abnormal Cutoff: 25 24 Ebrszzchpfynf5qescvjosamhafjp Present ng/mL Abnormal 25 Oxycodone, Ur Not Detected ng/mL Cutoff: 25 26 Noroxycodone, Ur Not Detected ng/mL Cutoff: 25 27 Oxymorphone, Ur Not Detected ng/mL Cutoff: 25 28 Mqbwkgcgczc-6-dmkf-glucuronide Not Detected ng/mL 29 Noroxymorphone, Ur Not Detected ng/mL Cutoff: 25 30 Fentanyl, Ur Not Detected ng/mL Cutoff: 2 31 Norfentanyl, Ur Not Detected ng/mL Cutoff: 2 32 Meperidine, Ur Not Detected ng/mL Cutoff: 25 33 Normeperidine, Ur Not Detected ng/mL Cutoff: 25 34 Naloxone, Ur Not Detected ng/mL Cutoff: 25 35 Uqqawujh-7-ajhg-glucuronide, U Not Detected ng/mL 36 Methadone, Ur [...] Ur Not Detected ng/mL Cutoff: 50 44 Olbnjisikg-fepm-rghlxsxjeby, U Not Detected ng/mL 45 Buprenorphine, Ur Not Detected ng/mL Cutoff: 5 46 Norbuprenorphine, Ur Not Detected ng/mL Cutoff: 5 47 Norbuprenorphine glucuronide Not Detected ng/mL Cutoff: 20 48 Opioid Interpretation See Comment 49 Comp Metabolic 10/25/2018 [facility] Sodium 138 mmol/L Normal 135-[address] [place], [place] [id number] [phone] Potassium 4.3 mmol/L Normal 3.5-5.0 Chloride 106 [...] Egfr 141.9 >60 50 Lipid Profile 10/25/2018 [facility] Triglycerides 138 mg/dL 51 (Trig/Chol/HDL) [address] [place], [place] [address] [phone] Cholesterol 190 mg/dL 52 HDL Cholesterol 39.0 mg/dL 53 LDL Cholesterol 123 mg/dL 54 Urine Microalbumin 10/25/2018 [facility] Ur Microalbumin < 15.[address] (mg/L) mg/[place] [address] [phone] Urine Creatinine 37.71 mg/dL Urine Microalbumin/Creatinine TNP <31 55 Laboratory test 10/25/2018 [facility] PSA Screening 1.904 Normal 0-4.000 [address] ng/mL [place], [place] [address] [phone] Urinalysis 10/25/2018 [facility] Urine Color Straw Profile [address] [place] [address] [phone] Urine Appearance Clear Urine Specific Denbo 1.006 Low 1.010-1.030 Urine pH 5.0 Normal 5-9 Urine Urobilinogen Negative Negative Urine Ketones Negative Negative Urine Protein Negative Negative Urine Leukocytes Negative Negative Urine Blood 1+ Abnormal Negative Urine Nitrite Negative Negative Urine Bilirubin Negative Negative Urine Glucose Negative Negative Urine White Blood Cell Absent Absent Urine Red Blood Cell Trace(0-2/hpf) Absent Urine Bacteria Absent Absent Laboratory test 10/18/2018 [facility] Hemoglobin A1c 6.7 5-7 finding Xray 08/24/2018 [facility] Inj/Aspir Major JT Or <pending> [...] [address]: Madai Bearden MD Acct: [id number] Unit: [id number] AGE: 68 Location: [facility] Re12/04/18 SEX: M Status: REG REF SPEC: [id number] SHON: 12/04/[address] [facility] [address]: Madai Bearden MD REQ: [id number] RECD: 12/04/18 STATUS: BOO GOMES DR: Ty Luo MD _ SOURCE: URINE SPDESC: ORDERED: Urine Culture COMMENTS: CONRAD 12/12 QUERIES: Urine Source: Clean Catch Procedure Result Reported Site Urine Culture Final 12/05/18- 1155 ML No growth of clinically significant organisms * ML - Main Lab . END OF REPORT DEPARTMENT OF PATHOLOGY, [address] [place] [address] Jerald Velez M.D. Director [facility] # [id number] 9 Standard intensity warfarin therapeutic range: 2.0-3.0 High intensity warfarin therapeutic range: 2.5-3.5 10 REFERENCE VALUE Cutoff: 500 11 REFERENCE VALUE Cutoff: 200 12 REFERENCE VALUE Cutoff: 100 13 REFERENCE VALUE Cutoff: 150 14 ADDITIONAL INFORMATION This report is intended for use in clinical monitoring or management of patients. It is not intended for use in employment-related testing. Test Performed by: [facility] [address] [place] [address] Cigarette Carton Sealer: Emanuel Lovett M.D. Ph.D.; [facility]# [id number] 15 REFERENCE VALUE Cutoff: 200 mg/L 16 Tylenol 3 17 Metabolite of codeine REFERENCE VALUE Cutoff: 100 18 Elizabeth Morgan, MS Contin; Also a minor metabolite (10%) of codeine and can be seen in low concentrations (<2,000 ng/mL) with poppy seed ingestion. 19 Metabolite of morphine REFERENCE VALUE Cutoff: 100 20 Metabolite of heroin 21 Lortab, Roby, Vicodin; Also a very minor metabolite of [...] the presence of both morphine and metabolites (ofgbsltc-4-rntb-glucuronide, hydromorphone and eggpigezwptbk-8-nkdf-glucuronide). Suspect use of morphine and/or hydromorphone within the past three days. Alternatively, these results could also be suggestive of heroin use. Low levels of morphine can also be seen following poppy seed ingestion. Test detected the presence of hydromorphone and one of its metabolites (xnlpmerfxdoli-7-rimo-glucuronide). Suspect use of hydromorphone within the past three days. ADDITIONAL INFORMATION This test was developed and its performance characteristics determined by [facility] in a manner consistent with CLIA requirements. [...] levels of PSA measured using the Candice Tinnie DXI Hybritech immunoassay should not be interpreted as absolute evidence of the presence or absence of disease. The PSA value should be used in conjunction with other pertinent clinical diagnostic procedures. The values obtained with different assay methods or kits cannot be used interchangeably. Procedures Date Code Description Status 12/12/2018 49445 THR Total Hip Replacement Completed 12/12/2018 25993 THR Total Hip Replacement Completed 11/17/2018 08660 Stress Test Completed 11/17/2018 77355 Myocardial Perfusion Imaging Tomographic (Spect) Completed Multiple Studies 09/22/2018 28355 EKG Tracing & Interpretation Completed 08/24/2018 13583 Inj/Aspir Major JT Or Bursa W/ US Completed 03/31/2005 [id number] Colonoscopy Completed Medical Devices Description No Information Available Encounters Type Date Location Provider Dx Diagnosis Office Visit 01/02/2019 [facility] Silvano Pandey Z47.1 Aftercare following 1:45p at Teri Iqbal MD joint replacement surgery Z96.642 Presence of left artificial hip joint M16.12 Unilateral primary osteoarthritis, left hip L02.214 Cutaneous abscess of groin S31.103A Unsp opn wnd abd wall, right low q w/o penet perit cav, init Office Visit 12/21/2018 2:00p [facility] Internal Alpa Still, R60.0 Localized edema Medicine - Ccmob Z47.1 Aftercare following joint replacement surgery R23.8 Other skin changes Office Visit 12/13/2018 2:11p [facility] Emily Myrtle, I11.0 Hypertensive heart Assoc,pc PHONE TRIAGE SPECIALIST disease with heart Hospitalists failure I50.9 Heart failure, unspecified J44.9 Chronic obstructive pulmonary disease, unspecified G89.29 Other chronic pain F41.9 Anxiety disorder, unspecified K21.9 Gastro-esophageal reflux disease without esophagitis Office Visit 12/12/2018 [facility] Betsy Mcqueen, I11.0 Hypertensive heart 2:11p Assoc,pc PHONE TRIAGE SPECIALIST disease with heart Hospitalists failure I50.9 Heart failure, unspecified J44.9 Chronic obstructive pulmonary disease, unspecified K21.9 Gastro-esophageal reflux disease without esophagitis F41.8 Other specified anxiety disorders F17.200 Nicotine dependence, unspecified, uncomplicated Office Visit 11/21/2018 [facility] Louis I42.9 Cardiomyopathy, 1:00p [facility] unspecified [facility] Z01.810 Encounter for preprocedural cardiovascular examination M16.12 Unilateral primary osteoarthritis, left hip Office Visit 11/08/2018 [facility] Madai M16.12 Unilateral primary 9:00a Orthopedics at [facility] Bearden osteoarthritis, left [facility] hip Z01.818 Encounter for other preprocedural examination Office Visit 11/01/2018 10:00a [facility] Internal Myla Luo, Z01.818 Encounter for other Medicine - MD preprocedural Ccmob examination M16.12 Unilateral primary osteoarthritis, left hip F17.210 Nicotine dependence, cigarettes, uncomplicated I10 Essential (primary) hypertension E11.9 Type 2 diabetes mellitus without complications Office Visit 10/18/2018 10:00a [facility] Internal Myla Luo, E11.9 Type 2 diabetes Medicine - MD mellitus without Ccmob complications I10 Essential (primary) hypertension J44.9 Chronic obstructive pulmonary disease, unspecified E78.5 Hyperlipidemia, unspecified K21.9 Gastro-esophageal reflux disease without esophagitis F41.9 Anxiety disorder, unspecified L72.3 Sebaceous cyst H60.63 Unspecified chronic otitis externa, bilateral N40.1 Benign prostatic hyperplasia with lower urinary tract symp Office Visit 09/22/2018 9:00a [facility] Blu Louis M25.552 Pain in left Of Karla Deluca.Missy hip I42.9 Cardiomyopathy, unspecified Z01.810 Encounter for preprocedural cardiovascular examination M16.12 Unilateral primary osteoarthritis, left hip I10 Essential (primary) hypertension R94.31 Abnormal electrocardiogram [ECG] [EKG] Office Visit 09/06/2018 9:30a [facility] Madai Bearden, M25.552 Pain in left at [facility] M.D. hip M16.12 Unilateral primary osteoarthritis, left hip Office Visit 08/23/2018 [facility] Chauncey Morgan, M16.12 Unilateral primary 9:00a Orthopedics at D osteoarthritis, left [facility] hip Assessments Date Code Description Provider 02/07/2019 [...] I11.0 Hypertensive heart disease with heart Emily Mrytle, PHONE TRIAGE SPECIALIST failure 12/13/2018 I50.9 Heart failure, unspecified Emily Myrtle, PHONE TRIAGE SPECIALIST 12/13/2018 J44.9 Chronic obstructive pulmonary disease, Emily Myrtle, PHONE TRIAGE SPECIALIST unspecified 12/13/2018 G89.29 Other chronic pain Emily Myrtle, PHONE TRIAGE SPECIALIST 12/13/2018 F41.9 Anxiety disorder, unspecified Emily Myrtle, PHONE TRIAGE SPECIALIST 12/13/2018 K21.9 Gastro-esophageal reflux disease without Emily Myrtle, PHONE TRIAGE SPECIALIST esophagitis 12/12/2018 I11.0 Hypertensive heart disease with heart Betsy Mcqueen, KARL failure 12/12/2018 I50.9 Heart failure, unspecified Betsy Mcqueen, PHONE TRIAGE SPECIALIST 12/12/2018 M16.12 Unilateral primary osteoarthritis, left Luis Rosano, PA-C hip 12/12/2018 J44.9 Chronic obstructive pulmonary disease, Betsy Mcqueen, PHONE TRIAGE SPECIALIST unspecified 12/12/2018 M16.12 Unilateral primary osteoarthritis, left Madai Suleiman, M.D. hip 12/12/2018 K21.9 Gastro-esophageal reflux disease without Betsy Mcqueen, KARL esophagitis 12/12/2018 E66.01 Morbid (severe) obesity due to excess Luis Rosano, PA-C calories 12/12/2018 F41.8 Other specified anxiety disorders Betsy Mcqueen, KARL 12/12/2018 E66.01 Morbid (severe) obesity due to [...] daysFollow up :Follow up: next Tue with FatevM08.1 Aftercare following joint replacement surgery Functional Status Description No Information Available Mental Status Description No Information Available Referrals Refer to Reason for Referral Status Appt Date Wound Clinic right groin wound wound clinic reached out Patient Declined 00 to pt, he said he did not need to be seen as he is completely healed [address] [place] [address] [phone] Gorge Mancini MD pt not responding to tamsulosin Sent 01/16/[address] [place], [place] [address] [phone]
--- OUTSIDE RECORDS SUMMARY | 2019-02-18 10:39 | XMS REPORT ---
:1950 Author Organization [facility] Care Team Providers Name Role Phone Unavailable Unavailable Unavailable Problems Condition Condition Condition Status Onset Resolution Last Treating Comments Name Details Category Date Date Treatment Clinician Date Pain frequent Pain Mgmt Resolve 2018-022019-01-11 Moraima pain d 0-18 12:50:00 Chuck 12:25: [id number] Respiratory dyspnea Respirator Resolve 2018-022019-01-04 Moraima present y d 0-18 14:05:00 [place] 12:25: [id number] Endo/Giovanni anti-coagul Endo/Giovanni Resolve 2018-022019-01-04 Moraima ation d 0-18 14:05:00 [place] therapy 12:25: [id number] 00 Integument surgical Integument Resolve 2018-022019-01-11 Moraima wound d 0-18 12:50:00 [place] present 12:25: [id number] 00 Nutrition nutritional Nutrition Resolve 2018-022019-01-11 Moraima restriction d 0-18 12:50:00 [place] s 12:25: [id number] Elimination urinary Eliminatio Resolve 2018-022019-01-11 Moraima frequency n d 0-18 12:50:00 [place] 12:25: [id number] 00 Neuro anxiety Neuro/Emot Resolve 2018-022019-01-11 Moraima present ion d 0-18 12:50:00 [place] 12:25: [id number] 00 Activity ADL Activity Resolve 2018-022019-01-11 Moraima assistance d 0-18 12:50:00 [place] required 12:25: [id number] Activity self-care Activity Resolve 2018-022019-01-11 Moraima deficit d 0-18 12:50:00 Chuck 12:25: [id number] 00 Safety structural Safety Resolve 2018-022019-01-11 Moraima barriers d 0-18 12:50:00 [place] present 12:25: [id number] Safety fall risk Safety Resolve 2018-022019-01-11 Moraima factor d 0-18 12:50:00 [place] present 12:25: [id number] Safety risk for Safety Resolve 2018-022019-01-11 Moraima hospitaliza d 0-18 12:50:00 [place] tion 12:25: [id number] 00 Medication oral med Meds Resolve 2018-022019-01-11 Moraima assistance d 0-18 12:50:00 Chuck required 12:25: [id number] 00 Medication knowledge/s Meds Resolve 2018-022019-01-11 Moraima kill d 0-18 12:50:00 [place] deficit: pt 12:25: [id number] 00 Musculoskel transfer Musculoske Resolve 2018-022019-01-04 Moraima etal assistance letal d 0-18 14:05:00 [place] required 12:25: [id number] 00 Musculoskel requires Musculoske Resolve 2018-022019-01-04 Moraima etal human letal d 0-18 14:05:00 [place] assist to 12:25: [id number] leave home 00 Bed mobility/tr PT/OT: Bed Resolve 2018-022019-01-03 Skyla Mobility/Tr ansfer Mobility/T d 0-18 14:55:00 Yang ansfer device ransfer 14:29: [id number] present 00 Bed transfer PT/OT: Bed Resolve 2018-022019-01-03 Skyla Mobility/Tr deficit: Mobility/T d 0-18 14:55:00 Yang ansfer sit/stand ransfer 14:29: [id number] 00 Bed transfer PT/OT: Bed Resolve 2018-022019-01-03 Skyla Mobility/Tr deficit: Mobility/T d 0-18 14:55:00 Yang ansfer standing ransfer 14:29: [id number] pivot 00 Bed transfer PT/OT: Bed Resolve 2018-022019-01-03 Skyla Mobility/Tr deficit: Mobility/T d 0-18 14:55:00 Yang ansfer toilet/comm ransfer 14:29: [id number] 00 Bed transfer PT/OT: Bed Resolve 2018-022019-01-03 Skyla Mobility/Tr deficit: Mobility/T d 0-18 14:55:00 Yang ansfer shower/tub ransfer 14:29: [id number] 00 Bed knowledge/s PT/OT: Bed Resolve 2018-022019-01-03 Skyla Mobility/Tr kill Mobility/T d 0-18 14:55:00 Yang ansfer deficit: pt ransfer 14:29: [id number] 00 Bed bed PT/OT: Bed Resolve 2018-022019-01-03 Skyla Mobility/Tr mobility Mobility/T d 0-18 14:55:00 Yang ansfer deficit ransfer 14:29: [id number] 00 Balance/End balance/billing coordinator PT/OT: Resolve 2018-022019-01-03 Skyla hill rdination Balance/En d 0-18 14:55:00 Yang deficit durance 14:29: [id number] Balance/End knowledge/s PT/OT: Resolve 2018-022019-01-03 Skyla hill kill Balance/En d 0-18 14:55:00 Yang deficit: pt durance 14:29: [id number] 00 Gait/Locomo stair PT/OT: Resolve 2018-022019-01-10 Skyla tion management Gait/Locom d 0-18 10:01:00 Yang problems req otion 14:29: [id number] Gait/Locomo gait PT/OT: Resolve 2018-022019-01-10 Skyla tion assistive Gait/Locom d 0-18 10:01:00 Yang problems device otion 14:29: [id number] present 00 Gait/Locomo knowledge/s PT/OT: Resolve 2018-022019-01-10 Skyla dashon kill Gait/Locom d 0-18 10:01:00 Yang problems deficit: pt otion 14:29: [id number] 00 Gait/Locomo gait PT/OT: Resolve 2018-022019-01-10 Skyla tion deficit Gait/Locom d 0-18 10:01:00 Yang problems otion 14:29: [id number] 00 Integument skin Integument Resolve 2018-022019-01-11 Audra [...]
--- OUTSIDE RECORDS SUMMARY | 2019-02-18 10:39 | XMS REPORT ---
:1950 Author Organization [facility] Care Team Providers Name Role Phone Unavailable Unavailable Unavailable Problems Condition Condition Condition Status Onset Resolution Last Treating Comments Name Details Category Date Date Treatment Clinician Date Pain frequent Pain Mgmt Active 2018-02 Moraima pain 0-18 [place] 12:25: [id number] Respiratory dyspnea Respirator Active 2018-02 Moraima present y 0 [place] 12:25: [id number] Endo/Giovanni anti-coagul Endo/Giovanni Active 2018-02 Moraima ation 018 [place] therapy 12:25: [id number] Integument surgical Integument Active 2018-02 Moraima wound 018 [place] present 12:25: [id number] Nutrition nutritional Nutrition Active 2018-02 Moraima restriction 0-18 [place] s 12:25: [id number] 00 Elimination urinary Eliminatio Active 2018-02 Moraima frequency n 0-18 [place] 12:25: [id number] 00 Neuro anxiety Neuro/Emot Active 2018-02 Moraima present ion 018 [place] 12:25: [id number] 00 Activity ADL Activity Active 2018-02 Moraima assistance 0-18 [place] required 12:25: [id number] Activity self-care Activity Active 2018-02 Moraima deficit 0-18 [place] 12:25: [id number] 00 Safety structural Safety Active 2018- Moraima barriers 0-18 [place] present 12:25: [id number] Safety fall risk Safety Active 2018- Moraima factor 0-18 [place] present 12:25: [id number] Safety risk for Safety Active 2018-02 Moraima hospitaliza 018 [place] tion 12:25: [id number] 00 Medication oral med Meds Active 2018-02 Moraima assistance 0-18 [place] required 12:25: [id number] Medication knowledge/s Meds Active 2018-02 Moraima kill 0-18 [place] deficit: pt 12:25: [id number] 00 Musculoskel transfer Musculoske Active 2018-02 Moraima etal assistance letal 0-18 Chuck required 12:25: [id number] 00 Musculoskel requires Musculoske Active 2018-02 Moraima etal human letal 0-18 [place] assist to 12:25: [id number] leave home 00 Bed mobility/tr PT/OT: Bed Resolve 2018-022019-01-03 Skyla Mobility/Tr ansfer Mobility/T d 0-18 14:55:00 Yang ansfer device ransfer 14:29: [id number] present 00 Bed transfer PT/OT: Bed Resolve 2018-022019-01-03 Skyla Mobility/Tr deficit: Mobility/T d 0-18 14:55:00 Yang ansfer sit/stand ransfer 14:29: [id number] Bed transfer PT/OT: Bed Resolve 2018-022019-01-03 Skyla Mobility/Tr deficit: Mobility/T d 0-18 14:55:00 Yangluli martinezfer standing ransfer 14:29: [id number] pivot 00 Bed transfer PT/OT: Bed Resolve 2018-022019-01-03 Skyla Mobility/Tr deficit: Mobility/T d 0-18 14:55:00 Yangluli martinezfer toilet/comm ransfer 14:29: [id number] ode 00 Bed transfer PT/OT: Bed Resolve 2018-022019-01-03 Skyla Mobility/Tr deficit: Mobility/T d 0-18 14:55:00 Trey munoz shower/tub ransfer 14:29: [id number] 00 Bed knowledge/s PT/OT: Bed Resolve 2018-022019-01-03 Skyla Mobility/Tr kill Mobility/T d 0-18 14:55:00 Yang ansfer deficit: pt ransfer 14:29: [id number] 00 Bed bed PT/OT: Bed Resolve 2018-022019-01-03 Skyla Mobility/Tr mobility Mobility/T d 0-18 14:55:00 Yang ansfer deficit ransfer 14:29: [id number] Balance/End balance/community recreation coordinator PT/OT: Resolve 2018-022019-01-03 Skyla urance rdination Balance/En d 0-18 14:55:00 Yang deficit durance 14:29: [id number] 00 Balance/End knowledge/s PT/OT: Resolve 2018-022019-01-03 Skyla hill kill Balance/En d 0-18 14:55:00 Yang deficit: pt durance 14:29: [id number] 00 Gait/Locomo stair PT/OT: Active 2018-02 Skyla tion management Gait/Locom 0-18 Yang problems req otion 14:29: [id number] 00 Gait/Locomo gait PT/OT: Active 2018-02 Skyla tion assistive Gait/Locom 0-18 Yang problems device otion 14:29: [id number] present 00 Gait/Locomo knowledge/s PT/OT: Active 2018-02 Skyla tion kill Gait/Locom 0-18 Yang problems deficit: pt otion 14:29: [id number] 00 Gait/Locomo gait PT/OT: Active 2018-02 Skyla tion deficit Gait/Locom 0-18 Yang problems otion 14:29: [id number] 00 Integument skin Integument Active 2018-02 Audra [...]
--- OUTSIDE RECORDS SUMMARY | 2019-02-18 10:39 | XMS REPORT | Continuity of Care Document ---
:1950 External Reference #:[id number] Author Name Madai Bearden M.D. (transmitted by agent of provider Nikki Padilla) Address [address] [place] [id number] Care Team Providers Name Role Phone Montrell Prado MD - Vp Cardiovascular Care Team Information Executive Receptionist [phone] Madai Bearden MD - Adult Care Team Information Executive Receptionist [phone] Reconstructive Orthopaedic Surgery Jackeline Garcia MD - Pulmonary Care Team Information Executive Receptionist [phone] Disease Michael Diaz MD - Care Team Information Executive Receptionist [phone] Ophthalmology Myla Luo M.D. - Family Medicine Care Team Information Executive Receptionist [phone] Problems Active Problems Provider Date Type 2 [...] smoker, smokes every day Smoking Status Reviewed: 01/05/19 Patient is a current smoker, smokes every day Exercise Type/Frequency Does not exercise Allergies, Adverse Reactions, Alerts Active Allergies Reaction Severity Comments Date Oxycodone 11/09/2010 Medications Active Medications SIG Qnty Indications Ordering Date Provider Cephalexin 1 tab by mouth 30caps Silvano F 01/02/2019 500mg three times a day MD Rasheed Capsules for 10 days Compression 20/30 s/p left YARELY; 1unleodan Bearden, 12/22/2018 Stockings 67" 268lbs M.D. [facility] To[place]t [place] s/p left hip 1unleodan Bearden, 12/07/2018 Elevator replacement 67" M.D. Mis 268lbs Adjust Bath/Shower 67" 268lbs dx: s/p 1unleodan Bearden, 12/07/2018 Seat left hip M.DPrieto Mis replacement Walker rolling walker with 1units Madai Bearden, 12/07/2018 [facility] seat dx: s/p left M.D. hip replacement 67" 268lb Nicoderm CQ apply one to skin 28units F17.210 Myla Luo MD 11/01/2018 every day 21mg/24HR Patches 24HR Symbicort inhale two puffs by 20.4unleodan J44.9 Myla Luo MD 10/18/2018 mouth twice [...] day for (Otic) 5 days as needed [id number] Solution Lonny Hightower M16.12 Chauncey Morgan, 08/23/2018 Wheels/5 MPrietoD. Adjustment Holes/-03/07" 1-03/07" [facility] 07/15/2017 isak Madrigal M.D.,FACP Sertraline HCL 1 by mouth every 30tabs Myla Luo MD 07/15/2017 day 50mg Tablets Lisinopril 1 by mouth every 30tabs Myla Luo MD 03/31/2017 5mg day Tablets Shower Bench shower bench s/p 1unleodan Bearden, 08/23/2016 total hip M.D. replacement Cane standard adjustable 1unleodan Bearden, 08/18/2016 [facility] height cane. M.D. Ventolin HFA 2 puffs by mouth martin J43.9 Myla Luo MD 08/20/2015 four times [...] 81mg Tablets remembers) Vitamin D3 daily Unknown 50569Npnp Capsules Tamsulosin HCL take 2 capsules by 180caps R35.0 Myla Luo MD mouth at bedtime 0.4mg Capsules Morphine Sulfate 1 by mouth twice a Unknown ER day 15mg Tablets ER Eliquis Reshma Ortega, 2.5mg PA Tablets Tramadol HCL Reshma Ortega, 50mg PA Tablets Tylenol Extra 1-2 tabs by mouth Unknown Strength every 6 hours as 500mg needed Tablets Docusate Sodium 1 tab every 12 Unknown hours as needed for 100mg Capsules constipation History Medications Keflex 1 by mouth 4 28caps M16.12 Madai Bearden, 12/22/2018 - 500mg times a day for M.DPrieto 01/01/2019 Capsules 7 days Medications Administered in Office Medication SIG Qnty [...] CPT Code Status Date Vaccine Lot # [id number] Given 01/20/2017 Influenza Virus Vaccine, Quadrivalent, Split, Preservative Free 96521 Given 06/14/2016 Pneumococcal Conjugate Vaccine 13 Valent For [id number] Intramuscular Use 52987 Given 02/29/2016 Influ Virus Vaccine, Quadrivalent, Split Virus, [place] [address] Given 11/28/2014 Flu Vaccine Split Virus Preservative Free For Indiv 3Yr Older 19374 Given 12/25/2012 Pneumonia Vaccine [id number] 53599 Given 12/25/2012 Flu Vaccine Split Virus Preservative Free For [id number] Indiv 3Yr Older [id number] Given 12/03/2011 Fluzone Vaccine 05962 Given 02/11/2011 Zoster (Zostavax) [id number] 61375 Given 11/09/2010 Pneumonia Vaccine [id number] 50515 Given 11/09/2010 Influenza Virus 3Yrs & Over [id number] 60926 Given Unknown Influenza Virus Vaccine, Quadrivalent, Split, Im Use 6-35mo 61011 Given Unknown Influenza Virus 3Yrs & Over Vital Signs Date Vital Result Comment 01/05/2019 11:32am Height 67 inches 5'7" Heart Rate 72 /min BP Systolic 144 mmHg BP Diastolic 82 mmHg Respiratory Rate 18 /min Body Temperature 97.4 F Pain Level 2 01/03/2019 11:38am Height 67 inches 5'7" Weight 280.00 lb Heart Rate 85 /min BP Systolic 134 mmHg BP Diastolic 64 mmHg Body Temperature 98.2 F Pain Level 4 BMI (Body Mass Index) 43.8 kg/m2 Results Test Acquired Date Facility Test Result H/L Range Note CBC Auto 12/21/2018 [facility] White Blood 8.6 10^3/uL Normal 3.5-10.[address] [place] [address] [phone] Red Blood Count 3.47 10^6/uL Low 4.18-5.48 [...] Red Blood Cells % 0.0 Inr/Protime 12/21/2018 [facility] Inr 1.09 Normal 0.82-1.[address] [place] [address] [phone] Comp Metabolic 12/21/2018 [facility] Sodium 132 mmol/L Low 135 -145 Panel [address] [place] [address] [phone] Potassium 4.2 mmol/L Normal 3.5-5.0 Chloride 100 [...] Egfr 167.6 >60 2 Urinalysis Profile 12/04/2018 [facility] Urine Color Yellow 3 [address] [place] [address] [phone] Urine Appearance Clear Urine Specific Ransom 1.013 Normal 1.010-1.030 Urine pH 5.0 Normal 5-9 Urine Urobilinogen Negative Negative Urine Ketones Negative Negative Urine Protein Negative Negative Urine Leukocytes Negative Negative Urine Blood Negative Negative * * Abnormal Negative 4 Urine Nitrite Negative Negative Urine Bilirubin Negative Negative Urine Glucose Negative Negative Inr/Protime 12/04/2018 [facility] Inr 0.95 Normal 0.82-1.[address] [place] [address] [phone] Laboratory test 12/04/2018 [facility] Partial 37.4 Normal 26.0 -38.[address] [place] [address] Time PTT [phone] Comp Metabolic 12/04/2018 [facility] Sodium 137 mmol/L Normal 135-[address] [place] [address] [phone] Potassium 4.4 mmol/L Normal 3.5-5.0 Chloride 104 [...] 164.3 >60 7 Type & Screen 12/04/2018 [facility] Patient Blood Type O Negative [address] [place] [address] [phone] Antibody Screen NEGATIVE Urine Culture And 12/04/2018 [facility] Urine SEE RESULT [address] [place] [address] [phone] CBC Auto Diff 11/13/2018 [facility] White Blood 8.0 10^3/uL Normal 3.5-[address] Count 0.8 [place] [address] [phone] Red Blood Count 4.71 10^6/uL Normal 4.18-5.48 [...] Red Blood Cells % 0.1 Inr/Protime 11/13/2018 [facility] Inr 1.01 Normal 0.82-1.[address] [place] [address] [phone] Laboratory 11/13/2018 [facility] Partial 35.4 Normal 26.0- 38.0 test finding [address] [place] [address] PTT [phone] Drug Abuse 20 11/07/2018 [facility] Urine Negative [address] Amphetamine ng/[place] [address] [phone] Urine Barbiturates Negative ng/mL 11 Urine Benzodiazepines Negative ng/mL 12 Urine Cocaine Negative ng/mL 13 Urine Phencyclidine Negative ng/mL Cutoff: 25 Urine Tetrahydrocannabinol Negative ng/mL Cutoff: 50 14 Creatinine, Urine 41.5 mg/dL Specific Ransom 1.009 pH 6.1 Oxidants Negative 15 Adulterants Comment Normal Codeine, Ur Not Detected ng/mL Cutoff: 25 16 Xacfiju-3-qszy-glucuronide, Ur Not Detected ng/mL 17 Morphine, Ur Present ng/mL Abnormal Cutoff: 25 18 Czorsipp-2-geps-glucuronide, U Present ng/mL Abnormal 19 6-monoacetylmorphine, Ur Not Detected ng/mL Cutoff: 25 20 Hydrocodone, Ur Not Detected ng/mL Cutoff: 25 21 Norhydrocodone, Ur Not Detected ng/mL Cutoff: 25 22 Dihydrocodeine, Ur Not Detected ng/mL Cutoff: 25 23 Hydromorphone, Ur Present ng/mL Abnormal Cutoff: 25 24 Vhctkieqznnjz0srgrlgmdrjtmihm Present ng/mL Abnormal 25 Oxycodone, Ur Not Detected ng/mL Cutoff: 25 26 Noroxycodone, Ur Not Detected ng/mL Cutoff: 25 27 Oxymorphone, Ur Not Detected ng/mL Cutoff: 25 28 Erpuyduxygq-5-sswl-glucuronide Not Detected ng/mL 29 Noroxymorphone, Ur Not Detected ng/mL Cutoff: 25 30 Fentanyl, Ur Not Detected ng/mL Cutoff: 2 31 Norfentanyl, Ur Not Detected ng/mL Cutoff: 2 32 Meperidine, Ur Not Detected ng/mL Cutoff: 25 33 Normeperidine, Ur Not Detected ng/mL Cutoff: 25 34 Naloxone, Ur Not Detected ng/mL Cutoff: 25 35 Bbaxdxmc-6-cpab-glucuronide, U Not Detected ng/mL 36 Methadone, Ur [...] Ur Not Detected ng/mL Cutoff: 50 44 Vobqqtmmlq-pgom-ohevtxsbucm, U Not Detected ng/mL 45 Buprenorphine, Ur Not Detected ng/mL Cutoff: 5 46 Norbuprenorphine, Ur Not Detected ng/mL Cutoff: 5 47 Norbuprenorphine glucuronide Not Detected ng/mL Cutoff: 20 48 Opioid Interpretation See Comment 49 Comp Metabolic 10/25/2018 [facility] Sodium 138 mmol/L Normal 135-[address] [place] [address] [phone] Potassium 4.3 mmol/L Normal 3.5-5.0 Chloride 106 [...] Egfr 141.9 >60 50 Lipid Profile 10/25/2018 [facility] Triglycerides 138 mg/dL 51 (Trig/Chol/HDL) [address] [place] [address] [phone] Cholesterol 190 mg/dL 52 HDL Cholesterol 39.0 mg/dL 53 LDL Cholesterol 123 mg/dL 54 Urine Microalbumin 10/25/2018 [facility] Ur Microalbumin < 15.[address] (mg/L) mg/[place] [address] [phone] Urine Creatinine 37.71 mg/dL Urine Microalbumin/Creatinine TNP <31 55 Laboratory test 10/25/2018 [facility] PSA Screening 1.904 Normal 0-4.000 [address] ng/[place] [address] [phone] Urinalysis 10/25/2018 [facility] Urine Color Straw Profile [address] [place] [address] [phone] Urine Appearance Clear Urine Specific Ransom 1.006 Low 1.010-1.030 Urine pH 5.0 Normal 5-9 Urine Urobilinogen Negative Negative Urine Ketones Negative Negative Urine Protein Negative Negative Urine Leukocytes Negative Negative Urine Blood 1+ Abnormal Negative Urine Nitrite Negative Negative Urine Bilirubin Negative Negative Urine Glucose Negative Negative Urine White Blood Cell Absent Absent Urine Red Blood Cell Trace(0-2/hpf) Absent Urine Bacteria Absent Absent Laboratory test 10/18/2018 [facility] Hemoglobin A1c 6.7 5-7 finding Xray 08/24/2018 [facility] Inj/Aspir Major JT Or <pending> [...] [address]: Madai Bearden MD Acct: [id number] Unit: [id number] AGE: 68 Location: PAT Re12/04/18 SEX: M Status: REG REF SPEC: [id number] SHON: 12/04/[address]: Madai Bearden MD REQ: [id number] RECD: 12/04/18 STATUS: BOO GOMES DR: Ty Luo MD _ SOURCE: URINE SPDESC: ORDERED: Urine Culture COMMENTS: CONRAD 12/12 QUERIES: Urine Source: Clean Catch Procedure Result Reported Site Urine Culture Final 12/05/18- 1155 ML No growth of clinically significant organisms * ML - Main Lab . END OF REPORT DEPARTMENT OF PATHOLOGY, [address] [place] [address] Jerald Velez M.D. Director [facility] # [id number] 9 Standard intensity warfarin therapeutic range: 2.0-3.0 High intensity warfarin therapeutic range: 2.5-3.5 10 REFERENCE VALUE Cutoff: 500 11 REFERENCE VALUE Cutoff: 200 12 REFERENCE VALUE Cutoff: 100 13 REFERENCE VALUE Cutoff: 150 14 ADDITIONAL INFORMATION This report is intended for use in clinical monitoring or management of patients. It is not intended for use in employment-related testing. Test Performed by: [facility] [employer] - [facility] [address] [place] [address] Boat Wrapper: Emanuel Lovett M.D. Ph.D.; [facility]# [id number] 15 REFERENCE VALUE Cutoff: 200 mg/L 16 Tylenol 3 17 Metabolite of codeine REFERENCE VALUE Cutoff: 100 18 Elizabeth Morgan, Contin; Also a minor metabolite (10%) of codeine and can be seen in low concentrations (<2,000 ng/mL) with poppy seed ingestion. 19 Metabolite of morphine REFERENCE VALUE Cutoff: 100 20 Metabolite of heroin 21 Lortab, Orrick, Vicodin; Also a very minor metabolite of [...] the presence of both morphine and metabolites (fdqeyxak-4-esly-glucuronide, hydromorphone and yrjbjxewckhxc-6-dsvo-glucuronide). Suspect use of morphine and/or hydromorphone within the past three days. Alternatively, these results could also be suggestive of heroin use. Low levels of morphine can also be seen following poppy seed ingestion. Test detected the presence of hydromorphone and one of its metabolites (imxhbkjtbhpci-7-uxse-glucuronide). Suspect use of hydromorphone within the past three days. ADDITIONAL INFORMATION This test was developed and its performance characteristics determined by [facility] in a manner consistent with CLIA [...] Serum levels of PSA measured using the [employer] DXI Hybritech immunoassay should not be interpreted as absolute evidence of the presence or absence of disease. The PSA value should be used in conjunction with other pertinent clinical diagnostic procedures. The values obtained with different assay methods or kits cannot be used interchangeably. Procedures Date Code Description Status 12/12/2018 82988 THR Total Hip Replacement Completed 12/12/2018 58656 THR Total Hip Replacement Completed 11/17/2018 64671 Stress Test Completed 11/17/2018 99796 Myocardial Perfusion Imaging Tomographic (Spect) Completed Multiple Studies 09/22/2018 07234 EKG Tracing & Interpretation Completed 08/24/2018 24627 Inj/Aspir Major JT Or Bursa W/ US Completed 03/31/2005 11255470 Colonoscopy Completed Medical Devices Description No Information Available Encounters Type Date Location Provider Dx Diagnosis Office Visit 12/13/2018 [facility] Emily Danielsonulx, I11.0 Hypertensive heart 2:11p Assoc,pc [employer] INTERN disease with heart Hospitalists failure I50.9 Heart failure, unspecified J44.9 Chronic obstructive pulmonary disease, unspecified G89.29 Other chronic pain F41.9 Anxiety disorder, unspecified K21.9 Gastro-esophageal reflux disease without esophagitis Office Visit 12/12/2018 [facility] Betsy Mcqueen, I11.0 Hypertensive heart 2:11p Assoc,pc CUSTOMER SUCCESS INTERN disease with heart Hospitalists failure I50.9 Heart failure, unspecified J44.9 Chronic obstructive pulmonary disease, unspecified K21.9 Gastro-esophageal reflux disease without esophagitis F41.8 Other specified anxiety disorders F17.200 Nicotine dependence, unspecified, uncomplicated Office Visit 11/21/2018 [place] I42.9 Cardiomyopathy, 1:00p [facility] unspecified [facility] Z01.810 Encounter for preprocedural cardiovascular examination M16.12 Unilateral primary osteoarthritis, left hip Office Visit 11/08/2018 Owen Aj M16.12 Unilateral primary 9:00a [facility]oped[facility] at [facility] Bearden osteoarthritis, left [place] hip Z01.818 Encounter for other preprocedural examination Office Visit 11/01/2018 10:00a [facility] Internal Myla Luo, Z01.818 Encounter for other Medicine - MD preprocedural Ccmob examination M16.12 Unilateral primary osteoarthritis, left hip F17.210 Nicotine dependence, cigarettes, uncomplicated I10 Essential (primary) hypertension E11.9 Type 2 diabetes mellitus without complications Office Visit 10/18/2018 10:00a [facility] Myla Luo, E11.9 Type 2 diabetes Medicine - MD mellitus without Ccmob complications I10 Essential (primary) hypertension J44.9 Chronic obstructive pulmonary disease, unspecified E78.5 Hyperlipidemia, unspecified K21.9 Gastro-esophageal reflux disease without esophagitis F41.9 Anxiety disorder, unspecified L72.3 Sebaceous cyst H60.63 Unspecified chronic otitis externa, bilateral N40.1 Benign prostatic hyperplasia with lower urinary tract symp Office Visit 09/22/2018 9:00a [place] [facility] Blu Louis M25.552 Pain in left Of Fany Lagunas M.D. hip I42.9 Cardiomyopathy, unspecified Z01.810 Encounter for preprocedural cardiovascular examination M16.12 Unilateral primary osteoarthritis, left hip I10 Essential (primary) hypertension R94.31 Abnormal electrocardiogram [ECG] [EKG] Office Visit 09/06/2018 9:30a [facility] Madai Bearden, M25.552 [facility]12 Unilateral primary osteoarthritis, left hip Office Visit 08/23/2018 Owen Morgan M16.12 Unilateral primary 9:00a [facility] [place] osteoarthritis, left [place] hip Assessments Date Code Description Provider 01/05/2019 Z47.1 Aftercare following joint replacement Madai Bearden M.D. surgery 01/05/2019 Z96.642 Presence of left artificial hip joint Madai Bearden M.D. 01/03/2019 Z47.1 Aftercare following joint replacement Madai Bearden M.D. surgery 01/03/2019 M16.12 Unilateral primary osteoarthritis, left hip Madai Bearden M.D. 12/27/2018 M16.12 Unilateral primary osteoarthritis, left hip [...] following joint replacement Alpa Still MD surgery 12/13/2018 I11.0 Hypertensive heart disease with heart Emily Myrtle, C[employer]ER [employer] INTER[employer] failure 12/13/2018 I50.9 Heart failure, unspecified Emily Myrtle, CUSTOMER SUCCESS INTERN 12/13/2018 J44.9 Chronic obstructive pulmonary disease, Emily Myrtle, CUSTOMER SUCCESS INTERN unspecified 12/13/2018 G89.29 Other chronic pain Emily Myrtle, CUSTOMER SUCCESS INTERN 12/13/2018 F41.9 Anxiety disorder, unspecified Emily Myrtle, CUSTOMER SUCCESS INTERN 12/13/2018 K21.9 Gastro-esophageal reflux disease without Emily Myrtle, CUSTOMER SUCCESS INTERN esophagitis 12/12/2018 I11.0 Hypertensive heart disease with heart Betsy Mcqueen, CUSTOMER SUCCESS INTERN failure 12/12/2018 I50.9 Heart failure, unspecified Betsy Mcqueen, CUSTOMER SUCCESS INTERN 12/12/2018 M16.12 Unilateral primary osteoarthritis, left hip Luis Kaur PA-C 12/12/2018 J44.9 Chronic obstructive pulmonary disease, Betsy Mcqueen, CUSTOMER SUCCESS INTERN unspecified 12/12/2018 M16.12 Unilateral primary osteoarthritis, left hip Madai Bearden M.D. 12/12/2018 K21.9 Gastro-esophageal reflux disease without Betsy Mcqueen, KARL esophagitis 12/12/2018 E66.01 Morbid (severe) obesity due to excess Luis Rosano, PA-C calories 12/12/2018 F41.8 Other specified anxiety disorders Betsy Mcqueen, KARL 12/12/2018 E66.01 Morbid (severe) obesity due to excess Madai Bearden M.D. calories 12/12/2018 F17.200 Nicotine dependence, unspecified, Betsy Mcqeuen, KARL uncomplicated 12/04/2018 M25.552 Pain in left [...] Chauncey Morgan M.D. Plan of Treatment Future Appointment(s):01/15/2019 11:15 am - Madai Bearden M.D. at [facility] at Iyryml4505/02/2019 10:40 am - Myla Luo MD at [facility] Internal Medicine - [facility]01/05/2019 - Madai Bearden M.D.Z47.1 Aftercare following joint replacement surgeryFollow up:Follow up: 1 week with Suleiman; still needs appt with wound clinic. Suleiman will dictate note.Z96.642 Presence of left artificial hip joint Functional Status Description No Information Available Mental Status Description No Information Available Referrals Refer to Dr Reason for Referral Status Appt Date Wound Clinic right groin wound Created [address] [place] [address] [phone] Gorge Mancini MD pt not responding to tamsulosin Sent 01/16/[address] [place] [address] [place] [address] [phone]
--- OUTSIDE RECORDS SUMMARY | 2019-02-18 10:40 | XMS REPORT | Continuity of Care Document ---
:1950 External Reference #:[id number] Author Name Madai Bearden M.D. (transmitted by agent of provider Nikki Padilla) Address [address] [place] [id number] Care Team Providers Name Role Phone Montrell Prado MD - Brand Sales Consultant Care Team Information Juvenile Court Judge Madai Bearden MD - Adult Care Team Information Juvenile Court Judge [phone] Reconstructive Orthopaedic Surgery Jackeline Garcia MD - Pulmonary Care Team Information Juvenile Court Judge Disease Michael Diaz MD - Care Team Information Juvenile Court Judge [phone] Ophthalmology Myla Luo M.D. - Family Medicine Care Team Information Juvenile Court Judge Problems Active Problems Provider Date Type 2 [...] smoker, smokes every day Smoking Status Reviewed: 12/22/18 Patient is a current smoker, smokes every day Exercise Type/Frequency Does not exercise Allergies, Adverse Reactions, Alerts Active Allergies Reaction Severity Comments Date Oxycodone 11/09/2010 Medications Active Medications SIG Qnty Indications Ordering Date Provider Keflex 1 by mouth 4 times 28caps M16.12 Madai Bearden, 12/22/2018 500mg a day for 7 days M.DPrieto Capsules Compression 20/30 s/p left YARELY; 1units Madai Bearden, 12/22/2018 Stockings 67" 268lbs M.D. [facility] Toilet Seat s/p left hip 1units Madai Bearden, 12/07/2018 Elevator replacement 67" M.D. Misc 268lbs Adjust Bath/Shower 67" 268lbs dx: s/p 1unleodan Madai Bearden, 12/07/2018 Seat left hip M.D. Misc replacement Walker rolling walker with 1units Madai Bearden, 12/07/2018 [facility] seat dx: s/p left M.D. hip replacement [...] day for (Otic) 5 days as needed [id number] Solution Lonny Hightower M16.12 Chauncey Morgan, 08/23/2018 Wheels/5 M.D. Adjustment Holes/-03/07" 1-03/07" [facility] CBD Oil OTC at [facility] Emmanuel D. 07/15/2017 isak Madrigal M.D.,FACP Sertraline HCL 1 by mouth every 30tabs Myla Luo MD 07/15/2017 day 50mg Tablets Lisinopril 1 by mouth every 30tabs Myla Luo MD 03/31/2017 5mg day Tablets Shower Bench shower bench s/p 1units Madai Bearden, 08/23/2016 total hip M.D. replacement Cane standard adjustable 1units Madai Bearden, 08/18/2016 [facility] height cane. M.D. Ventolin HFA 2 puffs [...] 81mg Tablets remembers) Vitamin D3 daily Unknown 89333Knbs Capsules Tamsulosin HCL take 2 capsules by [...] hours as needed for 100mg Capsules constipation Medications Administered in Office Medication SIG Qnty [...] CPT Code Status Date Vaccine Lot # [id number] Given 01/20/2017 Influenza Virus Vaccine, Quadrivalent, Split, Preservative Free [id number] Given 06/14/2016 Pneumococcal Conjugate Vaccine 13 Valent For [id number] Intramuscular Use 57207 Given 02/29/2016 Influ Virus Vaccine, Quadrivalent, Split Virus, [place] [address] Given 11/28/2014 Flu Vaccine Split Virus Preservative Free For Indiv 3Yr Older 75626 Given 12/25/2012 Pneumonia Vaccine [id number] 45554 Given 12/25/2012 Flu Vaccine Split Virus Preservative Free For [id number] Indiv 3Yr Older [id number] Given 12/03/2011 Fluzone Vaccine 00319 Given 02/11/2011 Zoster (Zostavax) [id number] 27802 Given 11/09/2010 Pneumonia Vaccine [id number] 61592 Given 11/09/2010 Influenza Virus 3Yrs & Over [id number] 45794 Given Unknown Influenza Virus Vaccine, Quadrivalent, Split, Im Use 6-35mo 40988 Given Unknown Influenza Virus 3Yrs & Over Vital Signs Date Vital Result Comment 12/22/2018 1:27pm Height 67 inches 5'7" Weight 279.00 lb Heart Rate 80 /min BP Systolic 118 mmHg BP Diastolic 80 mmHg Body Temperature 96.5 F BMI (Body Mass Index) 43.7 kg/m2 12/21/2018 2:21pm Height 67 inches 5'7" Weight 278.00 lb Heart Rate 82 /min BP Systolic Sitting 117 mmHg BP Diastolic Sitting 58 mmHg Pain Level 5 O2 % BldC Oximetry 95 % BMI (Body Mass Index) 43.5 kg/m2 Results Test Date Facility Test Result H/L Range Note CBC Auto 12/21/2018 [facility] White Blood 8.6 10^3/uL Normal 3.5-10.[address] [place] [address] [phone] Red Blood Count 3.47 10^6/uL Low 4.18-5.48 [...] Red Blood Cells % 0.0 Inr/Protime 12/21/2018 [facility] Inr 1.09 Normal 0.82-1.09 1 [address] [place] [address] [phone] Comp Metabolic 12/21/2018 [facility] Sodium 132 mmol/L Low 135 -145 Panel [address] [place] [address] [phone] Potassium 4.2 mmol/L Normal 3.5-5.0 Chloride 100 [...] Egfr 167.6 >60 2 Urinalysis Profile 12/04/2018 [facility] Urine Color Yellow 3 [address] [place] [address] [phone] Urine Appearance Clear Urine Specific [place] 1.013 Normal 1.010-1.030 Urine pH 5.0 Normal 5-9 Urine Urobilinogen Negative Negative Urine Ketones Negative Negative Urine Protein Negative Negative Urine Leukocytes Negative Negative Urine Blood Negative Negative * * Abnormal Negative 4 Urine Nitrite Negative Negative Urine Bilirubin Negative Negative Urine Glucose Negative Negative Inr/Protime 12/04/2018 [facility] Inr 0.95 Normal 0.82-1.[address] [place] [address] [phone] Laboratory test 12/04/2018 [facility] Partial 37.4 Normal 26.0 -38.[address] [place] [address] Time PTT [phone] Comp Metabolic 12/04/2018 [facility] Sodium 137 mmol/L Normal 135-[address] [place] [address] [phone] Potassium 4.4 mmol/L Normal 3.5-5.0 Chloride 104 [...] 164.3 >60 7 Type & Screen 12/04/2018 [facility] Patient Blood Type O Negative [address] [place] [address] [phone] Antibody Screen NEGATIVE Urine Culture And 12/04/2018 [facility] Urine SEE RESULT [address] [place] [address] [phone] CBC Auto Diff 11/13/2018 [facility] White Blood 8.0 10^3/uL Normal 3.5-[address] Count 0.8 [place] [address] [phone] Red Blood Count 4.71 10^6/uL Normal 4.18-5.48 [...] Red Blood Cells % 0.1 Inr/Protime 11/13/2018 [facility] Inr 1.01 Normal 0.82-1.[address] [place] [address] [phone] Laboratory 11/13/2018 [facility] Partial 35.4 Normal 26.0- 38.0 test finding [address] [address] PTT [phone] Drug Abuse 20 11/07/2018 [facility] Urine Negative [address] Amphetamine ng/mL [place], [place] [address] [phone] Urine Barbiturates Negative ng/mL 11 Urine Benzodiazepines Negative ng/mL 12 Urine Cocaine Negative ng/mL 13 Urine Phencyclidine Negative ng/mL Cutoff: 25 Urine Tetrahydrocannabinol Negative ng/mL Cutoff: 50 14 Creatinine, Urine 41.5 mg/dL Specific [place] 1.009 pH 6.1 Oxidants Negative 15 Adulterants Comment Normal Codeine, Ur Not Detected ng/mL Cutoff: 25 16 Zhpvksi-3-pidw-glucuronide, Ur Not Detected ng/mL 17 Morphine, Ur Present ng/mL Abnormal Cutoff: 25 18 Xpdrmstl-4-fkgd-glucuronide, U Present ng/mL Abnormal 19 6-monoacetylmorphine, Ur Not Detected ng/mL Cutoff: 25 20 Hydrocodone, Ur Not Detected ng/mL Cutoff: 25 21 Norhydrocodone, Ur Not Detected ng/mL Cutoff: 25 22 Dihydrocodeine, Ur Not Detected ng/mL Cutoff: 25 23 Hydromorphone, Ur Present ng/mL Abnormal Cutoff: 25 24 Czvwpmcxqugdb1cobyawmitwbubqs Present ng/mL Abnormal 25 Oxycodone, Ur Not Detected ng/mL Cutoff: 25 26 Noroxycodone, Ur Not Detected ng/mL Cutoff: 25 27 Oxymorphone, Ur Not Detected ng/mL Cutoff: 25 28 Vwcfntsioyf-4-ozih-glucuronide Not Detected ng/mL 29 Noroxymorphone, Ur Not Detected ng/mL Cutoff: 25 30 Fentanyl, Ur Not Detected ng/mL Cutoff: 2 31 Norfentanyl, Ur Not Detected ng/mL Cutoff: 2 32 Meperidine, Ur Not Detected ng/mL Cutoff: 25 33 Normeperidine, Ur Not Detected ng/mL Cutoff: 25 34 Naloxone, Ur Not Detected ng/mL Cutoff: 25 35 Xvbpzuav-3-gxob-glucuronide, U Not Detected ng/mL 36 Methadone, Ur [...] Ur Not Detected ng/mL Cutoff: 50 44 Fhtjpmfjzj-dywk-qbmoqxynvnq, U Not Detected ng/mL 45 Buprenorphine, Ur Not Detected ng/mL Cutoff: 5 46 Norbuprenorphine, Ur Not Detected ng/mL Cutoff: 5 47 Norbuprenorphine glucuronide Not Detected ng/mL Cutoff: 20 48 Opioid Interpretation See Comment 49 Comp Metabolic 10/25/2018 [facility] Sodium 138 mmol/L Normal 135-[address] [place] [address] [phone] Potassium 4.3 mmol/L Normal 3.5-5.0 Chloride 106 [...] Egfr 141.9 >60 50 Lipid Profile 10/25/2018 [facility] Triglycerides 138 mg/dL 51 (Trig/Chol/HDL) [address] [place] [address] [phone] Cholesterol 190 mg/dL 52 HDL Cholesterol 39.0 mg/dL 53 LDL Cholesterol 123 mg/dL 54 Urine Microalbumin 10/25/2018 [facility] Ur Microalbumin < 15.[address] (mg/L) mg/[place] [address] [phone] Urine Creatinine 37.71 mg/dL Urine Microalbumin/Creatinine TNP <31 55 Laboratory test 10/25/2018 [facility] PSA Screening 1.904 Normal 0-4.000 [address] ng/[place] [address] [phone] Urinalysis 10/25/2018 [facility] Urine Color Straw Profile [address] [place] [address] [phone] Urine Appearance Clear Urine Specific [place] 1.006 Low 1.010-1.030 Urine pH 5.0 Normal 5-9 Urine Urobilinogen Negative Negative Urine Ketones Negative Negative Urine Protein Negative Negative Urine Leukocytes Negative Negative Urine Blood 1+ Abnormal Negative Urine Nitrite Negative Negative Urine Bilirubin Negative Negative Urine Glucose Negative Negative Urine White Blood Cell Absent Absent Urine Red Blood Cell Trace(0-2/hpf) Absent Urine Bacteria Absent Absent Laboratory test 10/18/2018 [facility] Hemoglobin A1c 6.7 5-7 finding Xray 08/24/2018 [facility] Inj/Aspir Major JT Or <pending> [...] [address]: Madai Bearden MD Acct: [id number] Unit: [id number] AGE: 68 Location: PAT Re12/04/18 SEX: M Status: REG REF SPEC: [id number] SHON: 12/04/18 [facility] DR: Madai Bearden MD REQ: [id number] RECD: 12/04/18 STATUS: BOO GOMES DR: Ty Luo MD _ SOURCE: URINE SPDESC: ORDERED: Urine Culture COMMENTS: CONRAD 12/12 QUERIES: Urine Source: Clean Catch Procedure Result Reported Site Urine Culture Final 12/05/18- 1155 ML No growth of clinically significant organisms * ML - Main Lab . END OF REPORT DEPARTMENT OF PATHOLOGY, [address] [place] [address] Jerald Velez M.D. Director [facility] # [id number] Standard intensity warfarin therapeutic range: 2.0-3.0 High intensity warfarin therapeutic range: 2.5-3.5 10 REFERENCE VALUE Cutoff: 500 11 REFERENCE VALUE Cutoff: 200 12 REFERENCE VALUE Cutoff: 100 13 REFERENCE VALUE Cutoff: 150 14 ADDITIONAL INFORMATION This report is intended for use in clinical monitoring or management of patients. It is not intended for use in employment-related testing. Test Performed by: [facility] [place] - [address] [address] Senior Interactive Developer: Emanuel Lovett M.D. Ph.D.; CLIA# [id number] 15 REFERENCE VALUE Cutoff: 200 mg/L 16 Tylenol 3 17 Metabolite of codeine REFERENCE VALUE Cutoff: 100 18 Elizabeth Morgan, MS Contin; Also a minor metabolite (10%) of codeine and can be seen in low concentrations (<2,000 ng/mL) with poppy seed ingestion. 19 Metabolite of morphine REFERENCE VALUE Cutoff: 100 20 Metabolite of heroin 21 Lortab, Ch[place], Vicodin; Also a very minor metabolite of [...] the presence of both morphine and metabolites (agecahai-5-cekd-glucuronide, hydromorphone and pzzswoapdykbq-8-pcly-glucuronide). Suspect use of morphine and/or hydromorphone within the past three days. Alternatively, these results could also be suggestive of heroin use. Low levels of morphine can also be seen following poppy seed ingestion. Test detected the presence of hydromorphone and one of its metabolites (lqmxcxtcfuwqv-0-ksab-glucuronide). Suspect use of hydromorphone within the past three days. ADDITIONAL INFORMATION This test was developed and its performance characteristics determined by [facility] in a manner consistent with [...] interchangeably. Procedures Date Code Description Status 12/12/2018 99743 THR Total Hip Replacement Completed 12/12/2018 45837 THR Total Hip Replacement Completed 11/17/2018 99676 Stress Test Completed 11/17/2018 22328 Myocardial Perfusion Imaging Tomographic (Spect) Completed Multiple Studies 09/22/2018 89752 EKG Tracing & Interpretation Completed 08/24/2018 28583 Inj/Aspir Major JT Or Bursa W/ US Completed 03/31/2005 41004140 Colonoscopy Completed Medical Devices Description No Information Available Encounters Type Date Location Provider Dx Diagnosis Office Visit 11/21/2018 [facility] Blu Louis I42.9 Cardiomyopathy, 1:00p [facility] JANETTE Lagunas M.D. unspecified Z01.810 Encounter for preprocedural cardiovascular examination M16.12 Unilateral primary osteoarthritis, left hip Office Visit 11/08/2018 [place] Madai M16.12 Unilateral primary 9:00a [facility] yenifer Bearden M.D. osteoarthritis, left [place] hip Z01.818 Encounter for other preprocedural examination Office Visit 11/01/2018 10:00a [facility] Anayeli Luo, Z01.818 Encounter for other Medicine - MD preprocedural Ccmob examination M16.12 Unilateral primary osteoarthritis, left hip F17.210 Nicotine dependence, cigarettes, uncomplicated I10 Essential (primary) hypertension E11.9 Type 2 diabetes mellitus without complications Office Visit 10/18/2018 10:00a [facility] Myla Luo, E11.9 Type 2 diabetes Medicine - MD mellitus without Ccmob complications I10 Essential (primary) hypertension J44.9 Chronic obstructive pulmonary disease, unspecified E78.5 Hyperlipidemia, unspecified K21.9 Gastro-esophageal reflux disease without esophagitis F41.9 Anxiety disorder, unspecified L72.3 Sebaceous cyst H60.63 Unspecified chronic otitis externa, bilateral N40.1 Benign prostatic hyperplasia with lower urinary tract symp Office Visit 09/22/2018 9:00a [facility] Blu Louis M25.552 Pain in left Of Fany Lagunas M.D. hip I42.9 Cardiomyopathy, unspecified Z01.810 Encounter for preprocedural cardiovascular examination M16.12 Unilateral primary osteoarthritis, left hip I10 Essential (primary) hypertension R94.31 Abnormal electrocardiogram [ECG] [EKG] Office Visit 09/06/2018 9:30a [facility] Madai Bearden, M25.552 [facility] Unilateral primary osteoarthritis, left hip Office Visit 08/23/2018 Owen Morgan M16.12 [facility]ilateral [facility] [place] [facility] Assessments Date Code Description Provider 12/22/2018 M16.12 Unilateral primary osteoarthritis, left hip Madai Bearden M.D. 12/22/2018 Z47.1 Aftercare following joint replacement Madai Bearden M.D. surgery 12/12/2018 M16.12 Unilateral primary osteoarthritis, left hip Luis Kaur PA-C 12/12/2018 M16.12 Unilateral primary osteoarthritis, left hip Madai Bearden M.D. 12/12/2018 E66.01 Morbid (severe) obesity due to excess Luis Kaur PA-C calories 12/12/2018 E66.01 Morbid (severe) obesity due to excess Madai Bearden M.D. calories 12/04/2018 M25.552 Pain in left hip Madai [...] 10/18/2018 E11.9 Type 2 diabetes mellitus without Mlya Luo MD complications 10/18/2018 I10 Essential (primary) [...] Chauncey Morgan M.D. Plan of Treatment Future Appointment(s):12/27/2018 10:45 am - Madai Bearden M.D. at [facility] at [facility]9805/02/2019 10:40 am - Myla Luo MD at [facility] - [facility]12/22/2018 - Madai Bearden M.D.M16.12 Unilateral primary osteoarthritis, left hipNew Medication:Keflex 500 mg - 1 by mouth 4 times a day for 7 daysFollow up:Follow up:Z47.1 Aftercare following joint replacement surgery Functional Status Description No Information Available Mental Status Description No Information Available Referrals Refer to Reason for Referral Status Appt Date Gorge Mancini MD pt not responding to tamsulosin Sent 01/16/2019 [place] [address] [place] [address] [phone]
--- OUTSIDE RECORDS SUMMARY | 2019-02-18 10:40 | XMS REPORT | Continuity of Care Document ---
:1950 External Reference #:[id number] Author Name Madai Bearden M.D. (transmitted by agent of provider Adelina Lucero) Address [address] [place] [address] Care Team Providers Name Role Phone Montrell rPado MD - Grades 1 Thru 6 Visiting Teacher Care Team Information [employer] Manager Madai Bearden MD - Adult Care Team Information [employer] Manager [phone] Reconstructive Orthopaedic Surgery Jackeline Garcia MD - Pulmonary Care Team Information [employer] Manager [phone] Disease Michael Diaz MD - Care Team Information [employer] Manager [phone] Ophthalmology Myla Luo M.D. - Family Medicine Care Team Information [employer] Manager [phone] Problems Active Problems Provider Date Type 2 [...] smoker, smokes every day Smoking Status Reviewed: 12/27/18 Patient is a current smoker, smokes every [...] Madai Bearden, 12/22/2018 Stockings 67" 268lbs M.D. [facility] Toilet Seat s/p left hip 1units Madai Bearden, 12/07/2018 Elevator replacement 67" M.D. Misc 268lbs Adjust Bath/Shower 67" 268lbs dx: s/p 1unleodan Bearden, 12/07/2018 Seat left hip M.D. Misc replacement Walker rolling walker with 1units Madai Bearden, 12/07/2018 [facility] seat dx: s/p left M.D. hip replacement [...] day for (Otic) 5 days as needed [id number] Solution Lonny Hightower M16.12 Chauncey Morgan, 08/23/2018 Wheels/5 MPrietoD. Adjustment Holes/-03/07" 1-03/07" [facility] CBD Oil OTC at [facility] Emmanuel D. 07/15/2017 isak Madrigal M.D.,FACP Sertraline HCL 1 by mouth every 30tabs Myla Luo MD 07/15/2017 day 50mg Tablets Lisinopril 1 by mouth every 30tabs Myla Luo MD 03/31/2017 5mg day Tablets Shower Bench shower bench s/p 1units Madai Bearden, 08/23/2016 total hip M.D. replacement Cane standard adjustable 1units Madai Bearden, 08/18/2016 [facility] height cane. M.D. Ventolin HFA 2 puffs [...] 81mg Tablets remembers) Vitamin D3 daily Unknown [id number] Capsules Tamsulosin HCL take 2 capsules by [...] CPT Code Status Date Vaccine Lot # [id number] Given 01/20/2017 Influenza Virus Vaccine, Quadrivalent, Split, Preservative Free 64008 Given 06/14/2016 Pneumococcal Conjugate Vaccine 13 Valent For [id number] Intramuscular Use 02056 Given 02/29/2016 Influ Virus Vaccine, Quadrivalent, Split Virus, [place] [address] Given 11/28/2014 Flu Vaccine Split Virus Preservative Free For Indiv 3Yr Older 47480 Given 12/25/2012 Pneumonia Vaccine [id number] 92615 Given 12/25/2012 Flu Vaccine Split Virus Preservative Free For [id number] Indiv 3Yr Older [id number] Given 12/03/2011 Fluzone Vaccine 20833 Given 02/11/2011 Zoster (Zostavax) [id number] 17619 Given 11/09/2010 Pneumonia Vaccine [id number] 98084 Given 11/09/2010 Influenza Virus 3Yrs & Over [id number] 33276 Given Unknown Influenza Virus Vaccine, Quadrivalent, Split, Im Use 6-35mo 23676 Given Unknown Influenza Virus 3Yrs & Over Vital Signs Date Vital Result Comment 12/27/2018 11:15am Height 67 inches 5'7" Weight 279.00 lb Heart Rate 112 /min BP Systolic 140 mmHg BP Diastolic 72 mmHg Respiratory Rate 18 /min Body Temperature 98.7 F Pain Level 5 BMI (Body Mass Index) 43.7 kg/m2 12/22/2018 1:27pm Height 67 inches 5'7" Weight 279.00 lb Heart Rate 80 /min BP Systolic 118 mmHg BP Diastolic 80 mmHg Body Temperature 96.5 F BMI (Body Mass Index) 43.7 kg/m2 Results Test Acquired Date Facility Test Result H/L Range Note CBC Auto 12/21/2018 [facility] White Blood 8.6 10^3/uL Normal 3.5-10.[address] [place] [address] [phone] Red Blood Count 3.47 10^6/uL Low 4.18-5.48 [...] Red Blood Cells % 0.0 Inr/Protime 12/21/2018 [facility] Inr 1.09 Normal 0.82-1.09 1 [address] [place] [address] [phone] Comp Metabolic 12/21/2018 [facility] Sodium 132 mmol/L Low 135 -145 Panel [address] [place] [address] [phone] Potassium 4.2 mmol/L Normal 3.5-5.0 Chloride 100 [...] Egfr 167.6 >60 2 Urinalysis Profile 12/04/2018 [facility] Urine Color Yellow 3 [address] [place] [address] [phone] Urine Appearance Clear Urine Specific [place] 1.013 Normal 1.010-1.030 Urine pH 5.0 Normal 5-9 Urine Urobilinogen Negative Negative Urine Ketones Negative Negative Urine Protein Negative Negative Urine Leukocytes Negative Negative Urine Blood Negative Negative * * Abnormal Negative 4 Urine Nitrite Negative Negative Urine Bilirubin Negative Negative Urine Glucose Negative Negative Inr/Protime 12/04/2018 [facility] Inr 0.95 Normal 0.82-1.[address] [place] [address] [phone] Laboratory test 12/04/2018 [facility] Partial 37.4 Normal 26.0 -38.[address] [place] [address] Time PTT [phone] Comp Metabolic 12/04/2018 [facility] Sodium 137 mmol/L Normal 135-[address] [place] [address] [phone] Potassium 4.4 mmol/L Normal 3.5-5.0 Chloride 104 [...] 164.3 >60 7 Type & Screen 12/04/2018 [facility] Patient Blood Type O Negative [address] [place] [address] [phone] Antibody Screen NEGATIVE Urine Culture And 12/04/2018 [facility] Urine SEE RESULT [address] [place] [address] [phone] CBC Auto Diff 11/13/2018 [facility] White Blood 8.0 10^3/uL Normal 3.5-[address] Count 0.8 [place] [address] [phone] Red Blood Count 4.71 10^6/uL Normal 4.18-5.48 [...] Red Blood Cells % 0.1 Inr/Protime 11/13/2018 [facility] Inr 1.01 Normal 0.82-1.[address] [place] [address] [phone] Laboratory 11/13/2018 [facility] Partial 35.4 Normal 26.0- 38.0 test finding [address] [place] [address] PTT [phone] Drug Abuse 20 11/07/2018 [facility] Urine Negative [address] Amphetamine ng/mL [place], [place] [id number] [phone] Urine Barbiturates Negative ng/mL 11 Urine Benzodiazepines Negative ng/mL 12 Urine Cocaine Negative ng/mL 13 Urine Phencyclidine Negative ng/mL Cutoff: 25 Urine Tetrahydrocannabinol Negative ng/mL Cutoff: 50 14 Creatinine, Urine 41.5 mg/dL Specific [place] 1.009 pH 6.1 Oxidants Negative 15 Adulterants Comment Normal Codeine, Ur Not Detected ng/mL Cutoff: 25 16 Plrhclx-2-yvte-glucuronide, Ur Not Detected ng/mL 17 Morphine, Ur Present ng/mL Abnormal Cutoff: 25 18 Fmpfhdmi-9-ltem-glucuronide, U Present ng/mL Abnormal 19 6-monoacetylmorphine, Ur Not Detected ng/mL Cutoff: 25 20 Hydrocodone, Ur Not Detected ng/mL Cutoff: 25 21 Norhydrocodone, Ur Not Detected ng/mL Cutoff: 25 22 Dihydrocodeine, Ur Not Detected ng/mL Cutoff: 25 23 Hydromorphone, Ur Present ng/mL Abnormal Cutoff: 25 24 Ktiuqdpitskgd2hlcakmpegmrpnaj Present ng/mL Abnormal 25 Oxycodone, Ur Not Detected ng/mL Cutoff: 25 26 Noroxycodone, Ur Not Detected ng/mL Cutoff: 25 27 Oxymorphone, Ur Not Detected ng/mL Cutoff: 25 28 Vuoittdswqe-0-skyz-glucuronide Not Detected ng/mL 29 Noroxymorphone, Ur Not Detected ng/mL Cutoff: 25 30 Fentanyl, Ur Not Detected ng/mL Cutoff: 2 31 Norfentanyl, Ur Not Detected ng/mL Cutoff: 2 32 Meperidine, Ur Not Detected ng/mL Cutoff: 25 33 Normeperidine, Ur Not Detected ng/mL Cutoff: 25 34 Naloxone, Ur Not Detected ng/mL Cutoff: 25 35 Fkfwqyqq-3-ealu-glucuronide, U Not Detected ng/mL 36 Methadone, Ur [...] Ur Not Detected ng/mL Cutoff: 50 44 Jsgwvobxwv-dbeo-sumzeidbsmc, U Not Detected ng/mL 45 Buprenorphine, Ur Not Detected ng/mL Cutoff: 5 46 Norbuprenorphine, Ur Not Detected ng/mL Cutoff: 5 47 Norbuprenorphine glucuronide Not Detected ng/mL Cutoff: 20 48 Opioid Interpretation See Comment 49 Comp Metabolic 10/25/2018 [facility] Sodium 138 mmol/L Normal 135-[address] [place] [address] [phone] Potassium 4.3 mmol/L Normal 3.5-5.0 Chloride 106 [...] Egfr 141.9 >60 50 Lipid Profile 10/25/2018 [facility] Triglycerides 138 mg/dL 51 (Trig/Chol/HDL) [address] [place] [address] [phone] Cholesterol 190 mg/dL 52 HDL Cholesterol 39.0 mg/dL 53 LDL Cholesterol 123 mg/dL 54 Urine Microalbumin 10/25/2018 [facility] Ur Microalbumin < 15.[address] (mg/L) mg/[place] [address] [phone] Urine Creatinine 37.71 mg/dL Urine Microalbumin/Creatinine TNP <31 55 Laboratory test 10/25/2018 [facility] PSA Screening 1.904 Normal 0-4.000 [address] ng/[place] [address] [phone] Urinalysis 10/25/2018 [facility] Urine Color Straw Profile [address] [place] [address] [phone] Urine Appearance Clear Urine Specific [place] 1.006 Low 1.010-1.030 Urine pH 5.0 Normal 5-9 Urine Urobilinogen Negative Negative Urine Ketones Negative Negative Urine Protein Negative Negative Urine Leukocytes Negative Negative Urine Blood 1+ Abnormal Negative Urine Nitrite Negative Negative Urine Bilirubin Negative Negative Urine Glucose Negative Negative Urine White Blood Cell Absent Absent Urine Red Blood Cell Trace(0-2/hpf) Absent Urine Bacteria Absent Absent Laboratory test 10/18/2018 [facility] Hemoglobin A1c 6.7 5-7 finding Xray 08/24/2018 [facility] Inj/Aspir Major JT Or <pending> [...] [address]: Madai Bearden MD Acct: [id number] Unit: [id number] AGE: 68 Location: PAT Re12/04/18 SEX: M Status: REG REF SPEC: [id number] SHON: 12/04/[address] [facility] [address]: Madai Bearden MD REQ: [id number] RECD: 12/04/18 STATUS: BOO GOMES DR: Ty Luo MD _ SOURCE: URINE SPDESC: ORDERED: Urine Culture COMMENTS: CONRAD 12/12 QUERIES: Urine Source: Clean Catch Procedure Result Reported Site Urine Culture Final 12/05/18- 1155 ML No growth of clinically significant organisms * ML - Main Lab . END OF REPORT DEPARTMENT OF PATHOLOGY, [address] [place] [address] Jerald Velez M.D. Director [facility] # [id number] 9 Standard intensity warfarin therapeutic range: 2.0-3.0 High intensity warfarin therapeutic range: 2.5-3.5 10 REFERENCE VALUE Cutoff: 500 11 REFERENCE VALUE Cutoff: 200 12 REFERENCE VALUE Cutoff: 100 13 REFERENCE VALUE Cutoff: 150 14 ADDITIONAL INFORMATION This report is intended for use in clinical monitoring or management of patients. It is not intended for use in employment-related testing. Test Performed by: [facility] - [address] [address] Software Support Engineer: Emanuel Lovett M.D. Ph.D.; CLIA# [id number] 15 REFERENCE VALUE Cutoff: 200 mg/L 16 Tylenol 3 17 Metabolite of codeine REFERENCE VALUE Cutoff: 100 18 Elizabeth Morgan, MS Contin; Also a minor metabolite (10%) of codeine and can be seen in low concentrations (<2,000 ng/mL) with poppy seed ingestion. 19 Metabolite of morphine REFERENCE VALUE Cutoff: 100 20 Metabolite of heroin 21 Lortab, Custar, Vicodin; Also a very minor metabolite of [...] the presence of both morphine and metabolites (lxbwrvzo-6-xfqv-glucuronide, hydromorphone and lmngkduukdaif-0-exou-glucuronide). Suspect use of morphine and/or hydromorphone within the past three days. Alternatively, these results could also be suggestive of heroin use. Low levels of morphine can also be seen following poppy seed ingestion. Test detected the presence of hydromorphone and one of its metabolites (hqbuvlmhrdlie-2-dnbk-glucuronide). Suspect use of hydromorphone within the past three days. ADDITIONAL INFORMATION This test was developed and its performance characteristics determined by [facility] in a manner consistent with CLIA requirements. [...] levels of PSA measured using the Candice [place] DXI Hybritech immunoassay should not be interpreted as absolute evidence of the presence or absence of disease. The PSA value should be used in conjunction with other pertinent clinical diagnostic procedures. The values obtained with different assay methods or kits cannot be used interchangeably. Procedures Date Code Description Status 12/12/2018 70483 THR Total Hip Replacement Completed 12/12/2018 34933 THR Total Hip Replacement Completed 11/17/2018 51050 Stress Test Completed 11/17/2018 10669 Myocardial Perfusion Imaging Tomographic (Spect) Completed Multiple Studies 09/22/2018 08217 EKG Tracing & Interpretation Completed 08/24/2018 85557 Inj/Aspir Major JT Or Bursa W/ US Completed 03/31/2005 [id number] Colonoscopy Completed Medical Devices Description No Information Available Encounters Type Date Location Provider Dx Diagnosis Office Visit 12/13/2018 [facility] Emily Myrtle, I11.0 Hypertensive heart 2:11p Assoc,pc CERTIFIED LACTATION COUNSELOR disease with heart Hospitalists failure I50.9 Heart failure, unspecified J44.9 Chronic obstructive pulmonary disease, unspecified G89.29 Other chronic pain F41.9 Anxiety disorder, unspecified K21.9 Gastro-esophageal reflux disease without esophagitis Office Visit 12/12/2018 [facility] Betsy Mcqueen, I11.0 Hypertensive heart 2:11p Assoc,pc CERTIFIED LACTATION COUNSELOR disease with heart Hospitalists failure I50.9 Heart failure, unspecified J44.9 Chronic obstructive pulmonary disease, unspecified K21.9 Gastro-esophageal reflux disease without esophagitis F41.8 Other specified anxiety disorders F17.200 Nicotine dependence, unspecified, uncomplicated Office Visit 11/21/2018 [place] Blu D. I42.9 Cardiomyopathy, 1:00p [facility] unspecified [facility] [place] [facility] [place]01.810 Encounter for preprocedural cardiovascular examination M16.12 Unilateral primary osteoarthritis, left hip Office Visit 11/08/2018 Owen Aj M16.12 Unilateral primary 9:00a [facility] at [facility] osteoarthritis, left [place] hip Z01.818 Encounter for other preprocedural examination Office Visit 11/01/2018 10:00a [facility] Internal Myla Luo, Z01.818 Encounter for other Medicine - MD preprocedural Ccmob examination M16.12 Unilateral primary osteoarthritis, left hip F17.210 Nicotine dependence, cigarettes, uncomplicated I10 Essential (primary) hypertension E11.9 Type 2 diabetes mellitus without complications Office Visit 10/18/2018 10:00a [facility] Myla Luo, E11.9 Type 2 diabetes Medicine - MD mellitus without Ccmob complications I10 Essential (primary) hypertension J44.9 Chronic obstructive pulmonary disease, unspecified E78.5 Hyperlipidemia, unspecified K21.9 Gastro-esophageal reflux disease without esophagitis F41.9 Anxiety disorder, unspecified L72.3 Sebaceous cyst H60.63 Unspecified chronic otitis externa, bilateral N40.1 Benign prostatic hyperplasia with lower urinary tract symp Office Visit 09/22/2018 9:00a [place] [facility] Blu Louis M25.552 Pain in left Of Fany Lagunas M.D. hip I42.9 Cardiomyopathy, unspecified Z01.810 Encounter for preprocedural cardiovascular examination M16.12 Unilateral primary osteoarthritis, left hip I10 Essential (primary) hypertension R94.31 Abnormal electrocardiogram [ECG] [EKG] Office Visit 09/06/2018 9:30a [facility] Madai Bearden, M25.552 [facility]12 Unilateral primary osteoarthritis, left hip Office Visit 08/23/2018 Owen Morgan M16.12 Unilateral primary 9:00a [facility] at [facility] osteoarthritis, left [place] hip Assessments Date Code Description Provider 12/27/2018 M16.12 Unilateral primary osteoarthritis, left hip Madai Bearden M.D. 12/27/2018 Z47.1 Aftercare following joint replacement Madai Bearden M.D. surgery 12/22/2018 M16.12 Unilateral primary osteoarthritis, left hip Madai Bearden M.D. 12/22/2018 Z47.1 Aftercare following joint replacement Madai Bearden M.D. surgery 12/13/2018 I11.0 Hypertensive heart disease with heart Emily Myrtle, CERTIFIED LACTATION COUNSELOR failure 12/13/2018 I50.9 Heart failure, unspecified Emily Myrtle, CERTIFIED LACTATION COUNSELOR 12/13/2018 J44.9 Chronic obstructive pulmonary disease, Emily Myrtle, CERTIFIED LACTATION COUNSELOR unspecified 12/13/2018 G89.29 Other chronic pain Emily Myrtle, CERTIFIED LACTATION COUNSELOR 12/13/2018 F41.9 Anxiety disorder, unspecified Emily Myrtle, CERTIFIED LACTATION COUNSELOR 12/13/2018 K21.9 Gastro-esophageal reflux disease without Emily Myrtle, CERTIFIED LACTATION COUNSELOR esophagitis 12/12/2018 I11.0 Hypertensive heart disease with heart Betsy Mcqueen, KARL failure 12/12/2018 I50.9 Heart failure, unspecified Betsy Mcqueen, KARL 12/12/2018 M16.12 Unilateral primary osteoarthritis, left hip Luis Kaur, PA-C 12/12/2018 J44.9 Chronic obstructive pulmonary disease, Betsy Mcqueen, KARL unspecified 12/12/2018 M16.12 Unilateral primary osteoarthritis, left hip Madai Bearden M.D. 12/12/2018 K21.9 Gastro-esophageal reflux disease without Betsy Mcqueen, KARL esophagitis 12/12/2018 E66.01 Morbid (severe) obesity due to excess Luis Natasha, PA-C calories 12/12/2018 F41.8 Other specified anxiety disorders Betsy Mcqueen NP 12/12/2018 E66.01 Morbid (severe) obesity due to excess Madai Bearden M.D. calories 12/12/2018 F17.200 Nicotine dependence, unspecified, Betsy Mcqeuen NP uncomplicated 12/04/2018 M25.552 Pain in left [...] Myla Luo MD unspecified 10/18/2018 E78.5 Hyperlipidemia, yves Luo MD 10/18/2018 K21.9 Gastro-esophageal reflux disease [...] 10:40 am - Myla Luo MD at [facility] - Madai Bearden M.D.M16.12 Unilateral primary osteoarthritis, left hipFollow up:Follow up: 1 weekZ47.1 Aftercare following joint replacement surgery Functional Status Description No Information Available Mental Status Description No Information Available Referrals Refer to Dr Reason for Referral Status Appt Date Gorge Mancini MD pt not responding to tamsulosin Sent 01/16/[address] [place], [place] [id number] [phone]
--- OUTSIDE RECORDS SUMMARY | 2019-02-18 10:40 | XMS REPORT | Continuity of Care Document ---
:1950 External Reference #:[id number] Author Name Madai Bearden M.D. (transmitted by agent of provider Audra Holt) Address [address] [place] [id number] Care Team Providers Name Role Phone Montrell Prado MD - Aircraft Maintenance Supervisor Care Team Information Community Cultural Development Officer Madai Bearden MD - Adult Care Team Information Community Cultural Development Officer [phone] Reconstructive Orthopaedic Surgery Jackeline Garcia MD - Pulmonary Care Team Information Community Cultural Development Officer Disease Michael Diaz MD - Care Team Information Community Cultural Development Officer [phone] Ophthalmology Myla Luo M.D. - Family Medicine Care Team Information Community Cultural Development Officer Problems Active Problems Provider Date Type [...] smoker, smokes every day Smoking Status Reviewed: 01/03/19 Patient is a current smoker, smokes every [...] 1unleodan Bearden, 12/22/2018 Stockings 67" 268lbs M.D. [facility] Toilet Seat s/p left hip 1unleodan Bearden, [...] day for (Otic) 5 days as needed [id number] Solution Lonny Hightower M16.12 Chauncey Morgan, 08/23/2018 Wheels/5 MPrietoD. Adjustment Holes/-03/07" 1-03/07" [facility] CBD Oil OTC at [facility] [facility] 07/15/2017 isak Madrigal M.D.,FACP Sertraline HCL 1 by mouth every 30tabs Myla Luo MD 07/15/2017 day 50mg Tablets Lisinopril 1 by mouth every 30tabs Myla Luo MD 03/31/2017 5mg day Tablets Shower Bench shower bench s/p 1unleodan Bearden, 08/23/2016 total hip M.D. replacement Cane standard adjustable 1unleodan Bearden, 08/18/2016 [facility] [...] 81mg Tablets remembers) Vitamin D3 daily Unknown [id number] Capsules Tamsulosin HCL take 2 capsules by [...] CPT Code Status Date Vaccine Lot # [id number] Given 01/20/2017 Influenza Virus Vaccine, Quadrivalent, Split, Preservative Free 13596 Given 06/14/2016 Pneumococcal Conjugate Vaccine 13 Valent For [id number] Intramuscular Use 93750 Given 02/29/2016 Influ Virus Vaccine, Quadrivalent, Split Virus, [place] [address] Given 11/28/2014 Flu Vaccine Split Virus Preservative Free For Indiv 3Yr Older 30314 Given 12/25/2012 Pneumonia Vaccine [id number] 87866 Given 12/25/2012 Flu Vaccine Split Virus Preservative Free For [id number] Indiv 3Yr Older Q2038 Given 12/03/2011 Fluzone Vaccine 38932 Given 02/11/2011 Zoster (Zostavax) [id number] 90950 Given 11/09/2010 Pneumonia Vaccine [id number] 93017 Given 11/09/2010 Influenza Virus 3Yrs & Over [id number] 68681 Given Unknown Influenza Virus Vaccine, Quadrivalent, Split, Im Use 6-35mo 21833 Given Unknown Influenza Virus 3Yrs & Over Vital Signs Date Vital Result Comment 01/03/2019 11:38am Height 67 inches 5'7" Weight 280.00 lb Heart Rate 85 /min BP Systolic 134 mmHg BP Diastolic 64 mmHg Body Temperature 98.2 F Pain Level 4 BMI (Body Mass Index) 43.8 kg/m2 01/02/2019 2:15pm Height 67 inches 5'7" Weight 280.00 lb stated Heart Rate 70 /min BP Systolic 152 mmHg BP Diastolic 86 mmHg Respiratory Rate 14 /min Pain Level 2 BMI (Body Mass Index) 43.8 kg/m2 Results Test Acquired Date Facility Test Result H/L Range Note CBC Auto 12/21/2018 [facility] White Blood 8.6 10^3/uL Normal 3.5-10.[address] [place] [address] [phone] Red Blood Count 3.47 10^6/uL Low 4.18-5.48 [...] Red Blood Cells % 0.0 Inr/Protime 12/21/2018 [facility] Inr 1.09 Normal 0.82-1.09 1 [address] [place] [address] [phone] Comp Metabolic 12/21/2018 [facility] Sodium 132 mmol/L Low 135 -145 Panel [address] [place] [address] [phone] Potassium 4.2 mmol/L Normal 3.5-5.0 Chloride 100 [...] Egfr 167.6 >60 2 Urinalysis Profile 12/04/2018 [facility] Urine Color Yellow 3 [address] [place] [address] [phone] Urine Appearance Clear Urine Specific [place] 1.013 Normal 1.010-1.030 Urine pH 5.0 Normal 5-9 Urine Urobilinogen Negative Negative Urine Ketones Negative Negative Urine Protein Negative Negative Urine Leukocytes Negative Negative Urine Blood Negative Negative * * Abnormal Negative 4 Urine Nitrite Negative Negative Urine Bilirubin Negative Negative Urine Glucose Negative Negative Inr/Protime 12/04/2018 [facility] Inr 0.95 Normal 0.82-1.[address] [place] [address] [phone] Laboratory test 12/04/2018 [facility] Partial 37.4 Normal 26.0 -38.0 [address] [place] [address] Time PTT [phone] Comp Metabolic 12/04/2018 [facility] Sodium 137 mmol/L Normal 135-[address] [place] [address] [phone] Potassium 4.4 mmol/L Normal 3.5-5.0 Chloride 104 [...] 164.3 >60 7 Type & Screen 12/04/2018 [facility] Patient Blood Type O Negative [address] [place] [address] [phone] Antibody Screen NEGATIVE Urine Culture And 12/04/2018 [facility] Urine SEE RESULT [address] [place] [address] [phone] CBC Auto Diff 11/13/2018 [facility] White Blood 8.0 10^3/uL Normal 3.5-[address] Count 0.8 [place] [address] [phone] Red Blood Count 4.71 10^6/uL Normal 4.18-5.48 [...] Red Blood Cells % 0.1 Inr/Protime 11/13/2018 [facility] Inr 1.01 Normal 0.82-1.[address] [place] [address] [phone] Laboratory 11/13/2018 [facility] Partial 35.4 Normal 26.0- 38.0 test finding [address] [place] [address] PTT [phone] Drug Abuse 20 11/07/2018 [facility] Urine Negative [address] Amphetamine ng/[place] [address] [phone] Urine Barbiturates Negative ng/mL 11 Urine Benzodiazepines Negative ng/mL 12 Urine Cocaine Negative ng/mL 13 Urine Phencyclidine Negative ng/mL Cutoff: 25 Urine Tetrahydrocannabinol Negative ng/mL Cutoff: 50 14 Creatinine, Urine 41.5 mg/dL Specific [place] 1.009 pH 6.1 Oxidants Negative 15 Adulterants Comment Normal Codeine, Ur Not Detected ng/mL Cutoff: 25 16 Habnpxu-7-zxsu-glucuronide, Ur Not Detected ng/mL 17 Morphine, Ur Present ng/mL Abnormal Cutoff: 25 18 Swrzohqh-5-ncxu-glucuronide, U Present ng/mL Abnormal 19 6-monoacetylmorphine, Ur Not Detected ng/mL Cutoff: 25 20 Hydrocodone, Ur Not Detected ng/mL Cutoff: 25 21 Norhydrocodone, Ur Not Detected ng/mL Cutoff: 25 22 Dihydrocodeine, Ur Not Detected ng/mL Cutoff: 25 23 Hydromorphone, Ur Present ng/mL Abnormal Cutoff: 25 24 Wsszhzwqtbcsf2mripthluvkuyzof Present ng/mL Abnormal 25 Oxycodone, Ur Not Detected ng/mL Cutoff: 25 26 Noroxycodone, Ur Not Detected ng/mL Cutoff: 25 27 Oxymorphone, Ur Not Detected ng/mL Cutoff: 25 28 Nwtbqhibivv-8-lgxi-glucuronide Not Detected ng/mL 29 Noroxymorphone, Ur Not Detected ng/mL Cutoff: 25 30 Fentanyl, Ur Not Detected ng/mL Cutoff: 2 31 Norfentanyl, Ur Not Detected ng/mL Cutoff: 2 32 Meperidine, Ur Not Detected ng/mL Cutoff: 25 33 Normeperidine, Ur Not Detected ng/mL Cutoff: 25 34 Naloxone, Ur Not Detected ng/mL Cutoff: 25 35 Buxpdzcr-5-pzhb-glucuronide, U Not Detected ng/mL 36 Methadone, Ur [...] Ur Not Detected ng/mL Cutoff: 50 44 Mjhwulmkje-czgv-eadqwjzxzix, U Not Detected ng/mL 45 Buprenorphine, Ur Not Detected ng/mL Cutoff: 5 46 Norbuprenorphine, Ur Not Detected ng/mL Cutoff: 5 47 Norbuprenorphine glucuronide Not Detected ng/mL Cutoff: 20 48 Opioid Interpretation See Comment 49 Comp Metabolic 10/25/2018 [facility] Sodium 138 mmol/L Normal 135-[address] [place] [address] [phone] Potassium 4.3 mmol/L Normal 3.5-5.0 Chloride 106 [...] Egfr 141.9 >60 50 Lipid Profile 10/25/2018 [facility] Triglycerides 138 mg/dL 51 (Trig/Chol/HDL) [address] [place] [address] [phone] Cholesterol 190 mg/dL 52 HDL Cholesterol 39.0 mg/dL 53 LDL Cholesterol 123 mg/dL 54 Urine Microalbumin 10/25/2018 [facility] Ur Microalbumin < 15.[address] (mg/L) mg/[place] [address] [phone] Urine Creatinine 37.71 mg/dL Urine Microalbumin/Creatinine TNP <31 55 Laboratory test 10/25/2018 [facility] PSA Screening 1.904 Normal 0-4.000 [address] ng/[place] [address] [phone] Urinalysis 10/25/2018 [facility] Urine Color Straw Profile [address] [place] [address] [phone] Urine Appearance Clear Urine Specific [place] 1.006 Low 1.010-1.030 Urine pH 5.0 Normal 5-9 Urine Urobilinogen Negative Negative Urine Ketones Negative Negative Urine Protein Negative Negative Urine Leukocytes Negative Negative Urine Blood 1+ Abnormal Negative Urine Nitrite Negative Negative Urine Bilirubin Negative Negative Urine Glucose Negative Negative Urine White Blood Cell Absent Absent Urine Red Blood Cell Trace(0-2/hpf) Absent Urine Bacteria Absent Absent Laboratory test 10/18/2018 [facility] Hemoglobin A1c 6.7 5-7 finding Xray 08/24/2018 [facility] Inj/Aspir Major JT Or <pending> [...] [address]: Madai Bearden MD Acct: [id number] Unit: [id number] AGE: 68 Location: PAT Re12/04/18 SEX: M Status: REG REF SPEC: [id number] SHON: 12/04/[address] [facility] [address]: Madai Bearden MD REQ: [id number] RECD: 12/04/18 STATUS: BOO GOMES DR: Ty Luo MD _ SOURCE: URINE SPDESC: ORDERED: Urine Culture COMMENTS: CONRAD 12/12 QUERIES: Urine Source: Clean Catch Procedure Result Reported Site Urine Culture Final 12/05/18- 1155 ML No growth of clinically significant organisms * ML - Main Lab . END OF REPORT DEPARTMENT OF PATHOLOGY, [address] [place] [address] Jerald Velez M.D. Director [facility] # [id number] Standard intensity warfarin therapeutic range: 2.0-3.0 High intensity warfarin therapeutic range: 2.5-3.5 10 REFERENCE VALUE Cutoff: 500 11 REFERENCE VALUE Cutoff: 200 12 REFERENCE VALUE Cutoff: 100 13 REFERENCE VALUE Cutoff: 150 14 ADDITIONAL INFORMATION This report is intended for use in clinical monitoring or management of patients. It is not intended for use in employment-related testing. Test Performed by: [facility] [address] [place] [address] Die Cutter Operator: Emanuel Lovett M.D. Ph.D.; IA# [id number] 15 REFERENCE VALUE Cutoff: 200 mg/L 16 Tylenol 3 17 Metabolite of codeine REFERENCE VALUE Cutoff: 100 18 Elizabeth Morgan, Contin; Also a minor metabolite (10%) of codeine and can be seen in low concentrations (<2,000 ng/mL) with poppy seed ingestion. 19 Metabolite of morphine REFERENCE VALUE Cutoff: 100 20 Metabolite of heroin 21 Lortab, Haiku, Vicodin; Also a very minor metabolite of [...] the presence of both morphine and metabolites (vkzsbspk-7-ntma-glucuronide, hydromorphone and zwzzoltllwkln-7-vemd-glucuronide). Suspect use of morphine and/or hydromorphone within the past three days. Alternatively, these results could also be suggestive of heroin use. Low levels of morphine can also be seen following poppy seed ingestion. Test detected the presence of hydromorphone and one of its metabolites (ekaksxwuebryf-6-ujir-glucuronide). Suspect use of hydromorphone within the past three days. ADDITIONAL INFORMATION This test was developed and its performance characteristics determined by [facility] in a manner consistent with CLIA [...] Serum levels of PSA measured using the [employer] DXI Hybritech immunoassay should not be interpreted as absolute evidence of the presence or absence of disease. The PSA value should be used in conjunction with other pertinent clinical diagnostic procedures. The values obtained with different assay methods or kits cannot be used interchangeably. Procedures Date Code Description Status 12/12/2018 68572 THR Total Hip Replacement Completed 12/12/2018 47629 THR Total Hip Replacement Completed 11/17/2018 67960 Stress Test Completed 11/17/2018 10650 Myocardial Perfusion Imaging Tomographic (Spect) Completed Multiple Studies 09/22/2018 53619 EKG Tracing & Interpretation Completed 08/24/2018 75460 Inj/Aspir Major JT Or Bursa W/ US Completed 03/31/2005 [id number] Colonoscopy Completed Medical Devices Description No Information Available Encounters Type Date Location Provider Dx Diagnosis Office Visit 12/13/2018 [facility] Emily Iraheta, I11.0 Hypertensive heart 2:11p Assoc,pc THERAPEUTIC STRATEGY LEAD disease with heart Hospitalists failure I50.9 Heart failure, unspecified J44.9 Chronic obstructive pulmonary disease, unspecified G89.29 Other chronic pain F41.9 Anxiety disorder, unspecified K21.9 Gastro-esophageal reflux disease without esophagitis Office Visit 12/12/2018 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 osteoarthritis, left [address] hip Z01.818 Encounter for other preprocedural examination Office Visit 11/01/2018 10:00a [facility] Myla Luo, Z01.818 Encounter for other Medicine - MD preprocedural Ccmob examination M16.12 Unilateral primary osteoarthritis, left hip F17.210 Nicotine dependence, cigarettes, uncomplicated I10 Essential (primary) hypertension E11.9 Type 2 diabetes mellitus without complications Office Visit 10/18/2018 10:00a [facility] Myla Luo, E11.9 Type 2 diabetes Medicine - MD mellitus without Ccmob complications I10 Essential (primary) hypertension J44.9 Chronic obstructive pulmonary disease, unspecified E78.5 Hyperlipidemia, unspecified K21.9 Gastro-esophageal reflux disease without esophagitis F41.9 Anxiety disorder, unspecified L72.3 Sebaceous cyst H60.63 Unspecified chronic otitis externa, bilateral N40.1 Benign prostatic hyperplasia with lower urinary tract symp Office Visit 09/22/2018 9:[address]a [facility] [address] [facility] Blu Louis M25.552 Pain in left Of Fany Lagunas M.D. hip I42.9 Cardiomyopathy, unspecified Z01.810 Encounter for preprocedural cardiovascular examination M16.12 Unilateral primary osteoarthritis, left hip I10 Essential (primary) hypertension R94.31 Abnormal electrocardiogram [ECG] [EKG] Office Visit 09/06/2018 9:30a [place] [facility], M25.552 Pain in left at [address] Lucretia hip M16.12 Unilateral primary osteoarthritis, left hip Office Visit 08/23/2018 Owen Morgan, M16.12 Unilateral primary 9:00a Orthopedics yenifer Boykin osteoarthritis, left [address] hip Assessments Date Code Description Provider 01/03/2019 Z47.1 Aftercare following joint replacement Madai [...] left artificial hip joint Madai Bearden M.D. 12/13/2018 I11.0 Hypertensive heart disease with heart Emily Myrtle, THERAPEUTIC STRATEGY LEAD failure 12/13/2018 I50.9 Heart failure, unspecified Emily Myrtle, THERAPEUTIC STRATEGY LEAD 12/13/2018 J44.9 Chronic obstructive pulmonary disease, Emily Myrtle, THERAPEUTIC STRATEGY LEAD unspecified 12/13/2018 G89.29 Other chronic pain Emily Myrtle, THERAPEUTIC STRATEGY LEAD 12/13/2018 F41.9 Anxiety disorder, unspecified Emily Myrtle, THERAPEUTIC STRATEGY LEAD 12/13/2018 K21.9 Gastro-esophageal reflux disease without Emily Myrtle, THERAPEUTIC STRATEGY LEAD esophagitis 12/12/2018 I11.0 Hypertensive heart disease with heart Betsy Mcqueen, THERAPEUTIC STRATEGY LEAD failure 12/12/2018 I50.9 Heart failure, unspecified Betsy Mcqueen, THERAPEUTIC STRATEGY LEAD 12/12/2018 M16.12 Unilateral primary osteoarthritis, left hip ANTONIO CaballeroC 12/12/2018 J44.9 Chronic obstructive pulmonary disease, Betsy Mcqueen, THERAPEUTIC STRATEGY LEAD unspecified 12/12/2018 M16.12 Unilateral primary osteoarthritis, left hip Madai Bearden M.D. 12/12/2018 K21.9 Gastro-esophageal reflux disease without Betsy Mcqueen, THERAPEUTIC STRATEGY LEAD esophagitis 12/12/2018 E66.01 Morbid (severe) obesity due to excess Luis Kaur PA-C calories 12/12/2018 F41.8 Other specified anxiety disorders Betsy Mcqueen, THERAPEUTIC STRATEGY LEAD 12/12/2018 E66.01 Morbid (severe) obesity due to [...] 10:40 am - M[facility] Lu[facility] - Madai Bearden M.D.Z47.1 Aftercare following joint replacement surgeryReferral:Wound Clinic, Clinic/CenterFollow up:Follow up: friday 01/05M16.12 Unilateral primary osteoarthritis, left hip Functional Status Description No Information Available Mental Status Description No Information Available Referrals Refer to Reason for Referral Status Appt Date Wound Clinic right groin wound Created [address] [place] [id number] [phone] Gorge Mancini MD pt not responding to tamsulosin Sent 01/16/2019 [address] [place] [address] [place] [address] [phone]
--- OUTSIDE RECORDS SUMMARY | 2019-02-18 10:40 | XMS REPORT | Continuity of Care Document ---
:1950 External Reference #:[id number] Author Name Madai Bearden M.D. (transmitted by agent of provider Audra Holt) Address [address] [place] [id number] Care Team Providers Name Role Phone Montrell Prado MD - Production Artist Care Team Information Certified Phlebotomy Technician [phone] Madai Bearden MD - Adult Care Team Information Certified Phlebotomy Technician [phone] Reconstructive Orthopaedic Surgery Jackeline Garcia MD - Pulmonary Care Team Information Certified Phlebotomy Technician Disease Michael Diaz MD - Care Team Information Certified Phlebotomy Technician [phone] Ophthalmology Myla Luo M.D. - Family Medicine Care Team Information Certified Phlebotomy Technician Problems Active Problems Provider Date Type 2 [...] 1unleodan Bearden, 12/22/2018 Stockings 67" 268lbs M.D. [facility] Toilet Seat s/p left hip 1unleodan Bearden, 12/07/2018 Elevator replacement 67" M.D. Mis 268lbs Adjust Bath/Shower 67" 268lbs dx: s/p 1unleodan Bearden, 12/07/2018 Seat left hip M.DPrieto Mis replacement Walker rolling walker with 1units Madai Bearden, 12/07/2018 [facility] seat dx: s/p left [...] day for (Otic) 5 days as needed [id number] Solution Lonny Hightower M16.12 Chauncey Morgan, 08/23/2018 Wheels/5 MPrietoD. Adjustment Holes/-03/07" 1-03/07" [facility] 07/15/2017 isak Madrigal M.D.,FACP Sertraline HCL 1 by mouth every 30tabs Myla Luo MD 07/15/2017 day 50mg Tablets Lisinopril 1 by mouth every 30tabs Myla Luo MD 03/31/2017 5mg day Tablets Shower Bench shower bench s/p 1unleodan Bearden, 08/23/2016 total hip M.D. replacement Cane standard adjustable 1unloedan Bearden, 08/18/2016 [facility] height cane. M.D. Ventolin [...] 81mg Tablets remembers) Vitamin D3 daily Unknown [id number] Capsules Tamsulosin HCL take 2 capsules by [...] CPT Code Status Date Vaccine Lot # [id number] Given 01/20/2017 Influenza Virus Vaccine, Quadrivalent, Split, Preservative Free 12260 Given 06/14/2016 Pneumococcal Conjugate Vaccine 13 Valent For [id number] Intramuscular Use 12207 Given 02/29/2016 Influ Virus Vaccine, Quadrivalent, Split Virus, [place] [address] Given 11/28/2014 Flu Vaccine Split Virus Preservative Free For Indiv 3Yr Older 93555 Given 12/25/2012 Pneumonia Vaccine [id number] 20447 Given 12/25/2012 Flu Vaccine Split Virus Preservative Free For [id number] Indiv 3Yr Older [id number] Given 12/03/2011 Fluzone Vaccine 53715 Given 02/11/2011 Zoster (Zostavax) [id number] 14633 Given 11/09/2010 Pneumonia Vaccine [id number] 12473 Given 11/09/2010 Influenza Virus 3Yrs & Over [id number] 77402 Given Unknown Influenza Virus Vaccine, Quadrivalent, Split, Im Use 6-35mo 71871 Given Unknown Influenza Virus 3Yrs & Over [...] Result H/L Range Note CBC Auto 12/21/2018 [facility] White Blood 8.6 10^3/uL Normal 3.5-10.[address] [place] [address] [phone] Red Blood Count 3.47 10^6/uL Low 4.18-5.48 [...] Red Blood Cells % 0.0 Inr/Protime 12/21/2018 [facility] Inr 1.09 Normal 0.82-1.09 1 [address] [place] [address] [phone] Comp Metabolic 12/21/2018 [facility] Sodium 132 mmol/L Low 135 -145 Panel [address] [place] [address] [phone] Potassium 4.2 mmol/L Normal 3.5-5.0 Chloride 100 [...] Egfr 167.6 >60 2 Urinalysis Profile 12/04/2018 [facility] Urine Color Yellow 3 [address] [place] [address] [phone] Urine Appearance Clear Urine Specific Ewing 1.013 Normal 1.010-1.030 Urine pH 5.0 Normal 5-9 Urine Urobilinogen Negative Negative Urine Ketones Negative Negative Urine Protein Negative Negative Urine Leukocytes Negative Negative Urine Blood Negative Negative * * Abnormal Negative 4 Urine Nitrite Negative Negative Urine Bilirubin Negative Negative Urine Glucose Negative Negative Inr/Protime 12/04/2018 [facility] Inr 0.95 Normal 0.82-1.[address] [place] [address] [phone] Laboratory test 12/04/2018 [facility] Partial 37.4 Normal 26.0 -38.0 [address] [place] [address] Time PTT [phone] Comp Metabolic 12/04/2018 [facility] Sodium 137 mmol/L Normal 135-[address] [place] [address] [phone] Potassium 4.4 mmol/L Normal 3.5-5.0 Chloride 104 [...] 164.3 >60 7 Type & Screen 12/04/2018 [facility] Patient Blood Type O Negative [address] [place] [address] [phone] Antibody Screen NEGATIVE Urine Culture And 12/04/2018 [facility] Urine SEE RESULT [address] [place] [address] [phone] CBC Auto Diff 11/13/2018 [facility] White Blood 8.0 10^3/uL Normal 3.5-[address] Count 0.8 [place] [address] [phone] Red Blood Count 4.71 10^6/uL Normal 4.18-5.48 [...] Red Blood Cells % 0.1 Inr/Protime 11/13/2018 [facility] Inr 1.01 Normal 0.82-1.[address] [place] [address] [phone] Laboratory 11/13/2018 [facility] Partial 35.4 Normal 26.0- 38.0 test finding [address] [place] [address] PTT [phone] Drug Abuse 20 11/07/2018 [facility] Urine Negative [address] Amphetamine ng/[place] [address] [phone] Urine Barbiturates Negative ng/mL 11 Urine Benzodiazepines Negative ng/mL 12 Urine Cocaine Negative ng/mL 13 Urine Phencyclidine Negative ng/mL Cutoff: 25 Urine Tetrahydrocannabinol Negative ng/mL Cutoff: 50 14 Creatinine, Urine 41.5 mg/dL Specific Ewing 1.009 pH 6.1 Oxidants Negative 15 Adulterants Comment Normal Codeine, Ur Not Detected ng/mL Cutoff: 25 16 Avanevp-2-wdbw-glucuronide, Ur Not Detected ng/mL 17 Morphine, Ur Present ng/mL Abnormal Cutoff: 25 18 Qfutzlzv-9-yscz-glucuronide, U Present ng/mL Abnormal 19 6-monoacetylmorphine, Ur Not Detected ng/mL Cutoff: 25 20 Hydrocodone, Ur Not Detected ng/mL Cutoff: 25 21 Norhydrocodone, Ur Not Detected ng/mL Cutoff: 25 22 Dihydrocodeine, Ur Not Detected ng/mL Cutoff: 25 23 Hydromorphone, Ur Present ng/mL Abnormal Cutoff: 25 24 Dbofdsowpfplk5bnvhywhhcwyhrtt Present ng/mL Abnormal 25 Oxycodone, Ur Not Detected ng/mL Cutoff: 25 26 Noroxycodone, Ur Not Detected ng/mL Cutoff: 25 27 Oxymorphone, Ur Not Detected ng/mL Cutoff: 25 28 Mefwozzmcjm-2-oxjj-glucuronide Not Detected ng/mL 29 Noroxymorphone, Ur Not Detected ng/mL Cutoff: 25 30 Fentanyl, Ur Not Detected ng/mL Cutoff: 2 31 Norfentanyl, Ur Not Detected ng/mL Cutoff: 2 32 Meperidine, Ur Not Detected ng/mL Cutoff: 25 33 Normeperidine, Ur Not Detected ng/mL Cutoff: 25 34 Naloxone, Ur Not Detected ng/mL Cutoff: 25 35 Ddnmmhpq-2-dgij-glucuronide, U Not Detected ng/mL 36 Methadone, Ur [...] Ur Not Detected ng/mL Cutoff: 50 44 Rynxdruprx-enjy-agothzoegqj, U Not Detected ng/mL 45 Buprenorphine, Ur Not Detected ng/mL Cutoff: 5 46 Norbuprenorphine, Ur Not Detected ng/mL Cutoff: 5 47 Norbuprenorphine glucuronide Not Detected ng/mL Cutoff: 20 48 Opioid Interpretation See Comment 49 Comp Metabolic 10/25/2018 [facility] Sodium 138 mmol/L Normal 135-[address] [place] [address] [phone] Potassium 4.3 mmol/L Normal 3.5-5.0 Chloride 106 [...] Egfr 141.9 >60 50 Lipid Profile 10/25/2018 [facility] Triglycerides 138 mg/dL 51 (Trig/Chol/HDL) [address] [place] [address] [phone] Cholesterol 190 mg/dL 52 HDL Cholesterol 39.0 mg/dL 53 LDL Cholesterol 123 mg/dL 54 Urine Microalbumin 10/25/2018 [facility] Ur Microalbumin < 15.[address] (mg/L) mg/[place] [address] [phone] Urine Creatinine 37.71 mg/dL Urine Microalbumin/Creatinine TNP <31 55 Laboratory test 10/25/2018 [facility] PSA Screening 1.904 Normal 0-4.[address] ng/[place] [address] [phone] Urinalysis 10/25/2018 [facility] Urine Color Straw Profile [address] [place] [address] [phone] Urine Appearance Clear Urine Specific Ewing 1.006 Low 1.010-1.030 Urine pH 5.0 Normal 5-9 Urine Urobilinogen Negative Negative Urine Ketones Negative Negative Urine Protein Negative Negative Urine Leukocytes Negative Negative Urine Blood 1+ Abnormal Negative Urine Nitrite Negative Negative Urine Bilirubin Negative Negative Urine Glucose Negative Negative Urine White Blood Cell Absent Absent Urine Red Blood Cell Trace(0-2/hpf) Absent Urine Bacteria Absent Absent Laboratory test 10/18/2018 [facility] House Hemoglobin A1c 6.7 5-7 finding Xray 08/24/2018 [facility] House Inj/Aspir Major JT Or <pending> [...] [address]: Madai Bearden MD Acct: [id number] Unit: [id number] AGE: 68 Location: PAT Re12/04/18 SEX: M Status: REG REF SPEC: [id number] SHON: 12/04/[address] [facility] [address]: Madai Bearden MD REQ: [id number] RECD: 12/04/18 STATUS: BOO GOMES DR: Ty Luo MD _ SOURCE: URINE SPDESC: ORDERED: Urine Culture COMMENTS: CONRAD 12/12 QUERIES: Urine Source: Clean Catch Procedure Result Reported Site Urine Culture Final 12/05/18- 1155 ML No growth of clinically significant organisms * ML - Main Lab . END OF REPORT DEPARTMENT OF PATHOLOGY, [address] [place] [address] Jerald Velez M.D. Director [facility] # [id number] Standard intensity warfarin therapeutic range: 2.0-3.0 High intensity warfarin therapeutic range: 2.5-3.5 10 REFERENCE VALUE Cutoff: 500 11 REFERENCE VALUE Cutoff: 200 12 REFERENCE VALUE Cutoff: 100 13 REFERENCE VALUE Cutoff: 150 14 ADDITIONAL INFORMATION This report is intended for use in clinical monitoring or management of patients. It is not intended for use in employment-related testing. Test Performed by: [facility] [address] [place] [address] Wall Washer: Emanuel Lovett M.D. Ph.D.; IA# [id number] 15 REFERENCE VALUE Cutoff: 200 mg/L 16 Tylenol 3 17 Metabolite of codeine REFERENCE VALUE Cutoff: 100 18 Elizabeth Morgan, Contin; Also a minor metabolite (10%) of codeine and can be seen in low concentrations (<2,000 ng/mL) with poppy seed ingestion. 19 Metabolite of morphine REFERENCE VALUE Cutoff: 100 20 Metabolite of heroin 21 Lortab, Stanley, Vicodin; Also a very minor metabolite of [...] the presence of both morphine and metabolites (acqiojnk-8-hmdc-glucuronide, hydromorphone and wrimevlsydedh-7-ibni-glucuronide). Suspect use of morphine and/or hydromorphone within the past three days. Alternatively, these results could also be suggestive of heroin use. Low levels of morphine can also be seen following poppy seed ingestion. Test detected the presence of hydromorphone and one of its metabolites (koaipguqizvgw-6-gcxl-glucuronide). Suspect use of hydromorphone within the past three days. ADDITIONAL INFORMATION This test was developed and its performance characteristics determined by [facility] in a manner consistent with CLIA [...] Serum levels of PSA measured using the [employer] DXI Hybritech immunoassay should not be interpreted as absolute evidence of the presence or absence of disease. The PSA value should be used in conjunction with other pertinent clinical diagnostic procedures. The values obtained with different assay methods or kits cannot be used interchangeably. Procedures Date Code Description Status 12/12/2018 24217 THR Total Hip Replacement Completed 12/12/2018 33643 THR Total Hip Replacement Completed 11/17/2018 02734 Stress Test Completed 11/17/2018 90147 Myocardial Perfusion Imaging Tomographic (Spect) Completed Multiple Studies 09/22/2018 32450 EKG Tracing & Interpretation Completed 08/24/2018 00403 Inj/Aspir Major JT Or Bursa W/ US Completed 03/31/2005 32224019 Colonoscopy Completed Medical Devices Description No Information Available Encounters Type Date Location Provider Dx Diagnosis Office Visit 12/13/2018 [facility] Emily Iraheta, I11.0 Hypertensive heart 2:11p Assoc,pc [employer] disease with heart Hospitalists failure I50.9 Heart failure, unspecified J44.9 Chronic obstructive pulmonary disease, unspecified G89.29 Other chronic pain F41.9 Anxiety disorder, unspecified K21.9 Gastro-esophageal reflux disease without esophagitis Office Visit 12/12/2018 [facility] Betsy Mcqueen, I11.0 Hypertensive heart 2:11p Assoc,pc [employer] disease with heart Hospitalists failure I50.9 Heart failure, unspecified J44.9 Chronic obstructive pulmonary disease, unspecified K21.9 Gastro-esophageal reflux disease without esophagitis F41.8 Other specified anxiety disorders F17.200 Nicotine dependence, unspecified, uncomplicated Office Visit 11/21/2018 [facility] I42.9 Cardiomyopathy, 1:00p [facility] Of Lucretia Lagunas unspecified 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 osteoarthritis, left [place] hip Z01.818 Encounter for other preprocedural examination Office Visit 11/01/2018 10:00a [facility] Myla Luo, Z01.818 Encounter for other Medicine - MD preprocedural Ccmob examination M16.12 Unilateral primary osteoarthritis, left hip F17.210 Nicotine dependence, cigarettes, uncomplicated I10 Essential (primary) hypertension E11.9 Type 2 diabetes mellitus without complications Office Visit 10/18/2018 10:00a [facility] Myla Luo, E11.9 Type 2 diabetes Medicine - MD mellitus without Ccmob complications I10 Essential (primary) hypertension J44.9 Chronic obstructive pulmonary disease, unspecified E78.5 Hyperlipidemia, unspecified K21.9 Gastro-esophageal reflux disease without esophagitis F41.9 Anxiety disorder, unspecified L72.3 Sebaceous cyst H60.63 Unspecified chronic otitis externa, bilateral N40.1 Benign prostatic hyperplasia with lower urinary tract symp Office Visit 09/22/2018 9:00a [facility] Blu Louis M25.552 Pain in left Of Fany Lagunas M.D. hip I42.9 Cardiomyopathy, unspecified Z01.810 Encounter for preprocedural cardiovascular examination M16.12 Unilateral primary osteoarthritis, left hip I10 Essential (primary) hypertension R94.31 Abnormal electrocardiogram [ECG] [EKG] Office Visit 09/06/2018 9:30a [facility], M25.552 Pain in left at [place] Lucretia hip M16.12 Unilateral primary osteoarthritis, left hip Office Visit 08/23/2018 Owen Morgan, M16.12 Unilateral primary 9:00a Orthopedics yenifer Boykin osteoarthritis, left [place] hip Assessments Date Code Description Provider 01/03/2019 [...] Hypertensive heart disease with heart Emily Myrtle, [employer] failure 12/13/2018 I50.9 Heart failure, unspecified Emily Myrtle, [employer] 12/13/2018 J44.9 Chronic obstructive pulmonary disease, Emily Myrtle, [employer] unspecified 12/13/2018 G89.29 Other chronic pain Emily Myrtle, [employer] 12/13/2018 F41.9 Anxiety disorder, unspecified Emily Myrtle, [employer] 12/13/2018 K21.9 Gastro-esophageal reflux disease without Emily Myrtle, [employer] esophagitis 12/12/2018 I11.0 Hypertensive heart disease with heart Betsy Mcqueen, [employer] failure 12/12/2018 I50.9 Heart failure, unspecified Betsy Mcqueen, [employer] 12/12/2018 M16.12 Unilateral primary osteoarthritis, left hip ANTONIO CaballeroC 12/12/2018 J44.9 Chronic obstructive pulmonary disease, Betsy Mcqueen, [employer] unspecified 12/12/2018 M16.12 Unilateral primary osteoarthritis, left hip Madai Bearden M.D. 12/12/2018 K21.9 Gastro-esophageal reflux disease without Betsy Mcqueen, [employer] esophagitis 12/12/2018 E66.01 Morbid (severe) obesity due to excess Luis Kaur PA-C calories 12/12/2018 F41.8 Other specified anxiety disorders Betsy Mcqueen, [employer] 12/12/2018 E66.01 Morbid (severe) obesity due to [...] 10:40 am - Myla Luo MD at [facility] - Madai Bearden M.D.Z47.1 Aftercare following joint replacement surgeryReferral:Wound Clinic, Clinic/CenterFollow up:Follow up: friday 01/05M16.12 Unilateral primary osteoarthritis, left hip Functional Status Description No Information Available Mental Status Description No Information Available Referrals Refer to Reason for Referral Status Appt Date Wound Clinic right groin wound Created [address] [place] [address] [phone] Gorge Mancini MD pt not responding to tamsulosin Sent 01/16/2019 [address] [place] [address] [place] [address] [phone]
[2019-02-18] MEDS ORDERED: diPHENhydraMINE IV* 50 MG/ML 1 ml VIAL (BENADRYL) IV ONE (10:48)
[2019-02-18] MEDS ORDERED: ED ceFAZolin 1 GM/50 ML 1 GM/50 ML PREMIX.SET IVPB ONE (10:49)
--- NOTE | 2019-02-18 10:52 | ED ---
Skin Complaint - HPI Summary HPI Summary: This pt is a 68 Y/O M presenting to [facility] with a CC of L leg swelling with blisters that are emitting purulence. He states that he was here recently for an infection on his L foot that had to be treated and suffered an infection in his hip from a recent surgery. He states that he has cysts in his groin. He states that his foot has become infected again after being healed. His states that his R and L hand has been swelling as well and become red with associated itchiness. He denies any fevers, chills, CP, SOB, and headaches. He states that he was admitted to the hospital on 02/09 and was released on 02/14 after being treated for cellulitis on his L buttocks. Currently his L leg is red , swollen, and has multiple blisters that are present. He states that he has been experiencing fatigue and confusion. He had a rash that was present around his suprapubic region due to an allergic reaction to doxycycline. He states that he has increased pain with palpation on his L leg that are rated a 5/10 in severity. He states that the blisters have been using since this morning but is unsure when his leg became swollen and redness that developed. He also states that he has been thirsty all morning. He has no known aggravating or alleviating factors. He has a PMHx of multiple infections throughout his body, COPD, DM, CHF, and HTN. He states that he has an infectious disease appointment scheduled for later this winter. - History of Current Complaint Chief Complaint: EDExtremityLower Time Seen by Provider: 02/18/19 10:30 Stated Complaint: POSS LEFT FOOT INFECTION PER PT Hx Obtained From: Patient, Family/Quarter Trimmer - Onset/Duration: Started Hours Ago Timing: Constant Onset Severity: Moderate Current Severity: Moderate Pain Intensity: 5 Pain Scale Used: 0-10 Numeric Skin Location: Hand - bilateral, Leg - L, Foot - L, Other: - bilateral groin Character: Swelling, Pruritus, Redness Aggravating Symptom(s): Nothing Alleviating Symptom(s): Unknown Associated Signs & Symptoms: Negative - fevers, chills, CP, SOB, and headaches , Thirst, Rash - bilateral hands and groin, Drainage - L lower leg, Tenderness - to palpation of the L lower leg and foot Related History: Other: - was admitted to [facility] from 02/09 to 02/14 for cellulitis Prior Episode Dx as Allergic Reactions to:: Doxycycline - Additional Pertinent History Primary Care Physician: KATLYN - Allergy/Home Medications Allergies/Adverse Reactions: Allergies Allergy/AdvReac Type Severity Reaction Status Date / Time doxycycline Allergy Intermediate Rash Verified 02/18/19 10:42 oxycodone AdvReac Intermediate Rash Verified 02/18/19 10:31 PMH/Surg Hx/FS Hx/Imm Hx Previously Healthy: Yes Endocrine/Hematology History: Reports: Hx Diabetes Denies: Hx Anticoagulant Therapy, Hx Thyroid Disease Cardiovascular History: Reports: Hx Congenital Heart Disease, Hx Congestive Heart Failure, Hx Coronary Artery Disease, Hx Hypotension, Hx Hypertension Denies: Hx Angina, Hx Hypercholesterolemia, Hx Myocardial Infarction, Hx Pacemaker/ICD Respiratory History: Reports: Hx Chronic Bronchitis, Hx Chronic Obstructive Pulmonary Disease (COPD), Hx Sleep Apnea - no CPAP Denies: Hx Asthma GI History: Reports: Hx Gastroesophageal Reflux Disease, Hx Hiatal Hernia - HAKAN FUNDOPLICATION, Hx Ulcer - , Other GI Disorders - barretts esophagus History: Reports: Hx Benign Prostatic Hyperplasia, Hx Kidney Stones - NONE IN THE LAST SEVERAL YEARS, Other Problems/Disorders - BPH - ON FLOMAX Denies: Hx Renal Disease Musculoskeletal History: Reports: Hx Arthritis, Hx Back Problems - degenerative arthritis in back, Other Musculoskeletal History - degenerative arthritis in back Sensory History: Reports: Hx Contacts or Glasses, Hx Hearing Problem Denies: Hx Hearing Aid Opthamlomology History: Reports: Hx Contacts or Glasses Neurological History: Reports: Hx Headaches - ON MED, Hx Migraine Denies: Hx Dementia, Hx Seizures Comment Only: Other Neuro Impairments/Disorders - PAIN CLINIC PATIENT Psychiatric History: Reports: Hx Anxiety, Hx Depression Denies: Hx Panic Disorder, Hx Substance Abuse - Cancer History Hx Chemotherapy: No Hx Radiation Therapy: No - Surgical History Surgical History: Yes Surgery Procedure, Year, and Place: Hakan fundoplication. Nerve repair. Septoplasty. right Inguinal hernia repair. right hip replacement 2017. Total left hip replacement 12/12/18 Hx Anesthesia Reactions: No - Immunization History Date of Tetanus Vaccine: UNK Date of Influenza Vaccine: 10/2018 Immunizations Up to Date: Yes Infectious Disease History: No Infectious Disease History: Denies: Hx Hepatitis, Hx Human Immunodeficiency Virus (HIV), Traveled Outside the [place] in Last 30 Days - Family History Known Family History: Negative: Seizure Disorder - Social History Occupation: Retired Lives: With Family Alcohol Use: Daily Alcohol Amount: 4 Hx Substance Use: Yes Substance Use Type: Reports: Other Substance Use Comment - Amount & Last Used: CBD oil, morphine Hx Tobacco Use: Yes Smoking Status (MU): Former Smoker Type: Cigarettes Amount Used/How Often: 1/2 PPD 50 years- nicotine patch to try Length of Time of Smoking/Using Tobacco: 50 years Have You Smoked in the Last Year: Yes Review of Systems Positive: Other - thirst. Negative: Fever, Chills Negative: Chest Pain Negative: Shortness Of Breath Positive: Rash - bilateral hands and groin , Other - swelling, redness purulence to the L lower leg Negative: Headache All Other Systems Reviewed And Are Negative: Yes Physical Exam - Summary Physical Exam Summary: Constitutional: Well-developed, Well-nourished, Alert. (-) Distressed Skin: Erythema bilateral groin and hands, consistent with allergic reaction, L lower leg erythematous, tender to palpation, with several blisters, open skin wounds HENT: Normocephalic; Atraumatic Eyes: Conjunctiva normal Neck: Musculoskeletal ROM normal neck. (-) JVD, (-) Stridor, (-) Tracheal deviation Cardio: Rhythm regular, rate normal, Heart sounds normal; Intact distal pulses; The pedal pulses are 2+ and symmetric. Radial pulses are 2+ and symmetric. Pulmonary/Chest wall: Effort normal. (-) Respiratory distress, Faint bilateral wheezing, (-) Rales Abd: Soft, (-) tenderness, (-) Distension, (-) Guarding, (-) Rebound Musculoskeletal: (-) Edema Neuro: Alert, Oriented x3 Psych: Mood and affect Normal Triage Information Reviewed: Yes Vital Signs On Initial Exam: Initial Vitals Temp Pulse Resp BP Pulse Ox 98 F 92 20 152/83 93 02/18/19 10:26 02/18/19 10:26 02/18/19 10:26 02/18/19 10:26 02/18/19 10:26 Vital Signs Reviewed: Yes Procedures - Sedation Patient Received Moderate/Deep Sedation with Procedure: No Diagnostics - Vital Signs Vital Signs Temp Pulse Resp BP Pulse Ox 02/18/19 10:26 98 F 92 20 152/83 93 - Laboratory Result Diagrams: 02/18/19 10:59 02/18/19 10:59 Lab Statement: Any lab studies that have been ordered have been reviewed, and results considered in the medical decision making process. Re-Evaluation - Re-Evaluation First Eval Re-Evaluation Time: 11:41 Change: Unchanged Comment: Pt was informed of decision to admit due to poor health and the present infection. The pt and his are aggreable. Hospitalist will be contacted. Second Eval Re-Evaluation Time: 13:03 Change: Unchanged Comment: obtained hospitalist consult, plan will be to give pt Vancomycin the ED and D/C home with scipt for bactrim for cellulitis and clobetasol for allergic hand/groin rash. Course/Dx - Course Course Of Treatment: This pt is a 68 Y/O M presenting to [facility] with a CC of L leg swelling with blisters that are emitting purulence. He states that he was here recently for an infection on his L foot that had to be treated and suffered an infection in his hip from a recent surgery. He states that he has cysts in his groin. He states that his foot has become infected again after being healed. He has a PMHx of multiple infections throughout his body, COPD, CHF, DM, and HTN. He was recently hospitalized in [facility] from 02/09 to 02/14 for cellulitis on his L buttocks. His PE found that he has faint bilateral wheezing and Erythema bilateral groin and hands, consistent with allergic reaction. L lower leg erythematous, tender to palpation, with several blisters, open skin wounds. He was given benadryl and cefazolin sodium during his ED course. He has abnormalities in his Hgb 13.6, Hct 40, MCH 32, Sodium 132, Creatinine .65, BUN/Creatinine ratio 24.6, Glucose 145, C-Reactive protein 48.17. obtained hospitalist consult, plan will be to give pt Vancomycin the ED and D/C home with scipt for bactrim for cellulitis and clobetasol and Nystatin for allergic hand/groin rash. - Diagnoses Provider Diagnoses: Cellulitis of leg, left, Allergic reaction due to antibacterial drug - Physician Notifications Discussed Care Of Patient With: Renny Koo Time Discussed With Above Provider: 11:43 Instructed by Provider To: Other - Dr. Koo, Hospitalist, will evaluate the pt in the ED for possible admission. Discharge ED - Sign-Out/Discharge Documenting (check all that apply): Patient Departure - discharge - Discharge Plan Condition: Stable Disposition: HOME Prescriptions: Clobetasol Propionate 15 gm TP QPM #1 oint...g. Nystatin TOP POWDER* 1 applic TOPICAL TID #1 btl Sulfamethox/Trimethoprim DS* [Bactrim DS 800/160 TAB*] 1 tab PO BID #20 tab Patient Education Materials: Cellulitis (ED), Antibiotic Medication Allergy (ED ) Referrals: Myla Luo MD [Primary Care Provider] - 2 Days Additional Instructions: PLEASE FOLLOW UP WITH YOUR PRIMARY CARE PROVIDER IN 1-3 DAYS AND RETURN TO THE EMERGENCY DEPARTMENT FOR ANY NEW OR WORSENING SYMPTOMS. Please take the medications prescribed to you as directed. Keep your appointment with Dr. Sheriff as scheduled. - Billing Disposition and Condition Condition: STABLE Disposition: Home - Attestation Statements Document Initiated by Vimal: Yes Documenting Scribe: Rupert Menendez Provider For Whom Vimal is Documenting (Include Credential): Marshal Shabazz MD Scribe Attestation: Rupert Mendez, scribed for Marshal Shabazz MD on 02/18/19 at 1555. Scribe Documentation Reviewed: Yes Provider Attestation: The documentation as recorded by the Rupert sunshine accurately reflects the service I personally performed and the decisions made by , Marshal Shabazz MD Status of Scribe Document: Viewed
[2019-02-18] MEDS ORDERED: NS 0.9% 1000 ML** 1,000 ML IV ONE (10:59)
[2019-02-18] MEDS ORDERED: ceFAZolin 1 GM* X ONE DOSE (AddVan) IVPB ×2 (11:00)
[2019-02-18 11:12] LABS: ABS Basophils 0.1 10^3/ul (0-0.2); ABS Eosinophils 0.5 10^3/ul (0-0.6); ABS Monocytes 0.7 10^3/ul (0-0.8); ABS Neutrophils 4.1 10^3/ul (1.5-7.7); Eosinophil % 7.9 %; Hematocrit 40 % (42-52); Hemoglobin 13.6 g/dL (14.0-18.0); Lymphocyte % 15.7 %; Mean Corpuscular HGB Conc 35 g/dL (31-36); Mean Corpuscular Hemoglobin 32 pg (27-31); Mean Corpuscular Volume 92 fL (80-94); Mean Platelet Volume 7.6 fL (7.4-10.4); Platelet Count 288 10^3/uL (150-450); Red Cell Distribution Width 15 % (10-15); White Blood Count 6.3 10^3/uL (3.5-10.8)
[2019-02-18 11:23] LABS: Albumin/Globulin Ratio 1.3 (1-3); BUN/Creatinine Ratio 24.6 (8-20); C Reactive Protein 48.17 mg/L (<8.01); Calcium 8.9 mg/dL (8.6-10.3); EGFR African American 146.9 (>60); EGFR Non-African American 121.4 (>60); Potassium 4.2 mmol/L (3.5-5.0); Total Bilirubin 0.4 mg/dL (0.2-1.0)
[2019-02-18] MEDS ORDERED: Vancomycin(*) 1,500 MG in NS 0.9% 250 ML* 250 ML IVPB ONE (13:00)
[2019-02-18] MEDS ORDERED: NS 0.9% 250 ML* 250 ML ONE (13:12)
--- NOTE | 2019-02-18 15:02 | CONS ---
CONSULTATION REPORT: DATE OF CONSULT: 02/18/19 PROVIDER: SADIE Gannon REQUESTING PROVIDER: Dr. Shabazz in the emergency room. REASON FOR CONSULT: Request for possible admission. HISTORY OF PRESENT ILLNESS: James Guidry is a 68-year-old white male with past medical history significant for diabetes, heart failure with reduced ejection fraction, hypertension, depression, chronic back pain and chronic migraines, who reported to the emergency department today due to erythema, edema and blisters on his left lower extremity. Of note, the patient was recently discharged on 02/13/19 due to suspected impetigo and associated cellulitis to his left buttock. When he was discharged he was advised to take 10 days of doxycycline. However, per the patient and his , he took 2 doses of doxycycline at home and then developed rash on his hands slowly. At that time, he called Dr. Bearden's office and Dr. Bearden recommended he go back to taking cephalexin, which he has been taking since 02/14/19 or 02/15/19 per patient and his . He has been having increasing swelling and redness of his left foot since 02/16/19. There is a little bit of a soreness to his left foot, but he is able to ambulate with his cane as per his baseline. He noticed these blisters, which have been popping and leaving yellow crust. The patient does report that the redness to his left buttock has been slowly improving. The patient denies fever, chills, chest pain, difficulty breathing, abdominal pain, nausea, vomiting, red streaking of his extremities. His and him tried putting a MI hose on his left leg to help with the swelling and it did not alleviate the swelling. The patient has been experiencing itching of the hands as well. The patient was evaluated in the emergency department and his vital signs were temperature 98 degrees Fahrenheit, pulse of 92 beats per minute, respiratory rate 20 respirations per minute, oxygen saturation 93% on room air, blood pressure 152/83 and later was 138/76. The patient had received a dose of 1 g of cephazolin in the emergency department as well as 25 mg IV Benadryl and 250 mL of normal saline. Additionally, the patient and his has noted erythema and itching along his waist into his groin and note a rash that is appeared there and they are unclear when that started, but they believe it was approximately 3 to 4 days ago. PAST MEDICAL HISTORY: 1. Tobacco use. 2. Diabetes mellitus type 2. 3. Osteoarthritis. 4. COPD. 5. GERD. 6. CHANDU. 7. Heart failure with reduced ejection fraction, EF most recently 45% to 50%. 8. BPH. 9. Hypertension. 10. Escobedo's esophagus. 11. Hyperlipidemia. 12. Erectile dysfunction. 13. Depression. 14. History of gastric ulcer and history of GI bleed. 15. Chronic back pain. 16. Migraines. PAST SURGICAL HISTORY: 1. Bilateral hip replacement, most recent left total hip performed by Dr. Bearden on 12/12/18. 2. Hakan fundoplication. 3. Umbilical hernia repair. HOME MEDICATIONS: 1. Nicotine 1 topical patch daily. 2. Neomycin/polymyxin 2 drops both ears b.i.d. p.r.n. 3. Lisinopril 5 mg p.o. daily. 4. Flexeril 10 mg p.o. t.i.d. 5. Zoloft 50 mg p.o. daily. 6. Omeprazole 20 mg p.o. daily. 7. Morphine extended release 30 mg p.o. t.i.d. 8. Morphine sulfate 15 mg p.o. q.i.d. p.r.n. pain. 9. Ativan 1 mg p.o. b.i.d. p.r.n. anxiety. 10. Vitamin D 1000 units p.o. daily. 11. Flomax 0.8 mg p.o. at bedtime. 12. Imitrex 100 mg p.o. b.i.d. p.r.n. migraine. 13. Metoprolol succinate 50 mg p.o. daily. 14. Aspirin 81 mg p.o. daily. 15. Albuterol inhaler 1 to 2 puffs inhaled q.4 hours p.r.n. shortness of breath or wheezing. 16. Senna 1 tab p.o. daily. 17. Colace 100 mg p.o. daily. 18. Triamcinolone ointment 1 application topically t.i.d. ALLERGIES: 1. New allergy: DOXYCYCLINE, rash to hands. 2. OXYCODONE, rash. FAMILY HISTORY: Father had a history of CVA. Mother had a history of diabetes and heart failure. SOCIAL HISTORY: The patient lives with his . Visiting nurses service has been to his house since his recent discharge and most recently they were visited on 02/16/19. The patient currently uses tobacco. He does not work and he drinks reportedly 3 to 4 alcoholic beverages per day. History of 40 years of smoking. REVIEW OF SYSTEMS: An 11-point review of systems was completed and all pertinent positives and negatives are above in the HPI. All other systems are negative. PHYSICAL EXAM: General: Obese elderly white male, lying in hospital bed, appearing comfortable, in no acute distress. Eyes: PERRL. Sclerae anicteric. ENT: Mucous membranes moist. Cardio: Regular rate and rhythm without murmurs , rubs, or gallops. Lungs: Clear to auscultation throughout. No accessory muscle use with breathing. Abdomen: Normoactive bowel sounds x4 quadrants. Abdomen is soft, nontender, nondistended. Extremities: Blanchable area of erythema approximately 10 cm in diameter on right buttock. No associated streaking. Erythema of the left foot up to approximately the mid yeager with intermittent bullae and yellow crust distributed. When bullae is de-roofed, there is a serous fluid. No purulence. Erythema is blanchable. There is +1 pitting edema to the ankle and to pretibial left yeager. Neuro: The patient is alert and oriented x3. No focal deficits. DIAGNOSTIC STUDIES/LAB DATA: White blood cell count 6.3, hemoglobin 13.6, hematocrit 40, platelet count 288. Sodium 132, potassium 4.2, chloride 101, carbon dioxide 23, anion gap 8, BUN 16, creatinine 0.65, glucose 145, calcium 8.9. Total bili is 0.4, AST 17, ALT 20, alk phos 76. CRP 48.17. ASSESSMENT AND PLAN: James Guidry is a 68-year-old male with past medical history significant for a recent impetigo of the left buttock, diabetes, systolic heart failure, obstructive sleep apnea, chronic obstructive pulmonary disease, who presents to the emergency department for left lower extremity erythema, edema and bullae. 1. Impetigo of the left lower extremity with associated cellulitis. I do not believe that the patient needs to be admitted inpatient for this. The patient was discharged on doxycycline and had a reaction to this outpatient, then was switched to Keflex. He is clearly not responding to Keflex and I suspect that this underlying impetigo is methicillin-resistant Staphylococcus aureus positive , which is why he was discharged on doxycycline on 02/13/19. I recommended discharge home after 1 dose of vancomycin 1.5 g in the hospital and recommended a 10-day supply of Bactrim double strength b.i.d. and I prescribed this to their pharmacy. I recommended elevation of lower extremity. He is going to continue to have [facility] coming to his home, but I did advise him to follow up with his primary care provider in 1 week to 10 days. I advised him to return to the hospital for fever or chills, red streaking up his extremities, worsening heart beat. I did de-roof one of the bullae of his left lower extremity and cultured the serous fluid and this should be followed by his primary care. I advised the patient to elevate his left lower extremity. 2. Erythema, edema and rash to hands. I suspect this is likely a reaction to doxycycline as it developed after 1 to 2 doses of doxycycline. He does have some persistent itching, which I prescribed clobetasol for. I advised the patient to only use it at night and just once daily for the next week and I advised him to follow up with his primary care in 1 week to 7 days and if this is not improved by this time, then perhaps different therapy should be considered. I advised that if the patient develops signs of anaphylaxis, to please call EMS immediately. 3. Rash to the groin/waist. I suspect that there is a component of underlying candidiasis to this and I prescribed nystatin and I sent this prescription, nystatin powder apply topically t.i.d. 4. Chronic medical conditions. The patient is otherwise to continue taking all of his home medications for systolic heart failure, diabetes, depression, chronic pain, chronic obstructive pulmonary disease, gastroesophageal reflux disease, benign prostatic hyperplasia. 5. Disposition: Recommend discharge home from the emergency department. Thank you for allowing us to participate in the care of this patient. SADIE GANNON [id number]/[facility] #: [id number] JAYCE
[2019-02-18 16:09] VITALS: BP 117/73
== END 2019-02-18 16:07 | disposition home or self-care (01) ==
LOC: ED 10:25
DX: L03.116 Cellulitis of left lower limb (principal); T36.8X5A Adverse effect of other systemic antibiotics, initial encounter; Y92.9 Unspecified place or not applicable; J44.9 Chronic obstructive pulmonary disease, unspecified; E11.9 Type 2 diabetes mellitus without complications; I11.0 Hypertensive heart disease with heart failure; I50.20 Unspecified systolic (congestive) heart failure; I25.10 Atherosclerotic heart disease of native coronary artery without angina pectoris; K21.9 Gastro-esophageal reflux disease without esophagitis; F41.9 Anxiety disorder, unspecified; N40.0 Benign prostatic hyperplasia without lower urinary tract symptoms; E78.5 Hyperlipidemia, unspecified; F32.9 Major depressive disorder, single episode, unspecified; Z87.891 Personal history of nicotine dependence; Z96.643 Presence of artificial hip joint, bilateral; Z79.82 Long term (current) use of aspirin; Z79.899 Other long term (current) drug therapy; Z88.1 Allergy status to other antibiotic agents; Z88.5 Allergy status to narcotic agent
CPT/HCPCS: 36415; 80053; 85025; 86140; 87040; 87070; 87205; 96361; 96365; 96366; 96375; 99283; J0690; J1200; J3370

== ENCOUNTER 2021-11-17 15:04 | Inpatient (IN) ==
[2021-11-17] MEDS ORDERED: Lactated Ringers 1000 ml BAG 1,000 ML IV ONE ×2 (15:36→15:37)
[2021-11-17] MEDS ORDERED: Piperacillin/Tazobac ADVAN 3.375 GM in NS 0.9% 100 ml BAG 100 ML IVPB ONE (15:58)
[2021-11-17 15:59] LABS: ABS Lymphocytes 0.7 10^3/ul (1.0-4.8); ABS Monocytes 0.8 10^3/ul (0-0.8); ABS Neutrophils 13.5 10^3/ul (1.5-7.7); Hematocrit 33 % (42-52); Lymphocyte % 4.6 %; Mean Corpuscular HGB Conc 33 g/dL (31-36); Mean Corpuscular Hemoglobin 31 pg (27-31); Mean Corpuscular Volume 95 fL (80-94); Mean Platelet Volume 8.3 fL (7.4-10.4); Platelet Count 308 10^3/uL (150-450); Red Cell Distribution Width 16 % (10-15)
[2021-11-17 16:10] LABS: Activated Partial Thrombo Time 32.3 seconds (26.0-38.0); INR 1.21 (0.89-1.11)
[2021-11-17 16:57] LABS: Albumin 3.3 g/dL (3.2-5.2); Albumin/Globulin Ratio 1.5 (1-3); C Reactive Protein 82.69 mg/L (<8.01); Calcium 8.8 mg/dL (8.6-10.3); Direct Bilirubin 5.4 mg/dL (0.03-0.18); Globulin 2.2 g/dL (2-4); Indirect Bilirubin 2.6 mg/dL (0.3-1.0); Potassium 3.4 mmol/L (3.5-5.0); Total Protein 5.5 g/dL (6.4-8.9); eGFR CKD-EPI 93.1 (>60)
[2021-11-17] MEDS ORDERED: Ondansetron 4 mg VIAL 2 MG/ML 2 ml VIAL IV PRN (17:07)
[2021-11-17] MEDS ORDERED: Albuterol HFA INHALER 8 gm MDI INH PRN (17:17)
[2021-11-17] MEDS ORDERED: oxyCODONE SR 10 mg TAB PO PRN (19:15)
[2021-11-17] MEDS: Enoxaparin 40 MG/0.4 ML SYR SUBCUT SCH (19:37)
[2021-11-17] MEDS ORDERED: Potassium EFFERVES 25 meq TAB PO ONE (19:59)
[2021-11-17] MEDS ORDERED: ZOSYN 3.375 GM Q8H per EXTENDED INFUSION IV SCH (20:30)
[2021-11-17] MEDS ORDERED: Morphine ER 30 mg TAB ** extended release PO SCH (21:00)
[2021-11-17] MEDS ORDERED: Zosyn per Pharmacy NOTE FOLLOW UP SCH (21:00)
[2021-11-18 06:01] LABS: ABS Eosinophils 0.1 10^3/ul (0-0.6); ABS Lymphocytes 0.8 10^3/ul (1.0-4.8); ABS Monocytes 0.6 10^3/ul (0-0.8); ABS Neutrophils 5.4 10^3/ul (1.5-7.7); Eosinophil % 1.4 %; Hematocrit 31 % (42-52); Hemoglobin 10.4 g/dL (14.0-18.0); Lymphocyte % 11.7 %; Mean Corpuscular HGB Conc 33 g/dL (31-36); Mean Corpuscular Hemoglobin 32 pg (27-31); Mean Corpuscular Volume 95 fL (80-94); Mean Platelet Volume 8.1 fL (7.4-10.4); Platelet Count 233 10^3/uL (150-450); Red Cell Distribution Width 16 % (10-15)
[2021-11-18 06:11] LABS: INR 1.21 (0.89-1.11)
[2021-11-18 06:39] LABS: Albumin 2.9 g/dL (3.2-5.2); Albumin/Globulin Ratio 1.3 (1-3); Calcium 8.3 mg/dL (8.6-10.3); Globulin 2.2 g/dL (2-4); Magnesium 1.8 mg/dL (1.9-2.7); Potassium 3.3 mmol/L (3.5-5.0); Total Bilirubin 5.3 mg/dL (0.2-1.0); Total Protein 5.1 g/dL (6.4-8.9)
[2021-11-18] MEDS: ZOSYN 3.375 GM Q8H per EXTENDED INFUSION IV SCH ×3 (08:07→23:14)
[2021-11-18] MEDS ORDERED: Morphine ORAL.SOLN 10 mg 2 mg/ml UDC 5 ml (10 mg) PO PRN ×2 (08:20→08:21)
[2021-11-18] MEDS ORDERED: Morphine ORAL.SOLN 10 mg 2 mg/ml UDC 5 ml (10 mg) PO SCH (09:00)
[2021-11-18] MEDS: Morphine ER 30 mg TAB ** extended release PO SCH ×3 (09:15→22:53)
[2021-11-18] MEDS: Aspirin EC 81 mg TAB.EC (enteric coated) PO SCH (09:15)
[2021-11-18] MEDS ORDERED: Potassium EFFERVES 25 meq TAB PO ONE (10:14)
[2021-11-18] MEDS ORDERED: Propofol 10 MG/ML 20 ML BTL ONE (17:00)
[2021-11-18] MEDS ORDERED: Lidocaine 2% PF 5 ML VIAL ONE (17:01)
[2021-11-18] MEDS ORDERED: fentaNYL 100 mcg/2 ml 50 MCG/ML VIAL ONE (17:01)
[2021-11-18] MEDS ORDERED: Rocuronium 50 mg VIAL 10 mg/ml 5 ml VIAL (50 mg) ONE (17:01)
[2021-11-18] MEDS ORDERED: KCL 10 MEQ/50 ML IVPREMIX 10 MEQ/50 ML BAG IV ONE (17:42)
[2021-11-18] MEDS ORDERED: Naloxone 0.4 mg VIAL 0.4 mg/ml 1 ml VIAL IV PRN (19:29)
[2021-11-18] MEDS: Enoxaparin 40 MG/0.4 ML SYR SUBCUT SCH (22:28)
[2021-11-19] MEDS: ZOSYN 3.375 GM Q8H per EXTENDED INFUSION IV SCH ×2 (05:27→13:53)
[2021-11-19 07:56] LABS: ABS Lymphocytes 0.6 10^3/ul (1.0-4.8); ABS Monocytes 0.5 10^3/ul (0-0.8); ABS Neutrophils 4.7 10^3/ul (1.5-7.7); Hematocrit 32 % (42-52); Hemoglobin 10.7 g/dL (14.0-18.0); Lymphocyte % 10.7 %; Mean Corpuscular HGB Conc 33 g/dL (31-36); Mean Corpuscular Hemoglobin 32 pg (27-31); Mean Corpuscular Volume 96 fL (80-94); Mean Platelet Volume 8.2 fL (7.4-10.4); Platelet Count 257 10^3/uL (150-450); Red Blood Count 3.35 10^6 /uL (4.18-5.48); Red Cell Distribution Width 16 % (10-15); White Blood Count 5.9 10^3/uL (3.5-10.8)
[2021-11-19 08:32] LABS: Albumin 2.9 g/dL (3.2-5.2); Albumin/Globulin Ratio 1.2 (1-3); Calcium 8.4 mg/dL (8.6-10.3); Direct Bilirubin 1.5 mg/dL (0.03-0.18); Globulin 2.5 g/dL (2-4); Indirect Bilirubin 1.2 mg/dL (0.3-1.0); Magnesium 1.8 mg/dL (1.9-2.7); Potassium 4.2 mmol/L (3.5-5.0); Total Bilirubin 2.7 mg/dL (0.2-1.0); Total Protein 5.4 g/dL (6.4-8.9); eGFR CKD-EPI 107.1 (>60)
[2021-11-19] MEDS: Morphine ER 30 mg TAB ** extended release PO SCH ×3 (08:36→21:03)
[2021-11-19] MEDS: Aspirin EC 81 mg TAB.EC (enteric coated) PO SCH (08:36)
[2021-11-19] MEDS: KCL 20 MEQ/100 ML IVPREMIX 20 MEQ/100 ML BAG IV SCH ×2 (09:04→11:28)
[2021-11-20] MEDS: ZOSYN 3.375 GM Q8H per EXTENDED INFUSION IV SCH ×3 (00:34→13:54)
[2021-11-20 06:39] LABS: ABS Basophils 0.1 10^3/ul (0-0.2); ABS Eosinophils 0.1 10^3/ul (0-0.6); ABS Lymphocytes 1.4 10^3/ul (1.0-4.8); ABS Monocytes 0.6 10^3/ul (0-0.8); ABS Neutrophils 4.5 10^3/ul (1.5-7.7); Eosinophil % 1.6 %; Hematocrit 33 % (42-52); Hemoglobin 11.2 g/dL (14.0-18.0); Lymphocyte % 20.9 %; Mean Corpuscular HGB Conc 34 g/dL (31-36); Mean Corpuscular Hemoglobin 33 pg (27-31); Mean Corpuscular Volume 97 fL (80-94); Mean Platelet Volume 8.3 fL (7.4-10.4); Platelet Count 273 10^3/uL (150-450); Red Cell Distribution Width 16 % (10-15); White Blood Count 6.6 10^3/uL (3.5-10.8)
[2021-11-20 07:04] LABS: Albumin/Globulin Ratio 1.3 (1-3); Calcium 8.5 mg/dL (8.6-10.3); Globulin 2.4 g/dL (2-4); Potassium 4.7 mmol/L (3.5-5.0); Total Bilirubin 2.3 mg/dL (0.2-1.0); Total Protein 5.4 g/dL (6.4-8.9); eGFR CKD-EPI 100.9 (>60)
[2021-11-20] MEDS: Aspirin EC 81 mg TAB.EC (enteric coated) PO SCH (08:27)
[2021-11-20] MEDS: Morphine ER 30 mg TAB ** extended release PO SCH ×2 (08:28→13:53)
[2021-11-20 16:23] VITALS: BP 141/72
[2021-11-20] MEDS ORDERED: Enoxaparin 40 MG/0.4 ML SYR SUBCUT SCH (21:00)
[2021-11-21] MEDS ORDERED: Influenza vaccine *QUAD* *2022-23* 0.5 ML SYRINGE IM ONE (09:00)
== END 2021-11-20 17:45 | disposition home health service (06) | DRG 871 ==
LOC: EDHOLD 15:04 → ED 15:04 → MEDTELE 20:02 → SUATTDRO 11-18 18:46
PROVIDERS: ADMIT Internal Medicine; ATTEND Internal Medicine

== ENCOUNTER 2022-02-01 18:23 | Inpatient (IN) ==
[2022-02-01 19:15] LABS: ABS Basophils 0.1 10^3/ul (0-0.2); ABS Eosinophils 0.2 10^3/ul (0-0.6); ABS Lymphocytes 1.6 10^3/ul (1.0-4.8); ABS Monocytes 0.7 10^3/ul (0-0.8); ABS Neutrophils 4.2 10^3/ul (1.5-7.7); Eosinophil % 2.8 %; Hematocrit 41 % (42-52); Hemoglobin 13.8 g/dL (14.0-18.0); Lymphocyte % 23.2 %; Mean Corpuscular HGB Conc 33 g/dL (31-36); Mean Corpuscular Hemoglobin 32 pg (27-31); Mean Corpuscular Volume 95 fL (80-94); Mean Platelet Volume 7.7 fL (7.4-10.4); Platelet Count 274 10^3/uL (150-450); Red Blood Count 4.33 10^6 /uL (4.18-5.48); Red Cell Distribution Width 15 % (10-15); White Blood Count 6.8 10^3/uL (3.5-10.8)
[2022-02-01 19:37] LABS: High Sens Troponin Baseline 20 pg/mL (<20)
[2022-02-01 19:59] LABS: ALT 16 U/L (7-52); AST 17 U/L (13-39); Albumin 3.8 g/dL (3.2-5.2); Albumin/Globulin Ratio 1.7 (1-3); Alkaline Phosphatase 76 U/L (35-149); Anion Gap 7 mmol/L (2-11); Blood Urea Nitrogen 23 mg/dL (6-24); CO2 Carbon Dioxide 26 mmol/L (22-32); Calcium 8.7 mg/dL (8.6-10.3); Chloride 109 mmol/L (101-111); Globulin 2.3 g/dL (2-4); Glucose 231 mg/dL (70-100); Magnesium 2.2 mg/dL (1.9-2.7); Potassium 3.8 mmol/L (3.5-5.0); Sodium 142 mmol/L (135-145); Total Protein 6.1 g/dL (6.4-8.9); eGFR CKD-EPI 92.1 (>60)
[2022-02-01 20:13] LABS: TSH Ultra Thyroid Stim Horm 0.86 mcIU/mL (0.34-5.60)
[2022-02-01 20:49] LABS: High Sensitivity Troponin 1 Hr 22 pg/mL (<20)
[2022-02-01 21:01] LABS: Acetaminophen < 15 mcg/mL; Alcohol, S < 13 mg/dL (<13); Salicylate < 2.50 mg/dL (<30)
[2022-02-01] MEDS ORDERED: LORazepam 2 mg VIAL 1 ml IV PUSH ONE (21:02)
[2022-02-01] MEDS ORDERED: Lorazepam PYXIS KEY PRN (21:02)
[2022-02-01] MEDS ORDERED: Albuterol HFA INHALER 8 gm MDI INH PRN (23:21)
[2022-02-01] MEDS ORDERED: Folic Acid IV 1 MG in NS 0.9% 50 ML 50 ML IV ONE (23:28)
[2022-02-02 00:07] LABS: Folate 15.02 ng/mL (5.90-24.80)
[2022-02-02 00:08] LABS: Vitamin B12 181 pg/mL (180-914)
[2022-02-02 03:32] LABS: ABS Basophils 0.1 10^3/ul (0-0.2); ABS Eosinophils 0.2 10^3/ul (0-0.6); ABS Lymphocytes 1.4 10^3/ul (1.0-4.8); ABS Monocytes 0.7 10^3/ul (0-0.8); ABS Neutrophils 3.7 10^3/ul (1.5-7.7); Eosinophil % 3.7 %; Hematocrit 40 % (42-52); Hemoglobin 13.1 g/dL (14.0-18.0); Lymphocyte % 22.9 %; Mean Corpuscular HGB Conc 33 g/dL (31-36); Mean Corpuscular Hemoglobin 31 pg (27-31); Mean Corpuscular Volume 96 fL (80-94); Mean Platelet Volume 7.1 fL (7.4-10.4); Platelet Count 242 10^3/uL (150-450); Red Blood Count 4.22 10^6 /uL (4.18-5.48); Red Cell Distribution Width 15 % (10-15); White Blood Count 6.2 10^3/uL (3.5-10.8)
[2022-02-02 03:32] LABS: Urine Benzodiazepine Screen None Detected (None Detect); Urine Cannabinoids Screen None Detected (None Detect); Urine Opiates Screen None Detected (None Detect)
[2022-02-02 04:00] LABS: Calcium 8.5 mg/dL (8.6-10.3); Potassium 3.9 mmol/L (3.5-5.0)
[2022-02-02 04:06] LABS: eGFR CKD-EPI 96.9 (>60)
[2022-02-02] MEDS: Thiamine 100 MG/ML 2 ml VIAL 250 MG in NS 0.9% 100 ml BAG 100 ML IV SCH ×2 (04:19→21:37)
[2022-02-02] MEDS: Multivitamins/Minerals TAB PO SCH (09:25)
[2022-02-02] MEDS: Aspirin EC 81 mg TAB.EC (enteric coated) PO SCH (09:26)
[2022-02-02] MEDS: Cyanocobalamin INJ 1,000 MCG/ML VIAL 1 ML VIAL IM SCH (09:33)
[2022-02-02] MEDS ORDERED: Nicotine GUM 4MG FRUIT FLAVOR PO PRN (11:25)
[2022-02-02] MEDS ORDERED: LORazepam 2 mg VIAL 1 ml IV PUSH PRN (13:20)
[2022-02-02] MEDS ORDERED: Lorazepam PYXIS KEY PRN (13:20)
[2022-02-02] MEDS: Enoxaparin 40 MG/0.4 ML SYR SUBCUT SCH ×2 (21:35)
[2022-02-03] MEDS ORDERED: Nicotine PATCH 21 MG/24 HR PATCH TRANSDERM SCH (08:00)
[2022-02-03] MEDS: Aspirin EC 81 mg TAB.EC (enteric coated) PO SCH (10:02)
[2022-02-03] MEDS: Multivitamins/Minerals TAB PO SCH (10:03)
[2022-02-03] MEDS: Cyanocobalamin INJ 1,000 MCG/ML VIAL 1 ML VIAL IM SCH (10:10)
[2022-02-03] MEDS: Thiamine 100 MG/ML 2 ml VIAL 250 MG in NS 0.9% 100 ml BAG 100 ML IV SCH (22:21)
[2022-02-03] MEDS: Enoxaparin 40 MG/0.4 ML SYR SUBCUT SCH (22:30)
[2022-02-04 06:15] LABS: ABS Eosinophils 0.1 10^3/ul (0-0.6); ABS Lymphocytes 0.5 10^3/ul (1.0-4.8); ABS Monocytes 0.6 10^3/ul (0-0.8); ABS Neutrophils 3.9 10^3/ul (1.5-7.7); Eosinophil % 2.6 %; Hematocrit 41 % (42-52); Hemoglobin 13.9 g/dL (14.0-18.0); Lymphocyte % 8.9 %; Mean Corpuscular HGB Conc 34 g/dL (31-36); Mean Corpuscular Hemoglobin 33 pg (27-31); Mean Corpuscular Volume 95 fL (80-94); Mean Platelet Volume 7.8 fL (7.4-10.4); Platelet Count 217 10^3/uL (150-450); Red Blood Count 4.27 10^6 /uL (4.18-5.48); Red Cell Distribution Width 15 % (10-15); White Blood Count 5.1 10^3/uL (3.5-10.8)
[2022-02-04 06:23] VITALS: BP 143/85
[2022-02-04 06:33] LABS: Magnesium 1.8 mg/dL (1.9-2.7); eGFR CKD-EPI 91.8 (>60)
== END 2022-02-04 08:00 | disposition left against medical advice (07) | DRG 947 ==
LOC: ED 18:23 → EDHOLD 18:23 → SUATTDRO 22:30 → MED 02-02 00:11 → SUATTDRO 02-02 14:35
PROVIDERS: ADMIT Internal Medicine; ATTEND Student in an Organized Health Care Education/Training Program

== ENCOUNTER 2022-06-30 13:16 | Inpatient (IN) ==
[2022-06-30 15:48] LABS: ABS Basophils 0.1 10^3/uL (0.0-0.1); ABS Lymphocytes 1.4 10^3/uL (1.0-4.8); ABS Monocytes 0.9 10^3/uL (0.0-1.1); ABS Neutrophils 7.3 10^3/uL (1.5-7.6); ABS Nucleated RBC 0.01 10^3/ul; Eosinophil % 0.3 %; Hemoglobin 15.3 g/dL (13.2-16.3); Lymphocyte % 14.7 %; Mean Corpuscular Hemoglobin 32.8 pg (27-33); Mean Corpuscular Hgb Conc 34.6 g/dL (31-36); Mean Corpuscular Volume 94.6 fL (80-97); Mean Platelet Volume 7.6 fL (7.5-11.2); Nucleated Red Blood Cells % 0.1 /100 WBC (0.0-0.4); Platelet Count 298 10^3/uL (150-450); Red Blood Count 4.65 10^6/uL (4.06-5.63); Red Cell Distribution Width 14.1 % (12-17); White Blood Count 9.7 10^3/uL (3.6-10.2)
[2022-06-30 16:48] LABS: ALT 14 U/L (7-52); AST 17 U/L (13-39); Acetaminophen < 15 mcg/mL; Albumin 4.1 g/dL (3.2-5.2); Albumin/Globulin Ratio 1.6 (1-3); Alcohol, S < 13 mg/dL (<13); Alkaline Phosphatase 69 U/L (35-149); Anion Gap 13 mmol/L (2-16); Blood Urea Nitrogen 29 mg/dL (6-24); CO2 Carbon Dioxide 22 mmol/L (22-32); Calcium 9.1 mg/dL (8.6-10.3); Chloride 103 mmol/L (101-111); Creatinine, Serum 0.96 mg/dL (0.67-1.17); Globulin 2.5 g/dL (2-4); Glucose 158 mg/dL (70-100); Potassium 3.5 mmol/L (3.5-5.0); Salicylate < 2.50 mg/dL (<30); Sodium 138 mmol/L (135-145); Total Protein 6.6 g/dL (6.4-8.9); eGFR CKD-EPI 83.5 (>60)
[2022-06-30] MEDS ORDERED: Al Hydrox/Mg Hydrox/Simet LIQ 30 ML UDC PO PRN (22:10)
[2022-06-30] MEDS ORDERED: Nicotine GUM 2MG FRUIT FLAVOR PO PRN (23:00)
[2022-07-01 08:17] LABS: HDL Cholesterol 40.4 mg/dL
[2022-07-01] MEDS: Nicotine PATCH 14 MG/24 HR PATCH TRANSDERM SCH (10:45)
[2022-07-01] MEDS: Vitamin THERAPEUTIC TAB PO SCH (10:45)
[2022-07-02] MEDS: Vitamin THERAPEUTIC TAB PO SCH (11:37)
[2022-07-02] MEDS: Nicotine PATCH 14 MG/24 HR PATCH TRANSDERM SCH (11:39)
[2022-07-02] MEDS ORDERED: Albuterol HFA INHALER 8 gm MDI INH PRN (12:13)
[2022-07-03] MEDS: Nicotine PATCH 14 MG/24 HR PATCH TRANSDERM SCH (07:48)
[2022-07-03] MEDS: Vitamin THERAPEUTIC TAB PO SCH (07:49)
[2022-07-03] MEDS: Calcium Polycarbophil 625mg TB PO SCH (07:50)
[2022-07-03] MEDS: Cholecalciferol (VIT D3) 1,000 unit TAB PO SCH (07:50)
[2022-07-04] MEDS: Cholecalciferol (VIT D3) 1,000 unit TAB PO SCH (11:15)
[2022-07-04] MEDS: Calcium Polycarbophil 625mg TB PO SCH (11:15)
[2022-07-04] MEDS: Vitamin THERAPEUTIC TAB PO SCH (11:19)
[2022-07-04] MEDS: Nicotine PATCH 14 MG/24 HR PATCH TRANSDERM SCH (11:20)
[2022-07-05] MEDS: Nicotine PATCH 14 MG/24 HR PATCH TRANSDERM SCH (09:18)
[2022-07-05] MEDS: Vitamin THERAPEUTIC TAB PO SCH (09:19)
[2022-07-05] MEDS: Cholecalciferol (VIT D3) 1,000 unit TAB PO SCH (09:21)
[2022-07-05] MEDS: Calcium Polycarbophil 625mg TB PO SCH (09:22)
[2022-07-06] MEDS: Vitamin THERAPEUTIC TAB PO SCH (10:09)
[2022-07-06] MEDS: Calcium Polycarbophil 625mg TB PO SCH (10:11)
[2022-07-06] MEDS: Cholecalciferol (VIT D3) 1,000 unit TAB PO SCH (10:11)
[2022-07-06] MEDS: Nicotine PATCH 14 MG/24 HR PATCH TRANSDERM SCH (10:12)
[2022-07-07] MEDS: Cholecalciferol (VIT D3) 1,000 unit TAB PO SCH (12:02)
[2022-07-07] MEDS: Calcium Polycarbophil 625mg TB PO SCH (12:02)
[2022-07-07] MEDS: Nicotine PATCH 14 MG/24 HR PATCH TRANSDERM SCH (12:02)
[2022-07-07] MEDS: Vitamin THERAPEUTIC TAB PO SCH (12:03)
[2022-07-08] MEDS: Cholecalciferol (VIT D3) 1,000 unit TAB PO SCH (10:15)
[2022-07-08] MEDS: Calcium Polycarbophil 625mg TB PO SCH (10:15)
[2022-07-08] MEDS: Vitamin THERAPEUTIC TAB PO SCH (10:16)
[2022-07-08] MEDS: Nicotine PATCH 14 MG/24 HR PATCH TRANSDERM SCH (10:16)
[2022-07-09] MEDS: Nicotine PATCH 14 MG/24 HR PATCH TRANSDERM SCH (09:53)
[2022-07-09] MEDS: Calcium Polycarbophil 625mg TB PO SCH (09:54)
[2022-07-09] MEDS: Cholecalciferol (VIT D3) 1,000 unit TAB PO SCH (09:54)
[2022-07-09] MEDS: Vitamin THERAPEUTIC TAB PO SCH (09:56)
[2022-07-10] MEDS: Nicotine PATCH 14 MG/24 HR PATCH TRANSDERM SCH (09:25)
[2022-07-10] MEDS: Calcium Polycarbophil 625mg TB PO SCH (09:26)
[2022-07-10] MEDS: Vitamin THERAPEUTIC TAB PO SCH (09:26)
[2022-07-10] MEDS: Cholecalciferol (VIT D3) 1,000 unit TAB PO SCH (09:27)
[2022-07-11] MEDS: Cholecalciferol (VIT D3) 1,000 unit TAB PO SCH (08:38)
[2022-07-11] MEDS: Calcium Polycarbophil 625mg TB PO SCH (08:40)
[2022-07-11] MEDS: Nicotine PATCH 14 MG/24 HR PATCH TRANSDERM SCH (08:41)
[2022-07-11] MEDS: Vitamin THERAPEUTIC TAB PO SCH (08:42)
[2022-07-12] MEDS: Calcium Polycarbophil 625mg TB PO SCH (09:33)
[2022-07-12] MEDS: Cholecalciferol (VIT D3) 1,000 unit TAB PO SCH (09:33)
[2022-07-12] MEDS: Nicotine PATCH 14 MG/24 HR PATCH TRANSDERM SCH (09:33)
[2022-07-12] MEDS: Vitamin THERAPEUTIC TAB PO SCH (09:35)
[2022-07-12 10:16] VITALS: BP 152/66
== END 2022-07-12 11:53 | disposition home or self-care (01) | DRG 885 ==
LOC: ED 13:16 → BSU 21:45 → EDHOLD 21:51 → BSU 22:00
PROVIDERS: ADMIT Psychiatry & Neurology Psychiatry; ATTEND Psychiatry & Neurology Psychiatry